=== PATIENT | female | born 1935 | race Caucasian/White ===

== ENCOUNTER 2016-11-05 14:15 | Emergency (ER) | payer MEDICARE, OTHER ==
[~2016-11-05] VITALS: Ht 165.1 cm; Wt 72.6 kg
[~2016-11-05 14:15] MED LIST: ASPI-266 PO; ASPI-587 PO; CITA-105 PO; CRS350T PO; EXEN10PE4 SQ; FURO20TA4 PO; GLIM2TAB PO; HYDR-3720 PO; LEVO125T PO; LIRA0.6P SQ; LOSA100T16 PO; LTN005OP2 OP; MTF500T PO; NAPR220T76 PO; PNT40TEC PO; POTA10CA43 PO; SMV20T PO; Sucralfate PO; TRAM50TA2 PO
[2016-11-05 16:02] LABS: BILIRUBIN,URINE NEGATIVE (NEGATIVE); KETONES,URINE 3+ (NEGATIVE); LEUKOCYTE ESTERASE ,URINE 2+ (NEGATIVE); NITRITE,URINE NEGATIVE (NEGATIVE); PH,URINE 6.5 (5-9); PROTEIN,URINE 3+ (NEGATIVE); UROBILINOGEN,URINE 1 MG/DL (NORMAL)
[2016-11-05 16:02] LABS: BASOPHILS # (AUTO) 0.1 10^3/uL (0.0-0.1); BASOPHILS % (AUTO) 0 % (0-10); EOSINOPHILS # (AUTO) 0.1 10^3/uL (0.0-0.3); EOSINOPHILS % (AUTO) 0 % (0-10); LYMPHOCYTES # (AUTO) 2.7 X 10^3 (1.0-4.0); LYMPHOCYTES % (AUTO) 20 % (12-44); MEAN CORPUSCULAR HEMOGLOBIN 30 PG (25-34); MEAN CORPUSCULAR HGB CONC 34 G/DL (32-36); MEAN CORPUSCULAR VOLUME 88 FL (80-99); MEAN PLATELET VOLUME 9.8 FL (7.4-10.4); MONOCYTES # (AUTO) 0.7 X 10^3 (0.0-1.0); MONOCYTES % (AUTO) 5 % (0-12); NEUTROPHILS # (AUTO) 10.1 X 10^3 (1.8-7.8); NEUTROPHILS % (AUTO) 74 % (42-75); PLATELET COUNT 348 10^3/uL (130-400); RED BLOOD COUNT 4.46 10^6/uL (4.35-5.85); RED CELL DISTRIBUTION WIDTH 13.9 % (10.0-14.5); WHITE BLOOD COUNT 13.6 10^3/uL (4.3-11.0)
[2016-11-05 16:15] LABS: ALANINE AMINOTRANSFERASE 11 U/L (0-55); ALBUMIN 4.7 G/DL (3.2-4.5); ANION GAP 15 MMOL/L (5-14); ASPARTATE AMINO TRANSFERASE 14 U/L (5-34); BILIRUBIN,TOTAL 0.8 MG/DL (0.1-1.0); BLOOD UREA NITROGEN 11 MG/DL (7-18); BUN/CREATININE RATIO 13; CALCIUM 9.5 MG/DL (8.5-10.1); CARBON DIOXIDE 23 MMOL/L (21-32); CHLORIDE 101 MMOL/L (98-107); CREATININE SERUM 0.83 MG/DL (0.60-1.30); GFR ESTIMATED > 60; GLUCOSE 109 MG/DL (70-105); POTASSIUM 3.6 MMOL/L (3.6-5.0); SODIUM 139 MMOL/L (135-145); TOTAL PROTEIN 7.7 G/DL (6.4-8.2)
[2016-11-05] MEDS ORDERED: ONDANSETRON 4 MG/2 ML (SDV) Z0FRAN IVP ONE (16:30)
--- NOTE | 2016-11-05 16:30 | ED GI ---
General Chief Complaint: Abdominal/GI Problems Stated Complaint: VOMITING/ELEV BP Nursing Triage Note: PT REPORTS SHE HAS VOMITTED 3 TIMES TODAY. ALSO C/O HYPERTENSION X 1 WEEK Sepsis Screen: No Definite Risk History of Present Illness Time Seen By Provider: 16:24 Initial Comments This 81-year-old white female presents with a complaint of vomiting 3 today. The patient has had no associated fever, chills, abdominal pain, headache or stiff neck, shortness of breath or productive cough, palpitations or chest pain. Patient has a history of hypertension for which she is taking new medications in an attempt to control her pressure. She is under the care of Dr. Galaviz. Allergies and Home Medications Allergies Coded Allergies: cefaclor (Verified Allergy, Unknown, 09/10/08) codeine (Verified Allergy, Unknown, 09/10/08) latex (Verified Allergy, Unknown, 09/10/08) nabumetone (Verified Allergy, Unknown, 09/10/08) propranolol (Verified Allergy, Unknown, 09/10/08) sulfamethoxazole (Verified Allergy, Unknown, 09/10/08) trimethoprim (Verified Allergy, Unknown, 09/10/08) Uncoded Allergies: STEROIDS (Allergy, Intermediate, 06/30/11) IODINE (IV DYE) (Allergy, Unknown, 10/08/14) LATEX (Allergy, Unknown, 09/10/08) Home Medications 1 GM TAB #120 1 GM PO ACHS Prescribed by: SHAYNE GALAVIZ on 10/13/14921 Citalopram Hydrobromide 40 Mg Tablet 40 MG PO DAILY (Reported) Latanoprost 2.5 Ml Soln 1 DROP OP HS (Reported) 1 DROP INTO AFFECTED EYE Levothyroxine Sodium 125 Mcg Tablet 125 MCG PO DAILY (Reported) Liraglutide 0.6 Mg/0.1 Ml Pen.injctr 1.2 MG SQ DAILY (Reported) Losartan Potassium 100 Mg Tablet 100 MG PO DAILY (Reported) Metformin Hcl 500 Mg Tablet 1,000 MG PO BID WITH MEALS (Reported) TAKES 2 (500MG) TABLETS Pantoprazole Sod 40 Mg Tab #60 40 MG PO BID Prescribed by: SHAYNE GALAVIZ on 10/13/14921 Simvastatin 20 Mg Tab 20 MG PO HS (Reported) Review of Systems Constitutional: No chills, No fever EENTM: No Blurred Vision Respiratory: Denies Cough Cardiovascular: Denies Chest Pain Gastrointestinal: Denies Abdominal Pain, Nausea Vomiting Genitourinary: Denies Burning, Denies Drainage, Denies Frequency, Denies Flank Pain Musculoskeletal: No back pain, No joint pain Skin: no symptoms reportedNo rash Psychiatric/Neurological: No Symptoms Reported Endocrine: No Symptoms Reported Hematologic/Lymphatic: No Symptoms Reported Past Wzieirz-Panspt-Epvbmj Hx Patient Social History Alcohol Use: Denies Use Recreational Drug Use: No Smoking Status: Never a Smoker Recent Foreign Travel: No Contact w/Someone Who Travel: No Recent Infectious Disease Expo: No Recent Hopitalizations: Yes Immunizations Up To Date Date of Pneumonia Vaccine: Oct 08, 2013 Date of Influenza Vaccine: Jul 08, 2014 Surgeries HX Surgeries: Yes (back surg 06/2011; GB) Surgeries: Gallbladder, Hysterectomy, Orthopedic Respiratory Hx Respiratory Disorders: No Cardiovascular Hx Cardiac Disorders: Yes Cardiac Disorders: Hypertension Neurological Hx Neurological Disorders: No Reproductive System Hx Reproductive Disorders: No Sexually Transmitted Disease: No HIV/AIDS: No Female Reproductive Disorders: Denies Genitourinary Hx Genitourinary Disorders: No Gastrointestinal Hx Gastrointestinal Disorders: Yes (18 in bowel resection) Gastrointestinal Disorders: Diverticulosis Musculoskeletal Hx Musculoskeletal Disorders: Yes (ARTHRITIS) Endocrine Hx Endocrine Disorders: Yes (Graves disease) Endocrine Disorders: Diabetes, Non-Insulin dep HEENT HX ENT Disorders: Yes HEENT Disorders: Glaucoma Cancer Hx Cancer: No Psychosocial Hx Psychiatric Problems: No Integumentary HX Skin/Integumentary Disorder: No Blood Transfusions Hx Blood Disorders: No Adverse Reaction to a Blood Tr: No Reviewed Nursing Assessment Reviewed/Agree w Nursing PMH: Yes Family Medical History Family Medial History: Diabetes mellitus G8 SISTER FH: heart disease 19 FATHER G8 BROTHER Physical Exam Vital Signs VS - Last 72 Hours, by Label 11/05/16 15:07 Temp 99.8 Pulse 112 Resp 18 B/P 201/112 Capillary Refill : Less Than 3 Seconds General Appearance: WD/WN no apparent distress Neck: normal inspection Respiratory: lungs clear Cardiovascular: regular rate, rhythm Gastrointestinal: normal bowel sounds non tender soft Extremities: normal range of motion non-tender normal inspection Neurologic/Psychiatric: no motor/sensory deficits alert normal mood/affect Skin: normal color warm/dry Progress/Results/Core Measures Results/Orders Lab Results Laboratory Tests Test 11/05/16 15:25 11/05/16 15:54 Range/Units Alanine Aminotransferase (ALT/SGPT) 11 0-55 U/L Albumin 4.7 H 3.2-4.5 G/DL Alkaline Phosphatase 80 40-136 U/L Anion Gap 15 H 5-14 MMOL/L Aspartate Amino Transf (AST/SGOT) 14 5-34 U/L BUN/Creatinine Ratio 13 Basophils # (Auto) 0.1 0.0-0.1 10^3/uL Basophils (%) (Auto) 0 0-10 % Blood Urea Nitrogen 11 7-18 MG/DL Calcium Level 9.5 8.5-10.1 MG/DL Carbon Dioxide Level 23 21-32 MMOL/L Chloride Level 101 98-107 MMOL/L Creatinine 0.83 0.60-1.30 MG/DL Eosinophils # (Auto) 0.1 0.0-0.3 10^3/uL Eosinophils (%) (Auto) 0 0-10 % Estimat Glomerular Filtration Rate > 60 Glucose Level 109 H 70-105 MG/DL Hematocrit 39 35-52 % Hemoglobin 13.3 11.5-16.0 G/DL Lymphocytes # (Auto) 2.7 1.0-4.0 X 10^3 Lymphocytes (%) (Auto) 20 12-44 % Mean Corpuscular Hemoglobin 30 25-34 PG Mean Corpuscular Hemoglobin Concent 34 32-36 G/DL Mean Corpuscular Volume 88 80-99 FL Mean Platelet Volume 9.8 7.4-10.4 FL Monocytes # (Auto) 0.7 0.0-1.0 X 10^3 Monocytes (%) (Auto) 5 0-12 % Neutrophils # (Auto) 10.1 H 1.8-7.8 X 10^3 Neutrophils (%) (Auto) 74 42-75 % Platelet Count 348 130-400 10^3/uL Potassium Level 3.6 3.6-5.0 MMOL/L Red Blood Count 4.46 4.35-5.85 10^6/uL Red Cell Distribution Width 13.9 10.0-14.5 % Sodium Level 139 135-145 MMOL/L Total Bilirubin 0.8 0.1-1.0 MG/DL Total Protein 7.7 6.4-8.2 G/DL White Blood Count 13.6 H 4.3-11.0 10^3/uL Urine Bacteria MODERATE H /HPF Urine Bilirubin NEGATIVE NEGATIVE Urine Casts NONE /LPF Urine Clarity CLEAR Urine Color YELLOW Urine Crystals NONE /LPF Urine Culture Indicated YES Urine Glucose (UA) NEGATIVE NEGATIVE Urine Ketones 3+ H NEGATIVE Urine Leukocyte Esterase 2+ H NEGATIVE Urine Mucus NEGATIVE /LPF Urine Nitrite NEGATIVE NEGATIVE Urine Protein 3+ H NEGATIVE Urine RBC 2-5 H /HPF Urine RBC (Auto) 1+ H NEGATIVE Urine Specific Hamill 1.015 L 1.016-1.022 Urine Squamous Epithelial Cells 5-10 /HPF Urine Urobilinogen 1 NORMAL MG/DL Urine WBC 5-10 H /HPF Urine pH 6.5 5-9 My Orders Orders-ALINA SANCHEZ MD Cbc With Automated Diff (11/05/16 15:53) Comprehensive Metabolic Panel (11/05/16 15:53) Ua Culture If Indicated (11/05/16 15:53) Ondansetron Injection (Zofran Injectio (11/05/16 16:30) Urine Culture (11/05/16 15:54) Vital Signs/I&O Vital Sign - Last 12Hours 11/05/16 15:07 Temp 99.8 Pulse 112 Resp 18 B/P 201/112 Blood Pressure Mean: 141 Progress Note : Time: 16:28 Progress Note The patient was given 4 mg of Zofran IV. The patient some laboratory evaluation demonstrated a marked UTI. Departure Impression Impression: Primary Impression: Urinary tract infection Qualified Code: N30.00 - Acute cystitis without hematuria Disposition: HOME, SELF-CARE Condition: Improved Departure-Patient Inst. Decision time for Depature: 16:29 Referrals: SHAYNE GALAVIZ DO (PCP/Family) Primary Care Physician Add. Discharge Instructions: Macrobid as prescribed. Zofran as prescribed for nausea. Close follow-up with Dr. Galaviz on Monday. Return if any problems. All discharge instructions reviewed with patient and/or family. Voiced understanding. ALINA SANCHEZ MD Nov 05, 2016 16:30
[2016-11-05 17:00] VITALS: BP 154/71
== END 2016-11-05 17:00 | disposition home or self-care (01) ==
LOC: EDUNIT# 14:15 → ER 14:16
DX: R11.2 Nausea with vomiting, unspecified (principal); I10 Essential (primary) hypertension; E11.9 Type 2 diabetes mellitus without complications; Z79.84 Long term (current) use of oral hypoglycemic drugs; Z79.899 Other long term (current) drug therapy
CPT/HCPCS: 36415; 80053; 81000; 85025; 87077; 87088; 87186; 96374

== ENCOUNTER → 2017-07-03 | Outpatient (CLI) | payer MEDICARE, OTHER ==
--- NOTE | 2017-07-04 11:01 | Diagnostic Imaging Report ---
EXAMINATION: Bilateral screening mammogram 2D views with tomosynthesis. The current study was also evaluated with a Computer Aided Detection (CAD) system. INDICATION: Screening. PERSONAL HISTORY: No current complaints stated on the questionnaire. COMPARISON: 06/29/2016. FINDINGS: The breasts are composed of heterogeneously dense parenchyma which may decrease mammographic sensitivity. There is no mass, architectural distortion, or suspicious cluster of calcifications seen. Allowing for technique and positional differences, no suspicious change is seen. IMPRESSION: No significant change. ACR BI-RADS Category 2: Benign findings. Result letter will be mailed to the patient. Note: At least 10% of breast cancer is not imaged by mammography. Dictated by: Dictated on workstation # [id number]
== END ==
LOC: RAD 10:10
PROVIDERS: ATTEND Internal Medicine
DX: Z12.31 Encounter for screening mammogram for malignant neoplasm of breast (principal)
CPT/HCPCS: 77067

== ENCOUNTER 2017-12-27 13:00 | Outpatient (RCR) | payer MEDICARE, OTHER ==
[2017-12-19 13:05] VITALS: BP 145/78
[2017-12-19 14:55] VITALS: BP 145/78
[~2017-12-27] VITALS: Ht 165.1 cm; Wt 72.8 kg
[2017-12-27 13:00] VITALS: BP 150/80
[~2017-12-27 13:00] MED LIST changes: +IRON DEXTRAN 1,000 MG/NS 250 ML IVPB IM NR; +IRON DEXTRAN 25 MG/NS 6.25 ML TOTAL VOLUME IM ONE
[2017-12-27] MEDS ORDERED: IRON DEXTRAN 25 MG/NS 6.25 ML TOTAL VOLUME IV ONE ×3 (13:15)
[2017-12-27] MEDS ORDERED: IRON DEXTRAN 1,000 MG/NS 250 ML IVPB IV ONE ×2 (13:45)
[2018-03-16] MEDS ORDERED: PANT40TA3 PO (11:09)
[2018-03-16] MEDS ORDERED: AMLO5TAB2 PO (11:09)
[2018-03-16] MEDS ORDERED: LATA2.5D5 OU (11:09)
[2018-03-16] MEDS ORDERED: HYDR-3923 PO (11:09)
[2018-03-16] MEDS ORDERED: SIMV20TA3 PO (11:09)
[2018-03-16] MEDS ORDERED: LIRA0.6P3 SC (11:09)
[2018-03-16] MEDS ORDERED: CITA40TA11 PO (11:09)
[2018-03-16] MEDS ORDERED: AMOX250T PO (11:09)
[2018-03-16] MEDS ORDERED: LEVO125T6 PO (11:09)
[2018-03-16] MEDS ORDERED: METF500T5 PO (11:15)
[2018-03-16] MEDS ORDERED: ACET-2650 PO (11:15)
[2018-03-16] MEDS ORDERED: CHOL10007 PO (11:15)
[2018-03-20] MEDS ORDERED: LEVO500T80 PO (19:58)
[2018-03-21] MEDS ORDERED: LEVO500T2 PO ×2 (09:02→10:04)
== END 2018-03-19 | disposition home or self-care (01) ==
LOC: SDC 13:00 → EDSTATUS 13:14
PROVIDERS: ATTEND Internal Medicine
DX: D50.9 Iron deficiency anemia, unspecified (principal)
CPT/HCPCS: 96365

== ENCOUNTER 2018-03-15 16:50 | Observation (INO) | payer MEDICARE, OTHER ==
[~2018-03-15] VITALS: Ht 165.1 cm; Wt 71.7 kg
[~2018-03-15 16:50] MED LIST changes: -IRON DEXTRAN 1,000 MG/NS 250 ML IVPB IM NR; -IRON DEXTRAN 25 MG/NS 6.25 ML TOTAL VOLUME IM ONE
[2018-03-15] MEDS ORDERED: NS IV 1000 ML 1,000 ML IV SCH (17:16)
[2018-03-15] MEDS ORDERED: PATIENT MAY USE OWN MEDS, ALL PO SCH (17:30)
[2018-03-15] MEDS ORDERED: ACETAMINOPHEN 500 MG TAB (TYLENOL) PO PRN (17:30)
[2018-03-15] MEDS ORDERED: ONDANSETRON 4 MG/2 ML (SDV) Z0FRAN IV PRN (17:30)
[2018-03-15] MEDS ORDERED: ANTACID SUSP 30 ML UDC (MYLANTA) PO PRN (17:30)
[2018-03-15] MEDS ORDERED: BENZONATATE 100 MG (TESSALON) CAPSULE PO PRN (17:30)
[2018-03-15] MEDS ORDERED: MILK OF MAGNESIA 400 MG/5 ML 30 ML UDC PO PRN (17:30)
[2018-03-15] MEDS ORDERED: MELATONIN 3 MG TABLET PO PRN (17:30)
[2018-03-15 18:16] LABS: BILIRUBIN,URINE NEGATIVE (NEGATIVE); CLARITY,URINE CLEAR; COLOR,URINE YELLOW; GLUCOSE, URINE (UA) NEGATIVE (NEGATIVE); KETONES,URINE NEGATIVE (NEGATIVE); LEUKOCYTE ESTERASE ,URINE 3+ (NEGATIVE); NITRITE,URINE NEGATIVE (NEGATIVE); PH,URINE 6 (5-9); PROTEIN,URINE 2+ (NEGATIVE); UROBILINOGEN,URINE 4 MG/DL (NORMAL)
[2018-03-15] MEDS ORDERED: ACETAMINOPHEN 325 MG TABLET/CAPLET (TYLENOL) PO PRN (18:30)
[2018-03-15 18:31] LABS: BACTERIA,URINE FEW /HPF; RBC,URINE 25-50 /HPF; SQUAMOUS EPITHELIAL CELL,UR 25-50 /HPF; WBC,URINE >100 /HPF
[2018-03-15 19:10] LABS: BASOPHILS # (AUTO) 0.2 10^3/uL (0.0-0.1); BASOPHILS % (AUTO) 1 % (0-10); EOSINOPHILS # (AUTO) 0.1 10^3/uL (0.0-0.3); EOSINOPHILS % (AUTO) 0 % (0-10); HEMATOCRIT 34 % (35-52); HEMOGLOBIN 12.2 G/DL (11.5-16.0); LYMPHOCYTES # (AUTO) 2.2 X 10^3 (1.0-4.0); LYMPHOCYTES % (AUTO) 10 % (12-44); MEAN CORPUSCULAR HEMOGLOBIN 32 PG (25-34); MEAN CORPUSCULAR HGB CONC 36 G/DL (32-36); MEAN CORPUSCULAR VOLUME 89 FL (80-99); MEAN PLATELET VOLUME 9.2 FL (7.4-10.4); MONOCYTES # (AUTO) 1.5 X 10^3 (0.0-1.0); MONOCYTES % (AUTO) 7 % (0-12); NEUTROPHILS # (AUTO) 19.2 X 10^3 (1.8-7.8); NEUTROPHILS % (AUTO) 83 % (42-75); PLATELET COUNT 324 10^3/uL (130-400); RED BLOOD COUNT 3.81 10^6/uL (4.35-5.85); RED CELL DISTRIBUTION WIDTH 14.6 % (10.0-14.5); WHITE BLOOD COUNT 23.2 10^3/uL (4.3-11.0)
[2018-03-15 19:38] LABS: BAND NEUTROPHILS 22 %; BASOPHILS % (MANUAL) 0 %; EOSINOPHILS % (MANUAL) 0 %; LYMPHOCYTES % (MANUAL) 18 %; METAMYELOCYTES % 3 %; MONOCYTES % (MANUAL) 7 %; NEUTROPHILS % (MANUAL) 50 %; RBC MORPH NORMAL
[2018-03-15 19:40] LABS: CALCIUM 8.9 MG/DL (8.5-10.1); CREATININE SERUM 1.1 MG/DL (0.60-1.30); POTASSIUM 3.2 MMOL/L (3.6-5.0)
--- OUTSIDE RECORDS SUMMARY | 2018-03-15 20:26 | XMS REPORT | Clinical Summary ---
Author Author User, [employer] Organization [facility] Physician [place] Address Unknown Phone Unavailable Allergies, Adverse Reactions, Alerts Allergy Name Reaction Description Start Date Severity Status Provider OXYCONTIN Critical Active Sagrario Caroline Galaviz PRINIVIL cough Critical Active Sagrario Caroline Galaviz TESSALON PEARLS itching, tongue swollen Critical Active Sagrario Caroline Galaviz RELAFEN itching Critical Active Sagrario Caroline Galaviz INDERAL throat felt like it was closing Critical Active Sagrariokade Galaviz CODEINE Dermatological problems, e.g., rash, hivesitching Critical Active Sagrario Caroline Galaviz CECLOR Dermatological problems, e.g., rash, hives Critical Active Sagrario Caroline Galaviz BACTRIM Dermatological problems, e.g., rash, hives Critical Active Sagrariokade Galaviz IVP DYE Dermatological problems, e.g., rash, hives Critical Active Sagrariokade Galaviz Conditions or Problems Problem Name Problem Code Onset Date Status Entry Date Provider Comment Standard Description Annotate GRAVE'S DISEASE, 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 HYPERGLYCEMIA, MILD 790.6 Refinement Sagrario Galaviz Other abnormal blood chemistry DIABETES MELLITUS, TYPE II, UNCONTROLLED, W/O COMPLICATIONS 250.02 Refinement Sagrario Galaviz Diabetes mellitus without mention of complication, type II or unspecified type, uncontrolled DIABETES MELLITUS, TYPE II, CONTROLLED 250.00 Active Sagrario Galaviz Diabetes mellitus without mention of complication, type II or unspecified type, not stated as uncontrolled OSTEOARTHRITIS 715.90 Active Sagrario Galaviz Osteoarthrosis, unspecified whether generalized or localized, involving unspecified site HYPERCHOLESTEROLEMIA 272.0 Active Sagrario Galaviz Pure hypercholesterolemia HYPERTENSION, BENIGN ESSENTIAL, CONTROLLED 401.1 Active Sagrario Galaviz Benign essential hypertension WEIGHT GAIN, ABNORMAL 783.1 Resolved Sagrario Galaviz Abnormal weight gain ANXIETY 300.00 Resolved Sagrario Galaviz Anxiety state, unspecified DEPRESSION 311 Resolved Sagrario Galaviz Depressive disorder, not elsewhere classified DERMATITIS NEC 692.89 Resolved Sagrario Galaviz Contact dermatitis and other eczema due to other specified agents HYPOTHYROIDISM 244.9 Active Sagrario Galaviz Unspecified hypothyroidism SCREENING FOR GLAUCOMA V80.1 Resolved Sagrario Galaviz Screening for glaucoma q 6months VAGINITIS, ATROPHIC, SYMPTOMATIC 627.3 Resolved Sagrario Galaviz Postmenopausal atrophic vaginitis HEAD TRAUMA, CLOSED 959.01 Resolved Sagrario Galaviz Head injury, unspecified HEADACHE 784.0 Resolved Sagrario Galaviz Headache DIVERTICULOSIS, COLON 562.10 Active Sagrario Galaviz Diverticulosis of colon (without mention of hemorrhage) DIVERTICULITIS, ACUTE 562.11 Resolved Sagrario Galaviz Diverticulitis of colon without mention of hemorrhage LOSS OF APPETITE 783.0 Resolved Sagrario Galaviz Anorexia LETHARGY 780.79 Resolved Sagrario Galaviz Other malaise and fatigue CONSTIPATION, MILD 564.00 Resolved Sagrario Galaviz Constipation, unspecified ABDOMINAL PAIN, LEFT LOWER QUADRANT 789.04 Resolved Sagrario Galaviz Abdominal pain, left lower quadrant INGUINAL PAIN, RIGHT 789.09 Resolved Sagrario Galaviz Abdominal pain, other specified site; multiple sites ABDOMINAL PAIN, RECURRENT 789.00 Resolved Sagrario Galaviz Abdominal pain, unspecified site DYSURIA 788.1 Resolved Sagrario Galaviz Dysuria DIARRHEA, CHRONIC 787.91 Resolved Sagrario Galaviz Diarrhea ABDOMINAL PAIN, LEFT LOWER QUADRANT 789.04 Resolved Sagrario Galaviz Abdominal pain, left lower quadrant SYMPTOM, TENDERNESS, ABDOMINAL, LEFT LWR QUAD 789.64 Resolved Sagrario Galaviz Abdominal tenderness, left lower quadrant DYSURIA 788.1 Resolved Sagrario Galaviz Dysuria DIVERTICULITIS, ACUTE 562.11 Resolved Sagrario Galaviz Diverticulitis of colon without mention of hemorrhage COLECTOMY, PARTIAL, WITH ANASTOMOSIS, HX OF V15.2 Resolved 04/09 Sagrario Galaviz Personal history of surgery to other organs, presenting hazards to health BACK PAIN 724.5 Resolved Sagrario Galaviz Backache, unspecified HIP PAIN 719.45 Resolved Sagrario Galaviz Pain in joint involving pelvic region and thigh GLAUCOMA 365.9 Resolved Sagrario Galaviz Unspecified glaucoma BACK PAIN 724.5 Resolved Sagrario Galaviz Backache, unspecified NECK PAIN 723.1 Resolved Sagrario Galaviz Cervicalgia SPINAL STENOSIS, LUMBAR 724.02 Resolved Sagrario Galaviz Spinal stenosis of lumbar region without neurogenic claudication UTI 599.0 Resolved Sagrario Galaviz Urinary tract infection, site not specified HYPOGLYCEMIA 251.2 Resolved Sagrario Galaviz Hypoglycemia, unspecified SEBACEOUS CYST 706.2 Resolved Sagrario Galaviz Sebaceous cyst COUGH 786.2 Resolved Sagrario Galaviz Cough VACCINE AGAINST INFLUENZA V04.81 Resolved Sagrario Galaviz Need for prophylactic vaccination and inoculation against influenza ANEMIA NOS 285.9 Resolved Sagrario Galaviz Anemia, unspecified DEFICIENCY, VITAMIN D NOS 268.9 Resolved Sagrario Galaviz Unspecified vitamin D deficiency ABSCESS, SKIN 682.9 Resolved Sagrario Galaviz Cellulitis and abscess of unspecified sites VACCINE AGAINST INFLUENZA V04.81 Resolved Sagrario Galaviz Need for prophylactic vaccination and inoculation against influenza KNEE PAIN, RIGHT, ACUTE 719.46 Resolved Sagrario Galaviz Pain in joint involving lower leg PNEUMONIA 486 Resolved Sagrario Galaviz Pneumonia, organism unspecified DEHYDRATION 276.51 Resolved Sagrario Galaviz Dehydration URINARY FREQUENCY 788.41 Resolved Sagrario Galaviz Urinary frequency EAR PAIN, LEFT 388.70 Inactive Sagrario Galaviz Otalgia, unspecified VACCINE AGAINST STREPTOCOCCUS PNEUMONIAE V03.82 Resolved Sagrario Galaviz Need for prophylactic vaccination against Streptococcus pneumoniae [pneumococcus] HEMORRHAGE OF GASTROINTESTINAL TRACT, UNSPECIFIED 578.9 Active Sagrario Galaviz Hemorrhage of gastrointestinal tract, unspecified ANEMIA, IRON DEFICIENCY NEC 280.8 Active Sagrario Galaviz Other specified iron deficiency anemias ABDOMINAL PAIN, GENERALIZED 789.07 Resolved Sagrario Galaviz Abdominal pain, generalized LUMBAR RADICULOPATHY, LEFT 724.4 Active aSgrario Galaviz Thoracic or lumbosacral neuritis or radiculitis, unspecified Medication List Medication Instructions Start Date Stop Date Generic Name NDC Status Provider Patient Instruction PREDNISONE 10 MG TAB 2 po at once once daily for two days, then 1 po daily for 2 days PREDNISONE 33282905740 Active Sagrario Galaviz COLESTID 1 GM TABS 1 PO daily COLESTIPOL HCL 28770509279 Active Sagrario Galaviz QUESTRAN 4 GM/DOSE POWD 1 packet in 1/2 cup of OJ. QID CHOLESTYRAMINE 31843191172 Active Sagrario Galaviz PROTONIX 40 MG TBEC 1 PO daily PANTOPRAZOLE SODIUM 89186541255 Active Sagrario Galaviz SUCRALFATE 1 GM TABS 1 PO AC/HS SUCRALFATE 61477683285 No Longer Active Sagrario Galaviz ALEVE 220 MG TAB 2 PO BID NAPROXEN SODIUM 34854230857 No Longer Active Sagrario Galaviz ASPIRIN 81 MG CHEW 1 PO daily ASPIRIN 82358579917 No Longer Active Sagrario Galaviz PYRIDIUM 200 MG TAB 1 PO TID prn urinary urgency PHENAZOPYRIDINE HCL 18464861032 Active Cindi White AMARYL 1 MG TABS 1 PO daily GLIMEPIRIDE 68054866848 No Longer Active Sagrario Galaviz VICTOZA 18 MG/3ML SOLN 1.2 mg injection daily LIRAGLUTIDE 25500725463 Active Sagrario Galaviz TRUE RESULT METER DIRECTED DX: 250.00 TRUE RESULT METER Active Cindi White TRUETEST TEST STRP TEST BS QID DX: 250.00 GLUCOSE BLOOD 45190960943 Active Cindi White PREMARIN 0.625 MG/GM CREA apply to affected areas BID prn ESTROGENS, CONJUGATED VAGINAL 91048199825 Active Cindi White ZOSTAVAX 37998 UNT/0.65ML SOLR 1 injection once to prevent Shingles ZOSTER VACCINE LIVE 92851815024 No Longer Active Cindi White BD PEN NEEDLE SHORT U/F 31G X 8 MM MISC As directed BID INSULIN PEN NEEDLE 48189097594 Active Sagrariokade Galaviz ZOSTAVAX 23675 UNT/0.65ML SOLR 1 injection once to prevent Shingles ZOSTER VACCINE LIVE 48092245713 No Longer Active Sagrariokade Galaviz FISH OIL 1000 MG CAPS 1 PO daily OMEGA-3 FATTY ACIDS 35736950822 Active Sagrariokade Galaviz NITROFURANTOIN MACROCRYSTAL 100 MG CAPS 1 PO daily with supper. NITROFURANTOIN MACROCRYSTAL 16965073744 No Longer Active Sagrariokade Galaviz BYETTA 10 MCG PEN 10 MCG/0.04ML SOLN 1 injection BID EXENATIDE 35048775388 No Longer Active Sagrariokade Galaviz BYDUREON 1 injection weekly BYDUREON No Longer Active Sagrario Caroline Galaviz K-DUR 10 MEQ TAB CR 1 PO daily with Lasix POTASSIUM CHLORIDE No Longer Active Sagrariokade Galaviz LASIX 20 MG TAB 1 PO QD prn swelling FUROSEMIDE 76275347993 No Longer Active Sagrariokade Galaviz TRAMADOL HCL 50 MG TABS 1-2 PO every 4-6 hours PRN TRAMADOL HCL 59244267058 No Longer Active Sagrariokade Galaviz CARISOPRODOL 350 MG TABS 1 PO QID CARISOPRODOL 22165261601 No Longer Active Sagrario Caroline Galaviz DEMEROL 50 MG TABS 1 PO QID prn MEPERIDINE HCL 73491005498 No Longer Active Sagrario Caroline Galaviz HYDROCODONE-ACETAMINOPHEN 10-325 MG TABS HYDROCODONE-ACETAMINOPHEN 55899838069 No Longer Active Sagrario Galaviz PHENERGAN 25 MG TAB 1 PO Q6hrs prn PROMETHAZINE HCL No Longer Active Sagrario Galaviz DOXYCYCLINE HYCLATE CAPS DOXYCYCLINE HYCLATE CAPS 75914378125 No Longer Active Sagrario Galaviz PYRIDIUM 200 MG TAB 1 PO TID prn urinary urgency PHENAZOPYRIDINE HCL 38434316116 No Longer Active Cindi White CIPRO 500 MG TAB 1 PO BID for 7 days CIPROFLOXACIN HCL 35160976892 No Longer Active Cindi White PYRIDIUM 200 MG TAB 1 PO TID prn urinary urgency PHENAZOPYRIDINE HCL 19673536121 No Longer Active Sagrario Galaviz AUGMENTIN 500-125 MG TAB 1 PO BID AMOXICILLIN-POT CLAVULANATE 86219116676 No Longer Active Sagrario Galaviz PYRIDIUM 200 MG TAB 1 PO TID prn urinary urgency PHENAZOPYRIDINE HCL 58389667343 No Longer Active Cindi White AUGMENTIN 500-125 MG TAB 1 PO BID x 5 days AMOXICILLIN-POT CLAVULANATE 82311593120 No Longer Active Cindi White PYRIDIUM 200 MG TAB 1 PO TID prn urinary urgency PHENAZOPYRIDINE HCL 98646557830 No Longer Active Cindi White VITAMIN D 1000 UNIT TABS 1 PO daily CHOLECALCIFEROL 60029358621 Active Sagrariokade Galaviz CALTRATE 600 PLUS-VIT D 600-200 MG-IU TABS 1 PO QD CALCIUM-VITAMIN D 46801307686 No Longer Active Sagrario Galaviz SYNTHROID 137 MCG TABS 1 pill Mon and Monday and take the 125 mcg M-F LEVOTHYROXINE SODIUM 51473188141 No Longer Active Sagrario Galaviz VITAMIN D 4000 UNIT CAPS (CHOLECALCIFEROL) 1 PO twice a week VITAMIN D 4000 UNIT CAPS (CHOLECALCIFEROL) No Longer Active Sagrario Galaviz SYNTHROID 0.125 MG TAB 1 PO daily. LEVOTHYROXINE SODIUM 07063345131 Active Sagrario Galaviz ANTIVERT 25 MG TABS 1 PO Q 6 hrs prn MECLIZINE HCL 66110644367 Active Sagrario Galaviz AMARYL 2 MG TAB 1/4 Tablet PO Daily GLIMEPIRIDE 59478469744 No Longer Active Sagrario Galaviz VITAMIN D 1000 UNIT TABS 2 PO Daily CHOLECALCIFEROL 15522114480 No Longer Active Sagrario Galaviz METFORMIN HCL 500 MG TABS 2 PO BID METFORMIN HCL 81772738217 Active Sagrario Galaviz ONE TOUCH ULTRA TEST STRIPS Test BS four times a day DX Diabetes ONE TOUCH ULTRA TEST STRIPS No Longer Active Cindi White VITAMIN D CAPS (ERGOCALCIFEROL CAPS) 400MG 2 PO daily VITAMIN D CAPS (ERGOCALCIFEROL CAPS) 400MG No Longer Active Sagrario Galaviz GLUCOSAMINE 500 MG CAPS as directed GLUCOSAMINE SULFATE 89469311955 No Longer Active Sagrario Galaviz FERROUS SULFATE 325 (65 FE) MG TABS 2 tablets po TID x 1 week, then 1 tablet po in am and 1 po in pm until bottles gone FERROUS SULFATE 06899245684 No Longer Active Sagrario Galaviz BYETTA 10 MCG PEN 250 MCG/ML SOLN 1 injection BID EXENATIDE 11215598258 No Longer Active Cindi White AVANDAMET 2-500 MG TABS 1 PO BID ROSIGLITAZONE-METFORMIN 22475406106 No Longer Active Sagrario Galaviz AMARYL 2 MG TABS 1/2 pill PO BID for diabetes GLIMEPIRIDE 99693816443 No Longer Active Sagrario Galaviz AVANDAMET 2-500 MG TABS 1 PO BID ROSIGLITAZONE- METFORMIN 25840178264 No Longer Active Sagrario Caroline Galaviz CITALOPRAM HYDROBROMIDE 40 MG TABS 1 po daily CITALOPRAM HYDROBROMIDE 20583074639 Active Sagrario Caroline Galaviz CHROMIUM PICOLINATE 400 MCG CAPS daily CHROMIUM PICOLINATE 48342633306 No Longer Active Sagrario Caroline Galaviz ZOCOR 20 MG TABS 1 PO QHS SIMVASTATIN 86055051258 Active Sagrario Caroline Galaviz CYMBALTA 30 MG CPEP 1 PO daily DULOXETINE HCL 67314630870 No Longer Active Sagrario Caroline Galaviz VALIUM 2 MG TABS 1/2 PO 1 hour prior to MRI procedure, may repeat if necessary DIAZEPAM 80183683360 No Longer Active Buck Trevino ACETAMINOPHEN 325 MG TABS 1 PO Q6hrs ACETAMINOPHEN 30130247916 Active Sagrario Caroline Galaviz XALATAN 0.005 % SOLN as directed LATANOPROST 88566367411 Active Sagrario Caroline Galaviz CITRUCEL POWDER Use qd after meals METHYLCELLULOSE ( LAXATIVE) 66912179651 No Longer Active Sagrariokade Galaviz CIPRO 500 MG TAB 1 BID CIPROFLOXACIN HCL 30076466670 No Longer Active Sagrario Caroline Galaviz FLAGYL 500 MG TAB 1 TID METRONIDAZOLE 79776449941 No Longer Active Sagrariokade Galaviz NYSTATIN 520931 U/ML SUSP S/S qid as directed for 7 days NYSTATIN 82290736686 No Longer Active Sagrario Caroline Galaviz GLUCOPHAGE 500 MG TABS 1 PO BID METFORMIN HCL 10480829991 No Longer Active Sagrario Caroline Galaviz SYNTHROID 125 MCG TABS 1 po daily LEVOTHYROXINE SODIUM 82908712873 No Longer Active Sagrario Caroline Galaviz TRIAMCINOLONE ACETONIDE 0.1 % CREA Apply to areas tid TRIAMCINOLONE ACETONIDE (TOP) 48930826298 Active Sagrario Galaviz COZAAR 100 MG TABS 1 po daily LOSARTAN POTASSIUM 94771048067 Active Sagrario Galaviz CELEXA 40 MG TABS 1 po daily CITALOPRAM HYDROBROMIDE 85767918106 No Longer Active Sagrario Galaviz Immunizations Vaccine Administration Date Value Standard Description Influenza vaccine given DONE influenza virus vaccine, unspecified formulation Influenza vaccine given Done Oct influenza virus vaccine, unspecified formulation Vital Signs Date Name Value Unit Range Description blood pressure, diastolic - 8462-4 83 mm[Hg] BP montes blood pressure, systolic - 8480-6 161 mm[Hg] BP sys pulse rate E&M - 8867-4 96 /min Heart rate respiratory rate E&M - 9279-1 14 /min Resp rate temperature E&M 98.6 [degF] Body temperature blood pressure, diastolic - 8462-4 70 mm[Hg] BP montes blood pressure, systolic - 8480-6 130 mm[Hg] BP sys pulse rate E&M - 8867-4 60 /min Heart rate respiratory rate E&M - 9279-1 14 /min Resp rate blood pressure, diastolic - 8462-4 82 mm[Hg] BP montes blood pressure, systolic - 8480-6 154 mm[Hg] BP sys pulse rate E&M - 8867-4 78 /min Heart rate respiratory rate E&M - 9279-1 14 /min Resp rate blood pressure, diastolic - 8462-4 68 mm[Hg] BP montes blood pressure, systolic - 8480-6 130 mm[Hg] BP sys pulse rate E&M - 8867-4 60 /min Heart rate respiratory rate E&M - 9279-1 14 /min Resp rate blood pressure, diastolic - 8462-4 72 mm[Hg] BP montes blood pressure, systolic - 8480-6 136 mm[Hg] BP sys pulse rate E&M - 8867-4 64 /min Heart rate respiratory rate E&M - 9279-1 14 /min Resp rate blood pressure, diastolic - 8462-4 60 mm[Hg] BP montes blood pressure, systolic - 8480-6 120 mm[Hg] BP sys pulse rate E&M - 8867-4 60 /min Heart rate respiratory rate E&M - 9279-1 14 /min Resp rate Diagnostic Results Date Name Value Unit Range Description Clinical Lists Update: CBC,CMP,CHOL,TRIG,TSH,FREE T4,HGA1C - Chemistry hemoglobin A1C, blood, as % of total hemoglobin 6.1 % bilirubin, serum, total 0.4 mg/dL triglyceride, serum, fasting 185 mg/dL sodium, serum 139 mmol/L anion gap, serum 16 glucose, plasma fasting 123 mg/dL Estimated Glomerular Filtration Rate (calc) 62 mL/min/1.73m2 urea nitrogen, blood 10 mg/dL calcium, serum 9.4 mg/dL chloride, serum 101 mmol/L cholesterol, serum 128 mg/dL carbon dioxide, venous blood 26.0 mmol/L creatinine, serum 0.9 mg/dL ferritin, serum 69.3 ng/mL thyroxine, serum, free 1.28 ng/dL thyroid stimulating hormone, serum 0.99 u[iU]/mL potassium, serum 3.7 mmol/L protein, total, serum 6.6 g/dL aspartate aminotransferase (SGOT), serum 13 U/L alanine aminotransferase (SGPT), serum 9 U/L alkaline phosphatase, serum 72 U/L albumin, serum 4.3 g/dL Clinical Lists Update: CBC,CMP,CHOL,TRIG,TSH,FREE T4,HGA1C - Hematology hematocrit, blood 35 % red blood cell distribution width 16.4 % mean corpuscular volume, RBC 93 fL leukocyte count, blood 13.5 10*3/mm3 erythrocyte (RBC) count 3.78 10*6/mm3 platelet count 371 10*3/mm3 hemoglobin, blood 10.4 g/dL Clinical Lists Update: CBC,CMP,Chol,Trig,TSH,Free T4,HgA1c - Chemistry albumin, serum 4.0 g/dL alkaline phosphatase, serum 58 U/L urea nitrogen, blood 20 mg/dL calcium, serum 9.2 mg/dL chloride, serum 101 mmol/L cholesterol, serum 122 mg/dL carbon dioxide, venous blood 25.0 mmol/L creatinine, serum 0.8 mg/dL thyroxine, serum, free 1.38 ng/dL hemoglobin A1C, blood, as % of total hemoglobin 6.3 % thyroid stimulating hormone, serum 0.11 u[iU]/mL potassium, serum 4.1 mmol/L protein, total, serum 6.3 g/dL aspartate aminotransferase (SGOT), serum 13 U/L bilirubin, serum, total 0.4 mg/dL triglyceride, serum, fasting 189 mg/dL sodium, serum 138 mmol/L anion gap, serum 16 glucose, plasma fasting 116 mg/dL Estimated Glomerular Filtration Rate (calc) 76 mL/min/1.73m2 alanine aminotransferase (SGPT), serum 11 U/L Clinical Lists Update: CBC,CMP,Chol,Trig,TSH,Free T4,HgA1c - Hematology red blood cell distribution width 14.9 % mean corpuscular volume, RBC 93 fL leukocyte count, blood 12.4 10*3/mm3 erythrocyte (RBC) count 3.94 10*6/mm3 platelet count 287 10*3/mm3 hemoglobin, blood 11.3 g/dL hematocrit, blood 37 % Clinical Lists Update: CBC,CMP,FLP,TSH,Free T4,HgA1c,Ferritin - Chemistry Estimated Glomerular Filtration Rate (calc) 75 mL/min/1.73m2 glucose, plasma fasting 124 mg/dL cholesterol/HDL ratio, serum, percent 3.9 anion gap, serum 14 sodium, serum 134 mmol/L triglyceride, serum, fasting 219 mg/dL bilirubin, serum, total 0.4 mg/dL alanine aminotransferase (SGPT), serum 7 U/L aspartate aminotransferase (SGOT), serum 14 U/L protein, total, serum 6.7 g/dL potassium, serum 4.1 mmol/L LDL cholesterol, serum 53 mg/dL thyroid stimulating hormone, serum 1.43 u[iU]/mL hemoglobin A1C, blood, as % of total hemoglobin 6.8 % HDL cholesterol, serum 34.0 mg/dL thyroxine, serum, free 1.47 ng/dL ferritin, serum 15.8 ng/mL creatinine, serum 0.8 mg/dL carbon dioxide, venous blood 24.0 mmol/L cholesterol, serum 131 mg/dL chloride, serum 100 mmol/L calcium, serum 9.5 mg/dL urea nitrogen, blood 17 mg/dL alkaline phosphatase, serum 71 U/L albumin, serum 4.3 g/dL Clinical Lists Update: CBC,CMP,FLP,TSH,Free T4,HgA1c,Ferritin - Hematology mean corpuscular volume, RBC 86 fL leukocyte count, blood 11.5 10*3/mm3 erythrocyte (RBC) count 4.12 10*6/mm3 platelet count 323 10*3/mm3 hemoglobin, blood 11.4 g/dL hematocrit, blood 36 % red blood cell distribution width 18.4 % Clinical Lists Update: CBC,CMP,Ferritin - Chemistry potassium, serum 3.6 mmol/L ferritin, serum 14.2 ng/mL creatinine, serum 0.8 mg/dL carbon dioxide, venous blood 27.0 mmol/L chloride, serum 101 mmol/L calcium, serum 8.8 mg/dL urea nitrogen, blood 10 mg/dL alkaline phosphatase, serum 54 U/L albumin, serum 4.0 g/dL protein, total, serum 6.4 g/dL aspartate aminotransferase (SGOT), serum 13 U/L alanine aminotransferase (SGPT), serum 11 U/L bilirubin, serum, total 0.4 mg/dL sodium, serum 137 mmol/L anion gap, serum 13 Estimated Glomerular Filtration Rate (calc) 73 mL/min/1.73m2 glucose, plasma fasting 110 mg/dL Clinical Lists Update: CBC,CMP,Ferritin - Hematology hematocrit, blood 32 % hemoglobin, blood 9.3 g/dL platelet count 381 10*3/mm3 erythrocyte (RBC) count 3.33 10*6/mm3 leukocyte count, blood 13.5 10*3/mm3 mean corpuscular volume, RBC 96 fL red blood cell distribution width 16.2 % Clinical Lists Update: CMP,FLP,TSH,Free T4,HgA1c,Microalbumin - Chemistry HDL cholesterol, serum 35.0 mg/dL alanine aminotransferase (SGPT), serum 10 U/L creatinine, serum 0.7 mg/dL carbon dioxide, venous blood 26.0 mmol/L cholesterol, serum 116 mg/dL chloride, serum 105 mmol/L calcium, serum 9.3 mg/dL urea nitrogen, blood 13 mg/dL alkaline phosphatase, serum 55 U/L albumin, serum 4.1 g/dL bilirubin, serum, total 0.5 mg/dL triglyceride, serum, fasting 142 mg/dL sodium, serum 139 mmol/L anion gap, serum 12 cholesterol/HDL ratio, serum, percent 3.3 glucose, plasma fasting 131 mg/dL Estimated Glomerular Filtration Rate (calc) 82 mL/min/1.73m2 thyroxine, serum, free 1.46 ng/dL hemoglobin A1C, blood, as % of total hemoglobin 6.6 % thyroid stimulating hormone, serum 0.11 u[iU]/mL LDL cholesterol, serum 53 mg/dL potassium, serum 4.3 mmol/L protein, total, serum 6.6 g/dL aspartate aminotransferase (SGOT), serum 14 U/L Clinical Lists Update: CMP,FLP,TSH,Free T4,HgA1c,Microalbumin - Urinalysis microalbumin, urine, semiquantitative 5.1 mg/dL Office Visit: Dr Galaviz's Check Up: Established Patient Visit - Chemistry Estimated Glomerular Filtration Rate (calc) 78 mL/min/1.73m2 glucose, plasma fasting 129 mg/dL albumin, serum 4.3 g/dL alkaline phosphatase, serum 61 U/L urea nitrogen, blood 13 mg/dL calcium, serum 9.3 mg/dL chloride, serum 101 mmol/L carbon dioxide, venous blood 25.0 mmol/L anion gap, serum 16 sodium, serum 139 mmol/L bilirubin, serum, total 0.5 mg/dL alanine aminotransferase (SGPT), serum 9 U/L aspartate aminotransferase (SGOT), serum 11 U/L protein, total, serum 6.5 g/dL potassium, serum 3.4 mmol/L ferritin, serum 9.3 ng/mL creatinine, serum 0.8 mg/dL Office Visit: Dr Galaviz's Check Up: Established Patient Visit - Hematology leukocyte count, blood 12.3 10*3/mm3 mean corpuscular volume, RBC 94 fL red blood cell distribution width 15.9 % hemoglobin, blood 9.7 g/dL platelet count 409 10*3/mm3 erythrocyte (RBC) count 3.42 10*6/mm3 hematocrit, blood 32 % Encounters Code Encounter Date Provider Facility [id number] Ofc Vst, Est Level III 17:04:14 CDT Sagrario Galaviz DO, FACP CPT-30281 Ofc Vst, Est Level III 21:31:02 CDT Sagrario Galaviz DO, FACP CPT-45510 Ofc Vst, Est Level IV 11:44:06 HANDYPERSON Sagrario Galaviz DO, FACP CPT-21204 Ofc Vst, Est Level IV 20:18:24 HANDYPERSON Sagrario Galaviz DO, FACP CPT-41703 Ofc Vst, Est Level III 16:52:42 CDT Sagrario Galaviz DO, FACP CPT-01388 Ofc Vst, Est Level III 19:48:33 CDT Sagrario Zabala S Anastacia, DO, FACP CPT-07538 Ofc Vst, Est Level III 16:35:55 HANDYPERSON Sagrario Solo Anastacia, DO, FACP CPT-46463 Ofc Vst, Est Level II 16:10:48 CDT Sagrariokade Galaviz [facility] CPT-87284 Ofc Vst, Est Level III 17:02:14 CDT Sagrariokade Solo Anastacia, DO, FACP CPT-62637 Ofc Vst, Est Level III 16:22:21 CDT Sagrario Caroline Solo Anastacia, DO, FACP CPT-45918 Ofc Vst, Est Level III 15:38:27 HANDYPERSON Sagrario Solo Anastacia, DO, FACP CPT-13139 Ofc Vst, Est Level IV 11:46:07 CDT Sagrariokade Galaviz [facility] CPT-69776 Ofc Vst, Est Level IV 11:48:35 HANDYPERSON Sagrario Solo Anastacia, DO, FACP CPT-44308 Ofc Vst, Est Level IV 10:25:22 HANDYPERSON Sagrario Solo Anastacia, DO, FACP CPT-77339 Ofc Vst, Est Level IV 15:01:16 CDT Sagrariokade Solo Anastacia, DO, FACP CPT-87812 Ofc Vst, Est Level IV 13:50:59 CDT Sagrariokade Solo Anastacia, DO, FACP CPT-79345 Ofc Vst, Est Level IV 14:42:02 CDT Sagrario Solo Anastacia, DO, FACP CPT-35882 Ofc Vst, Est Level IV 12:27:54 CDT Sagrario Caroline Solo Anastacia, DO, FACP CPT-64559 Ofc Vst, Est Level IV 14:04:58 HANDYPERSON Sagrario Caroline Solo Galaviz, DO, FACP CPT-80258 Ofc Vst, Est Level IV 11:00:03 HANDYPERSON Sagrario Caroline Zabala S Galaviz, DO, FACP CPT-40211 Ofc Vst, Est Level IV 10:16:11 CDT Sagrario Caroline Solo Galaviz, DO, FACP CPT-03480 Ofc Vst, Est Level IV 10:59:50 CDT Sagrario Caroline Campi S Galaviz, DO, FACP CPT-32749 Ofc Vst, Est Level IV 10:18:39 HANDYPERSON Sagrario Caroline Campi S Galaviz, DO, FACP CPT-23623 Ofc Vst, Est Level IV 10:46:13 HANDYPERSON Sagrario Caroline Solo Anastacia, DO, FACP CPT-87317 Ofc Vst, Est Level IV 14:24:50 CDT Sagrario Caroline Campi Germania Galaviz, DO, FACP CPT-18018 Ofc Vst, Est Level IV 14:13:08 CDT Sagrario Caroline Solo Galaviz, DO, FACP CPT-80965 Ofc Vst, Est Level V 10:54:54 CDT Sagrario Caroline Solo Anastacia, DO, FACP CPT-12916 Ofc Vst, Est Level IV 13:42:46 HANDYPERSON Sagrario Caroline Solo Galaviz, DO, FACP CPT-84296 Ofc Vst, Est Level III 11:18:13 HANDYPERSON Sagrario Caroline Zabala S Anastacia, DO, FACP CPT-72338 Office Consult, Level IV 10:48:11 HANDYPERSON Sagrario Caroline Galaviz Sagrario S Anastacia, DO, FACP CPT-14553 Ofc Vst, Est Level IV 10:54:16 CDT Sagrario Caroline Galaviz, DO, FACP CPT-06453 Ofc Vst, Est Level IV 12:52:39 CDT Sagrario Carolinemarine Galaviz, DO, FACP CPT-25342 Ofc Vst, Est Level IV 10:29:22 CDT Sagrario Caroline Anastacia Galaviz, DO, FACP CPT-24968 Ofc Vst, Est Level IV 10:21:39 HANDYPERSON Sagrario Caroline Anastacia Galaviz, DO, FACP CPT-69208 Ofc Vst, Est Level IV 13:55:28 HANDYPERSON Sagrario Caroline Galaviz, DO, FACP CPT-18690 Ofc Vst, Est Level II 16:11:54 CDT Sagrario Carolinemarine Galaviz, DO, FACP CPT-53778 Ofc Vst, Est Level IV 11:05:58 CDT Sagrario Caroline Anastacia Galaviz, DO, FACP CPT-70956 Ofc Vst, Est Level II 17:22:12 CDT Sagrariokade Galaviz [facility] [place] CPT-38345 Ofc Vst, Est Level III 14:07:00 CDT Sagrariokade Galaviz [facility] [place] CPT-63289 Ofc Vst, Est Level IV 11:09:34 CDT Sagrariokade Galaviz [facility] [place] CPT-96254 Ofc Vst, Est Level IV 10:27:16 HANDYPERSON Sagrario Galaviz [facility] [place] CPT-99016 Ofc Vst, Est Level IV 11:34:27 HANDYPERSON Sagrario Galaviz [facility] [place] CPT-66604 Ofc Vst, Est Level IV 11:12:26 CDT Sagrario Galaviz [facility] [place] CPT-50739 Ofc Vst, Est Level IV 11:08:03 CDT Sagrario Caroline Galaviz [facility] [place] CPT-26660 Ofc Vst, Est Level III 10:36:15 HANDYPERSON Sagrario Galaviz [facility] [place] CPT-35576 Ofc Vst, Est Level III 14:57:25 HANDYPERSON Sagrario Galaviz [facility] [place] CPT-62368 Ofc Vst, Est Level IV 11:21:05 HANDYPERSON Sagrario Galaviz [facility] [place] CPT-09203 Ofc Vst, Est Level IV 15:12:10 CDT Sagrario Caroline Galaviz [facility] [place] CPT-61918 Ofc Vst, Est Level IV 11:32:45 CDT Sagrario Caroline Galaviz [facility] [place] CPT-51174 Ofc Vst, Est Level IV 18:28:35 CDT Sagrario Galaviz [facility] [place] CPT-89592 Ofc Vst, Est Level IV 12:58:25 CDT Sagrario Caroline Galaviz [facility] [place] CPT-42257 Ofc Vst, Est Level IV 12:52:51 HANDYPERSON Sagrario Galaviz [facility] [place] CPT-12100 Ofc Vst, Est Level III 17:02:21 HANDYPERSON Sagrario Galaviz [facility] [place] CPT-51551 Ofc Vst, Est Level IV 13:06:56 HANDYPERSON Sagrario Galaviz [facility] [place] CPT-83882 Ofc Vst, Est Level IV 12:47:26 HANDYPERSON Sagrario Galaviz [facility] [place] CPT-10475 Ofc Vst, Est Level III 17:46:57 HANDYPERSON Sagrario Galaviz [facility] [place] CPT-65979 Ofc Vst, Est Level IV 12:57:58 HANDYPERSON Sagrario Galaviz [facility] [place] CPT-72222 Ofc Vst, Est Level IV 12:45:38 HANDYPERSON Sagrario Galaviz [facility] [place] CPT-15135 Ofc Vst, Est Level IV 13:08:06 CDT Sagrariokade Galaviz [facility] [place] CPT-47540 Ofc Vst, Est Level IV 08:06:35 CDT Sagrario Caroline Anastacia [facility] [place] CPT-92791 Ofc Vst, Est Level IV 13:18:36 CDT Sagrario Caroline Galaviz [facility] [place] CPT-29275 Ofc Vst, Est Level IV 17:54:14 CDT Sagrario Caroline Anastacia [facility] [place] CPT-64504 Ofc Vst, Est Level IV 13:18:46 CDT Sagrario Caroline Anastacia [facility] [place] CPT-83837 Ofc Vst, Est Level IV 18:01:49 CDT Sagrario Caroline Galaviz [facility] [place] CPT-72257 Ofc Vst, Est Level IV 12:28:42 CDT Sagrario Carolinemarine Galaviz [facility] [place] CPT-63627 Ofc Vst, Est Level III 15:48:07 CDT Sagrario Caroline Galaviz [facility] [place] CPT-10815 Ofc Vst, New Level III 10:52:25 HANDYPERSON Sagrario Caroline Anastacia [facility] [place] Procedures Code Procedure Name Date Entry Date Standard Description CPT-G0439 Medicare Annual Wellness Visit 16:03:32 CDT CPT-G8446 E-Prescribing not done due to controlled substance 16:35 :55 HANDYPERSON CPT-92398 Injection, Pneumovax 15:49:19 HANDYPERSON CPT-G8446 E-Prescribing not done due to controlled substance 13:16 :11 CDT CPT-G0439 Medicare Annual Wellness Visit 13:16:11 CDT CPT-G8445 E-Prescribing Not sent due to no medication given 16:10: 48 CDT CPT-G8446 E-Prescribing not done due to controlled substance 17:02 :14 CDT CPT-G8446 E-Prescribing not done due to controlled substance 16:22 :21 CDT CPT-G8446 E-Prescribing not done due to controlled substance 15:38 :27 HANDYPERSON CPT-G8446 E-Prescribing not done due to controlled substance 15:41 :44 CDT CPT-G0438 Medicare Annual Wellness Visit Initial 15:41:44 CDT CPT-8446 E-Prescribing not done due to controlled substance 10:54: 54 CDT CPT-49410 Influenza Vaccine 12:12:24 CDT CPT-G0008 Administration Influenza Vaccine 12:12:24 CDT CPT-07208 Incision & Drainage, simple 13:29:49 CDT CPT-70430 Influenza Vaccine 13:55:28 HANDYPERSON CPT-G0008 Administration Influenza Vaccine 13:55:28 HANDYPERSON CPT-95581 Preventive, Est, (65+) 13:17:39 HANDYPERSON
--- OUTSIDE RECORDS SUMMARY | 2018-03-15 20:27 | XMS REPORT | Clinical Summary ---
Author Author User, ManzamaCurtis Organization Formerly [facility] [place] Address Unknown Phone Unavailable Allergies, Adverse Reactions, [...] w/radioiodine 1999. HYPERGLYCEMIA, MILD 790.6 Refinement Sagrario Galvaiz Other abnormal blood chemistry DIABETES MELLITUS, TYPE [...] iron deficiency anemias ABDOMINAL PAIN, GENERALIZED 789.07 Active Sagrario Galaviz Abdominal pain, generalized Medication List Medication Instructions Start Date Stop Date Generic Name NDC Status Provider Patient Instruction QUESTRAN 4 GM/DOSE POWD 1 packet in 1/2 cup of OJ. QID CHOLESTYRAMINE 71283884830 Active Sagrario Galaviz PROTONIX 40 MG TBEC 1 PO daily PANTOPRAZOLE SODIUM 97544120808 Active Sagrario Galaviz SUCRALFATE 1 GM TABS 1 PO AC/HS SUCRALFATE 69368786859 No Longer Active Sagrario Galaviz ALEVE 220 MG TAB 2 PO BID NAPROXEN SODIUM 17863612632 No Longer Active Sagrario Galaviz ASPIRIN 81 MG CHEW 1 PO daily ASPIRIN 05134147084 No Longer Active Sagrario Galaviz PYRIDIUM 200 MG TAB 1 PO TID prn urinary urgency PHENAZOPYRIDINE HCL 19197427545 Active Cindi White AMARYL 1 MG TABS 1 PO daily GLIMEPIRIDE 58402794729 No Longer Active Sagrario Galaviz VICTOZA 18 MG/3ML SOLN 1.2 mg injection daily LIRAGLUTIDE 64256886791 Active Sagrario Galaviz TRUE RESULT METER DIRECTED DX: 250.00 TRUE RESULT METER Active Cindi White TRUETEST TEST STRP TEST BS QID DX: 250.00 GLUCOSE BLOOD 89474634679 Active Cindi White PREMARIN 0.625 MG/GM CREA apply to affected areas BID prn ESTROGENS, CONJUGATED VAGINAL 70380140851 Active Cindi White ZOSTAVAX 15650 UNT/0.65ML SOLR 1 injection once to prevent Shingles ZOSTER VACCINE LIVE 76751260793 No Longer Active Cindi White BD PEN NEEDLE SHORT U/F 31G X 8 MM MISC As directed BID INSULIN PEN NEEDLE 31969305744 Active Sagrario Galaviz ZOSTAVAX 82561 UNT/0.65ML SOLR 1 injection once to prevent Shingles ZOSTER VACCINE LIVE 37337204775 No Longer Active Sagrario Caroline Galaviz FISH OIL 1000 MG CAPS 1 PO daily OMEGA-3 FATTY ACIDS 42194783448 Active Sagrario Caroline Galaviz NITROFURANTOIN MACROCRYSTAL 100 MG CAPS 1 PO daily with supper. NITROFURANTOIN MACROCRYSTAL 13699165568 No Longer Active Sagrario Caroline Galaviz BYETTA 10 MCG PEN 10 MCG/0.04ML SOLN 1 injection BID EXENATIDE 93575394326 No Longer Active Sagrario Caroline Galaviz BYDUREON 1 injection weekly BYDUREON No Longer Active Sagrario Caroline Galaviz K-DUR 10 MEQ TAB CR 1 PO daily with Lasix POTASSIUM CHLORIDE No Longer Active Sagrario Caroline Galaviz LASIX 20 MG TAB 1 PO QD prn swelling FUROSEMIDE 13047763896 No Longer Active Sagrario Caroline Galaviz TRAMADOL HCL 50 MG TABS 1-2 PO every 4-6 hours PRN TRAMADOL HCL 10090592100 No Longer Active Sagrario Caroline Galaviz CARISOPRODOL 350 MG TABS 1 PO QID CARISOPRODOL 15212188272 No Longer Active Sagrario Caroline Galaviz DEMEROL 50 MG TABS 1 PO QID prn MEPERIDINE HCL 99376417564 No Longer Active Sagrariokade Galaviz HYDROCODONE-ACETAMINOPHEN 10-325 MG TABS HYDROCODONE-ACETAMINOPHEN 21848998939 No Longer Active Sagrario Caroline Galaviz PHENERGAN 25 MG TAB 1 PO Q6hrs prn PROMETHAZINE HCL No Longer Active Sagrariokade Galaviz DOXYCYCLINE HYCLATE CAPS DOXYCYCLINE HYCLATE CAPS 47198150971 No Longer Active Sagrario Caroline Galaviz PYRIDIUM 200 MG TAB 1 PO TID prn urinary urgency PHENAZOPYRIDINE HCL 09585055849 No Longer Active Cindimohit Zacariastis CIPRO 500 MG TAB 1 PO BID for 7 days CIPROFLOXACIN HCL 76589524666 No Longer Active Cindi White PYRIDIUM 200 MG TAB 1 PO TID prn urinary urgency PHENAZOPYRIDINE HCL 48699084834 No Longer Active Sagrario Galaviz AUGMENTIN 500-125 MG TAB 1 PO BID AMOXICILLIN-POT CLAVULANATE 49296076557 No Longer Active Sagrario Galaviz PYRIDIUM 200 MG TAB 1 PO TID prn urinary urgency PHENAZOPYRIDINE HCL 73214416035 No Longer Active Cindi White AUGMENTIN 500-125 MG TAB 1 PO BID x 5 days AMOXICILLIN-POT CLAVULANATE 01711127141 No Longer Active Cindi White PYRIDIUM 200 MG TAB 1 PO TID prn urinary urgency PHENAZOPYRIDINE HCL 54276724254 No Longer Active Cindi White VITAMIN D 1000 UNIT TABS 1 PO daily CHOLECALCIFEROL 38802481730 Active Sagrariokade Galaviz CALTRATE 600 PLUS-VIT D 600-200 MG-IU TABS 1 PO QD CALCIUM-VITAMIN D 12718166240 No Longer Active Sagrario Galaviz SYNTHROID 137 MCG TABS 1 pill Mon and Monday and take the 125 mcg M-F LEVOTHYROXINE SODIUM 69858122885 No Longer Active Sagrario Galaviz VITAMIN D 4000 UNIT CAPS (CHOLECALCIFEROL) 1 PO twice a week VITAMIN D 4000 UNIT CAPS (CHOLECALCIFEROL) No Longer Active Sagrario Galaviz SYNTHROID 0.125 MG TAB 1 PO daily. LEVOTHYROXINE SODIUM 43150297739 Active Sagrariokade aGlaviz ANTIVERT 25 MG TABS 1 PO Q 6 hrs prn MECLIZINE HCL 83729684392 Active Sagrariokade Galaviz AMARYL 2 MG TAB 1/4 Tablet PO Daily GLIMEPIRIDE 54876211794 No Longer Active Sagrario Galaviz VITAMIN D 1000 UNIT TABS 2 PO Daily CHOLECALCIFEROL 05935075875 No Longer Active Sagrariokade Galaviz METFORMIN HCL 500 MG TABS 2 PO BID METFORMIN HCL 30047180589 Active Sagrariokade Galaviz ONE TOUCH ULTRA TEST STRIPS Test BS four times a day DX Diabetes ONE TOUCH ULTRA TEST STRIPS No Longer Active Cindi White VITAMIN D CAPS (ERGOCALCIFEROL CAPS) 400MG 2 PO daily VITAMIN D CAPS (ERGOCALCIFEROL CAPS) 400MG No Longer Active Sagrariokade Galaviz GLUCOSAMINE 500 MG CAPS as directed GLUCOSAMINE SULFATE 36210060145 No Longer Active Sagrario Galaviz FERROUS SULFATE 325 (65 FE) MG TABS 2 tablets po TID x 1 week, then 1 tablet po in am and 1 po in pm until bottles gone FERROUS SULFATE 96410762386 No Longer Active Sagrariokade Galaviz BYETTA 10 MCG PEN 250 MCG/ML SOLN 1 injection BID EXENATIDE 95157272160 No Longer Active Cindi White AVANDAMET 2-500 MG TABS 1 PO BID ROSIGLITAZONE-METFORMIN 45726943949 No Longer Active Sagrario Galaviz AMARYL 2 MG TABS 1/2 pill PO BID for diabetes GLIMEPIRIDE 10783357274 No Longer Active Sagrariokade Galaviz AVANDAMET 2-500 MG TABS 1 PO BID ROSIGLITAZONE- METFORMIN 09831790843 No Longer Active Sagrariokade Galaviz CITALOPRAM HYDROBROMIDE 40 MG TABS 1 po daily CITALOPRAM HYDROBROMIDE 36139990563 Active Sagrariokade Galaviz CHROMIUM PICOLINATE 400 MCG CAPS daily CHROMIUM PICOLINATE 05992853229 No Longer Active Sagrariokade Galaviz ZOCOR 20 MG TABS 1 PO QHS SIMVASTATIN 74406513804 Active Sagrariokade Galaviz CYMBALTA 30 MG CPEP 1 PO daily DULOXETINE HCL 87918459134 No Longer Active Sagrariokade Galaviz VALIUM 2 MG TABS 1/2 PO 1 hour prior to MRI procedure, may repeat if necessary DIAZEPAM 92231160745 No Longer Active Bukc Trevino ACETAMINOPHEN 325 MG TABS 1 PO Q6hrs ACETAMINOPHEN 09144510764 Active Sagrario Caroline Galaviz XALATAN 0.005 % SOLN as directed LATANOPROST 88778645761 Active Sagrariokade Galaviz CITRUCEL POWDER Use qd after meals METHYLCELLULOSE ( LAXATIVE) 23521344813 No Longer Active Sagrariokade Galaviz CIPRO 500 MG TAB 1 BID CIPROFLOXACIN HCL 25844253607 No Longer Active Sagrariokade Galaviz FLAGYL 500 MG TAB 1 TID METRONIDAZOLE 44829429741 No Longer Active Sagrariokade Galaviz NYSTATIN 760428 U/ML SUSP S/S qid as directed for 7 days NYSTATIN 83130616788 No Longer Active Sagrariokade Galaviz GLUCOPHAGE 500 MG TABS 1 PO BID METFORMIN HCL 53889066066 No Longer Active Sagrario Galaviz SYNTHROID 125 MCG TABS 1 po daily LEVOTHYROXINE SODIUM 21821234717 No Longer Active Sagrariokade Galaviz TRIAMCINOLONE ACETONIDE 0.1 % CREA Apply to areas tid TRIAMCINOLONE ACETONIDE (TOP) 13442860916 Active Sagrario Caroline Galaviz COZAAR 100 MG TABS 1 po daily LOSARTAN POTASSIUM 47658849445 Active Sagrario Caroline Galaviz CELEXA 40 MG TABS 1 po daily CITALOPRAM HYDROBROMIDE 72195502725 No Longer Active Sagrario Galaviz Immunizations Vaccine Administration Date Value Standard Description Influenza vaccine given DONE influenza virus vaccine, unspecified formulation Influenza vaccine given Done Oct influenza virus vaccine, unspecified formulation Vital Signs Date Name Value Unit Range Description blood pressure, diastolic - 8462-4 82 mm[Hg] [...] Clinical Lists Update: CBC,CMP,CHOL,TRIG,TSH,FREE T4,HGA1C - Chemistry chloride, serum 101 mmol/L sodium, serum 139 mmol/L carbon dioxide, venous blood 26.0 mmol/L creatinine, serum 0.9 mg/dL Estimated Glomerular Filtration Rate (calc) 62 mL/min/1.73m2 ferritin, serum 69.3 ng/mL glucose, plasma fasting 123 mg/dL cholesterol, serum 128 mg/dL alanine aminotransferase (SGPT), serum 9 U/L aspartate aminotransferase (SGOT), serum 13 U/L protein, total, serum 6.6 g/dL potassium, serum 3.7 mmol/L thyroid stimulating hormone, serum 0.99 u[iU]/mL triglyceride, serum, fasting 185 mg/dL hemoglobin A1C, blood, as % of total hemoglobin 6.1 % albumin, serum 4.3 g/dL alkaline phosphatase, serum 72 U/L anion gap, serum 16 bilirubin, serum, total 0.4 mg/dL urea nitrogen, blood 10 mg/dL calcium, serum 9.4 mg/dL thyroxine, serum, free 1.28 ng/dL Clinical Lists Update: CBC,CMP,CHOL,TRIG,TSH,FREE T4,HGA1C - Hematology leukocyte count, blood 13.5 10*3/mm3 platelet count 371 10*3/mm3 mean corpuscular volume, RBC 93 fL red blood cell distribution width 16.4 % erythrocyte (RBC) count 3.78 10*6/mm3 hemoglobin, blood 10.4 g/dL hematocrit, blood 35 % Clinical Lists Update: CBC,CMP,Chol,Trig,TSH,Free T4,HgA1c - Chemistry chloride, serum 101 mmol/L cholesterol, serum 122 mg/dL carbon dioxide, venous blood 25.0 mmol/L creatinine, serum 0.8 mg/dL Estimated Glomerular Filtration Rate (calc) 76 mL/min/1.73m2 glucose, plasma fasting 116 mg/dL hemoglobin A1C, blood, as % of total hemoglobin 6.3 % albumin, serum 4.0 g/dL alkaline phosphatase, serum 58 U/L anion gap, serum 16 bilirubin, serum, total 0.4 mg/dL urea nitrogen, blood 20 mg/dL calcium, serum 9.2 mg/dL thyroxine, serum, free 1.38 ng/dL triglyceride, serum, fasting 189 mg/dL thyroid stimulating hormone, serum 0.11 u[iU]/mL potassium, serum 4.1 mmol/L protein, total, serum 6.3 g/dL aspartate aminotransferase (SGOT), serum 13 U/L alanine aminotransferase (SGPT), serum 11 U/L sodium, serum 138 mmol/L Clinical Lists Update: CBC,CMP,Chol,Trig,TSH,Free T4,HgA1c - Hematology platelet count 287 10*3/mm3 erythrocyte (RBC) count 3.94 10*6/mm3 red blood cell distribution width 14.9 % leukocyte count, blood 12.4 10*3/mm3 hemoglobin, blood 11.3 g/dL mean corpuscular volume, RBC 93 fL hematocrit, blood 37 % Clinical Lists Update: CBC,CMP,FLP,TSH,Free T4,HgA1c,Ferritin - Chemistry potassium, serum 4.1 mmol/L protein, total, serum 6.7 g/dL aspartate aminotransferase (SGOT), serum 14 U/L alanine aminotransferase (SGPT), serum 7 U/L sodium, serum 134 mmol/L chloride, serum 100 mmol/L cholesterol/HDL ratio, serum, percent 3.9 cholesterol, serum 131 mg/dL carbon dioxide, venous blood 24.0 mmol/L creatinine, serum 0.8 mg/dL Estimated Glomerular Filtration Rate (calc) 75 mL/min/1.73m2 ferritin, serum 15.8 ng/mL glucose, plasma fasting 124 mg/dL HDL cholesterol, serum 34.0 mg/dL hemoglobin A1C, blood, as % of total hemoglobin 6.8 % LDL cholesterol, serum 53 mg/dL albumin, serum 4.3 g/dL alkaline phosphatase, serum 71 U/L anion gap, serum 14 bilirubin, serum, total 0.4 mg/dL urea nitrogen, blood 17 mg/dL calcium, serum 9.5 mg/dL thyroxine, serum, free 1.47 ng/dL triglyceride, serum, fasting 219 mg/dL thyroid stimulating hormone, serum 1.43 u[iU]/mL Clinical Lists Update: CBC,CMP,FLP,TSH,Free T4,HgA1c,Ferritin - Hematology leukocyte count, blood 11.5 10*3/mm3 erythrocyte (RBC) count 4.12 10*6/mm3 hematocrit, blood 36 % mean corpuscular volume, RBC 86 fL hemoglobin, blood 11.4 g/dL red blood cell distribution width 18.4 % platelet count 323 10*3/mm3 Clinical Lists Update: CBC,CMP,Ferritin - Chemistry bilirubin, serum, total 0.4 mg/dL urea nitrogen, blood 10 mg/dL calcium, serum 8.8 mg/dL carbon dioxide, venous blood 27.0 mmol/L glucose, plasma fasting 110 mg/dL aspartate aminotransferase (SGOT), serum 13 U/L ferritin, serum 14.2 ng/mL Estimated Glomerular Filtration Rate (calc) 73 mL/min/1.73m2 creatinine, serum 0.8 mg/dL potassium, serum 3.6 mmol/L anion gap, serum 13 chloride, serum 101 mmol/L alkaline phosphatase, serum 54 U/L protein, total, serum 6.4 g/dL albumin, serum 4.0 g/dL sodium, serum 137 mmol/L alanine aminotransferase (SGPT), serum 11 U/L Clinical Lists Update: CBC,CMP,Ferritin - Hematology leukocyte count, blood 13.5 10*3/mm3 platelet count 381 10*3/mm3 hemoglobin, blood 9.3 g/dL mean corpuscular volume, RBC 96 fL hematocrit, blood 32 % red blood cell distribution width 16.2 % erythrocyte (RBC) count 3.33 10*6/mm3 Clinical Lists Update: CMP,FLP,TSH,Free T4,HgA1c,Microalbumin - Chemistry thyroxine, serum, free 1.46 ng/dL calcium, serum 9.3 mg/dL urea nitrogen, blood 13 mg/dL bilirubin, serum, total 0.5 mg/dL anion gap, serum 12 alkaline phosphatase, serum 55 U/L albumin, serum 4.1 g/dL LDL cholesterol, serum 53 mg/dL hemoglobin A1C, blood, as % of total hemoglobin 6.6 % HDL cholesterol, serum 35.0 mg/dL thyroid stimulating hormone, serum 0.11 u[iU]/mL Estimated Glomerular Filtration Rate (calc) 82 mL/min/1.73m2 creatinine, serum 0.7 mg/dL carbon dioxide, venous blood 26.0 mmol/L cholesterol, serum 116 mg/dL cholesterol/HDL ratio, serum, percent 3.3 chloride, serum 105 mmol/L sodium, serum 139 mmol/L alanine aminotransferase (SGPT), serum 10 U/L aspartate aminotransferase (SGOT), serum 14 U/L protein, total, serum 6.6 g/dL potassium, serum 4.3 mmol/L glucose, plasma fasting 131 mg/dL triglyceride, serum, fasting 142 mg/dL Clinical Lists Update: CMP,FLP,TSH,Free T4,HgA1c,Microalbumin - Urinalysis microalbumin, urine, semiquantitative 5.1 mg/dL Office Visit: Dr Galaviz's Check Up: Established Patient Visit - Chemistry chloride, serum 101 mmol/L sodium, serum 139 mmol/L creatinine, serum 0.8 mg/dL Estimated Glomerular Filtration Rate (calc) 78 mL/min/1.73m2 ferritin, serum 9.3 ng/mL glucose, plasma fasting 129 mg/dL carbon dioxide, venous blood 25.0 mmol/L alanine aminotransferase (SGPT), serum 9 U/L aspartate aminotransferase (SGOT), serum 11 U/L protein, total, serum 6.5 g/dL potassium, serum 3.4 mmol/L calcium, serum 9.3 mg/dL urea nitrogen, blood 13 mg/dL albumin, serum 4.3 g/dL alkaline phosphatase, serum 61 U/L anion gap, serum 16 bilirubin, serum, total 0.5 mg/dL Office Visit: Dr Galaviz's Check Up: Established Patient Visit - Hematology erythrocyte (RBC) count 3.42 10*6/mm3 platelet count 409 10*3/mm3 leukocyte count, blood 12.3 10*3/mm3 mean corpuscular volume, RBC 94 fL red blood cell distribution width 15.9 % hemoglobin, blood 9.7 g/dL hematocrit, blood 32 % Encounters Code Encounter Date Provider Facility CPT-59896 Ofc Vst, Est Level IV 11:44:06 REX Galaviz DO, FACP CPT-83649 Ofc Vst, Est Level IV 20:18:24 INDUSTRIAL SECURITY ANALYST Sagrariokade Solo Galaviz, DO, FACP CPT-61551 Ofc Vst, Est Level III 16:52:42 CDT Sagrario Caroline Solo Galaviz, DO, FACP CPT-74925 Ofc Vst, Est Level III 19:48:33 CDT Sagrario Caroline Solo Galaviz, DO, FACP CPT-54536 Ofc Vst, Est Level III 16:35:55 INDUSTRIAL SECURITY ANALYST Sagrariokade Solo Anastacia, DO, FACP CPT-16808 Ofc Vst, Est Level II 16:10:48 CDT Sagrariokade Galaviz [facility] CPT-51511 Ofc Vst, Est Level III 17:02:14 CDT Sagrario Caroline Solo Anastacia, DO, FACP CPT-19185 Ofc Vst, Est Level III 16:22:21 CDT Sagrario Caroline Solo Galaviz, DO, FACP CPT-36803 Ofc Vst, Est Level III 15:38:27 INDUSTRIAL SECURITY ANALYST Sagrario Solo Galaviz, DO, FACP CPT-52683 Ofc Vst, Est Level IV 11:46:07 CDT Sagrariokade Galaviz [facility] CPT-26098 Ofc Vst, Est Level IV 11:48:35 INDUSTRIAL SECURITY ANALYST Sagrario Solo Galaviz, DO, FACP CPT-61442 Ofc Vst, Est Level IV 10:25:22 INDUSTRIAL SECURITY ANALYST Sagrario Zabala S Galaviz, DO, FACP CPT-06851 Ofc Vst, Est Level IV 15:01:16 CDT Sagrariokade Solo Anastacia, DO, FACP CPT-85893 Ofc Vst, Est Level IV 13:50:59 CDT Sagrariokade Solo Galaviz, DO, FACP CPT-06241 Ofc Vst, Est Level IV 14:42:02 CDT Sagrario Caroline Solo Galaviz, DO, FACP CPT-92593 Ofc Vst, Est Level IV 12:27:54 CDT Sagrario Solo Galaviz, DO, FACP CPT-95271 Ofc Vst, Est Level IV 14:04:58 INDUSTRIAL SECURITY ANALYST Sagrario Solo Galaviz, DO, FACP CPT-38141 Ofc Vst, Est Level IV 11:00:03 INDUSTRIAL SECURITY ANALYST Sagrario Solo Galaviz, DO, FACP CPT-34277 Ofc Vst, Est Level IV 10:16:11 CDT Sagrario Solo Anastacia, DO, FACP CPT-56629 Ofc Vst, Est Level IV 10:59:50 CDT Sagrariokade Solo Anastacia, DO, FACP CPT-09010 Ofc Vst, Est Level IV 10:18:39 INDUSTRIAL SECURITY ANALYST Sagrario Solo Galaviz, DO, FACP CPT-38216 Ofc Vst, Est Level IV 10:46:13 INDUSTRIAL SECURITY ANALYST Sagrario Solo Galaviz, DO, FACP CPT-10301 Ofc Vst, Est Level IV 14:24:50 CDT Sagrariokade Solo Galaviz, DO, FACP CPT-34853 Ofc Vst, Est Level IV 14:13:08 CDT Sagrariokade Solo Galaviz, DO, FACP CPT-44480 Ofc Vst, Est Level V 10:54:54 CDT Sagrario Solo Galaviz, DO, FACP CPT-66961 Ofc Vst, Est Level IV 13:42:46 INDUSTRIAL SECURITY ANALYST Sagrario Solo Anastacia, DO, FACP CPT-83586 Ofc Vst, Est Level III 11:18:13 INDUSTRIAL SECURITY ANALYST Sagrario Solo Anastacia, DO, FACP CPT-10341 Office Consult, Level IV 10:48:11 INDUSTRIAL SECURITY ANALYST Sagrario Solo Anastacia, DO, FACP CPT-97978 Ofc Vst, Est Level IV 10:54:16 CDT Sagrariokdae Solo Anastacia, DO, FACP CPT-06877 Ofc Vst, Est Level IV 12:52:39 CDT Sagrario Caroline Gantner Sagrario Germania Anastacia, DO, FACP CPT-85186 Ofc Vst, Est Level IV 10:29:22 CDT Sagrario Gantner Sagrario Solo Anastacia, DO, FACP CPT-30138 Ofc Vst, Est Level IV 10:21:39 INDUSTRIAL SECURITY ANALYST Sagrario Solo Anastacia, DO, FACP CPT-58896 Ofc Vst, Est Level IV 13:55:28 INDUSTRIAL SECURITY ANALYST Sagrario Velazquez Galaviz Sagrario Germania Anastacia, DO, FACP CPT-14947 Ofc Vst, Est Level II 16:11:54 CDT Sagrario Gantner Sagrario Germania Anastacia, DO, FACP CPT-71738 Ofc Vst, Est Level IV 11:05:58 CDT Sagrariokade Velazquez Galaviz Sagrario Solo Anastacia, DO, FACP CPT-96437 Ofc Vst, Est Level II 17:22:12 CDT Sagrario [facility] [place] CPT-62545 Ofc Vst, Est Level III 14:07:[address] [facility] [place] CPT-79832 Ofc Vst, Est Level IV 11:09:[address] [facility] [place] CPT-79674 Ofc Vst, Est Level IV 10:27:16 INDUSTRIAL SECURITY ANALYST Sagrario Galaviz [facility] [place] CPT-74407 Ofc Vst, Est Level IV 11:34:27 INDUSTRIAL SECURITY ANALYST Sagrario Galaviz [facility] [place] CPT-24154 Ofc Vst, Est Level IV 11:12:26 CDT Sagrario Galaviz [facility] [place] CPT-14223 Ofc Vst, Est Level IV 11:08:03 CDT Sagrario Galaviz [facility] [place] CPT-63739 Ofc Vst, Est Level III 10:36:15 INDUSTRIAL SECURITY ANALYST Sagrario Galaviz [facility] [place] CPT-72818 Ofc Vst, Est Level III 14:57:25 INDUSTRIAL SECURITY ANALYST Sagrario Galaviz [facility] [place] CPT-26679 Ofc Vst, Est Level IV 11:21:05 INDUSTRIAL SECURITY ANALYST Sagrario Galaviz [facility] [place] CPT-50837 Ofc Vst, Est Level IV 15:12:10 CDT Sagrario Galaviz [facility] [place] CPT-83321 Ofc Vst, Est Level IV 11:32:45 CDT Sagrario Caroline Galaviz [facility] [place] CPT-40866 Ofc Vst, Est Level IV 18:28:35 CDT Sagrario Galaviz [facility] [place] CPT-15132 Ofc Vst, Est Level IV 12:58:25 CDT Sagrario Galaviz [facility] [place] CPT-45626 Ofc Vst, Est Level IV 12:52:51 INDUSTRIAL SECURITY ANALYST Sagrario Galaviz [facility] [place] CPT-17465 Ofc Vst, Est Level III 17:02:21 INDUSTRIAL SECURITY ANALYST Sagrario Galaviz [facility] [place] CPT-57354 Ofc Vst, Est Level IV 13:06:56 INDUSTRIAL SECURITY ANALYST Sagrario Galaviz [facility] [place] CPT-63836 Ofc Vst, Est Level IV 12:47:26 INDUSTRIAL SECURITY ANALYST Sagrario Galaviz [facility] [place] CPT-14324 Ofc Vst, Est Level III 17:46:57 INDUSTRIAL SECURITY ANALYST Sagrario Galaviz [facility] [place] CPT-45988 Ofc Vst, Est Level IV 12:57:58 INDUSTRIAL SECURITY ANALYST Sagrario Galaviz [facility] [place] CPT-87900 Ofc Vst, Est Level IV 12:45:38 INDUSTRIAL SECURITY ANALYST Sagrario Galaviz [facility] [place] CPT-94661 Ofc Vst, Est Level IV 13:08:06 [address] Caroline Galaviz [facility] [place] CPT-71012 Ofc Vst, Est Level IV 08:06:35 [address] Caroline [address]av[address] [facility] [place] CPT-14406 Ofc Vst, Est Level IV 13:18:36 [address]ario Caroline [address]aviz [facility] [place] CPT-87423 Ofc Vst, Est Level IV 17:54:[address] [facility] [place] CPT-12874 Ofc Vst, Est Level IV 13:18:[address] Caroline [address]aviz [facility] [place] CPT-33893 Ofc Vst, Est Level IV 18:01:[address] [facility] [place] CPT-85437 Ofc Vst, Est Level IV 12:28:[address] [facility] [place] CPT-00230 Ofc Vst, Est Level III 15:48:[address] [facility] [place] CPT-91408 Ofc Vst, New Level III 10:52:25 INDUSTRIAL SECURITY ANALYST Sagrario Galaviz [facility] [place] Procedures Code Procedure Name Date Entry Date Standard Description CPT-G0439 Medicare Annual Wellness Visit 16:03:32 CDT CPT-G8446 E-Prescribing not done due to controlled substance 16:35 :55 INDUSTRIAL SECURITY ANALYST CPT-22741 Injection, Pneumovax 15:49:19 INDUSTRIAL SECURITY ANALYST CPT-G8446 E-Prescribing not done due to controlled substance 13:16 :11 CDT CPT-G0439 Medicare Annual Wellness Visit 13:16:11 CDT CPT-G8445 E-Prescribing Not sent due to no medication given 16:10: 48 CDT CPT-G8446 E-Prescribing not done due to controlled substance 17:02 :14 CDT CPT-G8446 E-Prescribing not done due to controlled substance 16:22 :21 CDT CPT-G8446 E-Prescribing not done due to controlled substance 15:38 :27 INDUSTRIAL SECURITY ANALYST CPT-G8446 E-Prescribing not done due to controlled substance 15:41 :44 CDT CPT-G0438 Medicare Annual Wellness Visit Initial 15:41:44 CDT CPT-8446 E-Prescribing not done due to controlled substance 10:54: 54 CDT CPT-95537 Influenza Vaccine 12:12:24 CDT CPT-G0008 Administration Influenza Vaccine 12:12:24 CDT CPT-49272 Incision & Drainage, simple 13:29:49 CDT CPT-95714 Influenza Vaccine 13:55:28 INDUSTRIAL SECURITY ANALYST CPT-G0008 Administration Influenza Vaccine 13:55:28 INDUSTRIAL SECURITY ANALYST CPT-98967 Preventive, Est, (65+) 13:17:39 INDUSTRIAL SECURITY ANALYST
--- OUTSIDE RECORDS SUMMARY | 2018-03-15 20:27 | XMS REPORT ---
Author PIOTR Chase Organization [employer] Address Unknown Phone Unavailable Care Team Providers Care Lumber Grader Name Role Phone PIOTR DREW CP Unavailable Allergies No Known Allergies Problems Problem Type Condition Code Onset Dates Condition Status Assessment Immunization due Z23 Active Medications No Known Medications Procedures Procedure Coding System Code Date SINGLE IMMUNIZATION ADMIN CPT-4 82048 Jul 09, 2015 PCV 13 CPT-4 40480 Jul 09, 2015 Results No Known Results Immunizations Vaccine Administration Date PCV Jul 09, 2015 Summary Purpose [employer] Submission
--- OUTSIDE RECORDS SUMMARY | 2018-03-15 20:28 | XMS REPORT | Clinical Summary ---
Author Author User, MDJunctionCurtis Organization [facility] [place] Address Unknown Phone Unavailable Allergies, Adverse Reactions, [...] Head injury, unspecified HEADACHE 784.0 Resolved Sagrario Glaaviz Headache DIVERTICULOSIS, COLON 562.10 Active Sagrario Galaviz [...] 789.07 Resolved Sagrario Galaviz Abdominal pain, generalized Medication List Medication Instructions Start Date Stop Date Generic Name NDC Status Provider Patient Instruction COLESTID 1 GM TABS 1 PO daily COLESTIPOL HCL 77105266255 Active Sagrario Galaviz QUESTRAN 4 GM/DOSE POWD 1 packet in 1/2 cup of OJ. QID CHOLESTYRAMINE 22508746723 Active Sagrario Galaviz PROTONIX 40 MG TBEC 1 PO daily PANTOPRAZOLE SODIUM 05446680625 Active Sagrario Galaviz SUCRALFATE 1 GM TABS 1 PO AC/HS SUCRALFATE 87039235504 No Longer Active Sagrario Galaviz ALEVE 220 MG TAB 2 PO BID NAPROXEN SODIUM 69180243515 No Longer Active Sagrario Galaviz ASPIRIN 81 MG CHEW 1 PO daily ASPIRIN 66852920438 No Longer Active Sagrario Galaviz PYRIDIUM 200 MG TAB 1 PO TID prn urinary urgency PHENAZOPYRIDINE HCL 25331248132 Active Cindi White AMARYL 1 MG TABS 1 PO daily GLIMEPIRIDE 89483482034 No Longer Active Sagrario Galaviz VICTOZA 18 MG/3ML SOLN 1.2 mg injection daily LIRAGLUTIDE 61879482973 Active Sagrario Galaviz TRUE RESULT METER DIRECTED DX: 250.00 TRUE RESULT METER Active Cindi White TRUETEST TEST STRP TEST BS QID DX: 250.00 GLUCOSE BLOOD 69094684209 Active Cindi White PREMARIN 0.625 MG/GM CREA apply to affected areas BID prn ESTROGENS, CONJUGATED VAGINAL 19477411866 Active Cindi White ZOSTAVAX 77207 UNT/0.65ML SOLR 1 injection once to prevent Shingles ZOSTER VACCINE LIVE 14437533357 No Longer Active Cindi White BD PEN NEEDLE SHORT U/F 31G X 8 MM MISC As directed BID INSULIN PEN NEEDLE 23428486254 Active Sagrario Galaviz ZOSTAVAX 01479 UNT/0.65ML SOLR 1 injection once to prevent Shingles ZOSTER VACCINE LIVE 33063586594 No Longer Active Sagrario Caroline Galaviz FISH OIL 1000 MG CAPS 1 PO daily OMEGA-3 FATTY ACIDS 14041926265 Active Sagrario Caroline Galaviz NITROFURANTOIN MACROCRYSTAL 100 MG CAPS 1 PO daily with supper. NITROFURANTOIN MACROCRYSTAL 27653861581 No Longer Active Sagrario Caroline Galaviz BYETTA 10 MCG PEN 10 MCG/0.04ML SOLN 1 injection BID EXENATIDE 44142655770 No Longer Active Sagrario Caroline Galaviz BYDUREON 1 injection weekly BYDUREON No Longer Active Sagrario Caroline Galaviz K-DUR 10 MEQ TAB CR 1 PO daily with Lasix POTASSIUM CHLORIDE No Longer Active Sagrario Caroline Galaviz LASIX 20 MG TAB 1 PO QD prn swelling FUROSEMIDE 87347215957 No Longer Active Sagrario Caroline Galaviz TRAMADOL HCL 50 MG TABS 1-2 PO every 4-6 hours PRN TRAMADOL HCL 80046100535 No Longer Active Sagrario Caroline Galaviz CARISOPRODOL 350 MG TABS 1 PO QID CARISOPRODOL 14801798377 No Longer Active Sagrario Caroline Galaviz DEMEROL 50 MG TABS 1 PO QID prn MEPERIDINE HCL 99616839064 No Longer Active Sagrario Caroline Galaviz HYDROCODONE-ACETAMINOPHEN 10-325 MG TABS HYDROCODONE-ACETAMINOPHEN 58826856439 No Longer Active Sagrario Caroline Galaviz PHENERGAN 25 MG TAB 1 PO Q6hrs prn PROMETHAZINE HCL No Longer Active Sagrario Caroline Galaviz DOXYCYCLINE HYCLATE CAPS DOXYCYCLINE HYCLATE CAPS 30942753972 No Longer Active Sagrario Caroline Galaviz PYRIDIUM 200 MG TAB 1 PO TID prn urinary urgency PHENAZOPYRIDINE HCL 39811474970 No Longer Active Cindi White CIPRO 500 MG TAB 1 PO BID for 7 days CIPROFLOXACIN HCL 62591435682 No Longer Active Cindi White PYRIDIUM 200 MG TAB 1 PO TID prn urinary urgency PHENAZOPYRIDINE HCL 28643605095 No Longer Active Sagrario Galaviz AUGMENTIN 500-125 MG TAB 1 PO BID AMOXICILLIN-POT CLAVULANATE 70172232903 No Longer Active Sagrariokade Galaviz PYRIDIUM 200 MG TAB 1 PO TID prn urinary urgency PHENAZOPYRIDINE HCL 96065994862 No Longer Active Cindi White AUGMENTIN 500-125 MG TAB 1 PO BID x 5 days AMOXICILLIN-POT CLAVULANATE 07298816812 No Longer Active Cindi White PYRIDIUM 200 MG TAB 1 PO TID prn urinary urgency PHENAZOPYRIDINE HCL 41651744941 No Longer Active Cindi White VITAMIN D 1000 UNIT TABS 1 PO daily CHOLECALCIFEROL 13908500833 Active Sagrariokade Galaviz CALTRATE 600 PLUS-VIT D 600-200 MG-IU TABS 1 PO QD CALCIUM-VITAMIN D 39628676298 No Longer Active Sagrariokade Galaviz SYNTHROID 137 MCG TABS 1 pill Mon and Monday and take the 125 mcg M-F LEVOTHYROXINE SODIUM 36793015804 No Longer Active Sagrariokade Galaviz VITAMIN D 4000 UNIT CAPS (CHOLECALCIFEROL) 1 PO twice a week VITAMIN D 4000 UNIT CAPS (CHOLECALCIFEROL) No Longer Active Sagrario Galaviz SYNTHROID 0.125 MG TAB 1 PO daily. LEVOTHYROXINE SODIUM 49502580572 Active Sagrario Caroline Galaviz ANTIVERT 25 MG TABS 1 PO Q 6 hrs prn MECLIZINE HCL 56193426032 Active Sagrario Galaviz AMARYL 2 MG TAB 1/4 Tablet PO Daily GLIMEPIRIDE 20664292002 No Longer Active Sagrariokade Galaviz VITAMIN D 1000 UNIT TABS 2 PO Daily CHOLECALCIFEROL 18754752522 No Longer Active Sagrario Galaviz METFORMIN HCL 500 MG TABS 2 PO BID METFORMIN HCL 38157198943 Active Sagrariokade Galaviz ONE TOUCH ULTRA TEST STRIPS Test BS four times a day DX Diabetes ONE TOUCH ULTRA TEST STRIPS No Longer Active Cindi White VITAMIN D CAPS (ERGOCALCIFEROL CAPS) 400MG 2 PO daily VITAMIN D CAPS (ERGOCALCIFEROL CAPS) 400MG No Longer Active Sagrario Galaviz GLUCOSAMINE 500 MG CAPS as directed GLUCOSAMINE SULFATE 91271312987 No Longer Active Sagrario Galaviz FERROUS SULFATE 325 (65 FE) MG TABS 2 tablets po TID x 1 week, then 1 tablet po in am and 1 po in pm until bottles gone FERROUS SULFATE 02387373985 No Longer Active Sagrario Galaviz BYETTA 10 MCG PEN 250 MCG/ML SOLN 1 injection BID EXENATIDE 33281754172 No Longer Active Cindi White AVANDAMET 2-500 MG TABS 1 PO BID ROSIGLITAZONE-METFORMIN 40258558714 No Longer Active Sagrario Galaviz AMARYL 2 MG TABS 1/2 pill PO BID for diabetes GLIMEPIRIDE 99799920783 No Longer Active Sagrario Galaviz AVANDAMET 2-500 MG TABS 1 PO BID ROSIGLITAZONE- METFORMIN 47914633008 No Longer Active Sagrariokade Galaviz CITALOPRAM HYDROBROMIDE 40 MG TABS 1 po daily CITALOPRAM HYDROBROMIDE 13067784173 Active Sagrariokade Galaviz CHROMIUM PICOLINATE 400 MCG CAPS daily CHROMIUM PICOLINATE 05423775533 No Longer Active Sagrario Caroline Galaviz ZOCOR 20 MG TABS 1 PO QHS SIMVASTATIN 90739718438 Active Sagrario Caroline Galaviz CYMBALTA 30 MG CPEP 1 PO daily DULOXETINE HCL 76303667913 No Longer Active Sagrario Caroline Galaviz VALIUM 2 MG TABS 1/2 PO 1 hour prior to MRI procedure, may repeat if necessary DIAZEPAM 80549452168 No Longer Active Buck Trevino ACETAMINOPHEN 325 MG TABS 1 PO Q6hrs ACETAMINOPHEN 74749010590 Active Sagrario Caroline Galaviz XALATAN 0.005 % SOLN as directed LATANOPROST 67624110704 Active Sagrario Caroline Galaviz CITRUCEL POWDER Use qd after meals METHYLCELLULOSE ( LAXATIVE) 84703922962 No Longer Active Sagrario Caroline Galaviz CIPRO 500 MG TAB 1 BID CIPROFLOXACIN HCL 89749849509 No Longer Active Sagrario Caroline Galaviz FLAGYL 500 MG TAB 1 TID METRONIDAZOLE 66250840732 No Longer Active Sagrario Caroline Galaviz NYSTATIN 325575 U/ML SUSP S/S qid as directed for 7 days NYSTATIN 73761365835 No Longer Active Sagrariokade Galaviz GLUCOPHAGE 500 MG TABS 1 PO BID METFORMIN HCL 95965689412 No Longer Active Sagrario Caroline Galaviz SYNTHROID 125 MCG TABS 1 po daily LEVOTHYROXINE SODIUM 11572809825 No Longer Active Sagrariokade Galaviz TRIAMCINOLONE ACETONIDE 0.1 % CREA Apply to areas tid TRIAMCINOLONE ACETONIDE (TOP) 31860765744 Active Sagrario Caroline Galaviz COZAAR 100 MG TABS 1 po daily LOSARTAN POTASSIUM 11111864441 Active Sagrario Caroline Galaviz CELEXA 40 MG TABS 1 po daily CITALOPRAM HYDROBROMIDE 07007360374 No Longer Active Sagrario Caroline Galaviz Immunizations Vaccine Administration Date Value Standard Description Influenza vaccine given DONE influenza virus vaccine, unspecified formulation Influenza vaccine given Done Oct influenza virus vaccine, unspecified formulation Vital Signs Date Name Value Unit Range Description blood pressure, diastolic - 8462-4 70 mm[Hg] [...] Clinical Lists Update: CBC,CMP,CHOL,TRIG,TSH,FREE T4,HGA1C - Chemistry Estimated Glomerular Filtration Rate (calc) 62 mL/min/1.73m2 glucose, plasma fasting 123 mg/dL albumin, serum 4.3 g/dL alkaline phosphatase, serum 72 U/L urea nitrogen, blood 10 mg/dL calcium, serum 9.4 mg/dL chloride, serum 101 mmol/L cholesterol, serum 128 mg/dL anion gap, serum 16 sodium, serum 139 mmol/L triglyceride, serum, fasting 185 mg/dL bilirubin, serum, total 0.4 mg/dL alanine aminotransferase (SGPT), serum 9 U/L aspartate aminotransferase (SGOT), serum 13 U/L protein, total, serum 6.6 g/dL potassium, serum 3.7 mmol/L thyroid stimulating hormone, serum 0.99 u[iU]/mL hemoglobin A1C, blood, as % of total hemoglobin 6.1 % thyroxine, serum, free 1.28 ng/dL ferritin, serum 69.3 ng/mL creatinine, serum 0.9 mg/dL carbon dioxide, venous blood 26.0 mmol/L Clinical Lists Update: CBC,CMP,CHOL,TRIG,TSH,FREE T4,HGA1C - Hematology erythrocyte (RBC) count 3.78 10*6/mm3 leukocyte count, blood 13.5 10*3/mm3 mean corpuscular volume, RBC 93 fL red blood cell distribution width 16.4 % hemoglobin, blood 10.4 g/dL platelet count 371 10*3/mm3 hematocrit, blood 35 % Clinical Lists Update: CBC,CMP,Chol,Trig,TSH,Free T4,HgA1c - Chemistry Estimated Glomerular Filtration Rate (calc) 76 mL/min/1.73m2 glucose, plasma fasting 116 mg/dL anion gap, serum 16 sodium, serum 138 mmol/L triglyceride, serum, fasting 189 mg/dL bilirubin, serum, total 0.4 mg/dL alanine aminotransferase (SGPT), serum 11 U/L aspartate aminotransferase (SGOT), serum 13 U/L protein, total, serum 6.3 g/dL potassium, serum 4.1 mmol/L thyroid stimulating hormone, serum 0.11 u[iU]/mL hemoglobin A1C, blood, as % of total hemoglobin 6.3 % thyroxine, serum, free 1.38 ng/dL creatinine, serum 0.8 mg/dL carbon dioxide, venous blood 25.0 mmol/L cholesterol, serum 122 mg/dL chloride, serum 101 mmol/L calcium, serum 9.2 mg/dL urea nitrogen, blood 20 mg/dL alkaline phosphatase, serum 58 U/L albumin, serum 4.0 g/dL Clinical Lists Update: CBC,CMP,Chol,Trig,TSH,Free T4,HgA1c - Hematology erythrocyte (RBC) count 3.94 10*6/mm3 red blood cell distribution width 14.9 % hematocrit, blood 37 % mean corpuscular volume, RBC 93 fL hemoglobin, blood 11.3 g/dL leukocyte count, blood 12.4 10*3/mm3 platelet count 287 10*3/mm3 Clinical Lists Update: CBC,CMP,FLP,TSH,Free T4,HgA1c,Ferritin - Chemistry albumin, serum 4.3 g/dL sodium, serum 134 mmol/L urea nitrogen, blood 17 mg/dL calcium, serum 9.5 mg/dL chloride, serum 100 mmol/L cholesterol, serum 131 mg/dL carbon dioxide, venous blood 24.0 mmol/L creatinine, serum 0.8 mg/dL Estimated Glomerular Filtration Rate (calc) 75 mL/min/1.73m2 glucose, plasma fasting 124 mg/dL cholesterol/HDL ratio, serum, percent 3.9 anion gap, serum 14 alkaline phosphatase, serum 71 U/L triglyceride, serum, fasting 219 mg/dL bilirubin, serum, [...] free 1.47 ng/dL ferritin, serum 15.8 ng/mL Clinical Lists Update: CBC,CMP,FLP,TSH,Free T4,HgA1c,Ferritin - Hematology hematocrit, blood 36 % red blood cell distribution width 18.4 % hemoglobin, blood 11.4 g/dL mean corpuscular volume, RBC 86 fL platelet count 323 10*3/mm3 leukocyte count, blood 11.5 10*3/mm3 erythrocyte (RBC) count 4.12 10*6/mm3 Clinical Lists Update: CBC,CMP,Ferritin - Chemistry albumin, serum 4.0 g/dL Estimated Glomerular Filtration Rate (calc) 73 mL/min/1.73m2 glucose, plasma fasting 110 mg/dL anion gap, serum 13 sodium, serum 137 mmol/L bilirubin, serum, total 0.4 mg/dL alanine aminotransferase (SGPT), serum 11 U/L aspartate aminotransferase (SGOT), serum 13 U/L protein, total, serum 6.4 g/dL potassium, serum 3.6 mmol/L ferritin, serum 14.2 ng/mL creatinine, serum 0.8 mg/dL carbon dioxide, venous blood 27.0 mmol/L chloride, serum 101 mmol/L calcium, serum 8.8 mg/dL urea nitrogen, blood 10 mg/dL alkaline phosphatase, serum 54 U/L Clinical Lists Update: CBC,CMP,Ferritin - Hematology red blood cell distribution width 16.2 % mean corpuscular volume, RBC 96 fL leukocyte count, blood 13.5 10*3/mm3 erythrocyte (RBC) count 3.33 10*6/mm3 platelet count 381 10*3/mm3 hemoglobin, blood 9.3 g/dL hematocrit, blood 32 % Clinical Lists Update: CMP,FLP,TSH,Free T4,HgA1c,Microalbumin - Chemistry alanine aminotransferase (SGPT), serum 10 U/L Estimated Glomerular Filtration Rate (calc) 82 mL/min/1.73m2 glucose, plasma fasting 131 mg/dL cholesterol/HDL ratio, serum, percent 3.3 anion gap, serum 12 sodium, serum 139 mmol/L triglyceride, serum, fasting 142 mg/dL bilirubin, serum, total 0.5 mg/dL albumin, serum 4.1 g/dL aspartate aminotransferase (SGOT), serum 14 U/L protein, total, serum 6.6 g/dL potassium, serum 4.3 mmol/L LDL cholesterol, serum 53 mg/dL thyroid stimulating hormone, serum 0.11 u[iU]/mL hemoglobin A1C, blood, as % of total hemoglobin 6.6 % HDL cholesterol, serum 35.0 mg/dL thyroxine, serum, free 1.46 ng/dL creatinine, serum 0.7 mg/dL carbon dioxide, venous blood 26.0 mmol/L cholesterol, serum 116 mg/dL chloride, serum 105 mmol/L calcium, serum 9.3 mg/dL urea nitrogen, blood 13 mg/dL alkaline phosphatase, serum 55 U/L Clinical Lists Update: CMP,FLP,TSH,Free T4,HgA1c,Microalbumin - Urinalysis microalbumin, urine, semiquantitative 5.1 mg/dL Office Visit: Dr Galaviz'fatmata Check Up: Established Patient Visit - Chemistry [...] creatinine, serum 0.8 mg/dL Office Visit: Dr Galaviz'fatmata Check Up: Established Patient Visit - Hematology leukocyte count, blood 12.3 10*3/mm3 mean corpuscular volume, RBC 94 fL red blood cell distribution width 15.9 % hemoglobin, blood 9.7 g/dL platelet count 409 10*3/mm3 erythrocyte (RBC) count 3.42 10*6/mm3 hematocrit, blood 32 % Encounters Code Encounter Date Provider Facility CPT-72156 Ofc Vst, Est Level III 21:31:02 CDT Sagrario Galaviz, DO, FACP CPT-25092 Ofc Vst, Est Level IV 11:44:06 POCKET [employer]OS[employer] Sagrario Galaviz, DO, FACP CPT-62165 Ofc Vst, Est Level IV 20:18:24 [employer]OS[employer] Sagrario Galaviz DO, FACP CPT-41307 Ofc Vst, Est Level III 16:52:42 CDT Sagrariokade Galaviz, DO, FACP CPT-77329 Ofc Vst, Est Level III 19:48:33 CDT Sagrariokade Galaviz, DO, FACP CPT-65300 Ofc Vst, Est Level III 16:35:55 [employer]OCK[employer]ER Sagrario Galaviz DO, FACP CPT-15210 Ofc Vst, Est Level II 16:10:48 CDT Sagrario Galaviz [facility] CPT-27954 Ofc Vst, Est Level III 17:02:14 CDT Sagrario Galaviz, DO, FACP CPT-09988 Ofc Vst, Est Level III 16:22:21 CDT Sagrario Galaviz, DO, FACP CPT-45593 Ofc Vst, Est Level III 15:38:27 [employer]OCKET CLOSER Sagrario Galaviz, DO, FACP CPT-15952 Ofc Vst, Est Level IV 11:46:07 CDT Sagrario Gantner [facility] CPT-66770 Ofc Vst, Est Level IV 11:48:35 [employer]OCKET [employer]ER Sagrario Caroline Solo Anastacia, DO, FACP CPT-25418 Ofc Vst, Est Level IV 10:25:22 [employer]OCKET CLOSER Sagrario Caroline Solo Galaviz, DO, FACP CPT-24570 Ofc Vst, Est Level IV 15:01:16 CDT Sagrario Caroline Solo Galaviz, DO, FACP CPT-52638 Ofc Vst, Est Level IV 13:50:59 CDT Sagrario Caroline Solo Anastacia, DO, FACP CPT-65400 Ofc Vst, Est Level IV 14:42:02 CDT Sagrario Caroline Solo Anastacia, DO, FACP CPT-97209 Ofc Vst, Est Level IV 12:27:54 CDT Sagrario Caroline Solo Anastacia, DO, FACP CPT-05882 Ofc Vst, Est Level IV 14:04:58 POCKET CLOSER Sagrario Solo Anastacia, DO, FACP CPT-92172 Ofc Vst, Est Level IV 11:00:03 POCKET CLOSER Sagrario Solo Anastacia, DO, FACP CPT-45477 Ofc Vst, Est Level IV 10:16:11 CDT Sagrariokade Solo Anastacia, DO, FACP CPT-58504 Ofc Vst, Est Level IV 10:59:50 CDT Sagrario Caroline Solo Anastacia, DO, FACP CPT-43374 Ofc Vst, Est Level IV 10:18:39 POCKET CLOSER Sagrario Caroline Solo Anastacia, DO, FACP CPT-71003 Ofc Vst, Est Level IV 10:46:13 POCKET CLOSER Sagrario Caroline Solo Anastacia, DO, FACP CPT-48011 Ofc Vst, Est Level IV 14:24:50 CDT Sagrariokade Solo Galaviz, DO, FACP CPT-46973 Ofc Vst, Est Level IV 14:13:08 CDT Sagrariokade Solo Galaviz, DO, FACP CPT-17790 Ofc Vst, Est Level V 10:54:54 CDT Sagrario Caroline Solo Anastacia, DO, FACP CPT-53817 Ofc Vst, Est Level IV 13:42:46 POCKET CLOSER Sagrario Solo Anastacia, DO, FACP CPT-97376 Ofc Vst, Est Level III 11:18:13 [employer]OCKET CL[employer] Sagrario Solo Anastacia, DO, FACP CPT-78581 Office Consult, Level IV 10:48:11 [employer]OCKET CL[employer] Sagrario Sool Anastacia, DO, FACP CPT-47703 Ofc Vst, Est Level IV 10:54:16 CDT Sagrariokade Solo Anastacia, DO, FACP CPT-97111 Ofc Vst, Est Level IV 12:52:39 CDT Sagrariokade Solo Anastacia, DO, FACP CPT-06871 Ofc Vst, Est Level IV 10:29:22 CDT Sagrariokade Solo Anastacia, DO, FACP CPT-45914 Ofc Vst, Est Level IV 10:21:39 POCKET CLOSER Sagrario Solo Anastacia, DO, FACP CPT-31597 Ofc Vst, Est Level IV 13:55:28 POCKET CLOSER Sagrario Solo Anastacia, DO, FACP CPT-08620 Ofc Vst, Est Level II 16:11:54 CDT Sagrario Caroline Solo Anastacia, DO, FACP CPT-64557 Ofc Vst, Est Level IV 11:05:58 CDT Sagrario Galaviz, DO, FACP CPT-86248 Ofc Vst, Est Level II 17:22:12 CDT Sagrario Galaviz [facility] [place] CPT-84965 Ofc Vst, Est Level III 14:07:00 CDT Sagrario Galaviz [facility] [place] CPT-25094 Ofc Vst, Est Level IV 11:09:34 CDT Sagrariokade Galaviz [facility] [place] CPT-57066 Ofc Vst, Est Level IV 10:27:16 POCKET CLOSER Sagrario Galaviz [facility] [place] CPT-48610 Ofc Vst, Est Level IV 11:34:27 POCKET CLOSER Sgarario Galaviz [facility] [place] CPT-65716 Ofc Vst, Est Level IV 11:12:26 CDT Sagrario Galaviz [facility] [place] CPT-33487 Ofc Vst, Est Level IV 11:08:03 CDT Sagrariokade Galaviz [facility] [place] CPT-80065 Ofc Vst, Est Level III 10:36:15 POCKET CLOSER Sagrario Galaviz [facility] [place] CPT-03219 Ofc Vst, Est Level III 14:57:25 POCKET CLOSER Sagrario Galaviz [facility] [place] CPT-78182 Ofc Vst, Est Level IV 11:21:05 POCKET CLOSER Sagrario Galaviz [facility] [place] CPT-68490 Ofc Vst, Est Level IV 15:12:10 CDT Sagrario Galaviz [facility] [place] CPT-56955 Ofc Vst, Est Level IV 11:32:45 CDT Sagrario Galaviz [facility] [place] CPT-63653 Ofc Vst, Est Level IV 18:28:35 CDT Sagrario Galaviz [facility] [place] CPT-94867 Ofc Vst, Est Level IV 12:58:25 CDT Sagrario Caroline Galaviz [facility] [place] CPT-67034 Ofc Vst, Est Level IV 12:52:51 POCKET CLOSER Sagrario Galaviz [facility] [place] CPT-69220 Ofc Vst, Est Level III 17:02:21 POCKET CLOSER Sagrario Galaviz [facility] [place] CPT-16372 Ofc Vst, Est Level IV 13:06:56 POCKET CLOSER Sagrario Galaviz [facility] [place] CPT-54326 Ofc Vst, Est Level IV 12:47:26 POCKET CLOSER Sagrario Galaviz [facility] [place] CPT-65542 Ofc Vst, Est Level III 17:46:57 POCKET CLOSER Sagrario Galaviz [facility] [place] CPT-18462 Ofc Vst, Est Level IV 12:57:58 POCKET CL[employer]ER Sagrario Galaviz [facility] [place] CPT-03748 Ofc Vst, Est Level IV 12:45:38 POCKET CLOSER Sagrario Galaviz [facility] [place] CPT-28015 Ofc Vst, Est Level IV 13:08:06 CDT Sagrariokade Galaviz [facility] [place] CPT-36964 Ofc Vst, Est Level IV 08:06:35 CDT Sagrario Galaviz [facility] [place] CPT-80155 Ofc Vst, Est Level IV 13:18:36 CDT Sagrario Galaviz [facility] [place] CPT-95646 Ofc Vst, Est Level IV 17:54:14 CDT Sagrariokade Galaviz [facility] [place] CPT-15612 Ofc Vst, Est Level IV 13:18:46 CDT Sagrariokade Galaviz [facility] [place] CPT-10704 Ofc Vst, Est Level IV 18:01:49 CDT Sagrario Galaviz [facility] [place] CPT-53959 Ofc Vst, Est Level IV 12:28:42 CDT Sagrario Caroline Galaviz [facility] [place] CPT-66486 Ofc Vst, Est Level III 15:48:07 CDT Sagrario Galaviz [facility] [place] CPT-06135 Ofc Vst, New Level III 10:52:25 POCKET CLOSER Sagrario Galaviz [facility] [place] Procedures Code Procedure Name Date Entry Date Standard Description CPT-G0439 Medicare Annual Wellness Visit 16:03:32 CDT CPT-G8446 E-Prescribing not done due to controlled substance 16:35 :55 POCKET CLOSER CPT-18122 Injection, Pneumovax 15:49:19 POCKET CLOSER CPT-G8446 E-Prescribing not done due to controlled substance 13:16 :11 CDT CPT-G0439 Medicare Annual Wellness Visit 13:16:11 CDT CPT-G8445 E-Prescribing Not sent due to no medication given 16:10: 48 CDT CPT-G8446 E-Prescribing not done due to controlled substance 17:02 :14 CDT CPT-G8446 E-Prescribing not done due to controlled substance 16:22 :21 CDT CPT-G8446 E-Prescribing not done due to controlled substance 15:38 :27 POCKET CLOSER CPT-G8446 E-Prescribing not done due to controlled substance 15:41 :44 CDT CPT-G0438 Medicare Annual Wellness Visit Initial 15:41:44 CDT CPT-8446 E-Prescribing not done due to controlled substance 10:54: 54 CDT CPT-94015 Influenza Vaccine 12:12:24 CDT CPT-G0008 Administration Influenza Vaccine 12:12:24 CDT CPT-12210 Incision & Drainage, simple 13:29:49 CDT CPT-41876 Influenza Vaccine 13:55:28 POCKET CLOSER CPT-G0008 Administration Influenza Vaccine 13:55:28 POCKET CLOSER CPT-08979 Preventive, Est, (65+) 13:17:39 POCKET CLOSER
--- OUTSIDE RECORDS SUMMARY | 2018-03-15 20:30 | XMS REPORT | Clinical Summary ---
Author Author User, [employer] Organization [facility] Physician [place] Address Unknown Phone Unavailable Allergies, Adverse Reactions, [...] lower quadrant INGUINAL PAIN, RIGHT 789.09 Resolved Sagrraio Galaviz Abdominal pain, other specified site; multiple [...] OF GASTROINTESTINAL TRACT, UNSPECIFIED 578.9 Active Sagrario Galavzi Hemorrhage of gastrointestinal tract, unspecified ANEMIA, IRON DEFICIENCY NEC 280.8 Active Sagrario Galaviz Other specified iron deficiency anemias ABDOMINAL PAIN, GENERALIZED 789.07 Active Sagrario Galaviz Abdominal pain, generalized Medication List Medication Instructions Start Date Stop Date Generic Name NDC Status Provider Patient Instruction QUESTRAN 4 GM/DOSE POWD 1 packet in 1/2 cup of OJ. QID CHOLESTYRAMINE 33308630213 Active Sagrario Galaviz PROTONIX 40 MG TBEC 1 PO daily PANTOPRAZOLE SODIUM 70744787695 Active Sagrario Galaviz SUCRALFATE 1 GM TABS 1 PO AC/HS SUCRALFATE 65192638671 No Longer Active Sagrario Galaviz ALEVE 220 MG TAB 2 PO BID NAPROXEN SODIUM 71611031065 No Longer Active Sagrario Galaviz ASPIRIN 81 MG CHEW 1 PO daily ASPIRIN 21272078088 No Longer Active Sagrario Galaviz PYRIDIUM 200 MG TAB 1 PO TID prn urinary urgency PHENAZOPYRIDINE HCL 61371177207 Active Cindi White AMARYL 1 MG TABS 1 PO daily GLIMEPIRIDE 22605428352 No Longer Active Sagrario Galaviz VICTOZA 18 MG/3ML SOLN 1.2 mg injection daily LIRAGLUTIDE 79544119454 Active Sagrario Galaviz TRUE RESULT METER DIRECTED DX: 250.00 TRUE RESULT METER Active Cindi White TRUETEST TEST STRP TEST BS QID DX: 250.00 GLUCOSE BLOOD 58565875687 Active Cindi White PREMARIN 0.625 MG/GM CREA apply to affected areas BID prn ESTROGENS, CONJUGATED VAGINAL 27872184714 Active Cindi White ZOSTAVAX 52397 UNT/0.65ML SOLR 1 injection once to prevent Shingles ZOSTER VACCINE LIVE 80170535898 No Longer Active Cindi White BD PEN NEEDLE SHORT U/F 31G X 8 MM MISC As directed BID INSULIN PEN NEEDLE 44667173062 Active Sagrario Galaviz ZOSTAVAX 84195 UNT/0.65ML SOLR 1 injection once to prevent Shingles ZOSTER VACCINE LIVE 52959262192 No Longer Active Sagrario Caroline Galaviz FISH OIL 1000 MG CAPS 1 PO daily OMEGA-3 FATTY ACIDS 68412085037 Active Sagrario Caroline Galaviz NITROFURANTOIN MACROCRYSTAL 100 MG CAPS 1 PO daily with supper. NITROFURANTOIN MACROCRYSTAL 58969074087 No Longer Active Sagrario Caroline Galaviz BYETTA 10 MCG PEN 10 MCG/0.04ML SOLN 1 injection BID EXENATIDE 48198442604 No Longer Active Sagrario Caroline Galaviz BYDUREON 1 injection weekly BYDUREON No Longer Active Sagrario Caroline Galaviz K-DUR 10 MEQ TAB CR 1 PO daily with Lasix POTASSIUM CHLORIDE No Longer Active Sagrario Caroline Galaviz LASIX 20 MG TAB 1 PO QD prn swelling FUROSEMIDE 21066997252 No Longer Active Sagrario Caroline Galaviz TRAMADOL HCL 50 MG TABS 1-2 PO every 4-6 hours PRN TRAMADOL HCL 34436124849 No Longer Active Sagrario Caroline Galaviz CARISOPRODOL 350 MG TABS 1 PO QID CARISOPRODOL 21533995471 No Longer Active Sagrario Caroline Galaviz DEMEROL 50 MG TABS 1 PO QID prn MEPERIDINE HCL 89450965925 No Longer Active Sagrariokade Galaviz HYDROCODONE-ACETAMINOPHEN 10-325 MG TABS HYDROCODONE-ACETAMINOPHEN 23478647311 No Longer Active Sagrario Caroline Galaviz PHENERGAN 25 MG TAB 1 PO Q6hrs prn PROMETHAZINE HCL No Longer Active Sagrariokade Galaviz DOXYCYCLINE HYCLATE CAPS DOXYCYCLINE HYCLATE CAPS 29229121308 No Longer Active Sagrario Caroline Galaviz PYRIDIUM 200 MG TAB 1 PO TID prn urinary urgency PHENAZOPYRIDINE HCL 41263791151 No Longer Active Cindimohit Zacariastis CIPRO 500 MG TAB 1 PO BID for 7 days CIPROFLOXACIN HCL 68158677392 No Longer Active Cindi White PYRIDIUM 200 MG TAB 1 PO TID prn urinary urgency PHENAZOPYRIDINE HCL 33179891022 No Longer Active Sagrario Galaviz AUGMENTIN 500-125 MG TAB 1 PO BID AMOXICILLIN-POT CLAVULANATE 75070560348 No Longer Active Sagrario Galaviz PYRIDIUM 200 MG TAB 1 PO TID prn urinary urgency PHENAZOPYRIDINE HCL 12076070760 No Longer Active Cindi White AUGMENTIN 500-125 MG TAB 1 PO BID x 5 days AMOXICILLIN-POT CLAVULANATE 49250159813 No Longer Active Cindi White PYRIDIUM 200 MG TAB 1 PO TID prn urinary urgency PHENAZOPYRIDINE HCL 69009224657 No Longer Active Cindi White VITAMIN D 1000 UNIT TABS 1 PO daily CHOLECALCIFEROL 98176792711 Active Sagrariokade Galaviz CALTRATE 600 PLUS-VIT D 600-200 MG-IU TABS 1 PO QD CALCIUM-VITAMIN D 83686819030 No Longer Active Sagrario Galaviz SYNTHROID 137 MCG TABS 1 pill Mon and Monday and take the 125 mcg M-F LEVOTHYROXINE SODIUM 99786151955 No Longer Active Sagrario Galaviz VITAMIN D 4000 UNIT CAPS (CHOLECALCIFEROL) 1 PO twice a week VITAMIN D 4000 UNIT CAPS (CHOLECALCIFEROL) No Longer Active Sagrario Galaviz SYNTHROID 0.125 MG TAB 1 PO daily. LEVOTHYROXINE SODIUM 84943913621 Active Sagrariokade Galaviz ANTIVERT 25 MG TABS 1 PO Q 6 hrs prn MECLIZINE HCL 02086748160 Active Sagrariokade Galaviz AMARYL 2 MG TAB 1/4 Tablet PO Daily GLIMEPIRIDE 20885527429 No Longer Active Sagrario Galaviz VITAMIN D 1000 UNIT TABS 2 PO Daily CHOLECALCIFEROL 65676728999 No Longer Active Sagrariokade Galaviz METFORMIN HCL 500 MG TABS 2 PO BID METFORMIN HCL 30765565334 Active Sagrariokade Galaviz ONE TOUCH ULTRA TEST STRIPS Test BS four times a day DX Diabetes ONE TOUCH ULTRA TEST STRIPS No Longer Active Cindi White VITAMIN D CAPS (ERGOCALCIFEROL CAPS) 400MG 2 PO daily VITAMIN D CAPS (ERGOCALCIFEROL CAPS) 400MG No Longer Active Sagrariokade Galaviz GLUCOSAMINE 500 MG CAPS as directed GLUCOSAMINE SULFATE 59895478192 No Longer Active Sagrario Galaviz FERROUS SULFATE 325 (65 FE) MG TABS 2 tablets po TID x 1 week, then 1 tablet po in am and 1 po in pm until bottles gone FERROUS SULFATE 94788395736 No Longer Active Sagrariokade Galaviz BYETTA 10 MCG PEN 250 MCG/ML SOLN 1 injection BID EXENATIDE 78481487494 No Longer Active Cindi White AVANDAMET 2-500 MG TABS 1 PO BID ROSIGLITAZONE-METFORMIN 80552852860 No Longer Active Sagrario Galaviz AMARYL 2 MG TABS 1/2 pill PO BID for diabetes GLIMEPIRIDE 35673119198 No Longer Active Sagrariokade Galaviz AVANDAMET 2-500 MG TABS 1 PO BID ROSIGLITAZONE- METFORMIN 55275852610 No Longer Active Sagrariokade Galaviz CITALOPRAM HYDROBROMIDE 40 MG TABS 1 po daily CITALOPRAM HYDROBROMIDE 22219880524 Active Sagrariokade Galaviz CHROMIUM PICOLINATE 400 MCG CAPS daily CHROMIUM PICOLINATE 00966495237 No Longer Active Sagrariokade Galaviz ZOCOR 20 MG TABS 1 PO QHS SIMVASTATIN 84221317576 Active Sagrariokade Galaviz CYMBALTA 30 MG CPEP 1 PO daily DULOXETINE HCL 09381349853 No Longer Active Sagrariokade Galaviz VALIUM 2 MG TABS 1/2 PO 1 hour prior to MRI procedure, may repeat if necessary DIAZEPAM 62002690472 No Longer Active Buck Trevino ACETAMINOPHEN 325 MG TABS 1 PO Q6hrs ACETAMINOPHEN 23846176533 Active Sagrario Caroline Galaviz XALATAN 0.005 % SOLN as directed LATANOPROST 35942587073 Active Sagrariokade Galaviz CITRUCEL POWDER Use qd after meals METHYLCELLULOSE ( LAXATIVE) 35125825485 No Longer Active Sagrariokade Galaviz CIPRO 500 MG TAB 1 BID CIPROFLOXACIN HCL 36043097984 No Longer Active Sagrariokade Galaviz FLAGYL 500 MG TAB 1 TID METRONIDAZOLE 67743871520 No Longer Active Sagrariokade Galaviz NYSTATIN 864105 U/ML SUSP S/S qid as directed for 7 days NYSTATIN 82659320619 No Longer Active Sagrariokade Galaviz GLUCOPHAGE 500 MG TABS 1 PO BID METFORMIN HCL 70625812720 No Longer Active Sagrario Galaviz SYNTHROID 125 MCG TABS 1 po daily LEVOTHYROXINE SODIUM 23283576655 No Longer Active Sagrariokade Galaviz TRIAMCINOLONE ACETONIDE 0.1 % CREA Apply to areas tid TRIAMCINOLONE ACETONIDE (TOP) 84293044885 Active Sagrario Caroline Galaviz COZAAR 100 MG TABS 1 po daily LOSARTAN POTASSIUM 98029854282 Active Sagrario Caroline Galaviz CELEXA 40 MG TABS 1 po daily CITALOPRAM HYDROBROMIDE 92831760607 No Longer Active Sagrario Galaviz Immunizations Vaccine [...] Clinical Lists Update: CBC,CMP,CHOL,TRIG,TSH,FREE T4,HGA1C - Chemistry thyroid stimulating hormone, serum 0.99 u[iU]/mL aspartate aminotransferase (SGOT), serum 13 U/L potassium, serum 3.7 mmol/L thyroxine, serum, free 1.28 ng/dL protein, total, serum 6.6 g/dL ferritin, serum 69.3 ng/mL albumin, serum 4.3 g/dL Estimated Glomerular Filtration Rate (calc) 62 mL/min/1.73m2 alkaline phosphatase, serum 72 U/L glucose, plasma fasting 123 mg/dL urea nitrogen, blood 10 mg/dL anion gap, serum 16 calcium, serum 9.4 mg/dL sodium, serum 139 mmol/L chloride, serum 101 mmol/L triglyceride, serum, fasting 185 mg/dL cholesterol, serum 128 mg/dL bilirubin, serum, total 0.4 mg/dL carbon dioxide, venous blood 26.0 mmol/L alanine aminotransferase (SGPT), serum 9 U/L creatinine, serum 0.9 mg/dL hemoglobin A1C, blood, as % of total hemoglobin 6.1 % Clinical Lists Update: CBC,CMP,CHOL,TRIG,TSH,FREE T4,HGA1C - Hematology hematocrit, blood 35 % hemoglobin, blood 10.4 g/dL platelet count 371 10*3/mm3 erythrocyte (RBC) count 3.78 10*6/mm3 red blood cell distribution width 16.4 % mean corpuscular volume, RBC 93 fL leukocyte count, blood 13.5 10*3/mm3 Clinical Lists Update: CBC,CMP,Chol,Trig,TSH,Free T4,HgA1c - Chemistry thyroid stimulating hormone, serum 0.11 u[iU]/mL hemoglobin A1C, blood, as % of total hemoglobin 6.3 % potassium, serum 4.1 mmol/L protein, total, serum 6.3 g/dL creatinine, serum 0.8 mg/dL aspartate aminotransferase (SGOT), serum 13 U/L carbon dioxide, venous blood 25.0 mmol/L alanine aminotransferase (SGPT), serum 11 U/L cholesterol, serum 122 mg/dL bilirubin, serum, total 0.4 mg/dL chloride, serum 101 mmol/L triglyceride, serum, fasting 189 mg/dL calcium, serum 9.2 mg/dL sodium, serum 138 mmol/L urea nitrogen, blood 20 mg/dL anion gap, serum 16 alkaline phosphatase, serum 58 U/L glucose, plasma fasting 116 mg/dL albumin, serum 4.0 g/dL Estimated Glomerular Filtration Rate (calc) 76 mL/min/1.73m2 thyroxine, serum, free 1.38 ng/dL Clinical Lists Update: CBC,CMP,Chol,Trig,TSH,Free T4,HgA1c - Hematology leukocyte count, blood 12.4 10*3/mm3 erythrocyte (RBC) count 3.94 10*6/mm3 platelet count 287 10*3/mm3 hemoglobin, blood 11.3 g/dL hematocrit, blood 37 % red blood cell distribution width 14.9 % mean corpuscular volume, RBC 93 fL Clinical Lists Update: CBC,CMP,Ferritin - Chemistry alanine aminotransferase (SGPT), serum 11 U/L albumin, serum 4.0 g/dL alkaline phosphatase, serum 54 U/L urea nitrogen, blood 10 mg/dL calcium, serum 8.8 mg/dL chloride, serum 101 mmol/L carbon dioxide, venous blood 27.0 mmol/L Estimated Glomerular Filtration Rate (calc) 73 mL/min/1.73m2 glucose, plasma fasting 110 mg/dL anion gap, serum 13 sodium, serum 137 mmol/L bilirubin, serum, total 0.4 mg/dL aspartate aminotransferase (SGOT), serum 13 U/L protein, total, serum 6.4 g/dL potassium, serum 3.6 mmol/L ferritin, serum 14.2 ng/mL creatinine, serum 0.8 mg/dL Clinical Lists Update: CBC,CMP,Ferritin - Hematology red blood cell distribution width 16.2 % hematocrit, blood 32 % hemoglobin, blood 9.3 g/dL platelet count 381 10*3/mm3 erythrocyte (RBC) count 3.33 10*6/mm3 leukocyte count, blood 13.5 10*3/mm3 mean corpuscular volume, RBC 96 fL Clinical Lists Update: CMP,FLP,TSH,Free T4,HgA1c,Microalbumin - Chemistry Estimated Glomerular Filtration Rate (calc) 82 mL/min/1.73m2 glucose, plasma fasting 131 mg/dL cholesterol/HDL ratio, serum, percent 3.3 anion gap, serum 12 sodium, serum 139 mmol/L triglyceride, serum, fasting 142 mg/dL bilirubin, serum, total 0.5 mg/dL alanine aminotransferase (SGPT), serum 10 U/L aspartate [...] serum 55 U/L albumin, serum 4.1 g/dL Clinical Lists Update: CMP,FLP,TSH,Free T4,HgA1c,Microalbumin - Urinalysis microalbumin, urine, semiquantitative 5.1 mg/dL Office Visit: Dr Galaviz'germania Check Up: Established Patient Visit - Chemistry anion gap, serum 16 sodium, serum 139 mmol/L bilirubin, serum, total 0.5 mg/dL alanine aminotransferase (SGPT), serum 9 U/L aspartate aminotransferase (SGOT), serum 11 U/L protein, total, serum 6.5 g/dL potassium, serum 3.4 mmol/L ferritin, serum 9.3 ng/mL creatinine, serum 0.8 mg/dL carbon dioxide, venous blood 25.0 mmol/L chloride, serum 101 mmol/L calcium, serum 9.3 mg/dL urea nitrogen, blood 13 mg/dL alkaline phosphatase, serum 61 U/L albumin, serum 4.3 g/dL Estimated Glomerular Filtration Rate (calc) 78 mL/min/1.73m2 glucose, plasma fasting 129 mg/dL Office Visit: Dr Juan Check Up: Established Patient Visit - Hematology mean corpuscular volume, RBC 94 fL leukocyte count, blood 12.3 10*3/mm3 erythrocyte (RBC) count 3.42 10*6/mm3 platelet count 409 10*3/mm3 hemoglobin, blood 9.7 g/dL hematocrit, blood 32 % red blood cell distribution width 15.9 % Encounters Code Encounter Date Provider Facility CPT-63330 Ofc Vst, Est Level IV 11:44:06 REX Galaviz DO, FACP CPT-13987 Ofc Vst, Est Level IV 20:18:24 TIRE REPAIRER Sagrariokade Solo Galaviz, DO, FACP CPT-35450 Ofc Vst, Est Level III 16:52:42 CDT Sagrario Caroline Solo Galaviz, DO, FACP CPT-74502 Ofc Vst, Est Level III 19:48:33 CDT Sagrario Caroline Solo Galaviz, DO, FACP CPT-83614 Ofc Vst, Est Level III 16:35:55 TIRE REPAIRER Sagrario Caroline Solo Anastacia, DO, FACP CPT-09568 Ofc Vst, Est Level II 16:10:48 CDT Sagrariokade Galaviz [facility] CPT-12338 Ofc Vst, Est Level III 17:02:14 CDT Sagrario Caroline Solo Anastacia, DO, FACP CPT-23451 Ofc Vst, Est Level III 16:22:21 CDT Sagrario Caroline Solo Galaviz, DO, FACP CPT-30104 Ofc Vst, Est Level III 15:38:27 TIRE REPAIRER Sagrario Solo Galaviz, DO, FACP CPT-84294 Ofc Vst, Est Level IV 11:46:07 CDT Sagrariokade Galaviz [facility] CPT-77085 Ofc Vst, Est Level IV 11:48:35 TIRE REPAIRER Sagrario Caroline Solo Galaviz, DO, FACP CPT-77812 Ofc Vst, Est Level IV 10:25:22 TIRE REPAIRER Sagrario Caroline Campi S Galaviz, DO, FACP CPT-99283 Ofc Vst, Est Level IV 15:01:16 CDT Sagrario Caroline Zabala S Anastacia, DO, FACP CPT-95386 Ofc Vst, Est Level IV 13:50:59 CDT Sagrario Caroline Solo Galaviz, DO, FACP CPT-17232 Ofc Vst, Est Level IV 14:42:02 CDT Sagrario Caroline Solo Galaviz, DO, FACP CPT-22764 Ofc Vst, Est Level IV 12:27:54 CDT Sagrario Solo Galaviz, DO, FACP CPT-27705 Ofc Vst, Est Level IV 14:04:58 TIRE REPAIRER Sagrario Solo Galaviz, DO, FACP CPT-99581 Ofc Vst, Est Level IV 11:00:03 TIRE REPAIRER Sagrario Solo Galaviz, DO, FACP CPT-80695 Ofc Vst, Est Level IV 10:16:11 CDT Sagrario Solo Anastacia, DO, FACP CPT-70422 Ofc Vst, Est Level IV 10:59:50 CDT Sagrario Caroline Solo Anastacia, DO, FACP CPT-39945 Ofc Vst, Est Level IV 10:18:39 TIRE REPAIRER Sagrario Solo Aglaviz, DO, FACP CPT-33228 Ofc Vst, Est Level IV 10:46:13 TIRE REPAIRER Sagrario Solo Galaviz, DO, FACP CPT-38746 Ofc Vst, Est Level IV 14:24:50 CDT Sagrariokade Solo Anastacia, DO, FACP CPT-36743 Ofc Vst, Est Level IV 14:13:08 CDT Sagrariokade Solo Galaviz, DO, FACP CPT-80117 Ofc Vst, Est Level V 10:54:54 CDT Sagrario Solo Galaviz, DO, FACP CPT-69931 Ofc Vst, Est Level IV 13:42:46 TIRE REPAIRER Sagrario Solo Anastacia, DO, FACP CPT-00325 Ofc Vst, Est Level III 11:18:13 TIRE REPAIRER Sagrario Solo Anastacia, DO, FACP CPT-06911 Office Consult, Level IV 10:48:11 TIRE REPAIRER Sagrario Gantner Sagrario Germania nAastacia, DO, FACP CPT-54536 Ofc Vst, Est Level IV 10:54:16 CDT Sagrariokade Velazquez Galaviz Sagrariokade Galaviz, DO, FACP CPT-44646 Ofc Vst, Est Level IV 12:52:39 CDT Sagrariokade Velazquez Anastacia Sagrario Germania Anastacia, DO, FACP CPT-01051 Ofc Vst, Est Level IV 10:29:22 CDT Sagrario Caroline Galaviz Sagrario Germania Anastacia, DO, FACP CPT-89321 Ofc Vst, Est Level IV 10:21:39 TIRE REPAIRER Sagrario Velazquez Anastacia Zabala Germania Anastacia, DO, FACP CPT-22378 Ofc Vst, Est Level IV 13:55:28 TIRE REPAIRER Sagrario Velazquez Anastacia Sagrario Germania Anastacia, DO, FACP CPT-88139 Ofc Vst, Est Level II 16:11:54 CDT Sagrariokade Velazquez Anastacia Galaviz, DO, FACP CPT-69471 Ofc Vst, Est Level IV 11:05:58 CDT Sagrario Caroline Anastacia Galaviz, DO, FACP CPT-39462 Ofc Vst, Est Level II 17:22:12 CDT Sagrariokade Galaviz [facility] [place] CPT-94095 Ofc Vst, Est Level III 14:07:00 CDT Sagrario Galaviz [facility] [place] CPT-12860 Ofc Vst, Est Level IV 11:09:34 CDT Sagrario Galaviz [facility] [place] CPT-81143 Ofc Vst, Est Level IV 10:27:16 TIRE REPAIRER Sagrario Galaviz [facility] [place] CPT-89123 Ofc Vst, Est Level IV 11:34:27 TIRE REPAIRER Sagrario Galaviz [facility] [place] CPT-40011 Ofc Vst, Est Level IV 11:12:26 CDT Sagrario Caroline Galaviz [facility] [place] CPT-48346 Ofc Vst, Est Level IV 11:08:03 CDT Sagrario Caroline Galaviz [facility] [place] CPT-33782 Ofc Vst, Est Level III 10:36:15 TIRE REPAIRER Sagrario Galaviz [facility] [place] CPT-77723 Ofc Vst, Est Level III 14:57:25 TIRE REPAIRER Sagrario Galaviz [facility] [place] CPT-18990 Ofc Vst, Est Level IV 11:21:05 TIRE REPAIRER Sagrario Galaviz [facility] [place] CPT-56248 Ofc Vst, Est Level IV 15:12:10 CDT Sagrario Caroline Galaviz [facility] [place] CPT-63098 Ofc Vst, Est Level IV 11:32:45 CDT Sagrario Caroline Galaviz [facility] [place] CPT-94135 Ofc Vst, Est Level IV 18:28:35 CDT Sagrario Caroline Galaviz [facility] [place] CPT-46017 Ofc Vst, Est Level IV 12:58:25 CDT Sagrario Galaviz [facility] [place] CPT-87894 Ofc Vst, Est Level IV 12:52:51 TIRE REPAIRER Sagrario Galaviz [facility] [place] CPT-53463 Ofc Vst, Est Level III 17:02:21 TIRE REPAIRER Sagrario Galaviz [facility] [place] CPT-50057 Ofc Vst, Est Level IV 13:06:56 TIRE REPAIRER Sagrario Galaviz [facility] [place] CPT-83593 Ofc Vst, Est Level IV 12:47:26 TIRE REPAIRER Sagrario Galaviz [facility] [place] CPT-80690 Ofc Vst, Est Level III 17:46:57 TIRE REPAIRER Sagrario Galaviz [facility] [place] CPT-26010 Ofc Vst, Est Level IV 12:57:58 TIRE REPAIRER Sagrario Galaviz [facility] [place] CPT-17227 Ofc Vst, Est Level IV 12:45:38 TIRE REPAIRER Sagrario Galaviz [facility] [place] CPT-09692 Ofc Vst, Est Level IV 13:08:06 CDT Sagrario Caroline Galaviz [facility] [place] CPT-47950 Ofc Vst, Est Level IV 08:06:35 CDT Sagrario Caroline Galaviz [facility] [place] CPT-86074 Ofc Vst, Est Level IV 13:18:36 CDT Sagrario Caroline Galaviz [facility] [place] CPT-00577 Ofc Vst, Est Level IV 17:54:14 CDT Sagrario Galaviz [facility] [place] CPT-33784 Ofc Vst, Est Level IV 13:18:46 CDT Sagrario Caroline Galaviz [facility] [place] CPT-08660 Ofc Vst, Est Level IV 18:01:49 CDT Sagrario Caroline Galaviz [facility] [place] CPT-07915 Ofc Vst, Est Level IV 12:28:42 CDT Sagrario Galaviz [facility] [place] CPT-87368 Ofc Vst, Est Level III 15:48:07 CDT Sagrariokade Galaviz [facility] [place] CPT-38856 Ofc Vst, New Level III 10:52:25 TIRE REPAIRER Sagrario Galaviz [facility] [place] Procedures Code Procedure Name Date Entry Date Standard Description CPT-G0439 Medicare Annual Wellness Visit 16:03:32 CDT CPT-G8446 E-Prescribing not done due to controlled substance 16:35 :55 TIRE REPAIRER CPT-18821 Injection, Pneumovax 15:49:19 TIRE REPAIRER CPT-G8446 E-Prescribing not done due to controlled substance 13:16 :11 CDT CPT-G0439 Medicare Annual Wellness Visit 13:16:11 CDT CPT-G8445 E-Prescribing Not sent due to no medication given 16:10: 48 CDT CPT-G8446 E-Prescribing not done due to controlled substance 17:02 :14 CDT CPT-G8446 E-Prescribing not done due to controlled substance 16:22 :21 CDT CPT-G8446 E-Prescribing not done due to controlled substance 15:38 :27 TIRE REPAIRER CPT-G8446 E-Prescribing not done due to controlled substance 15:41 :44 CDT CPT-G0438 Medicare Annual Wellness Visit Initial 15:41:44 CDT CPT-8446 E-Prescribing not done due to controlled substance 10:54: 54 CDT CPT-60823 Influenza Vaccine 12:12:24 CDT CPT-G0008 Administration Influenza Vaccine 12:12:24 CDT CPT-64596 Incision & Drainage, simple 13:29:49 CDT CPT-45372 Influenza Vaccine 13:55:28 TIRE REPAIRER CPT-G0008 Administration Influenza Vaccine 13:55:28 TIRE REPAIRER CPT-91966 Preventive, Est, (65+) 13:17:39 TIRE REPAIRER
--- OUTSIDE RECORDS SUMMARY | 2018-03-15 20:31 | XMS REPORT | Clinical Summary ---
Author Author User, [employer] Organization Formerly [facility] [place] Address Unknown Phone Unavailable Allergies, Adverse Reactions, [...] tenderness, left lower quadrant DYSURIA 788.1 Resolved Sagrraio Galaviz Dysuria DIVERTICULITIS, ACUTE 562.11 Resolved Sagrario [...] in 1/2 cup of OJ. QID CHOLESTYRAMINE 29051045387 Active Sagrario Galaviz PROTONIX 40 MG TBEC 1 PO daily PANTOPRAZOLE SODIUM 43642856156 Active Sagrario Galaviz SUCRALFATE 1 GM TABS 1 PO AC/HS SUCRALFATE 79956498281 No Longer Active Sagrario Galaviz ALEVE 220 MG TAB 2 PO BID NAPROXEN SODIUM 76714270601 No Longer Active Sagrario Galaviz ASPIRIN 81 MG CHEW 1 PO daily ASPIRIN 53041346885 No Longer Active Sagrario Galaviz PYRIDIUM 200 MG TAB 1 PO TID prn urinary urgency PHENAZOPYRIDINE HCL 60131588826 Active Cindi White AMARYL 1 MG TABS 1 PO daily GLIMEPIRIDE 13145982369 No Longer Active Sagrario Galaviz VICTOZA 18 MG/3ML SOLN 1.2 mg injection daily LIRAGLUTIDE 02614170074 Active Sagrario Galaviz TRUE RESULT METER DIRECTED DX: 250.00 TRUE RESULT METER Active Cindi White TRUETEST TEST STRP TEST BS QID DX: 250.00 GLUCOSE BLOOD 84166157661 Active Cindi White PREMARIN 0.625 MG/GM CREA apply to affected areas BID prn ESTROGENS, CONJUGATED VAGINAL 28877930285 Active Cindi White ZOSTAVAX 21245 UNT/0.65ML SOLR 1 injection once to prevent Shingles ZOSTER VACCINE LIVE 88117033401 No Longer Active Cindi White BD PEN NEEDLE SHORT U/F 31G X 8 MM MISC As directed BID INSULIN PEN NEEDLE 79479385042 Active Sagrario Galaviz ZOSTAVAX 09079 UNT/0.65ML SOLR 1 injection once to prevent Shingles ZOSTER VACCINE LIVE 25026853988 No Longer Active Sagrario Caroline Galaviz FISH OIL 1000 MG CAPS 1 PO daily OMEGA-3 FATTY ACIDS 76862767326 Active Sagrario Caroline Galaviz NITROFURANTOIN MACROCRYSTAL 100 MG CAPS 1 PO daily with supper. NITROFURANTOIN MACROCRYSTAL 06995319141 No Longer Active Sagrario Caroline Galaviz BYETTA 10 MCG PEN 10 MCG/0.04ML SOLN 1 injection BID EXENATIDE 83041172247 No Longer Active Sagrario Caroline Galaviz BYDUREON 1 injection weekly BYDUREON No Longer Active Sagrario Caroline Galaviz K-DUR 10 MEQ TAB CR 1 PO daily with Lasix POTASSIUM CHLORIDE No Longer Active Sagrario Caroline Galaviz LASIX 20 MG TAB 1 PO QD prn swelling FUROSEMIDE 92920919097 No Longer Active Sagrario Caroline Galaviz TRAMADOL HCL 50 MG TABS 1-2 PO every 4-6 hours PRN TRAMADOL HCL 02946523504 No Longer Active Sagrario Caroline Galaviz CARISOPRODOL 350 MG TABS 1 PO QID CARISOPRODOL 30092128660 No Longer Active Sagrario Caroline Galaviz DEMEROL 50 MG TABS 1 PO QID prn MEPERIDINE HCL 94501279303 No Longer Active Sagrariokade Galaviz HYDROCODONE-ACETAMINOPHEN 10-325 MG TABS HYDROCODONE-ACETAMINOPHEN 51924128557 No Longer Active Sagrario Caroline Galaviz PHENERGAN 25 MG TAB 1 PO Q6hrs prn PROMETHAZINE HCL No Longer Active Sagrariokade Galaviz DOXYCYCLINE HYCLATE CAPS DOXYCYCLINE HYCLATE CAPS 83826361020 No Longer Active Sagrario Caroline Galaviz PYRIDIUM 200 MG TAB 1 PO TID prn urinary urgency PHENAZOPYRIDINE HCL 24964279736 No Longer Active Cindimohit Zacariastis CIPRO 500 MG TAB 1 PO BID for 7 days CIPROFLOXACIN HCL 28047674201 No Longer Active Cindi White PYRIDIUM 200 MG TAB 1 PO TID prn urinary urgency PHENAZOPYRIDINE HCL 39421911531 No Longer Active Sagrario Galaviz AUGMENTIN 500-125 MG TAB 1 PO BID AMOXICILLIN-POT CLAVULANATE 49154549350 No Longer Active Sagrario Galaviz PYRIDIUM 200 MG TAB 1 PO TID prn urinary urgency PHENAZOPYRIDINE HCL 86249312860 No Longer Active Cindi White AUGMENTIN 500-125 MG TAB 1 PO BID x 5 days AMOXICILLIN-POT CLAVULANATE 60072453468 No Longer Active Cindi White PYRIDIUM 200 MG TAB 1 PO TID prn urinary urgency PHENAZOPYRIDINE HCL 96392708541 No Longer Active Cindi White VITAMIN D 1000 UNIT TABS 1 PO daily CHOLECALCIFEROL 80353975958 Active Sagrariokade Galaviz CALTRATE 600 PLUS-VIT D 600-200 MG-IU TABS 1 PO QD CALCIUM-VITAMIN D 28912366867 No Longer Active Sagrario Galaviz SYNTHROID 137 MCG TABS 1 pill Mon and Monday and take the 125 mcg M-F LEVOTHYROXINE SODIUM 23752177634 No Longer Active Sagrario Galaviz VITAMIN D 4000 UNIT CAPS (CHOLECALCIFEROL) 1 PO twice a week VITAMIN D 4000 UNIT CAPS (CHOLECALCIFEROL) No Longer Active Sagrario Galaviz SYNTHROID 0.125 MG TAB 1 PO daily. LEVOTHYROXINE SODIUM 62459786928 Active Sagrariokade Galaviz ANTIVERT 25 MG TABS 1 PO Q 6 hrs prn MECLIZINE HCL 49463965139 Active Sagrariokade Galaviz AMARYL 2 MG TAB 1/4 Tablet PO Daily GLIMEPIRIDE 54376189554 No Longer Active Sagrario Galaviz VITAMIN D 1000 UNIT TABS 2 PO Daily CHOLECALCIFEROL 34283772934 No Longer Active Sagrariokade Galaviz METFORMIN HCL 500 MG TABS 2 PO BID METFORMIN HCL 95062398149 Active Sagrariokade Galaviz ONE TOUCH ULTRA TEST STRIPS Test BS four times a day DX Diabetes ONE TOUCH ULTRA TEST STRIPS No Longer Active Cindi White VITAMIN D CAPS (ERGOCALCIFEROL CAPS) 400MG 2 PO daily VITAMIN D CAPS (ERGOCALCIFEROL CAPS) 400MG No Longer Active Sagrariokade Galaviz GLUCOSAMINE 500 MG CAPS as directed GLUCOSAMINE SULFATE 16514041841 No Longer Active Sagrario Galaviz FERROUS SULFATE 325 (65 FE) MG TABS 2 tablets po TID x 1 week, then 1 tablet po in am and 1 po in pm until bottles gone FERROUS SULFATE 43352306739 No Longer Active Sagrariokade Galaviz BYETTA 10 MCG PEN 250 MCG/ML SOLN 1 injection BID EXENATIDE 08780266928 No Longer Active Cindi White AVANDAMET 2-500 MG TABS 1 PO BID ROSIGLITAZONE-METFORMIN 02269605450 No Longer Active Sagrario Galaviz AMARYL 2 MG TABS 1/2 pill PO BID for diabetes GLIMEPIRIDE 23762498442 No Longer Active Sagrariokade Galaviz AVANDAMET 2-500 MG TABS 1 PO BID ROSIGLITAZONE- METFORMIN 49260447880 No Longer Active Sagrariokade Galaviz CITALOPRAM HYDROBROMIDE 40 MG TABS 1 po daily CITALOPRAM HYDROBROMIDE 08137141518 Active Sagrariokade Galaviz CHROMIUM PICOLINATE 400 MCG CAPS daily CHROMIUM PICOLINATE 87548126814 No Longer Active Sagrariokade Galaviz ZOCOR 20 MG TABS 1 PO QHS SIMVASTATIN 27982682713 Active Sagrariokade Galaviz CYMBALTA 30 MG CPEP 1 PO daily DULOXETINE HCL 99173378170 No Longer Active Sagrariokade Galaviz VALIUM 2 MG TABS 1/2 PO 1 hour prior to MRI procedure, may repeat if necessary DIAZEPAM 62176239359 No Longer Active Buck Trevino ACETAMINOPHEN 325 MG TABS 1 PO Q6hrs ACETAMINOPHEN 01429404153 Active Sagrario Caroline Galaviz XALATAN 0.005 % SOLN as directed LATANOPROST 15428913461 Active Sagrariokade Galaviz CITRUCEL POWDER Use qd after meals METHYLCELLULOSE ( LAXATIVE) 80097799295 No Longer Active Sagrariokade Galaviz CIPRO 500 MG TAB 1 BID CIPROFLOXACIN HCL 96983075248 No Longer Active Sagrariokade Galaviz FLAGYL 500 MG TAB 1 TID METRONIDAZOLE 13816656705 No Longer Active Sagrariokade Galaviz NYSTATIN 150453 U/ML SUSP S/S qid as directed for 7 days NYSTATIN 32186575466 No Longer Active Sagrariokade Galaviz GLUCOPHAGE 500 MG TABS 1 PO BID METFORMIN HCL 29722589911 No Longer Active Sagrario Galaviz SYNTHROID 125 MCG TABS 1 po daily LEVOTHYROXINE SODIUM 35636506934 No Longer Active Sagrariokade Galaviz TRIAMCINOLONE ACETONIDE 0.1 % CREA Apply to areas tid TRIAMCINOLONE ACETONIDE (TOP) 69221620964 Active Sagrario Caroline Galaviz COZAAR 100 MG TABS 1 po daily LOSARTAN POTASSIUM 68058445730 Active Sagrario Caroline Galaviz CELEXA 40 MG TABS 1 po daily CITALOPRAM HYDROBROMIDE 84880494730 No Longer Active Sagrario Galaviz Immunizations Vaccine [...] % Encounters Code Encounter Date Provider Facility CPT-75326 Ofc Vst, Est Level IV 11:44:06 REX Galaviz DO, FACP CPT-03952 Ofc Vst, Est Level IV 20:18:24 CHIE[facility] OF INTERNAL MEDICINE Sagrariokade Solo Galaviz, DO, FACP CPT-02977 Ofc Vst, Est Level III 16:52:42 CDT Sagrario Caroline Solo Galaviz, DO, FACP CPT-70840 Ofc Vst, Est Level III 19:48:33 CDT Sagrario Caroline Solo Galaviz, DO, FACP CPT-16672 Ofc Vst, Est Level III 16:35:55 CHIE[facility] OF INTERNAL MEDICINE Sagrario Caroline Solo Anastacia, DO, FACP CPT-78227 Ofc Vst, Est Level II 16:10:48 CDT Sagrariokade Galaviz [facility] CPT-39044 Ofc Vst, Est Level III 17:02:14 CDT Sagrario Caroline Solo Anastacia, DO, FACP CPT-21839 Ofc Vst, Est Level III 16:22:21 CDT Sagrario Caroline Solo Galaviz, DO, FACP CPT-61854 Ofc Vst, Est Level III 15:38:27 CHIEF OF INTERNAL MEDICINE Sagrario Solo Galaviz, DO, FACP CPT-73442 Ofc Vst, Est Level IV 11:46:07 CDT Sagrariokade Galaviz [facility] CPT-97204 Ofc Vst, Est Level IV 11:48:35 CHIEF OF INTERNAL MEDICINE Sagrario Caroline Solo Galaviz, DO, FACP CPT-58785 Ofc Vst, Est Level IV 10:25:22 CHIEF OF INTERNAL MEDICINE Sagrario Caroline Campi S Galaviz, DO, FACP CPT-50422 Ofc Vst, Est Level IV 15:01:16 CDT Sagrario Caroline Zabala S Anastacia, DO, FACP CPT-51947 Ofc Vst, Est Level IV 13:50:59 CDT Sagrario Caroline Solo Galaviz, DO, FACP CPT-84441 Ofc Vst, Est Level IV 14:42:02 CDT Sagrario Caroline Solo Galaviz, DO, FACP CPT-94778 Ofc Vst, Est Level IV 12:27:54 CDT Sagrario Solo Galaviz, DO, FACP CPT-66390 Ofc Vst, Est Level IV 14:04:58 CHIEF OF INTERNAL MEDICINE Sagrario Solo Galaviz, DO, FACP CPT-73019 Ofc Vst, Est Level IV 11:00:03 CHIEF OF INTERNAL MEDICINE Sagrario Solo Galaviz, DO, FACP CPT-05900 Ofc Vst, Est Level IV 10:16:11 CDT Sagrario Solo Anastacia, DO, FACP CPT-51594 Ofc Vst, Est Level IV 10:59:50 CDT Sagrario Caroline Solo Anastacia, DO, FACP CPT-44470 Ofc Vst, Est Level IV 10:18:39 CHIEF OF INTERNAL MEDICINE Sagrario Solo Galaviz, DO, FACP CPT-02413 Ofc Vst, Est Level IV 10:46:13 CHIEF OF INTERNAL MEDICINE Sagrario Solo Galaviz, DO, FACP CPT-67300 Ofc Vst, Est Level IV 14:24:50 CDT Sagrariokade Solo Anastacia, DO, FACP CPT-22665 Ofc Vst, Est Level IV 14:13:08 CDT Sagrariokade Solo Galaviz, DO, FACP CPT-14178 Ofc Vst, Est Level V 10:54:54 CDT Sagrario Solo Galaviz, DO, FACP CPT-13644 Ofc Vst, Est Level IV 13:42:46 CHIEF OF INTERNAL MEDICINE Sagrario Solo Anastacia, DO, FACP CPT-02175 Ofc Vst, Est Level III 11:18:13 CHIEF OF INTERNAL MEDICINE Sagrario Solo Anastacia, DO, FACP CPT-41352 Office Consult, Level IV 10:48:11 CHIEF OF INTERNAL MEDICINE Sagrario Gantner Sagrario Germania Anastacia, DO, FACP CPT-74931 Ofc Vst, Est Level IV 10:54:16 CDT Sagrariokade Velazquez Galaviz Sagrariokade Galaviz, DO, FACP CPT-26235 Ofc Vst, Est Level IV 12:52:39 CDT Sagrariokade Velazquez Anastacia Sagrario Germania Anastacia, DO, FACP CPT-67090 Ofc Vst, Est Level IV 10:29:22 CDT Sagrario Caroline Galaviz Sagrario Germania Anastacia, DO, FACP CPT-83951 Ofc Vst, Est Level IV 10:21:39 CHIEF OF INTERNAL MEDICINE Sagrario Velazquez Anastacia Zabala Germania Anastacia, DO, FACP CPT-00800 Ofc Vst, Est Level IV 13:55:28 CHIEF OF INTERNAL MEDICINE Sagrario Velazquez Anastacia Sagrario Germania Anastacia, DO, FACP CPT-08648 Ofc Vst, Est Level II 16:11:54 CDT Sagrariokade Velazquez Anastacia Galaviz, DO, FACP CPT-92951 Ofc Vst, Est Level IV 11:05:58 CDT Sagrario Caroline Anastacia Galaviz, DO, FACP CPT-76640 Ofc Vst, Est Level II 17:22:12 CDT Sagrariokade Galaviz [facility] [place] CPT-18578 Ofc Vst, Est Level III 14:07:00 CDT Sagrario Galaviz [facility] [place] CPT-23549 Ofc Vst, Est Level IV 11:09:34 CDT Sagrario Galaviz [facility] [place] CPT-84878 Ofc Vst, Est Level IV 10:27:16 CHIEF OF INTERNAL MEDICINE Sagrario Galaviz [facility] [place] CPT-42968 Ofc Vst, Est Level IV 11:34:27 CHIEF OF INTERNAL MEDICINE Sagrario Galaviz [facility] [place] CPT-14341 Ofc Vst, Est Level IV 11:12:26 CDT Sagrario Caroline Galaviz [facility] [place] CPT-26653 Ofc Vst, Est Level IV 11:08:03 CDT Sagrario Caroline Galaviz [facility] [place] CPT-46343 Ofc Vst, Est Level III 10:36:15 CHIEF OF INTERNAL MEDICINE Sagrario aGlaviz [facility] [place] CPT-59731 Ofc Vst, Est Level III 14:57:25 CHIEF OF INTERNAL MEDICINE Sgarario Galaviz [facility] [place] CPT-79720 Ofc Vst, Est Level IV 11:21:05 CHIEF OF INTERNAL MEDICINE Sagrario Galaviz [facility] [place] CPT-40856 Ofc Vst, Est Level IV 15:12:10 CDT Sagrario Caroline Galaviz [facility] [place] CPT-06844 Ofc Vst, Est Level IV 11:32:45 CDT Sagrario Caroline Galaviz [facility] [place] CPT-72823 Ofc Vst, Est Level IV 18:28:35 CDT Sagrario Caroline Galaviz [facility] [place] CPT-40783 Ofc Vst, Est Level IV 12:58:25 CDT Sagrario Galaviz [facility] [place] CPT-56185 Ofc Vst, Est Level IV 12:52:51 CHIEF OF INTERNAL MEDICINE Sagrario Galaviz [facility] [place] CPT-35154 Ofc Vst, Est Level III 17:02:21 CHIEF OF INTERNAL MEDICINE Sagrario Galaviz [facility] [place] CPT-83114 Ofc Vst, Est Level IV 13:06:56 CHIEF OF INTERNAL MEDICINE Sagrario Galaviz [facility] [place] CPT-76466 Ofc Vst, Est Level IV 12:47:26 CHIEF OF INTERNAL MEDICINE Sagrario Galaviz [facility] [place] CPT-40813 Ofc Vst, Est Level III 17:46:57 CHIEF OF INTERNAL MEDICINE Sagrario Galaviz [facility] [place] CPT-41266 Ofc Vst, Est Level IV 12:57:58 CHIEF OF INTERNAL MEDICINE Sagrario Galaviz [facility] [place] CPT-48317 Ofc Vst, Est Level IV 12:45:38 CHIEF OF INTERNAL MEDICINE Sagrario Galaviz [facility] [place] CPT-33100 Ofc Vst, Est Level IV 13:08:06 CDT Sagrario Caroline Galaviz [facility] [place] CPT-24365 Ofc Vst, Est Level IV 08:06:35 CDT Sagrario Caroline Galaviz [facility] [place] CPT-32124 Ofc Vst, Est Level IV 13:18:36 CDT Sagrario Caroline Galaviz [facility] [place] CPT-94997 Ofc Vst, Est Level IV 17:54:14 CDT Sagrario Galaviz [facility] [place] CPT-39779 Ofc Vst, Est Level IV 13:18:46 CDT Sagrario Caroline Galaviz [facility] [place] CPT-59489 Ofc Vst, Est Level IV 18:01:49 CDT Sagrario Caroline Galaviz [facility] [place] CPT-05876 Ofc Vst, Est Level IV 12:28:42 CDT Sagrario Galaviz [facility] [place] CPT-04404 Ofc Vst, Est Level III 15:48:07 CDT Sagrariokade Galaviz [facility] [place] CPT-82796 Ofc Vst, New Level III 10:52:25 CHIEF OF INTERNAL MEDICINE Sagrario Galaviz [facility] [place] Procedures Code Procedure Name Date Entry Date Standard Description CPT-G0439 Medicare Annual Wellness Visit 16:03:32 CDT CPT-G8446 E-Prescribing not done due to controlled substance 16:35 :55 [facility] INTERNAL MEDICINE CPT-30182 Injection, Pneumovax 15:49:19 [facility] INTERNAL MEDICINE CPT-G8446 E-Prescribing not done due to controlled substance 13:16 :11 CDT CPT-G0439 Medicare Annual Wellness Visit 13:16:11 CDT CPT-G8445 E-Prescribing Not sent due to no medication given 16:10: 48 CDT CPT-G8446 E-Prescribing not done due to controlled substance 17:02 :14 CDT CPT-G8446 E-Prescribing not done due to controlled substance 16:22 :21 CDT CPT-G8446 E-Prescribing not done due to controlled substance 15:38 :27 [facility] INTERNAL MEDICINE CPT-G8446 E-Prescribing not done due to controlled substance 15:41 :44 CDT CPT-G0438 Medicare Annual Wellness Visit Initial 15:41:44 CDT CPT-8446 E-Prescribing not done due to controlled substance 10:54: 54 CDT CPT-65526 Influenza Vaccine 12:12:24 CDT CPT-G0008 Administration Influenza Vaccine 12:12:24 CDT CPT-96853 Incision & Drainage, simple 13:29:49 CDT CPT-04779 Influenza Vaccine 13:55:28 [facility] INTERNAL MEDICINE CPT-G0008 Administration Influenza Vaccine 13:55:28 [facility] INTERNAL MEDICINE CPT-17129 Preventive, Est, (65+) 13:17:39 [facility] INTERNAL MEDICINE
--- OUTSIDE RECORDS SUMMARY | 2018-03-15 20:32 | XMS REPORT | Clinical Summary ---
Author Author User, [employer] Organization [facility] [place] Address Unknown Phone Unavailable Allergies, Adverse Reactions, [...] HYPERTENSION, BENIGN ESSENTIAL, CONTROLLED 401.1 Active Sagrario Galvaiz Benign essential hypertension WEIGHT GAIN, ABNORMAL 783.1 [...] in 1/2 cup of OJ. QID CHOLESTYRAMINE 77998121598 Active Sagrario Galaviz PROTONIX 40 MG TBEC 1 PO daily PANTOPRAZOLE SODIUM 18414934357 Active Sagrario Galaviz SUCRALFATE 1 GM TABS 1 PO AC/HS SUCRALFATE 52955055959 No Longer Active Sagrario Galaviz ALEVE 220 MG TAB 2 PO BID NAPROXEN SODIUM 54576012938 No Longer Active Sagrario Galaviz ASPIRIN 81 MG CHEW 1 PO daily ASPIRIN 62885421901 No Longer Active Sagrario Galaviz PYRIDIUM 200 MG TAB 1 PO TID prn urinary urgency PHENAZOPYRIDINE HCL 99067656964 Active Cindi White AMARYL 1 MG TABS 1 PO daily GLIMEPIRIDE 30345044591 No Longer Active Sagrario Galaviz VICTOZA 18 MG/3ML SOLN 1.2 mg injection daily LIRAGLUTIDE 18297665563 Active Sagrario Galaviz TRUE RESULT METER DIRECTED DX: 250.00 TRUE RESULT METER Active Cindi White TRUETEST TEST STRP TEST BS QID DX: 250.00 GLUCOSE BLOOD 66133543108 Active Cindi White PREMARIN 0.625 MG/GM CREA apply to affected areas BID prn ESTROGENS, CONJUGATED VAGINAL 10779031353 Active Cindi White ZOSTAVAX 54851 UNT/0.65ML SOLR 1 injection once to prevent Shingles ZOSTER VACCINE LIVE 01807317986 No Longer Active Cindi White BD PEN NEEDLE SHORT U/F 31G X 8 MM MISC As directed BID INSULIN PEN NEEDLE 69641768742 Active Sagrario Galaviz ZOSTAVAX 36636 UNT/0.65ML SOLR 1 injection once to prevent Shingles ZOSTER VACCINE LIVE 21516801567 No Longer Active Sagrario Caroline Galaviz FISH OIL 1000 MG CAPS 1 PO daily OMEGA-3 FATTY ACIDS 47842624159 Active Sagrario Caroline Galaviz NITROFURANTOIN MACROCRYSTAL 100 MG CAPS 1 PO daily with supper. NITROFURANTOIN MACROCRYSTAL 99603034108 No Longer Active Sagrario Caroline Galaviz BYETTA 10 MCG PEN 10 MCG/0.04ML SOLN 1 injection BID EXENATIDE 01917776434 No Longer Active Sagrario Caroline Galaviz BYDUREON 1 injection weekly BYDUREON No Longer Active Sagrario Caroline Galaviz K-DUR 10 MEQ TAB CR 1 PO daily with Lasix POTASSIUM CHLORIDE No Longer Active Sagrario Caroline Galaviz LASIX 20 MG TAB 1 PO QD prn swelling FUROSEMIDE 61284030072 No Longer Active Sagrario Caroline Galaviz TRAMADOL HCL 50 MG TABS 1-2 PO every 4-6 hours PRN TRAMADOL HCL 94461018619 No Longer Active Sagrario Caroline Galaviz CARISOPRODOL 350 MG TABS 1 PO QID CARISOPRODOL 63723432714 No Longer Active Sagrario Caroline Galaviz DEMEROL 50 MG TABS 1 PO QID prn MEPERIDINE HCL 40818762636 No Longer Active Sagrariokade Galaviz HYDROCODONE-ACETAMINOPHEN 10-325 MG TABS HYDROCODONE-ACETAMINOPHEN 55730201230 No Longer Active Sagrario Caroline Galaviz PHENERGAN 25 MG TAB 1 PO Q6hrs prn PROMETHAZINE HCL No Longer Active Sagrariokade Galaviz DOXYCYCLINE HYCLATE CAPS DOXYCYCLINE HYCLATE CAPS 89070979450 No Longer Active Sagrario Caroline Galaviz PYRIDIUM 200 MG TAB 1 PO TID prn urinary urgency PHENAZOPYRIDINE HCL 68542864961 No Longer Active Cindimohit Zacariastis CIPRO 500 MG TAB 1 PO BID for 7 days CIPROFLOXACIN HCL 63627931751 No Longer Active Cindi White PYRIDIUM 200 MG TAB 1 PO TID prn urinary urgency PHENAZOPYRIDINE HCL 89902273303 No Longer Active Sagrario Galaviz AUGMENTIN 500-125 MG TAB 1 PO BID AMOXICILLIN-POT CLAVULANATE 82782733446 No Longer Active Sagrario Galaviz PYRIDIUM 200 MG TAB 1 PO TID prn urinary urgency PHENAZOPYRIDINE HCL 42029431025 No Longer Active Cindi White AUGMENTIN 500-125 MG TAB 1 PO BID x 5 days AMOXICILLIN-POT CLAVULANATE 12704412439 No Longer Active Cindi White PYRIDIUM 200 MG TAB 1 PO TID prn urinary urgency PHENAZOPYRIDINE HCL 03213570939 No Longer Active Cindi White VITAMIN D 1000 UNIT TABS 1 PO daily CHOLECALCIFEROL 40781841126 Active Sagrariokade Galaviz CALTRATE 600 PLUS-VIT D 600-200 MG-IU TABS 1 PO QD CALCIUM-VITAMIN D 39896354333 No Longer Active Sagrario Galaviz SYNTHROID 137 MCG TABS 1 pill Mon and Monday and take the 125 mcg M-F LEVOTHYROXINE SODIUM 59027231961 No Longer Active Sagrario Galaviz VITAMIN D 4000 UNIT CAPS (CHOLECALCIFEROL) 1 PO twice a week VITAMIN D 4000 UNIT CAPS (CHOLECALCIFEROL) No Longer Active Sagrario Galaviz SYNTHROID 0.125 MG TAB 1 PO daily. LEVOTHYROXINE SODIUM 47113013909 Active Sagrariokade Galaviz ANTIVERT 25 MG TABS 1 PO Q 6 hrs prn MECLIZINE HCL 45093443997 Active Sagrariokade Galaviz AMARYL 2 MG TAB 1/4 Tablet PO Daily GLIMEPIRIDE 81282438636 No Longer Active Sagrario Galaviz VITAMIN D 1000 UNIT TABS 2 PO Daily CHOLECALCIFEROL 21034612454 No Longer Active Sagrariokade Galaviz METFORMIN HCL 500 MG TABS 2 PO BID METFORMIN HCL 38514145379 Active Sagrariokade Galaviz ONE TOUCH ULTRA TEST STRIPS Test BS four times a day DX Diabetes ONE TOUCH ULTRA TEST STRIPS No Longer Active Cindi White VITAMIN D CAPS (ERGOCALCIFEROL CAPS) 400MG 2 PO daily VITAMIN D CAPS (ERGOCALCIFEROL CAPS) 400MG No Longer Active Sagrariokade Galaviz GLUCOSAMINE 500 MG CAPS as directed GLUCOSAMINE SULFATE 96751574160 No Longer Active Sagrario Galaviz FERROUS SULFATE 325 (65 FE) MG TABS 2 tablets po TID x 1 week, then 1 tablet po in am and 1 po in pm until bottles gone FERROUS SULFATE 69051138447 No Longer Active Sagrariokade Galaviz BYETTA 10 MCG PEN 250 MCG/ML SOLN 1 injection BID EXENATIDE 29611866372 No Longer Active Cindi White AVANDAMET 2-500 MG TABS 1 PO BID ROSIGLITAZONE-METFORMIN 54785881396 No Longer Active Sagrario Galaviz AMARYL 2 MG TABS 1/2 pill PO BID for diabetes GLIMEPIRIDE 09279727258 No Longer Active Sagrariokade Galaviz AVANDAMET 2-500 MG TABS 1 PO BID ROSIGLITAZONE- METFORMIN 02386306340 No Longer Active Sagrariokade Galaviz CITALOPRAM HYDROBROMIDE 40 MG TABS 1 po daily CITALOPRAM HYDROBROMIDE 10731449790 Active Sagrariokade Galaviz CHROMIUM PICOLINATE 400 MCG CAPS daily CHROMIUM PICOLINATE 57788110143 No Longer Active Sagrariokade Galaviz ZOCOR 20 MG TABS 1 PO QHS SIMVASTATIN 72345043659 Active Sagrariokade Galaviz CYMBALTA 30 MG CPEP 1 PO daily DULOXETINE HCL 29132602403 No Longer Active Sagrariokade Galaviz VALIUM 2 MG TABS 1/2 PO 1 hour prior to MRI procedure, may repeat if necessary DIAZEPAM 36152961341 No Longer Active Buck Trevino ACETAMINOPHEN 325 MG TABS 1 PO Q6hrs ACETAMINOPHEN 54174747640 Active Sagrario Caroline Galaviz XALATAN 0.005 % SOLN as directed LATANOPROST 03112544492 Active Sagrariokade Galaviz CITRUCEL POWDER Use qd after meals METHYLCELLULOSE ( LAXATIVE) 74081513710 No Longer Active Sagrariokade Galaviz CIPRO 500 MG TAB 1 BID CIPROFLOXACIN HCL 71050560868 No Longer Active Sagrariokade Galaviz FLAGYL 500 MG TAB 1 TID METRONIDAZOLE 50129532106 No Longer Active Sagrariokade Galaviz NYSTATIN 263827 U/ML SUSP S/S qid as directed for 7 days NYSTATIN 45049483140 No Longer Active Sagrariokade Galaviz GLUCOPHAGE 500 MG TABS 1 PO BID METFORMIN HCL 80331245478 No Longer Active Sagrario Galaviz SYNTHROID 125 MCG TABS 1 po daily LEVOTHYROXINE SODIUM 57148396460 No Longer Active Sagrariokade Galaviz TRIAMCINOLONE ACETONIDE 0.1 % CREA Apply to areas tid TRIAMCINOLONE ACETONIDE (TOP) 72321633624 Active Sagrario Caroline Galaviz COZAAR 100 MG TABS 1 po daily LOSARTAN POTASSIUM 22333415781 Active Sagrario aCroline Galaviz CELEXA 40 MG TABS 1 po daily CITALOPRAM HYDROBROMIDE 96493354275 No Longer Active Sagrario Galaviz Immunizations Vaccine [...] % Encounters Code Encounter Date Provider Facility CPT-47288 Ofc Vst, Est Level IV 11:44:06 REX Galaviz DO, FACP CPT-23298 Ofc Vst, Est Level IV 20:18:24 CORPORATE MANAGER Sagrariokade Solo Galaviz, DO, FACP CPT-72977 Ofc Vst, Est Level III 16:52:42 CDT Sagrario Caroline Solo Galaviz, DO, FACP CPT-40472 Ofc Vst, Est Level III 19:48:33 CDT Sagrario Caroline Solo Galaviz, DO, FACP CPT-10369 Ofc Vst, Est Level III 16:35:55 CORPORATE MANAGER Sagrario Caroline Solo Anastacia, DO, FACP CPT-22030 Ofc Vst, Est Level II 16:10:48 CDT Sagrariokade Galaviz [facility] CPT-38326 Ofc Vst, Est Level III 17:02:14 CDT Sagrario Caroline Solo Anastacia, DO, FACP CPT-53919 Ofc Vst, Est Level III 16:22:21 CDT Sagrario Caroline Solo Galaviz, DO, FACP CPT-15449 Ofc Vst, Est Level III 15:38:27 CORPORATE MANAGER Sagrario Solo Galaviz, DO, FACP CPT-91614 Ofc Vst, Est Level IV 11:46:07 CDT Sagrariokade Galaviz [facility] CPT-30221 Ofc Vst, Est Level IV 11:48:35 CORPORATE MANAGER Sagrario Caroline Solo Galaviz, DO, FACP CPT-81006 Ofc Vst, Est Level IV 10:25:22 CORPORATE MANAGER Sagrario Caroline Campi S Galaviz, DO, FACP CPT-32991 Ofc Vst, Est Level IV 15:01:16 CDT Sagrario Caroline Zabala S Anastacia, DO, FACP CPT-93739 Ofc Vst, Est Level IV 13:50:59 CDT Sagrario Caroline Solo Galaviz, DO, FACP CPT-19753 Ofc Vst, Est Level IV 14:42:02 CDT Sagrario Caroline Solo Galaviz, DO, FACP CPT-37919 Ofc Vst, Est Level IV 12:27:54 CDT Sagrario Solo Galaviz, DO, FACP CPT-41336 Ofc Vst, Est Level IV 14:04:58 CORPORATE MANAGER Sagrario Solo Galaviz, DO, FACP CPT-90156 Ofc Vst, Est Level IV 11:00:03 CORPORATE MANAGER Sagrario Solo Galaviz, DO, FACP CPT-31935 Ofc Vst, Est Level IV 10:16:11 CDT Sagrario Solo Anastacia, DO, FACP CPT-23992 Ofc Vst, Est Level IV 10:59:50 CDT Sagrario Caroline Solo Anastacia, DO, FACP CPT-56343 Ofc Vst, Est Level IV 10:18:39 CORPORATE MANAGER Sagrario Solo Galaviz, DO, FACP CPT-49328 Ofc Vst, Est Level IV 10:46:13 CORPORATE MANAGER Sagrario Solo Galaviz, DO, FACP CPT-59994 Ofc Vst, Est Level IV 14:24:50 CDT Sagrariokade Solo Anastacia, DO, FACP CPT-70279 Ofc Vst, Est Level IV 14:13:08 CDT Sagrariokade Solo Galaviz, DO, FACP CPT-19611 Ofc Vst, Est Level V 10:54:54 CDT Sagrario Solo Galaviz, DO, FACP CPT-64497 Ofc Vst, Est Level IV 13:42:46 CORPORATE MANAGER Sagrario Solo Anastacia, DO, FACP CPT-10665 Ofc Vst, Est Level III 11:18:13 CORPORATE MANAGER Sagrario Solo Anastacia, DO, FACP CPT-97501 Office Consult, Level IV 10:48:11 CORPORATE MANAGER Sagrario Gantner Sagrario Germania Anastacia, DO, FACP CPT-55883 Ofc Vst, Est Level IV 10:54:16 CDT Sagrariokade Velazquez Galaviz Sagrariokade Galaviz, DO, FACP CPT-41704 Ofc Vst, Est Level IV 12:52:39 CDT Sagrariokade Velazquez Anastacia Sagrario Germania Anastacia, DO, FACP CPT-74235 Ofc Vst, Est Level IV 10:29:22 CDT Sagrario Caroline Galaviz Sagrario Germania Anastacia, DO, FACP CPT-46529 Ofc Vst, Est Level IV 10:21:39 CORPORATE MANAGER Sagrario Velazquez Anastacia Zabala Germania Anastacia, DO, FACP CPT-32432 Ofc Vst, Est Level IV 13:55:28 CORPORATE MANAGER Sagrario Velazquez Anastacia Sagrario Germania Anastacia, DO, FACP CPT-32277 Ofc Vst, Est Level II 16:11:54 CDT Sagrariokade Velazquez Anastacia Galaviz, DO, FACP CPT-06926 Ofc Vst, Est Level IV 11:05:58 CDT Sagrario Caroline Anastacia Galaviz, DO, FACP CPT-32033 Ofc Vst, Est Level II 17:22:12 CDT Sagrariokade Galaviz [facility] [place] CPT-12599 Ofc Vst, Est Level III 14:07:00 CDT Sagrario Galaviz [facility] [place] CPT-92075 Ofc Vst, Est Level IV 11:09:34 CDT Sagrario Galaviz [facility] [place] CPT-39512 Ofc Vst, Est Level IV 10:27:16 CORPORATE MANAGER Sagrario Galaviz [facility] [place] CPT-22526 Ofc Vst, Est Level IV 11:34:27 CORPORATE MANAGER Sagrario Galaviz [facility] [place] CPT-04265 Ofc Vst, Est Level IV 11:12:26 CDT Sagrario Caroline Galaviz [facility] [place] CPT-25635 Ofc Vst, Est Level IV 11:08:03 CDT Sagrario Caroline Galaviz [facility] [place] CPT-41530 Ofc Vst, Est Level III 10:36:15 CORPORATE MANAGER Sagrairo Galaviz [facility] [place] CPT-22491 Ofc Vst, Est Level III 14:57:25 CORPORATE MANAGER Sagrario Galaviz [facility] [place] CPT-65928 Ofc Vst, Est Level IV 11:21:05 CORPORATE MANAGER Sagrario Galaviz [facility] [place] CPT-15618 Ofc Vst, Est Level IV 15:12:10 CDT Sagrario Caroline Galaviz [facility] [place] CPT-54420 Ofc Vst, Est Level IV 11:32:45 CDT Sagrario Caroline Galaviz [facility] [place] CPT-24191 Ofc Vst, Est Level IV 18:28:35 CDT Sagrario Caroline Galaviz [facility] [place] CPT-83144 Ofc Vst, Est Level IV 12:58:25 CDT Sagrario Galaviz [facility] [place] CPT-08440 Ofc Vst, Est Level IV 12:52:51 CORPORATE MANAGER Sagrario Galaviz [facility] [place] CPT-43392 Ofc Vst, Est Level III 17:02:21 CORPORATE MANAGER Sagrario Galaviz [facility] [place] CPT-69058 Ofc Vst, Est Level IV 13:06:56 CORPORATE MANAGER Sagrario Galaviz [facility] [place] CPT-00307 Ofc Vst, Est Level IV 12:47:26 CORPORATE MANAGER Sagrario Galaviz [facility] [place] CPT-15368 Ofc Vst, Est Level III 17:46:57 CORPORATE MANAGER Sagrario Galaviz [facility] [place] CPT-13330 Ofc Vst, Est Level IV 12:57:58 CORPORATE MANAGER Sagrario Galaviz [facility] [place] CPT-38989 Ofc Vst, Est Level IV 12:45:38 CORPORATE MANAGER Sagrario Galaviz [facility] [place] CPT-58752 Ofc Vst, Est Level IV 13:08:06 CDT Sagrario Caroline Galaviz [facility] [place] CPT-25972 Ofc Vst, Est Level IV 08:06:35 CDT Sagrario Caroline Galaviz [facility] [place] CPT-12213 Ofc Vst, Est Level IV 13:18:36 CDT Sagrario Caroline Galaviz [facility] [place] CPT-70731 Ofc Vst, Est Level IV 17:54:14 CDT Sagrario Galaviz [facility] [place] CPT-10628 Ofc Vst, Est Level IV 13:18:46 CDT Sagrario Caroline Galaviz [facility] [place] CPT-84877 Ofc Vst, Est Level IV 18:01:49 CDT Sagrario Caroline Galaviz [facility] [place] CPT-22819 Ofc Vst, Est Level IV 12:28:42 CDT Sagrario Galaviz [facility] [place] CPT-53445 Ofc Vst, Est Level III 15:48:07 CDT Sagrariokade Galaviz [facility] [place] CPT-18058 Ofc Vst, New Level III 10:52:25 CORPORATE MANAGER Sagrario Galaviz [facility] [place] Procedures Code Procedure Name Date Entry Date Standard Description CPT-G0439 Medicare Annual Wellness Visit 16:03:32 CDT CPT-G8446 E-Prescribing not done due to controlled substance 16:35 :55 CORPORATE MANAGER CPT-81095 Injection, Pneumovax 15:49:19 CORPORATE MANAGER CPT-G8446 E-Prescribing not done due to controlled substance 13:16 :11 CDT CPT-G0439 Medicare Annual Wellness Visit 13:16:11 CDT CPT-G8445 E-Prescribing Not sent due to no medication given 16:10: 48 CDT CPT-G8446 E-Prescribing not done due to controlled substance 17:02 :14 CDT CPT-G8446 E-Prescribing not done due to controlled substance 16:22 :21 CDT CPT-G8446 E-Prescribing not done due to controlled substance 15:38 :27 CORPORATE MANAGER CPT-G8446 E-Prescribing not done due to controlled substance 15:41 :44 CDT CPT-G0438 Medicare Annual Wellness Visit Initial 15:41:44 CDT CPT-8446 E-Prescribing not done due to controlled substance 10:54: 54 CDT CPT-94064 Influenza Vaccine 12:12:24 CDT CPT-G0008 Administration Influenza Vaccine 12:12:24 CDT CPT-57062 Incision & Drainage, simple 13:29:49 CDT CPT-06075 Influenza Vaccine 13:55:28 CORPORATE MANAGER CPT-G0008 Administration Influenza Vaccine 13:55:28 CORPORATE MANAGER CPT-86115 Preventive, Est, (65+) 13:17:39 CORPORATE MANAGER
--- OUTSIDE RECORDS SUMMARY | 2018-03-15 20:34 | XMS REPORT | Clinical Summary ---
Author Author User, Node ManagementCurtis Organization [facility] Physician Sawyer Address Unknown Phone Unavailable Allergies, Adverse Reactions, [...] to health BACK PAIN 724.5 Resolved Sagrario Gaalviz Backache, unspecified HIP PAIN 719.45 Resolved Sagrario Galaviz Pain in joint involving pelvic region and thigh GLAUCOMA 365.9 Resolved Sagrario Galaviz Unspecified glaucoma BACK PAIN 724.5 Resolved Sagrario Galaviz Backache, unspecified NECK PAIN 723.1 Resolved Sagrario Galvaiz Cervicalgia SPINAL STENOSIS, LUMBAR 724.02 Resolved Sagrario [...] in 1/2 cup of OJ. QID CHOLESTYRAMINE 33131723950 Active Sagrario Galaviz PROTONIX 40 MG TBEC 1 PO daily PANTOPRAZOLE SODIUM 42947671218 Active Sagrario Galaviz SUCRALFATE 1 GM TABS 1 PO AC/HS SUCRALFATE 03698135597 No Longer Active Sagrario Galaviz ALEVE 220 MG TAB 2 PO BID NAPROXEN SODIUM 85454363135 No Longer Active Sagrario Galaviz ASPIRIN 81 MG CHEW 1 PO daily ASPIRIN 76401953359 No Longer Active Sagrario Galaviz PYRIDIUM 200 MG TAB 1 PO TID prn urinary urgency PHENAZOPYRIDINE HCL 20190299101 Active Cindi White AMARYL 1 MG TABS 1 PO daily GLIMEPIRIDE 36810599046 No Longer Active Sagrario Galaviz VICTOZA 18 MG/3ML SOLN 1.2 mg injection daily LIRAGLUTIDE 36999815519 Active Sagrario Galaviz TRUE RESULT METER DIRECTED DX: 250.00 TRUE RESULT METER Active Cindi White TRUETEST TEST STRP TEST BS QID DX: 250.00 GLUCOSE BLOOD 18853986341 Active Cindi White PREMARIN 0.625 MG/GM CREA apply to affected areas BID prn ESTROGENS, CONJUGATED VAGINAL 03294475021 Active Cindi White ZOSTAVAX 63494 UNT/0.65ML SOLR 1 injection once to prevent Shingles ZOSTER VACCINE LIVE 67584377087 No Longer Active Cindi White BD PEN NEEDLE SHORT U/F 31G X 8 MM MISC As directed BID INSULIN PEN NEEDLE 15043933688 Active Sagrario Galaviz ZOSTAVAX 47567 UNT/0.65ML SOLR 1 injection once to prevent Shingles ZOSTER VACCINE LIVE 79211360762 No Longer Active Sagrario Caroline Galaviz FISH OIL 1000 MG CAPS 1 PO daily OMEGA-3 FATTY ACIDS 23992146554 Active Sagrario Caroline Galaviz NITROFURANTOIN MACROCRYSTAL 100 MG CAPS 1 PO daily with supper. NITROFURANTOIN MACROCRYSTAL 46147230951 No Longer Active Sagrario Caroline Galaviz BYETTA 10 MCG PEN 10 MCG/0.04ML SOLN 1 injection BID EXENATIDE 46456350269 No Longer Active Sagrario Caroline Galaviz BYDUREON 1 injection weekly BYDUREON No Longer Active Sagrario Caroline Galaviz K-DUR 10 MEQ TAB CR 1 PO daily with Lasix POTASSIUM CHLORIDE No Longer Active Sagrario Caroline Galaviz LASIX 20 MG TAB 1 PO QD prn swelling FUROSEMIDE 75115074713 No Longer Active Sagrario Caroline Galaviz TRAMADOL HCL 50 MG TABS 1-2 PO every 4-6 hours PRN TRAMADOL HCL 84580560906 No Longer Active Sagrario Caroline Galaviz CARISOPRODOL 350 MG TABS 1 PO QID CARISOPRODOL 53991581911 No Longer Active Sagrario Caroline Galaviz DEMEROL 50 MG TABS 1 PO QID prn MEPERIDINE HCL 26227648575 No Longer Active Sagrariokade Galaviz HYDROCODONE-ACETAMINOPHEN 10-325 MG TABS HYDROCODONE-ACETAMINOPHEN 46239472018 No Longer Active Sagrario Caroline Galaviz PHENERGAN 25 MG TAB 1 PO Q6hrs prn PROMETHAZINE HCL No Longer Active Sagrariokade Galaviz DOXYCYCLINE HYCLATE CAPS DOXYCYCLINE HYCLATE CAPS 37783878818 No Longer Active Sagrario Caroline Galaviz PYRIDIUM 200 MG TAB 1 PO TID prn urinary urgency PHENAZOPYRIDINE HCL 34634648082 No Longer Active Cindimohit Zacariastis CIPRO 500 MG TAB 1 PO BID for 7 days CIPROFLOXACIN HCL 92350808821 No Longer Active Cindi White PYRIDIUM 200 MG TAB 1 PO TID prn urinary urgency PHENAZOPYRIDINE HCL 66268831342 No Longer Active Sagrario Galaviz AUGMENTIN 500-125 MG TAB 1 PO BID AMOXICILLIN-POT CLAVULANATE 09408224461 No Longer Active Sagrario Galaviz PYRIDIUM 200 MG TAB 1 PO TID prn urinary urgency PHENAZOPYRIDINE HCL 14457871629 No Longer Active Cindi White AUGMENTIN 500-125 MG TAB 1 PO BID x 5 days AMOXICILLIN-POT CLAVULANATE 94289282247 No Longer Active Cindi White PYRIDIUM 200 MG TAB 1 PO TID prn urinary urgency PHENAZOPYRIDINE HCL 45682314655 No Longer Active Cindi White VITAMIN D 1000 UNIT TABS 1 PO daily CHOLECALCIFEROL 67720137312 Active Sagrariokade Galaviz CALTRATE 600 PLUS-VIT D 600-200 MG-IU TABS 1 PO QD CALCIUM-VITAMIN D 22087344373 No Longer Active Sagrario Galaviz SYNTHROID 137 MCG TABS 1 pill Mon and Monday and take the 125 mcg M-F LEVOTHYROXINE SODIUM 49463298402 No Longer Active Sagrario Galaviz VITAMIN D 4000 UNIT CAPS (CHOLECALCIFEROL) 1 PO twice a week VITAMIN D 4000 UNIT CAPS (CHOLECALCIFEROL) No Longer Active Sagrario Galaviz SYNTHROID 0.125 MG TAB 1 PO daily. LEVOTHYROXINE SODIUM 16876785072 Active Sagrariokade Galaviz ANTIVERT 25 MG TABS 1 PO Q 6 hrs prn MECLIZINE HCL 15999128707 Active Sagrariokade Galaviz AMARYL 2 MG TAB 1/4 Tablet PO Daily GLIMEPIRIDE 41429556046 No Longer Active Sagrario Galaviz VITAMIN D 1000 UNIT TABS 2 PO Daily CHOLECALCIFEROL 22934397629 No Longer Active Sagrariokade Galaviz METFORMIN HCL 500 MG TABS 2 PO BID METFORMIN HCL 81324325040 Active Sagrariokade Galaviz ONE TOUCH ULTRA TEST STRIPS Test BS four times a day DX Diabetes ONE TOUCH ULTRA TEST STRIPS No Longer Active Cindi White VITAMIN D CAPS (ERGOCALCIFEROL CAPS) 400MG 2 PO daily VITAMIN D CAPS (ERGOCALCIFEROL CAPS) 400MG No Longer Active Sagrariokade Galaviz GLUCOSAMINE 500 MG CAPS as directed GLUCOSAMINE SULFATE 92736577209 No Longer Active Sagrario Galaviz FERROUS SULFATE 325 (65 FE) MG TABS 2 tablets po TID x 1 week, then 1 tablet po in am and 1 po in pm until bottles gone FERROUS SULFATE 73855991662 No Longer Active Sagrariokade Galaviz BYETTA 10 MCG PEN 250 MCG/ML SOLN 1 injection BID EXENATIDE 51588175387 No Longer Active Cindi White AVANDAMET 2-500 MG TABS 1 PO BID ROSIGLITAZONE-METFORMIN 23303544557 No Longer Active Sagrario Galaviz AMARYL 2 MG TABS 1/2 pill PO BID for diabetes GLIMEPIRIDE 48055014636 No Longer Active Sagrariokade Galaviz AVANDAMET 2-500 MG TABS 1 PO BID ROSIGLITAZONE- METFORMIN 25271593464 No Longer Active Sagrariokade Galaviz CITALOPRAM HYDROBROMIDE 40 MG TABS 1 po daily CITALOPRAM HYDROBROMIDE 23038578308 Active Sagrariokade Galaviz CHROMIUM PICOLINATE 400 MCG CAPS daily CHROMIUM PICOLINATE 80787836904 No Longer Active Sagrariokade Galaviz ZOCOR 20 MG TABS 1 PO QHS SIMVASTATIN 47467967481 Active Sagrariokade Galaviz CYMBALTA 30 MG CPEP 1 PO daily DULOXETINE HCL 01402815672 No Longer Active Sagrariokade Galaviz VALIUM 2 MG TABS 1/2 PO 1 hour prior to MRI procedure, may repeat if necessary DIAZEPAM 39026097368 No Longer Active Buck Trevino ACETAMINOPHEN 325 MG TABS 1 PO Q6hrs ACETAMINOPHEN 83306548505 Active Sagrario Caroline Galaviz XALATAN 0.005 % SOLN as directed LATANOPROST 94198336852 Active Sagrariokade Galaviz CITRUCEL POWDER Use qd after meals METHYLCELLULOSE ( LAXATIVE) 25288836057 No Longer Active Sagrariokade Galaviz CIPRO 500 MG TAB 1 BID CIPROFLOXACIN HCL 55125118855 No Longer Active Sagrariokade Galaviz FLAGYL 500 MG TAB 1 TID METRONIDAZOLE 57282930793 No Longer Active Sagrariokade Galaviz NYSTATIN 460783 U/ML SUSP S/S qid as directed for 7 days NYSTATIN 45584553463 No Longer Active Sagrariokade Galaviz GLUCOPHAGE 500 MG TABS 1 PO BID METFORMIN HCL 13528182499 No Longer Active Sagrario Galaviz SYNTHROID 125 MCG TABS 1 po daily LEVOTHYROXINE SODIUM 86152425941 No Longer Active Sagrariokade Galaviz TRIAMCINOLONE ACETONIDE 0.1 % CREA Apply to areas tid TRIAMCINOLONE ACETONIDE (TOP) 40922311327 Active Sagrario Caroline Galaviz COZAAR 100 MG TABS 1 po daily LOSARTAN POTASSIUM 52780545856 Active Sagrario Caroline Galaviz CELEXA 40 MG TABS 1 po daily CITALOPRAM HYDROBROMIDE 24020897813 No Longer Active Sagrario Galaviz Immunizations Vaccine [...] % Encounters Code Encounter Date Provider Facility CPT-96487 Ofc Vst, Est Level IV 11:44:06 REX Galaviz DO, FACP CPT-24521 Ofc Vst, Est Level IV 20:18:24 CANNERY WORKER Sagrariokade Solo Galaviz, DO, FACP CPT-81241 Ofc Vst, Est Level III 16:52:42 CDT Sagrario Caroline Solo Galaviz, DO, FACP CPT-30518 Ofc Vst, Est Level III 19:48:33 CDT Sagrario Caroline Solo Galaviz, DO, FACP CPT-71610 Ofc Vst, Est Level III 16:35:55 CANNERY WORKER Sagrario Caroline Solo Anastacia, DO, FACP CPT-27992 Ofc Vst, Est Level II 16:10:48 CDT Sagrariokade Galaviz [facility] CPT-64574 Ofc Vst, Est Level III 17:02:14 CDT Sagrario Caroline Solo Anastacia, DO, FACP CPT-82029 Ofc Vst, Est Level III 16:22:21 CDT Sagrario Caroline Solo Galaviz, DO, FACP CPT-45459 Ofc Vst, Est Level III 15:38:27 CANNERY WORKER Sagrario Solo Galaviz, DO, FACP CPT-17332 Ofc Vst, Est Level IV 11:46:07 CDT Sagrariokade Galaviz [facility] CPT-88382 Ofc Vst, Est Level IV 11:48:35 CANNERY WORKER Sagrario Caroline Solo Galaviz, DO, FACP CPT-98589 Ofc Vst, Est Level IV 10:25:22 CANNERY WORKER Sagrario Caroline Campi S Galaviz, DO, FACP CPT-82508 Ofc Vst, Est Level IV 15:01:16 CDT Sagrario Caroline Zabala S Anastacia, DO, FACP CPT-33998 Ofc Vst, Est Level IV 13:50:59 CDT Sagrario Caroline Solo Galaviz, DO, FACP CPT-43432 Ofc Vst, Est Level IV 14:42:02 CDT Sagrario Caroline Solo Galaviz, DO, FACP CPT-97176 Ofc Vst, Est Level IV 12:27:54 CDT Sagrario Solo Galaviz, DO, FACP CPT-58970 Ofc Vst, Est Level IV 14:04:58 CANNERY WORKER Sagrario Solo Galaviz, DO, FACP CPT-90765 Ofc Vst, Est Level IV 11:00:03 CANNERY WORKER Sagrario Solo Galaviz, DO, FACP CPT-75179 Ofc Vst, Est Level IV 10:16:11 CDT Sagrario Solo Anastacia, DO, FACP CPT-96013 Ofc Vst, Est Level IV 10:59:50 CDT Sagrario Caroline Solo Anastacia, DO, FACP CPT-12546 Ofc Vst, Est Level IV 10:18:39 CANNERY WORKER Sagrario Solo Galaviz, DO, FACP CPT-53548 Ofc Vst, Est Level IV 10:46:13 CANNERY WORKER Sagrario Solo Galaviz, DO, FACP CPT-51561 Ofc Vst, Est Level IV 14:24:50 CDT Sagrariokade Solo Anastacia, DO, FACP CPT-73002 Ofc Vst, Est Level IV 14:13:08 CDT Sagrariokade Solo Galaviz, DO, FACP CPT-40302 Ofc Vst, Est Level V 10:54:54 CDT Sagrario Solo Galaviz, DO, FACP CPT-55814 Ofc Vst, Est Level IV 13:42:46 CANNERY WORKER Sagrario Solo Anastacia, DO, FACP CPT-20903 Ofc Vst, Est Level III 11:18:13 CANNERY WORKER Sagrario Solo Anastacia, DO, FACP CPT-65569 Office Consult, Level IV 10:48:11 CANNERY WORKER Sagrario Gantner Sagrario Germania Anastacia, DO, FACP CPT-98229 Ofc Vst, Est Level IV 10:54:16 CDT Sagrariokade Velazquez Galaviz Sagrariokade Galaviz, DO, FACP CPT-04085 Ofc Vst, Est Level IV 12:52:39 CDT Sagrariokade Velazquez Anastacia Sagrario Germania Anastacia, DO, FACP CPT-43579 Ofc Vst, Est Level IV 10:29:22 CDT Sagrario Caroline Galaviz Sagrario Germania Anastacia, DO, FACP CPT-08412 Ofc Vst, Est Level IV 10:21:39 CANNERY WORKER Sagrario Velazquez Anastacia Zabala Germania Anastacia, DO, FACP CPT-80419 Ofc Vst, Est Level IV 13:55:28 CANNERY WORKER Sagrario Velazquez Anastacia Sagrario Germania Anastacia, DO, FACP CPT-99494 Ofc Vst, Est Level II 16:11:54 CDT Sagrariokade Velazqeuz Anastacia Galaviz, DO, FACP CPT-06650 Ofc Vst, Est Level IV 11:05:58 CDT Sagrario Caroline Anastacia Galaviz, DO, FACP CPT-95737 Ofc Vst, Est Level II 17:22:12 CDT Sagrariokade Galaviz [facility] CPT-08313 Ofc Vst, Est Level III 14:07:00 CDT Sagrario Galaviz [facility] Physician Sawyer CPT-30201 Ofc Vst, Est Level IV 11:09:34 CDT Sagrario Galaviz [facility] Physician Sawyer CPT-21908 Ofc Vst, Est Level IV 10:27:16 CANNERY WORKER Sagrario Galaviz [facility] Physician Sawyer CPT-78903 Ofc Vst, Est Level IV 11:34:27 CANNERY WORKER Sagrario Galaviz [facility] Sawyer CPT-40754 Ofc Vst, Est Level IV 11:12:26 CDT Sagrario Caroline Galaviz [facility] Sawyer CPT-50228 Ofc Vst, Est Level IV 11:08:03 CDT Sagrario Caroline Galaviz [facility] Saw[facility] CPT-90035 Ofc Vst, Est Level III 10:36:15 CANNERY WORKER Sagrario Galaviz [facility] CPT-67314 Ofc Vst, Est Level III 14:57:25 CANNERY WORKER Sagrario Galaviz [facility] CPT-79902 Ofc Vst, Est Level IV 11:21:05 CANNERY WORKER Sagrario Galaviz [facility] CPT-49923 Ofc Vst, Est Level IV 15:12:10 CDT Sagrario Caroline Galaviz [facility] CPT-20589 Ofc Vst, Est Level IV 11:32:45 CDT Sagrario Caroline Galaviz [facility] CPT-59182 Ofc Vst, Est Level IV 18:28:35 CDT Sagrario Caroline Galaviz [facility] CPT-11957 Ofc Vst, Est Level IV 12:58:25 CDT Sagrario Galaviz [facility] CPT-98163 Ofc Vst, Est Level IV 12:52:51 CANNERY WORKER Sagrario Galaviz [facility] CPT-70445 Ofc Vst, Est Level III 17:02:21 CANNERY WORKER Sagrario Galaviz [facility] CPT-49215 Ofc Vst, Est Level IV 13:06:56 CANNERY WORKER Sagrario Galaviz [facility] CPT-01663 Ofc Vst, Est Level IV 12:47:26 CANNERY WORKER Sagrario Galaviz [facility] CPT-45985 Ofc Vst, Est Level III 17:46:57 CANNERY WORKER Sagrario Galaviz [facility] CPT-81781 Ofc Vst, Est Level IV 12:57:58 CANNERY WORKER Sagrario Galaviz [facility] CPT-78978 Ofc Vst, Est Level IV 12:45:38 CANNERY WORKER Sagrario Galaviz [facility] Physician Sawyer CPT-70232 Ofc Vst, Est Level IV 13:08:06 CDT Sagrario Caroline Galaviz [facility] Physician Sawyer CPT-68265 Ofc Vst, Est Level IV 08:06:35 CDT Sagrario Caroline Galaviz [facility] CPT-63250 Ofc Vst, Est Level IV 13:18:36 CDT Sagrario Caroline Galaviz [facility] Physician Sawyer CPT-67379 Ofc Vst, Est Level IV 17:54:14 CDT Sagrario Galaviz [facility] Physician Sawyer CPT-89580 Ofc Vst, Est Level IV 13:18:46 CDT Sagrario Caroline Galaviz [facility] Physician Sawyer CPT-62476 Ofc Vst, Est Level IV 18:01:49 CDT Sagrario Caroline Galaviz [facility] Physician Sawyer CPT-56998 Ofc Vst, Est Level IV 12:28:42 CDT Sagrario Galaviz [facility] Physician Sawyer CPT-54675 Ofc Vst, Est Level III 15:48:07 CDT Sagrariokade Galaviz [facility] Physician Sawyer CPT-97190 Ofc Vst, New Level III 10:52:25 CANNERY WORKER Sgarario Galaviz [facility] Physician Sawyer Procedures Code Procedure Name Date Entry Date Standard Description CPT-G0439 Medicare Annual Wellness Visit 16:03:32 CDT CPT-G8446 E-Prescribing not done due to controlled substance 16:35 :55 CANNERY WORKER CPT-03887 Injection, Pneumovax 15:49:19 CANNERY WORKER CPT-G8446 E-Prescribing not done due to controlled substance 13:16 :11 CDT CPT-G0439 Medicare Annual Wellness Visit 13:16:11 CDT CPT-G8445 E-Prescribing Not sent due to no medication given 16:10: 48 CDT CPT-G8446 E-Prescribing not done due to controlled substance 17:02 :14 CDT CPT-G8446 E-Prescribing not done due to controlled substance 16:22 :21 CDT CPT-G8446 E-Prescribing not done due to controlled substance 15:38 :27 CANNERY WORKER CPT-G8446 E-Prescribing not done due to controlled substance 15:41 :44 CDT CPT-G0438 Medicare Annual Wellness Visit Initial 15:41:44 CDT CPT-8446 E-Prescribing not done due to controlled substance 10:54: 54 CDT CPT-27433 Influenza Vaccine 12:12:24 CDT CPT-G0008 Administration Influenza Vaccine 12:12:24 CDT CPT-30177 Incision & Drainage, simple 13:29:49 CDT CPT-98884 Influenza Vaccine 13:55:28 CANNERY WORKER CPT-G0008 Administration Influenza Vaccine 13:55:28 CANNERY WORKER CPT-38982 Preventive, Est, (65+) 13:17:39 CANNERY WORKER
[2018-03-15] MEDS ORDERED: POTASSIUM CHLORIDE INJ 10 MEQ in NS IV 1000 ML 1,000 ML IV SCH (20:35)
--- OUTSIDE RECORDS SUMMARY | 2018-03-15 20:35 | XMS REPORT | Clinical Summary ---
Author Author User, [employer] [facility] Address Unknown Phone Unavailable Allergies, Adverse Reactions, [...] in 1/2 cup of OJ. QID CHOLESTYRAMINE 18592178539 Active Sagrario Galaviz PROTONIX 40 MG TBEC 1 PO daily PANTOPRAZOLE SODIUM 99196239258 Active Sagrario Galaviz SUCRALFATE 1 GM TABS 1 PO AC/HS SUCRALFATE 20995736148 No Longer Active Sagrario Galaviz ALEVE 220 MG TAB 2 PO BID NAPROXEN SODIUM 91221321311 No Longer Active Sagrario Galaviz ASPIRIN 81 MG CHEW 1 PO daily ASPIRIN 98681369167 No Longer Active Sagrario Galaviz PYRIDIUM 200 MG TAB 1 PO TID prn urinary urgency PHENAZOPYRIDINE HCL 53983383848 Active Cindi White AMARYL 1 MG TABS 1 PO daily GLIMEPIRIDE 61390252824 No Longer Active Sagrario Galaviz VICTOZA 18 MG/3ML SOLN 1.2 mg injection daily LIRAGLUTIDE 78589216652 Active Sagrario Galaviz TRUE RESULT METER DIRECTED DX: 250.00 TRUE RESULT METER Active Cindi White TRUETEST TEST STRP TEST BS QID DX: 250.00 GLUCOSE BLOOD 34562856874 Active Cindi White PREMARIN 0.625 MG/GM CREA apply to affected areas BID prn ESTROGENS, CONJUGATED VAGINAL 95860511683 Active Cindi White ZOSTAVAX 94772 UNT/0.65ML SOLR 1 injection once to prevent Shingles ZOSTER VACCINE LIVE 29805296967 No Longer Active Cindi White BD PEN NEEDLE SHORT U/F 31G X 8 MM MISC As directed BID INSULIN PEN NEEDLE 49773678972 Active Sagrario Galaviz ZOSTAVAX 41856 UNT/0.65ML SOLR 1 injection once to prevent Shingles ZOSTER VACCINE LIVE 51636138808 No Longer Active Sagrario Caroline Galaviz FISH OIL 1000 MG CAPS 1 PO daily OMEGA-3 FATTY ACIDS 80600103667 Active Sagrario Caroline Galaviz NITROFURANTOIN MACROCRYSTAL 100 MG CAPS 1 PO daily with supper. NITROFURANTOIN MACROCRYSTAL 01509120544 No Longer Active Sagrario Caroline Galaviz BYETTA 10 MCG PEN 10 MCG/0.04ML SOLN 1 injection BID EXENATIDE 18699382382 No Longer Active Sagrario Caroline Galaviz BYDUREON 1 injection weekly BYDUREON No Longer Active Sagrario Caroline Galaviz K-DUR 10 MEQ TAB CR 1 PO daily with Lasix POTASSIUM CHLORIDE No Longer Active Sagrario Caroline Galaviz LASIX 20 MG TAB 1 PO QD prn swelling FUROSEMIDE 82441098549 No Longer Active Sagrario Caroline Galaviz TRAMADOL HCL 50 MG TABS 1-2 PO every 4-6 hours PRN TRAMADOL HCL 78366039144 No Longer Active Sagrario Caroline Galaviz CARISOPRODOL 350 MG TABS 1 PO QID CARISOPRODOL 20436674152 No Longer Active Sagrario Caroline Galaviz DEMEROL 50 MG TABS 1 PO QID prn MEPERIDINE HCL 75761295521 No Longer Active Sagrariokade Galaviz HYDROCODONE-ACETAMINOPHEN 10-325 MG TABS HYDROCODONE-ACETAMINOPHEN 11110193262 No Longer Active Sagrario Caroline Galaviz PHENERGAN 25 MG TAB 1 PO Q6hrs prn PROMETHAZINE HCL No Longer Active Sagrariokade Galaviz DOXYCYCLINE HYCLATE CAPS DOXYCYCLINE HYCLATE CAPS 15418525472 No Longer Active Sagrario Caroline Galaviz PYRIDIUM 200 MG TAB 1 PO TID prn urinary urgency PHENAZOPYRIDINE HCL 17657985917 No Longer Active Cindimohit Zacariastis CIPRO 500 MG TAB 1 PO BID for 7 days CIPROFLOXACIN HCL 74400999861 No Longer Active Cindi White PYRIDIUM 200 MG TAB 1 PO TID prn urinary urgency PHENAZOPYRIDINE HCL 79176885538 No Longer Active Sagrario Galaviz AUGMENTIN 500-125 MG TAB 1 PO BID AMOXICILLIN-POT CLAVULANATE 17170099857 No Longer Active Sagrario Galaviz PYRIDIUM 200 MG TAB 1 PO TID prn urinary urgency PHENAZOPYRIDINE HCL 31223578463 No Longer Active Cindi White AUGMENTIN 500-125 MG TAB 1 PO BID x 5 days AMOXICILLIN-POT CLAVULANATE 69826160246 No Longer Active Cindi White PYRIDIUM 200 MG TAB 1 PO TID prn urinary urgency PHENAZOPYRIDINE HCL 43731912024 No Longer Active Cindi White VITAMIN D 1000 UNIT TABS 1 PO daily CHOLECALCIFEROL 11770425033 Active Sagrariokade Galaviz CALTRATE 600 PLUS-VIT D 600-200 MG-IU TABS 1 PO QD CALCIUM-VITAMIN D 98210678433 No Longer Active Sagrario Galaviz SYNTHROID 137 MCG TABS 1 pill Mon and Monday and take the 125 mcg M-F LEVOTHYROXINE SODIUM 26944140354 No Longer Active Sagrario Galaviz VITAMIN D 4000 UNIT CAPS (CHOLECALCIFEROL) 1 PO twice a week VITAMIN D 4000 UNIT CAPS (CHOLECALCIFEROL) No Longer Active Sagrario Galaviz SYNTHROID 0.125 MG TAB 1 PO daily. LEVOTHYROXINE SODIUM 46280483453 Active Sagrariokade Galaviz ANTIVERT 25 MG TABS 1 PO Q 6 hrs prn MECLIZINE HCL 59724883921 Active Sagrariokade Galaviz AMARYL 2 MG TAB 1/4 Tablet PO Daily GLIMEPIRIDE 65381720032 No Longer Active Sagrario Galaviz VITAMIN D 1000 UNIT TABS 2 PO Daily CHOLECALCIFEROL 40586676514 No Longer Active Sagrariokade Galaviz METFORMIN HCL 500 MG TABS 2 PO BID METFORMIN HCL 25781946401 Active Sagrariokade Galaviz ONE TOUCH ULTRA TEST STRIPS Test BS four times a day DX Diabetes ONE TOUCH ULTRA TEST STRIPS No Longer Active Cindi White VITAMIN D CAPS (ERGOCALCIFEROL CAPS) 400MG 2 PO daily VITAMIN D CAPS (ERGOCALCIFEROL CAPS) 400MG No Longer Active Sagrariokade Galaviz GLUCOSAMINE 500 MG CAPS as directed GLUCOSAMINE SULFATE 21986417942 No Longer Active Sagrario Galaviz FERROUS SULFATE 325 (65 FE) MG TABS 2 tablets po TID x 1 week, then 1 tablet po in am and 1 po in pm until bottles gone FERROUS SULFATE 97590209061 No Longer Active Sagrariokade Galaviz BYETTA 10 MCG PEN 250 MCG/ML SOLN 1 injection BID EXENATIDE 35616991662 No Longer Active Cindi White AVANDAMET 2-500 MG TABS 1 PO BID ROSIGLITAZONE-METFORMIN 40177578942 No Longer Active Sagrario Galaviz AMARYL 2 MG TABS 1/2 pill PO BID for diabetes GLIMEPIRIDE 03252522070 No Longer Active Sagrariokade Galaviz AVANDAMET 2-500 MG TABS 1 PO BID ROSIGLITAZONE- METFORMIN 22300560213 No Longer Active Sagrariokade Galaviz CITALOPRAM HYDROBROMIDE 40 MG TABS 1 po daily CITALOPRAM HYDROBROMIDE 25566492453 Active Sagrariokade Galaviz CHROMIUM PICOLINATE 400 MCG CAPS daily CHROMIUM PICOLINATE 94101408609 No Longer Active Sagrariokade Galaviz ZOCOR 20 MG TABS 1 PO QHS SIMVASTATIN 88175276778 Active Sagrariokade Galaviz CYMBALTA 30 MG CPEP 1 PO daily DULOXETINE HCL 07268641743 No Longer Active Sagrariokade Galaviz VALIUM 2 MG TABS 1/2 PO 1 hour prior to MRI procedure, may repeat if necessary DIAZEPAM 66353691010 No Longer Active Buck Trevino ACETAMINOPHEN 325 MG TABS 1 PO Q6hrs ACETAMINOPHEN 71226730925 Active Sagrario Caroline Galaviz XALATAN 0.005 % SOLN as directed LATANOPROST 70321760780 Active Sagrariokade Galaviz CITRUCEL POWDER Use qd after meals METHYLCELLULOSE ( LAXATIVE) 58055181072 No Longer Active Sagrariokade Galaviz CIPRO 500 MG TAB 1 BID CIPROFLOXACIN HCL 75514468839 No Longer Active Sagrariokade Galaviz FLAGYL 500 MG TAB 1 TID METRONIDAZOLE 27077259708 No Longer Active Sagrariokade Galaviz NYSTATIN 584247 U/ML SUSP S/S qid as directed for 7 days NYSTATIN 57296508419 No Longer Active Sagrariokade Galaviz GLUCOPHAGE 500 MG TABS 1 PO BID METFORMIN HCL 86393760916 No Longer Active Sagrario Galaviz SYNTHROID 125 MCG TABS 1 po daily LEVOTHYROXINE SODIUM 27924539615 No Longer Active Sagrariokade Galaviz TRIAMCINOLONE ACETONIDE 0.1 % CREA Apply to areas tid TRIAMCINOLONE ACETONIDE (TOP) 97784231871 Active Sagrario Caroline Galaviz COZAAR 100 MG TABS 1 po daily [place]ARTAN POTASSIUM 60895896293 Active Sagrario Caroline Galaviz CELEXA 40 MG TABS 1 po daily CITALOPRAM HYDROBROMIDE 31773711390 No Longer Active Sagrario Galaviz Immunizations Vaccine [...] % Encounters Code Encounter Date Provider Facility CPT-76608 Ofc Vst, Est Level IV 11:44:06 REX Galaviz DO, FACP CPT-96568 Ofc Vst, Est Level IV 20:18:24 TOOL LATHE OPERATOR Sagrariokade Solo Galaviz, DO, FACP CPT-00761 Ofc Vst, Est Level III 16:52:42 CDT Sagrario Caroline Solo Galaviz, DO, FACP CPT-87074 Ofc Vst, Est Level III 19:48:33 CDT Sagrario Caroline Solo Galaviz, DO, FACP CPT-74365 Ofc Vst, Est Level III 16:35:55 TOOL LATHE OPERATOR Sagrario Caroline Solo Anastacia, DO, FACP CPT-80803 Ofc Vst, Est Level II 16:10:48 CDT Sagrariokade Galaviz [facility] CPT-04184 Ofc Vst, Est Level III 17:02:14 CDT Sagrario Caroline Solo Anastacia, DO, FACP CPT-25518 Ofc Vst, Est Level III 16:22:21 CDT Sagrario Caroline Solo Galaviz, DO, FACP CPT-10659 Ofc Vst, Est Level III 15:38:27 TOOL LATHE OPERATOR Sagrario Solo Galaviz, DO, FACP CPT-30072 Ofc Vst, Est Level IV 11:46:07 CDT Sagrariokade Galaviz [facility] CPT-94477 Ofc Vst, Est Level IV 11:48:35 TOOL LATHE OPERATOR Sagrario Caroline Solo Galaviz, DO, FACP CPT-99309 Ofc Vst, Est Level IV 10:25:22 TOOL LATHE OPERATOR Sagrario Caroline Campi S Galaviz, DO, FACP CPT-40187 Ofc Vst, Est Level IV 15:01:16 CDT Sagrario Caroline Zabala S Anastacia, DO, FACP CPT-93622 Ofc Vst, Est Level IV 13:50:59 CDT Sagrario Caroline Solo Galaviz, DO, FACP CPT-15984 Ofc Vst, Est Level IV 14:42:02 CDT Sagrario Caroline Solo Galaviz, DO, FACP CPT-73387 Ofc Vst, Est Level IV 12:27:54 CDT Sagrario Solo Galaviz, DO, FACP CPT-22278 Ofc Vst, Est Level IV 14:04:58 TOOL LATHE OPERATOR Sagrario Solo Galaviz, DO, FACP CPT-24835 Ofc Vst, Est Level IV 11:00:03 TOOL LATHE OPERATOR Sagrario Solo Galaviz, DO, FACP CPT-39716 Ofc Vst, Est Level IV 10:16:11 CDT Sagrario Solo Anastacia, DO, FACP CPT-63141 Ofc Vst, Est Level IV 10:59:50 CDT Sagrario Caroline Solo Anastacia, DO, FACP CPT-89410 Ofc Vst, Est Level IV 10:18:39 TOOL LATHE OPERATOR Sagrario Solo Galaviz, DO, FACP CPT-94691 Ofc Vst, Est Level IV 10:46:13 TOOL LATHE OPERATOR Sagrario Solo Galaviz, DO, FACP CPT-72708 Ofc Vst, Est Level IV 14:24:50 CDT Sagrariokade Solo Anastacia, DO, FACP CPT-02778 Ofc Vst, Est Level IV 14:13:08 CDT Sagrariokade Solo Galaviz, DO, FACP CPT-02216 Ofc Vst, Est Level V 10:54:54 CDT Sagrario Solo Galaviz, DO, FACP CPT-34845 Ofc Vst, Est Level IV 13:42:46 TOOL LATHE OPERATOR Sagrario Solo Anastacia, DO, FACP CPT-73277 Ofc Vst, Est Level III 11:18:13 TOOL LATHE OPERATOR Sagrario Solo Anastacia, DO, FACP CPT-62573 Office Consult, Level IV 10:48:11 TOOL LATHE OPERATOR Sagrario Gantner Sagrario Germania Anastacia, DO, FACP CPT-75515 Ofc Vst, Est Level IV 10:54:16 CDT Sagrariokade Velazquez Galaviz Sagrariokade Galaviz, DO, FACP CPT-84365 Ofc Vst, Est Level IV 12:52:39 CDT Sagrariokade Velazquez Anastacia Sagrario Germania Anastacia, DO, FACP CPT-21965 Ofc Vst, Est Level IV 10:29:22 CDT Sagrario Caroline Galaviz Sagrario Germania Anastacia, DO, FACP CPT-77617 Ofc Vst, Est Level IV 10:21:39 TOOL LATHE OPERATOR Sagrario Velazquez Anastacia Zabala Germania Anastacia, DO, FACP CPT-39751 Ofc Vst, Est Level IV 13:55:28 TOOL LATHE OPERATOR Sagrario Velazquez Anastacia Sagrario Germania Anastacia, DO, FACP CPT-30089 Ofc Vst, Est Level II 16:11:54 CDT Sagrariokade Velazquez Anastacia Galaviz, DO, FACP CPT-81411 Ofc Vst, Est Level IV 11:05:58 CDT Sagrario Caroline Anastacia Galaviz, DO, FACP CPT-11717 Ofc Vst, Est Level II 17:22:12 CDT Sagrariokade Galaviz [facility] CPT-00857 Ofc Vst, Est Level III 14:07:00 CDT Sagrario Galaviz [facility] CPT-20803 Ofc Vst, Est Level IV 11:09:34 CDT Sagrario Galaviz [facility] CPT-14420 Ofc Vst, Est Level IV 10:27:16 TOOL LATHE OPERATOR Sagrario Galaviz [facility] CPT-93497 Ofc Vst, Est Level IV 11:34:27 TOOL LATHE OPERATOR Sagrario Galaviz [facility] CPT-55706 Ofc Vst, Est Level IV 11:12:26 CDT Sagrario Caroline Galaviz [facility] CPT-80087 Ofc Vst, Est Level IV 11:08:03 CDT Sagrario Caroline Galaviz [facility] CPT-53932 Ofc Vst, Est Level III 10:36:15 TOOL LATHE OPERATOR Sagrario Galaviz [facility] CPT-33151 Ofc Vst, Est Level III 14:57:25 TOOL LATHE OPERATOR Sgarario Galaviz [facility] CPT-10366 Ofc Vst, Est Level IV 11:21:05 TOOL LATHE OPERATOR Sagrario Galaviz [facility] CPT-56774 Ofc Vst, Est Level IV 15:12:10 CDT Sagrario Caroline Galaviz [facility] CPT-44880 Ofc Vst, Est Level IV 11:32:45 CDT Sagrario Caroline Galaviz [facility] CPT-96517 Ofc Vst, Est Level IV 18:28:35 CDT Sagrario Caroline Galaviz [facility] CPT-19565 Ofc Vst, Est Level IV 12:58:25 CDT Sagrario Galaviz [facility] CPT-12942 Ofc Vst, Est Level IV 12:52:51 TOOL LATHE OPERATOR Sagrario Galaviz [facility] CPT-69556 Ofc Vst, Est Level III 17:02:21 TOOL LATHE OPERATOR Sagrario Galaviz [facility] CPT-75515 Ofc Vst, Est Level IV 13:06:56 TOOL LATHE OPERATOR aSgrario Galaviz [facility] CPT-81837 Ofc Vst, Est Level IV 12:47:26 TOOL LATHE OPERATOR Sagrario Galaviz [facility] CPT-72639 Ofc Vst, Est Level III 17:46:57 TOOL LATHE OPERATOR Sagrario Galaviz [facility] CPT-72913 Ofc Vst, Est Level IV 12:57:58 TOOL LATHE OPERATOR Sagrario Galaviz [facility] CPT-37839 Ofc Vst, Est Level IV 12:45:38 TOOL LATHE OPERATOR Sagrario Galaviz [facility] CPT-96572 Ofc Vst, Est Level IV 13:08:06 CDT Asgrario Caroline Galaviz [facility] CPT-15094 Ofc Vst, Est Level IV 08:06:35 CDT Sagrario Caroline Galaviz [facility] CPT-58468 Ofc Vst, Est Level IV 13:18:36 CDT Sagrario Caroline Galaviz [facility] CPT-31214 Ofc Vst, Est Level IV 17:54:14 CDT Sagrario Galaviz [facility] CPT-19903 Ofc Vst, Est Level IV 13:18:46 CDT Sagrario Caroline Galaviz [facility] CPT-82214 Ofc Vst, Est Level IV 18:01:49 CDT Sagrario Caroline Galaviz [facility] CPT-05962 Ofc Vst, Est Level IV 12:28:42 CDT Sagrario Galaviz [facility] CPT-46391 Ofc Vst, Est Level III 15:48:07 CDT Sagrariokade Galaviz [facility] CPT-53725 Ofc Vst, New Level III 10:52:25 TOOL LATHE OPERATOR Sagrario Galaviz [facility] Procedures Code Procedure Name Date Entry Date Standard Description CPT-G0439 Medicare Annual Wellness Visit 16:03:32 CDT CPT-G8446 E-Prescribing not done due to controlled substance 16:35 :55 TOOL LATHE OPERATOR CPT-12216 Injection, Pneumovax 15:49:19 TOOL LATHE OPERATOR CPT-G8446 E-Prescribing not done due to controlled substance 13:16 :11 CDT CPT-G0439 Medicare Annual Wellness Visit 13:16:11 CDT CPT-G8445 E-Prescribing Not sent due to no medication given 16:10: 48 CDT CPT-G8446 E-Prescribing not done due to controlled substance 17:02 :14 CDT CPT-G8446 E-Prescribing not done due to controlled substance 16:22 :21 CDT CPT-G8446 E-Prescribing not done due to controlled substance 15:38 :27 TOOL LATHE OPERATOR CPT-G8446 E-Prescribing not done due to controlled substance 15:41 :44 CDT CPT-G0438 Medicare Annual Wellness Visit Initial 15:41:44 CDT CPT-8446 E-Prescribing not done due to controlled substance 10:54: 54 CDT CPT-85021 Influenza Vaccine 12:12:24 CDT CPT-G0008 Administration Influenza Vaccine 12:12:24 CDT CPT-56318 Incision & Drainage, simple 13:29:49 CDT CPT-99380 Influenza Vaccine 13:55:28 TOOL LATHE OPERATOR CPT-G0008 Administration Influenza Vaccine 13:55:28 TOOL LATHE OPERATOR CPT-34501 Preventive, Est, (65+) 13:17:39 TOOL LATHE OPERATOR
--- OUTSIDE RECORDS SUMMARY | 2018-03-15 20:36 | XMS REPORT | Clinical Summary ---
Author Author User, [employer] Organization [facility] [place] Address Unknown Phone Unavailable Allergies, Adverse Reactions, [...] not elsewhere classified DERMATITIS NEC 692.89 Resolved Sagraroi Galaviz Contact dermatitis and other eczema due [...] anemias ABDOMINAL PAIN, GENERALIZED 789.07 Active Sagrario Galvaiz Abdominal pain, generalized Medication List Medication Instructions Start Date Stop Date Generic Name NDC Status Provider Patient Instruction QUESTRAN 4 GM/DOSE POWD 1 packet in 1/2 cup of OJ. QID CHOLESTYRAMINE 40943082568 Active Sagrario Galaviz PROTONIX 40 MG TBEC 1 PO daily PANTOPRAZOLE SODIUM 74271939220 Active Sagrario Galaviz SUCRALFATE 1 GM TABS 1 PO AC/HS SUCRALFATE 82200766661 No Longer Active Sagrario Galaviz ALEVE 220 MG TAB 2 PO BID NAPROXEN SODIUM 76207242142 No Longer Active Sagrario Galaviz ASPIRIN 81 MG CHEW 1 PO daily ASPIRIN 98318150519 No Longer Active Sagrario Galaviz PYRIDIUM 200 MG TAB 1 PO TID prn urinary urgency PHENAZOPYRIDINE HCL 92850287417 Active Cindi White AMARYL 1 MG TABS 1 PO daily GLIMEPIRIDE 43265855154 No Longer Active Sagrario Galaviz VICTOZA 18 MG/3ML SOLN 1.2 mg injection daily LIRAGLUTIDE 31125377313 Active Sagrario Galaviz TRUE RESULT METER DIRECTED DX: 250.00 TRUE RESULT METER Active Cindi White TRUETEST TEST STRP TEST BS QID DX: 250.00 GLUCOSE BLOOD 36956839665 Active Cindi White PREMARIN 0.625 MG/GM CREA apply to affected areas BID prn ESTROGENS, CONJUGATED VAGINAL 99098600488 Active Cindi White ZOSTAVAX 90230 UNT/0.65ML SOLR 1 injection once to prevent Shingles ZOSTER VACCINE LIVE 76364077909 No Longer Active Cindi White BD PEN NEEDLE SHORT U/F 31G X 8 MM MISC As directed BID INSULIN PEN NEEDLE 00297986765 Active Sagrario Galaviz ZOSTAVAX 29634 UNT/0.65ML SOLR 1 injection once to prevent Shingles ZOSTER VACCINE LIVE 66431596357 No Longer Active Sagrario Caroline Galaviz FISH OIL 1000 MG CAPS 1 PO daily OMEGA-3 FATTY ACIDS 41587722579 Active Sagrario Caroline Galaviz NITROFURANTOIN MACROCRYSTAL 100 MG CAPS 1 PO daily with supper. NITROFURANTOIN MACROCRYSTAL 20870437317 No Longer Active Sagrario Caroline Galaviz BYETTA 10 MCG PEN 10 MCG/0.04ML SOLN 1 injection BID EXENATIDE 76495113134 No Longer Active Sagrario Caroline Galaviz BYDUREON 1 injection weekly BYDUREON No Longer Active Sagrario Caroline Galaviz K-DUR 10 MEQ TAB CR 1 PO daily with Lasix POTASSIUM CHLORIDE No Longer Active Sagrario Caroline Galaviz LASIX 20 MG TAB 1 PO QD prn swelling FUROSEMIDE 24976900074 No Longer Active Sagrario Caroline Galaviz TRAMADOL HCL 50 MG TABS 1-2 PO every 4-6 hours PRN TRAMADOL HCL 73906278312 No Longer Active Sagrario Caroline Galaviz CARISOPRODOL 350 MG TABS 1 PO QID CARISOPRODOL 85044378222 No Longer Active Sagrario Caroline Galaviz DEMEROL 50 MG TABS 1 PO QID prn MEPERIDINE HCL 30769778482 No Longer Active Sagrariokade Galaviz HYDROCODONE-ACETAMINOPHEN 10-325 MG TABS HYDROCODONE-ACETAMINOPHEN 16821078156 No Longer Active Sagrario Caroline Galaviz PHENERGAN 25 MG TAB 1 PO Q6hrs prn PROMETHAZINE HCL No Longer Active Sagrariokade Galaviz DOXYCYCLINE HYCLATE CAPS DOXYCYCLINE HYCLATE CAPS 39012016350 No Longer Active Sagrario Caroline Galaviz PYRIDIUM 200 MG TAB 1 PO TID prn urinary urgency PHENAZOPYRIDINE HCL 89528234122 No Longer Active Cindimohit Zacariastis CIPRO 500 MG TAB 1 PO BID for 7 days CIPROFLOXACIN HCL 48732401871 No Longer Active Cindi White PYRIDIUM 200 MG TAB 1 PO TID prn urinary urgency PHENAZOPYRIDINE HCL 48971722149 No Longer Active Sagrario Galaviz AUGMENTIN 500-125 MG TAB 1 PO BID AMOXICILLIN-POT CLAVULANATE 06204628895 No Longer Active Sagrario Galaviz PYRIDIUM 200 MG TAB 1 PO TID prn urinary urgency PHENAZOPYRIDINE HCL 34699739476 No Longer Active Cindi White AUGMENTIN 500-125 MG TAB 1 PO BID x 5 days AMOXICILLIN-POT CLAVULANATE 24401914686 No Longer Active Cindi White PYRIDIUM 200 MG TAB 1 PO TID prn urinary urgency PHENAZOPYRIDINE HCL 84023911507 No Longer Active Cindi White VITAMIN D 1000 UNIT TABS 1 PO daily CHOLECALCIFEROL 20563648513 Active Sagrariokade Galaviz CALTRATE 600 PLUS-VIT D 600-200 MG-IU TABS 1 PO QD CALCIUM-VITAMIN D 74702506461 No Longer Active Sagrario Galaviz SYNTHROID 137 MCG TABS 1 pill Mon and Monday and take the 125 mcg M-F LEVOTHYROXINE SODIUM 44259999520 No Longer Active Sagrario Galaviz VITAMIN D 4000 UNIT CAPS (CHOLECALCIFEROL) 1 PO twice a week VITAMIN D 4000 UNIT CAPS (CHOLECALCIFEROL) No Longer Active Sagrario Galaviz SYNTHROID 0.125 MG TAB 1 PO daily. LEVOTHYROXINE SODIUM 15079186241 Active Sagrariokade Galaviz ANTIVERT 25 MG TABS 1 PO Q 6 hrs prn MECLIZINE HCL 28665168780 Active Sagrariokade Galaviz AMARYL 2 MG TAB 1/4 Tablet PO Daily GLIMEPIRIDE 72072303582 No Longer Active Sagrario Galaviz VITAMIN D 1000 UNIT TABS 2 PO Daily CHOLECALCIFEROL 21161847492 No Longer Active Sagrariokade Galaviz METFORMIN HCL 500 MG TABS 2 PO BID METFORMIN HCL 05767786853 Active Sagrariokade Galaviz ONE TOUCH ULTRA TEST STRIPS Test BS four times a day DX Diabetes ONE TOUCH ULTRA TEST STRIPS No Longer Active Cindi White VITAMIN D CAPS (ERGOCALCIFEROL CAPS) 400MG 2 PO daily VITAMIN D CAPS (ERGOCALCIFEROL CAPS) 400MG No Longer Active Sagrariokade Galaviz GLUCOSAMINE 500 MG CAPS as directed GLUCOSAMINE SULFATE 90056733550 No Longer Active Sagrario Galaviz FERROUS SULFATE 325 (65 FE) MG TABS 2 tablets po TID x 1 week, then 1 tablet po in am and 1 po in pm until bottles gone FERROUS SULFATE 24036654181 No Longer Active Sagrariokade Galaviz BYETTA 10 MCG PEN 250 MCG/ML SOLN 1 injection BID EXENATIDE 61103394956 No Longer Active Cindi White AVANDAMET 2-500 MG TABS 1 PO BID ROSIGLITAZONE-METFORMIN 08304690649 No Longer Active Sagrario Galaviz AMARYL 2 MG TABS 1/2 pill PO BID for diabetes GLIMEPIRIDE 49331965001 No Longer Active Sagrariokade Galaviz AVANDAMET 2-500 MG TABS 1 PO BID ROSIGLITAZONE- METFORMIN 38186172564 No Longer Active Sagrariokade Galaviz CITALOPRAM HYDROBROMIDE 40 MG TABS 1 po daily CITALOPRAM HYDROBROMIDE 02287546692 Active Sagrariokade Galaviz CHROMIUM PICOLINATE 400 MCG CAPS daily CHROMIUM PICOLINATE 14443893719 No Longer Active Sagrariokade Galaviz ZOCOR 20 MG TABS 1 PO QHS SIMVASTATIN 38954547792 Active Sagrariokade Galaviz CYMBALTA 30 MG CPEP 1 PO daily DULOXETINE HCL 72043598329 No Longer Active Sagrariokade Galaviz VALIUM 2 MG TABS 1/2 PO 1 hour prior to MRI procedure, may repeat if necessary DIAZEPAM 38416940477 No Longer Active Buck Trevino ACETAMINOPHEN 325 MG TABS 1 PO Q6hrs ACETAMINOPHEN 83273892948 Active Sagrario Caroline Galaviz XALATAN 0.005 % SOLN as directed LATANOPROST 79116752939 Active Sagrariokade Galaviz CITRUCEL POWDER Use qd after meals METHYLCELLULOSE ( LAXATIVE) 75102689668 No Longer Active Sagrariokade Galaviz CIPRO 500 MG TAB 1 BID CIPROFLOXACIN HCL 81640606642 No Longer Active Sagrariokade Galaviz FLAGYL 500 MG TAB 1 TID METRONIDAZOLE 49992189606 No Longer Active Sagrariokade Galaviz NYSTATIN 435459 U/ML SUSP S/S qid as directed for 7 days NYSTATIN 68272781568 No Longer Active Sagrariokade Galaviz GLUCOPHAGE 500 MG TABS 1 PO BID METFORMIN HCL 15243190948 No Longer Active Sagrario Galaviz SYNTHROID 125 MCG TABS 1 po daily LEVOTHYROXINE SODIUM 76334264752 No Longer Active Sagrariokade Galaviz TRIAMCINOLONE ACETONIDE 0.1 % CREA Apply to areas tid TRIAMCINOLONE ACETONIDE (TOP) 06442084146 Active Sagrario Caroline Galaviz COZAAR 100 MG TABS 1 po daily LOSARTAN POTASSIUM 58997025839 Active Sagrario Caroline Galaviz CELEXA 40 MG TABS 1 po daily CITALOPRAM HYDROBROMIDE 44066329931 No Longer Active Sagrario Galaviz Immunizations Vaccine [...] % Encounters Code Encounter Date Provider Facility CPT-59891 Ofc Vst, Est Level IV 11:44:06 REX Galaviz DO, FACP CPT-17006 Ofc Vst, Est Level IV 20:18:24 [employer] Sagrariokade Solo Galaviz, DO, FACP CPT-05810 Ofc Vst, Est Level III 16:52:42 CDT Sagrario Caroline Solo Galaviz, DO, FACP CPT-02735 Ofc Vst, Est Level III 19:48:33 CDT Sagrario Caroline Solo Galaviz, DO, FACP CPT-74085 Ofc Vst, Est Level III 16:35:55 [employer] Sagrario Caroline Solo Anastacia, DO, FACP CPT-65054 Ofc Vst, Est Level II 16:10:48 CDT Sagrariokade Galaviz [facility] CPT-16685 Ofc Vst, Est Level III 17:02:14 CDT Sagrario Caroline Solo Anastacia, DO, FACP CPT-58076 Ofc Vst, Est Level III 16:22:21 CDT Sagrario Caroline Solo Galaviz, DO, FACP CPT-72960 Ofc Vst, Est Level III 15:38:27 [employer] Sagrario Solo Galaviz, DO, FACP CPT-84002 Ofc Vst, Est Level IV 11:46:07 CDT Sagrariokade Galaviz [facility] CPT-89615 Ofc Vst, Est Level IV 11:48:35 [employer] Sagrario Caroline Solo Galaviz, DO, FACP CPT-25668 Ofc Vst, Est Level IV 10:25:22 [employer] Sagrario Caroline Campi S Galaviz, DO, FACP CPT-66781 Ofc Vst, Est Level IV 15:01:16 CDT Sagrario Caroline Zabala S Anastacia, DO, FACP CPT-19288 Ofc Vst, Est Level IV 13:50:59 CDT Sagrario Caroline Solo Galaviz, DO, FACP CPT-85648 Ofc Vst, Est Level IV 14:42:02 CDT Sagrario Caroline Solo Galaviz, DO, FACP CPT-72760 Ofc Vst, Est Level IV 12:27:54 CDT Sagrario Solo Galaviz, DO, FACP CPT-98133 Ofc Vst, Est Level IV 14:04:58 [employer] Sagrario Solo Galaviz, DO, FACP CPT-70142 Ofc Vst, Est Level IV 11:00:03 [employer] Sagrario Solo Galaviz, DO, FACP CPT-02288 Ofc Vst, Est Level IV 10:16:11 CDT Sagrario Solo Anastacia, DO, FACP CPT-30520 Ofc Vst, Est Level IV 10:59:50 CDT Sagrario Caroline Solo Anastacia, DO, FACP CPT-77306 Ofc Vst, Est Level IV 10:18:39 [employer] Sagrario Solo Galaviz, DO, FACP CPT-68213 Ofc Vst, Est Level IV 10:46:13 [employer] Sagrario Solo Galaviz, DO, FACP CPT-17931 Ofc Vst, Est Level IV 14:24:50 CDT Sagrariokade Solo Anastacia, DO, FACP CPT-47007 Ofc Vst, Est Level IV 14:13:08 CDT Sagrariokade Solo Galaviz, DO, FACP CPT-30987 Ofc Vst, Est Level V 10:54:54 CDT Sagrario Solo Galaviz, DO, FACP CPT-83764 Ofc Vst, Est Level IV 13:42:46 [employer] Sagrario Solo Anastacia, DO, FACP CPT-72659 Ofc Vst, Est Level III 11:18:13 [employer] Sagrario Solo Anastacia, DO, FACP CPT-40603 Office Consult, Level IV 10:48:11 [employer] Sagrario Gantner Sagrario Germania Anastacia, DO, FACP CPT-43968 Ofc Vst, Est Level IV 10:54:16 CDT Sagrariokade Velazquez Galaviz Sagrariokade Galaviz, DO, FACP CPT-16974 Ofc Vst, Est Level IV 12:52:39 CDT Sagrariokade Velazquez Anastacia Sagrario Germania Anastacia, DO, FACP CPT-74431 Ofc Vst, Est Level IV 10:29:22 CDT Sagrario Caroline Galaviz Sagrario Germania Anastacia, DO, FACP CPT-80327 Ofc Vst, Est Level IV 10:21:39 [employer] Sagrario Velazquez Anastacia Zabala Germania Anastacia, DO, FACP CPT-90996 Ofc Vst, Est Level IV 13:55:28 [employer] Sagrario Velazquez Anastacia Sagrario Germania Anastacia, DO, FACP CPT-94983 Ofc Vst, Est Level II 16:11:54 CDT Sagrariokade Velazquez Anastacia Galaviz, DO, FACP CPT-80209 Ofc Vst, Est Level IV 11:05:58 CDT Sagrario Caroline Anastacia Galaviz, DO, FACP CPT-09874 Ofc Vst, Est Level II 17:22:12 CDT Sagrariokade Galaviz [facility] [place] CPT-95539 Ofc Vst, Est Level III 14:07:00 CDT Sagrario Galaviz [facility] [place] CPT-45344 Ofc Vst, Est Level IV 11:09:34 CDT Sagrario Galaviz [facility] [place] CPT-93545 Ofc Vst, Est Level IV 10:27:16 [employer] Sagrario Galaviz [facility] [place] CPT-63415 Ofc Vst, Est Level IV 11:34:27 [employer] Sagrario Galaviz [facility] [place] CPT-97221 Ofc Vst, Est Level IV 11:12:26 CDT Sagrario Caroline Galaviz [facility] [place] CPT-54896 Ofc Vst, Est Level IV 11:08:03 CDT Sagrario Caroline Galaviz [facility] [place] CPT-09017 Ofc Vst, Est Level III 10:36:15 [employer] Sagrario Galaviz [facility] [place] CPT-03203 Ofc Vst, Est Level III 14:57:25 [employer] Sagrario Galaviz [facility] [place] CPT-08180 Ofc Vst, Est Level IV 11:21:05 [employer] Sagrario Galaviz [facility] [place] CPT-14700 Ofc Vst, Est Level IV 15:12:10 CDT Sagrario Caroline Galaviz [facility] [place] CPT-53753 Ofc Vst, Est Level IV 11:32:45 CDT Sagrario Caroline Galaviz [facility] [place] CPT-36336 Ofc Vst, Est Level IV 18:28:35 CDT Sagrario Caroline Galaviz [facility] [place] CPT-63660 Ofc Vst, Est Level IV 12:58:25 CDT Sagrario Galaviz [facility] [place] CPT-98804 Ofc Vst, Est Level IV 12:52:51 [employer] Sagrario Galaviz [facility] [place] CPT-73725 Ofc Vst, Est Level III 17:02:21 [employer] Sagrario Galaviz [facility] [place] CPT-36420 Ofc Vst, Est Level IV 13:06:56 [employer] Sagrario Galaviz [facility] [place] CPT-27833 Ofc Vst, Est Level IV 12:47:26 [employer] Sagraroi Galaviz [facility] [place] CPT-33908 Ofc Vst, Est Level III 17:46:57 [employer] Sagrario Galaviz [facility] [place] CPT-10228 Ofc Vst, Est Level IV 12:57:58 [employer] Sagrario Galaviz [facility] [place] CPT-94554 Ofc Vst, Est Level IV 12:45:38 [employer] Sagrario Galaviz [facility] [place] CPT-19039 Ofc Vst, Est Level IV 13:08:06 CDT Sagrario Caroline Galaviz [facility] [place] CPT-77023 Ofc Vst, Est Level IV 08:06:35 CDT Sagrario Caroline Galaviz [facility] [place] CPT-81073 Ofc Vst, Est Level IV 13:18:36 CDT Sagrario Caroline Galaviz [facility] [place] CPT-44627 Ofc Vst, Est Level IV 17:54:14 CDT Sagrario Galaviz [facility] [place] CPT-66954 Ofc Vst, Est Level IV 13:18:46 CDT Sagrario Caroline Galaviz [facility] [place] CPT-60020 Ofc Vst, Est Level IV 18:01:49 CDT Sagrario Caroline Galaviz [facility] [place] CPT-97795 Ofc Vst, Est Level IV 12:28:42 CDT Sagrario Galaviz [facility] [place] CPT-83005 Ofc Vst, Est Level III 15:48:07 CDT Sagrariokade Galaviz [facility] [place] CPT-29347 Ofc Vst, New Level III 10:52:25 [employer] Sagrario Galaviz [facility] [place] Procedures Code Procedure Name Date Entry Date Standard Description CPT-G0439 Medicare Annual Wellness Visit 16:03:32 CDT CPT-G8446 E-Prescribing not done due to controlled substance 16:35 :55 [employer] CPT-56281 Injection, Pneumovax 15:49:19 [employer] CPT-G8446 E-Prescribing not done due to controlled substance 13:16 :11 CDT CPT-G0439 Medicare Annual Wellness Visit 13:16:11 CDT CPT-G8445 E-Prescribing Not sent due to no medication given 16:10: 48 CDT CPT-G8446 E-Prescribing not done due to controlled substance 17:02 :14 CDT CPT-G8446 E-Prescribing not done due to controlled substance 16:22 :21 CDT CPT-G8446 E-Prescribing not done due to controlled substance 15:38 :27 [employer] CPT-G8446 E-Prescribing not done due to controlled substance 15:41 :44 CDT CPT-G0438 Medicare Annual Wellness Visit Initial 15:41:44 CDT CPT-8446 E-Prescribing not done due to controlled substance 10:54: 54 CDT CPT-33129 Influenza Vaccine 12:12:24 CDT CPT-G0008 Administration Influenza Vaccine 12:12:24 CDT CPT-42341 Incision & Drainage, simple 13:29:49 CDT CPT-26518 Influenza Vaccine 13:55:28 [employer] CPT-G0008 Administration Influenza Vaccine 13:55:28 [employer] CPT-85416 Preventive, Est, (65+) 13:17:39 [employer]
--- OUTSIDE RECORDS SUMMARY | 2018-03-15 20:37 | XMS REPORT | Clinical Summary ---
Author Author User, Apruve[employer]urt[employer] Organization [facility] [place] Address Unknown Phone Unavailable Allergies, Adverse Reactions, [...] in 1/2 cup of OJ. QID CHOLESTYRAMINE 33531780932 Active Sagrario Galaviz PROTONIX 40 MG TBEC 1 PO daily PANTOPRAZOLE SODIUM 21418248310 Active Sagrario Galaviz SUCRALFATE 1 GM TABS 1 PO AC/HS SUCRALFATE 37634277037 No Longer Active Sagrario Galaviz ALEVE 220 MG TAB 2 PO BID NAPROXEN SODIUM 00501751596 No Longer Active Sagrario Galaviz ASPIRIN 81 MG CHEW 1 PO daily ASPIRIN 63234705075 No Longer Active Sagrario Galaviz PYRIDIUM 200 MG TAB 1 PO TID prn urinary urgency PHENAZOPYRIDINE HCL 13718485128 Active Cindi White AMARYL 1 MG TABS 1 PO daily GLIMEPIRIDE 59170807023 No Longer Active Sagrario Galaviz VICTOZA 18 MG/3ML SOLN 1.2 mg injection daily LIRAGLUTIDE 19937204450 Active Sagrario Galaviz TRUE RESULT METER DIRECTED DX: 250.00 TRUE RESULT METER Active Cindi White TRUETEST TEST STRP TEST BS QID DX: 250.00 GLUCOSE BLOOD 41248861504 Active Cindi White PREMARIN 0.625 MG/GM CREA apply to affected areas BID prn ESTROGENS, CONJUGATED VAGINAL 55987407011 Active Cindi White ZOSTAVAX 39791 UNT/0.65ML SOLR 1 injection once to prevent Shingles ZOSTER VACCINE LIVE 83185993966 No Longer Active Cindi White BD PEN NEEDLE SHORT U/F 31G X 8 MM MISC As directed BID INSULIN PEN NEEDLE 25789207443 Active Sagrario Galaviz ZOSTAVAX 82898 UNT/0.65ML SOLR 1 injection once to prevent Shingles ZOSTER VACCINE LIVE 44176017485 No Longer Active Sagrario Caroline Galaviz FISH OIL 1000 MG CAPS 1 PO daily OMEGA-3 FATTY ACIDS 29644690755 Active Sagrario Caroline Galaviz NITROFURANTOIN MACROCRYSTAL 100 MG CAPS 1 PO daily with supper. NITROFURANTOIN MACROCRYSTAL 88137765666 No Longer Active Sagrario Caroline Galaviz BYETTA 10 MCG PEN 10 MCG/0.04ML SOLN 1 injection BID EXENATIDE 46929336432 No Longer Active Sagrario Caroline Galaviz BYDUREON 1 injection weekly BYDUREON No Longer Active Sagrario Caroline Galaviz K-DUR 10 MEQ TAB CR 1 PO daily with Lasix POTASSIUM CHLORIDE No Longer Active Sagrario Caroline Galaviz LASIX 20 MG TAB 1 PO QD prn swelling FUROSEMIDE 97606325698 No Longer Active Sagrario Caroline Galaviz TRAMADOL HCL 50 MG TABS 1-2 PO every 4-6 hours PRN TRAMADOL HCL 24981428687 No Longer Active Sagrario Caroline Galaviz CARISOPRODOL 350 MG TABS 1 PO QID CARISOPRODOL 95487708163 No Longer Active Sagrario Caroline Galaviz DEMEROL 50 MG TABS 1 PO QID prn MEPERIDINE HCL 30408319450 No Longer Active Sagrariokade Galaviz HYDROCODONE-ACETAMINOPHEN 10-325 MG TABS HYDROCODONE-ACETAMINOPHEN 08064886096 No Longer Active Sagrario Caroline Galaviz PHENERGAN 25 MG TAB 1 PO Q6hrs prn PROMETHAZINE HCL No Longer Active Sagrariokade Galaviz DOXYCYCLINE HYCLATE CAPS DOXYCYCLINE HYCLATE CAPS 99704780173 No Longer Active Sagrario Caroline Galaviz PYRIDIUM 200 MG TAB 1 PO TID prn urinary urgency PHENAZOPYRIDINE HCL 25567325485 No Longer Active Cindimohit Zacariastis CIPRO 500 MG TAB 1 PO BID for 7 days CIPROFLOXACIN HCL 11896099918 No Longer Active Cindi White PYRIDIUM 200 MG TAB 1 PO TID prn urinary urgency PHENAZOPYRIDINE HCL 53629448668 No Longer Active Sagrario Galaviz AUGMENTIN 500-125 MG TAB 1 PO BID AMOXICILLIN-POT CLAVULANATE 18205405136 No Longer Active Sagrario Galaviz PYRIDIUM 200 MG TAB 1 PO TID prn urinary urgency PHENAZOPYRIDINE HCL 86461293108 No Longer Active Cindi White AUGMENTIN 500-125 MG TAB 1 PO BID x 5 days AMOXICILLIN-POT CLAVULANATE 88997824274 No Longer Active Cindi White PYRIDIUM 200 MG TAB 1 PO TID prn urinary urgency PHENAZOPYRIDINE HCL 59357837902 No Longer Active Cindi White VITAMIN D 1000 UNIT TABS 1 PO daily CHOLECALCIFEROL 12409830412 Active Sagrariokade Galaviz CALTRATE 600 PLUS-VIT D 600-200 MG-IU TABS 1 PO QD CALCIUM-VITAMIN D 06954727671 No Longer Active Sagrario Galaviz SYNTHROID 137 MCG TABS 1 pill Mon and Monday and take the 125 mcg M-F LEVOTHYROXINE SODIUM 92069455048 No Longer Active Sagrario Galaviz VITAMIN D 4000 UNIT CAPS (CHOLECALCIFEROL) 1 PO twice a week VITAMIN D 4000 UNIT CAPS (CHOLECALCIFEROL) No Longer Active Sagrario Galaviz SYNTHROID 0.125 MG TAB 1 PO daily. LEVOTHYROXINE SODIUM 47687691094 Active Sagrariokade Galaviz ANTIVERT 25 MG TABS 1 PO Q 6 hrs prn MECLIZINE HCL 84498560413 Active Sagrariokade Galaviz AMARYL 2 MG TAB 1/4 Tablet PO Daily GLIMEPIRIDE 03627324099 No Longer Active Sagrario Galaviz VITAMIN D 1000 UNIT TABS 2 PO Daily CHOLECALCIFEROL 11636461351 No Longer Active Sagrariokade Galaviz METFORMIN HCL 500 MG TABS 2 PO BID METFORMIN HCL 38708317460 Active Sagrariokade Galaviz ONE TOUCH ULTRA TEST STRIPS Test BS four times a day DX Diabetes ONE TOUCH ULTRA TEST STRIPS No Longer Active Cindi White VITAMIN D CAPS (ERGOCALCIFEROL CAPS) 400MG 2 PO daily VITAMIN D CAPS (ERGOCALCIFEROL CAPS) 400MG No Longer Active Sagrariokade Galaviz GLUCOSAMINE 500 MG CAPS as directed GLUCOSAMINE SULFATE 39657769453 No Longer Active Sagrario Galaviz FERROUS SULFATE 325 (65 FE) MG TABS 2 tablets po TID x 1 week, then 1 tablet po in am and 1 po in pm until bottles gone FERROUS SULFATE 48981099479 No Longer Active Sagrariokade Galaviz BYETTA 10 MCG PEN 250 MCG/ML SOLN 1 injection BID EXENATIDE 94920940359 No Longer Active Cindi White AVANDAMET 2-500 MG TABS 1 PO BID ROSIGLITAZONE-METFORMIN 96083395173 No Longer Active Sagrario Galaviz AMARYL 2 MG TABS 1/2 pill PO BID for diabetes GLIMEPIRIDE 84261863663 No Longer Active Sagrariokade Galaviz AVANDAMET 2-500 MG TABS 1 PO BID ROSIGLITAZONE- METFORMIN 00050543567 No Longer Active Sagrariokade Galaviz CITALOPRAM HYDROBROMIDE 40 MG TABS 1 po daily CITALOPRAM HYDROBROMIDE 82790157930 Active Sagrariokade Galaviz CHROMIUM PICOLINATE 400 MCG CAPS daily CHROMIUM PICOLINATE 91097901684 No Longer Active Sagrariokade Galaviz ZOCOR 20 MG TABS 1 PO QHS SIMVASTATIN 01664346548 Active Sagrariokade Galaviz CYMBALTA 30 MG CPEP 1 PO daily DULOXETINE HCL 74729147529 No Longer Active Sagrariokade Galaviz VALIUM 2 MG TABS 1/2 PO 1 hour prior to MRI procedure, may repeat if necessary DIAZEPAM 12346435729 No Longer Active Buck Trevino ACETAMINOPHEN 325 MG TABS 1 PO Q6hrs ACETAMINOPHEN 43935007815 Active Sagrario Caroline Galaviz XALATAN 0.005 % SOLN as directed LATANOPROST 12730160093 Active Sagrariokade Galaviz CITRUCEL POWDER Use qd after meals METHYLCELLULOSE ( LAXATIVE) 42457997569 No Longer Active Sagrariokade Galaviz CIPRO 500 MG TAB 1 BID CIPROFLOXACIN HCL 93583383063 No Longer Active Sagrariokade Galaviz FLAGYL 500 MG TAB 1 TID METRONIDAZOLE 66253967827 No Longer Active Sagrariokade Galaviz NYSTATIN 397417 U/ML SUSP S/S qid as directed for 7 days NYSTATIN 68260331557 No Longer Active Sagrariokade Galaviz GLUCOPHAGE 500 MG TABS 1 PO BID METFORMIN HCL 82568965503 No Longer Active Sagrario Galaviz SYNTHROID 125 MCG TABS 1 po daily LEVOTHYROXINE SODIUM 27406055655 No Longer Active Sagrariokade Galaviz TRIAMCINOLONE ACETONIDE 0.1 % CREA Apply to areas tid TRIAMCINOLONE ACETONIDE (TOP) 70288416649 Active Sagrario Caroline Galaviz COZAAR 100 MG TABS 1 po daily LOSARTAN POTASSIUM 03870064626 Active Sagrario Caroline Galaviz CELEXA 40 MG TABS 1 po daily CITALOPRAM HYDROBROMIDE 70701527668 No Longer Active Sagraroi Galaviz Immunizations Vaccine Administration Date Value Standard [...] 69.3 ng/mL glucose, plasma fasting 123 mg/dL hemoglobin A1C, blood, as % of total hemoglobin 6.1 % albumin, serum 4.3 g/dL alkaline phosphatase, serum 72 U/L anion gap, serum 16 bilirubin, serum, total 0.4 mg/dL urea nitrogen, blood 10 mg/dL calcium, serum 9.4 mg/dL thyroxine, serum, free 1.28 ng/dL triglyceride, serum, fasting 185 mg/dL thyroid stimulating hormone, serum 0.99 u[iU]/mL potassium, serum 3.7 mmol/L protein, total, serum 6.6 g/dL aspartate aminotransferase (SGOT), serum 13 U/L alanine aminotransferase (SGPT), serum 9 U/L cholesterol, serum 128 mg/dL Clinical Lists Update: CBC,CMP,CHOL,TRIG,TSH,FREE T4,HGA1C - Hematology hematocrit, blood 35 % hemoglobin, blood 10.4 g/dL mean corpuscular volume, RBC 93 fL leukocyte count, blood 13.5 10*3/mm3 platelet count 371 10*3/mm3 erythrocyte (RBC) count 3.78 10*6/mm3 red blood cell distribution width 16.4 % Clinical Lists Update: CBC,CMP,Chol,Trig,TSH,Free T4,HgA1c - Chemistry hemoglobin A1C, blood, as % of total hemoglobin 6.3 % potassium, serum 4.1 mmol/L thyroid stimulating hormone, serum 0.11 u[iU]/mL triglyceride, serum, fasting 189 mg/dL thyroxine, serum, free 1.38 ng/dL calcium, serum 9.2 mg/dL urea nitrogen, blood 20 mg/dL aspartate aminotransferase (SGOT), serum 13 U/L alanine aminotransferase (SGPT), serum 11 U/L sodium, serum 138 mmol/L chloride, serum 101 mmol/L cholesterol, serum 122 mg/dL carbon dioxide, venous blood 25.0 mmol/L creatinine, serum 0.8 mg/dL Estimated Glomerular Filtration Rate (calc) 76 mL/min/1.73m2 glucose, plasma fasting 116 mg/dL protein, total, serum 6.3 g/dL albumin, serum 4.0 g/dL alkaline phosphatase, serum 58 U/L anion gap, serum 16 bilirubin, serum, total 0.4 mg/dL Clinical Lists Update: CBC,CMP,Chol,Trig,TSH,Free T4,HgA1c - Hematology hematocrit, blood 37 % platelet count 287 10*3/mm3 mean corpuscular volume, RBC 93 fL leukocyte count, blood 12.4 10*3/mm3 hemoglobin, blood 11.3 g/dL red blood cell distribution width 14.9 % erythrocyte (RBC) count 3.94 10*6/mm3 Clinical Lists Update: CBC,CMP,Ferritin - Chemistry aspartate aminotransferase (SGOT), serum 13 U/L alanine aminotransferase (SGPT), serum 11 U/L sodium, serum 137 mmol/L chloride, serum 101 mmol/L carbon dioxide, venous blood 27.0 mmol/L creatinine, serum 0.8 mg/dL Estimated Glomerular Filtration Rate (calc) 73 mL/min/1.73m2 ferritin, serum 14.2 ng/mL glucose, plasma fasting 110 mg/dL albumin, serum 4.0 g/dL alkaline phosphatase, serum 54 U/L anion gap, serum 13 bilirubin, serum, total 0.4 mg/dL urea nitrogen, blood 10 mg/dL calcium, serum 8.8 mg/dL potassium, serum 3.6 mmol/L protein, total, serum 6.4 g/dL Clinical Lists Update: CBC,CMP,Ferritin - Hematology erythrocyte (RBC) count 3.33 10*6/mm3 hematocrit, blood 32 % leukocyte count, blood 13.5 10*3/mm3 red blood cell distribution width 16.2 % platelet count 381 10*3/mm3 mean corpuscular volume, RBC 96 fL hemoglobin, blood 9.3 g/dL Clinical Lists Update: CMP,FLP,TSH,Free T4,HgA1c,Microalbumin - Chemistry creatinine, serum 0.7 mg/dL Estimated Glomerular Filtration Rate (calc) 82 mL/min/1.73m2 glucose, plasma fasting 131 mg/dL HDL cholesterol, serum 35.0 mg/dL protein, total, serum 6.6 g/dL LDL cholesterol, serum 53 mg/dL albumin, serum 4.1 g/dL alkaline phosphatase, serum 55 U/L anion gap, serum 12 bilirubin, serum, total 0.5 mg/dL urea nitrogen, blood 13 mg/dL calcium, serum 9.3 mg/dL thyroxine, serum, free 1.46 ng/dL triglyceride, serum, fasting 142 mg/dL thyroid stimulating hormone, serum 0.11 u[iU]/mL carbon dioxide, venous blood 26.0 mmol/L cholesterol, serum 116 mg/dL cholesterol/HDL ratio, serum, percent 3.3 chloride, serum 105 mmol/L sodium, serum 139 mmol/L alanine aminotransferase (SGPT), serum 10 U/L aspartate aminotransferase (SGOT), serum 14 U/L hemoglobin A1C, blood, as % of total hemoglobin 6.6 % potassium, serum 4.3 mmol/L Clinical Lists Update: CMP,FLP,TSH,Free T4,HgA1c,Microalbumin - Urinalysis [...] serum, total 0.5 mg/dL Office Visit: Dr Juan Check Up: Established Patient Visit - Hematology erythrocyte (RBC) count 3.42 10*6/mm3 platelet count 409 10*3/mm3 leukocyte count, blood 12.3 10*3/mm3 mean corpuscular volume, RBC 94 fL red blood cell distribution width 15.9 % hemoglobin, blood 9.7 g/dL hematocrit, blood 32 % Encounters Code Encounter Date Provider Facility CPT-15195 Ofc Vst, Est Level IV 11:44:06 REX Galaviz DO, FACP CPT-87459 Ofc Vst, Est Level IV 20:18:24 BONDED [employer]CTURES REPAIRER Sagrariokade Solo Galaviz, DO, FACP CPT-34787 Ofc Vst, Est Level III 16:52:42 CDT Sagrraio Caroline Solo Galaviz, DO, FACP CPT-52691 Ofc Vst, Est Level III 19:48:33 CDT Sagrario Caroline Solo Galaviz, DO, FACP CPT-87505 Ofc Vst, Est Level III 16:35:55 [employer]CT[employer] REPAIRER Sagrario Caroline Solo Anastacia, DO, FACP CPT-87151 Ofc Vst, Est Level II 16:10:48 CDT Sagrariokade Galaviz [facility] CPT-39458 Ofc Vst, Est Level III 17:02:14 CDT Sagrario Caroline Solo Anastacia, DO, FACP CPT-56111 Ofc Vst, Est Level III 16:22:21 CDT Sagrario Caroline Solo Galaviz, DO, FACP CPT-49265 Ofc Vst, Est Level III 15:38:27 B[employer]ED [employer]UCT[employer] REPAIRER Sagrario Solo Galaviz, DO, FACP CPT-47889 Ofc Vst, Est Level IV 11:46:07 CDT Sagrariokade Galaviz [facility] CPT-92901 Ofc Vst, Est Level IV 11:48:35 B[employer]UCT[employer] REPAIRER Sagrario Caroline Solo Galaviz, DO, FACP CPT-87473 Ofc Vst, Est Level IV 10:25:22 BONDED STRUCT[employer] REPAIRER Sagrario Caroline Campi S Galaviz, DO, FACP CPT-70353 Ofc Vst, Est Level IV 15:01:16 CDT Sagrario Caroline Zabala S Anastacia, DO, FACP CPT-81584 Ofc Vst, Est Level IV 13:50:59 CDT Sagrario Caroline Solo Galaviz, DO, FACP CPT-56445 Ofc Vst, Est Level IV 14:42:02 CDT Sagrario Caroline Solo Galaviz, DO, FACP CPT-30927 Ofc Vst, Est Level IV 12:27:54 CDT Sagrario Solo Galaviz, DO, FACP CPT-61367 Ofc Vst, Est Level IV 14:04:58 BONDED [employer]UCT[employer] REPAIRER Sagrario Solo Galaviz, DO, FACP CPT-00621 Ofc Vst, Est Level IV 11:00:03 BONDED [employer]UCTURES REPAIRER Sagrario Solo Galaviz, DO, FACP CPT-11127 Ofc Vst, Est Level IV 10:16:11 CDT Sagrario Solo Anastacia, DO, FACP CPT-70375 Ofc Vst, Est Level IV 10:59:50 CDT Sagrario Caroline Solo Anastacia, DO, FACP CPT-11746 Ofc Vst, Est Level IV 10:18:39 BONDED [employer]UCTURES REPAIRER Sagrario Solo Galaviz, DO, FACP CPT-85876 Ofc Vst, Est Level IV 10:46:13 B[employer]ED [employer]UCT[employer] REPAIRER Sagrario Solo Galaviz, DO, FACP CPT-18255 Ofc Vst, Est Level IV 14:24:50 CDT Sagrariokade Solo Anastacia, DO, FACP CPT-63121 Ofc Vst, Est Level IV 14:13:08 CDT Sagrariokade Solo Galaviz, DO, FACP CPT-08122 Ofc Vst, Est Level V 10:54:54 CDT Sagrario Solo Galaviz, DO, FACP CPT-22971 Ofc Vst, Est Level IV 13:42:46 BONDED [employer]UCT[employer] REPAIRER Sagrario Solo Anastacia, DO, FACP CPT-74333 Ofc Vst, Est Level III 11:18:13 B[employer]ED [employer]UCT[employer] REPAIRER Sagrario Solo Anastacia, DO, FACP CPT-87674 Office Consult, Level IV 10:48:11 B[employer]ED STRUCT[employer] REPAIRER Sagrario Gantner Sagrario Germania Anastacia, DO, FACP CPT-35503 Ofc Vst, Est Level IV 10:54:16 CDT Sagrariokade Velazquez Galaviz Sagrariokade Galaviz, DO, FACP CPT-96938 Ofc Vst, Est Level IV 12:52:39 CDT Sagrariokade Velazquez Anastacia Sagrario Germania Anastacia, DO, FACP CPT-25037 Ofc Vst, Est Level IV 10:29:22 CDT Sagrario Caroline Galaviz Sagrario Germania Anastacia, DO, FACP CPT-44123 Ofc Vst, Est Level IV 10:21:39 BONDED [employer]UCTURES REPAIRER Sagrario Velazquez Anastacia Zabala Germania Anastacia, DO, FACP CPT-02005 Ofc Vst, Est Level IV 13:55:28 BONDED [employer]UCTURES REPAIRER Sagrario Velazquez Anastacia Sagrario Germania Anastacia, DO, FACP CPT-93135 Ofc Vst, Est Level II 16:11:54 CDT Sagrariokade Velazquez Anastacia Galaviz, DO, FACP CPT-59501 Ofc Vst, Est Level IV 11:05:58 CDT Sagrario Caroline Anastacia Galaviz, DO, FACP CPT-28044 Ofc Vst, Est Level II 17:22:12 CDT Sagrariokade Galaviz [facility] [place] CPT-86016 Ofc Vst, Est Level III 14:07:00 CDT Sagrario Galaviz [facility] [place] CPT-17368 Ofc Vst, Est Level IV 11:09:34 CDT Sagrario Galaviz [facility] [place] CPT-02364 Ofc Vst, Est Level IV 10:27:16 BONDED [employer]UCT[employer] REPAIRER Sagrario Galaviz [facility] [place] CPT-60366 Ofc Vst, Est Level IV 11:34:27 BONDED STRUCTURES REPAIRER Sagrario Galaviz [facility] [place] CPT-16764 Ofc Vst, Est Level IV 11:12:26 CDT Sagrario Caroline Galaviz [facility] [place] CPT-12231 Ofc Vst, Est Level IV 11:08:03 CDT Sagrario Caroline Galaviz [facility] [place] CPT-14360 Ofc Vst, Est Level III 10:36:15 BONDED STRUCTURES REPAIRER Sagrario Galaviz [facility] [place] CPT-31251 Ofc Vst, Est Level III 14:57:25 BONDED [employer]UCTURES REPAIRER Sagrario Galaviz [facility] [place] CPT-62430 Ofc Vst, Est Level IV 11:21:05 BONDED STRUCTURES REPAIRER Sagrario Galaviz [facility] [place] CPT-80190 Ofc Vst, Est Level IV 15:12:10 CDT Sagrario Caroline Galaviz [facility] [place] CPT-80980 Ofc Vst, Est Level IV 11:32:45 CDT Sagrario Caroline Galaviz [facility] [place] CPT-32460 Ofc Vst, Est Level IV 18:28:35 CDT Sagrario Caroline Galaviz [facility] [place] CPT-96011 Ofc Vst, Est Level IV 12:58:25 CDT Sagrario Galaviz [facility] [place] CPT-01985 Ofc Vst, Est Level IV 12:52:51 BONDED STRUCTURES REPAIRER Sagrario Galaviz [facility] [place] CPT-98093 Ofc Vst, Est Level III 17:02:21 BONDED STRUCTURES REPAIRER Sagrario Galaviz [facility] [place] CPT-34011 Ofc Vst, Est Level IV 13:06:56 BONDED STRUCTURES REPAIRER Sagrario Galaviz [facility] [place] CPT-80156 Ofc Vst, Est Level IV 12:47:26 BONDED STRUCTURES REPAIRER Sagrario Galaviz [facility] [place] CPT-53654 Ofc Vst, Est Level III 17:46:57 BONDED STRUCTURES REPAIRER Sagrario Galaviz [facility] [place] CPT-94733 Ofc Vst, Est Level IV 12:57:58 BONDED STRUCTURES REPAIRER Sagrario Galaviz [facility] [place] CPT-51747 Ofc Vst, Est Level IV 12:45:38 BONDED STRUCTURES REPAIRER Sagrario Galaviz [facility] [place] CPT-15336 Ofc Vst, Est Level IV 13:08:06 CDT Sagrario Caroline Galaviz [facility] [place] CPT-56726 Ofc Vst, Est Level IV 08:06:35 CDT Sagrario Caroline Galaviz [facility] [place] CPT-74303 Ofc Vst, Est Level IV 13:18:36 CDT Sagrario Caroline Galaviz [facility] [place] CPT-71837 Ofc Vst, Est Level IV 17:54:14 CDT Sagrario Galaviz [facility] [place] CPT-55194 Ofc Vst, Est Level IV 13:18:46 CDT Sagrario Caroline Galaviz [facility] [place] CPT-53336 Ofc Vst, Est Level IV 18:01:49 CDT Sagrario Caroline Galaviz [facility] [place] CPT-48630 Ofc Vst, Est Level IV 12:28:42 CDT Sagrario Galaviz [facility] [place] CPT-73391 Ofc Vst, Est Level III 15:48:07 CDT Sagrariokade Galaviz [facility] [place] CPT-41380 Ofc Vst, New Level III 10:52:25 BONDED [employer]UCT[employer] REPAIRER Sagrario Galaviz [facility] [place] Procedures Code Procedure Name Date Entry Date Standard Description CPT-G0439 Medicare Annual Wellness Visit 16:03:32 CDT CPT-G8446 E-Prescribing not done due to controlled substance 16:35 :55 BONDED [employer]UCTURES REPAIRER CPT-21819 Injection, Pneumovax 15:49:19 BONDED [employer]UCT[employer] REPAIRER CPT-G8446 E-Prescribing not done due to controlled substance 13:16 :11 CDT CPT-G0439 Medicare Annual Wellness Visit 13:16:11 CDT CPT-G8445 E-Prescribing Not sent due to no medication given 16:10: 48 CDT CPT-G8446 E-Prescribing not done due to controlled substance 17:02 :14 CDT CPT-G8446 E-Prescribing not done due to controlled substance 16:22 :21 CDT CPT-G8446 E-Prescribing not done due to controlled substance 15:38 :27 BONDED STRUCTURES REPAIRER CPT-G8446 E-Prescribing not done due to controlled substance 15:41 :44 CDT CPT-G0438 Medicare Annual Wellness Visit Initial 15:41:44 CDT CPT-8446 E-Prescribing not done due to controlled substance 10:54: 54 CDT CPT-84539 Influenza Vaccine 12:12:24 CDT CPT-G0008 Administration Influenza Vaccine 12:12:24 CDT CPT-81264 Incision & Drainage, simple 13:29:49 CDT CPT-01441 Influenza Vaccine 13:55:28 BONDED [employer]UCTURES REPAIRER CPT-G0008 Administration Influenza Vaccine 13:55:28 BONDED STRUCTURES REPAIRER CPT-01541 Preventive, Est, (65+) 13:17:39 BONDED STRUCTURES REPAIRER
--- OUTSIDE RECORDS SUMMARY | 2018-03-15 20:39 | XMS REPORT | Continuity of Care Document ---
Author Author [facility] Organization [facility] Address Unknown Phone Unavailable Allergies Active Description Code Type Severity Reaction Onset Reported/Identified Relationship to Patient Clinical Status Yes cefaclor [id number] Drug Allergy Unknown N/A 09/10/2008 Yes codeine [id number] Drug Allergy Unknown N/A 09/10/2008 Yes MARICARMEN DYE MARICARMEN DYE Unknown N/A 09/10/2008 Yes latex LATEX Drug Allergy Unknown N/A 09/10/2008 Yes nabumetone [id number] Drug Allergy Unknown N/A 09/10/2008 Yes propranolol [id number] Drug Allergy Unknown N/A 09/10/2008 Yes sulfamethoxazole [id number] Drug Allergy Unknown N/A 09/10/2008 Yes trimethoprim [id number] Drug Allergy Unknown N/A 09/10/2008 Yes STEROIDS STEROIDS Moderate N/A 06/30/2011 Yes IODINE (IV DYE) IODINE (IV DYE) Unknown N/A 10/08/2014 Medications There is no data. 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 07/02/2011 Ot 250.00 DIAB JOHANA WO COMPL, TYPE II OR UNSPEC TY 07/02/2011 Ot 272.0 PURE HYPERCHOLESTEROLEM 07/02/2011 Ot 288.60 LEUKOCYTOSIS , UNSPECIFIED 07/02/2011 Ot 300.00 ANXIETY STATE NOS 07/02/2011 Ot 307.9 SPECIAL SYMPTOM NEC/NOS 07/02/2011 Ot 311 DEPRESSIVE DISORDER NEC 07/02/2011 Ot 401.9 HYPERTENSION NOS 07/02/2011 Ot 724.5 BACKACHE NOS 07/02/2011 Ot 785.1 PALPITATIONS 07/02/2011 Ot 786.05 SHORTNESS OF BREATH 07/02/2011 Ot 787.02 NAUSEA ALONE 07/02/2011 Ot E935.4 ADV EFF AROM ANALGSC NEC 07/02/2011 Ot V45.89 POSTSURGICAL STATES NEC 10/13/2014 AIRAM LAZARO SHAYNE Ot 244.9 HYPOTHYROIDISM NOS 10/13/2014 AIRAM LAZARO SHAYNE Ot 250.00 DIAB JOHANA WO COMPL, TYPE II OR UNSPEC TY 10/13/2014 AIRAM LAZARO SHAYNE Ot 272.4 HYPERLIPIDEMIA NEC/NOS 10/13/2014 AIRAM LAZARO SHAYNE Ot 276.8 HYPOPOTASSEMIA 10/13/2014 AIRAM LAZARO SHAYNE Ot 285.1 AC POSTHEMORRHAG ANEMIA 10/13/2014 AIRAM LAZARO SHAYNE Ot 401.9 HYPERTENSION NOS 10/13/2014 AIRAM LAZARO SHAYNE Ot 535.61 DUODENITIS, WITH HEMORRHAGE 10/13/2014 AIRAM LAZARO SHAYNE Ot 553.3 DIAPHRAGMATIC HERNIA 10/13/2014 AIRAM LAZARO SHAYNE Ot 562.10 DIVERTICULOSIS COLON (W/O MENT OF HEMORR 10/27/2014 AIRAM LAZARO SHAYNE Ot 280.9 10/27/2014 ELIZABETH ALEGRIA DOI Ot 280.9 10/27/2014 ELIZABETH ALEGRIA DOI Ot 280.9 10/29/2014 AIRAM LAZARO SHAYNE Ot 280.9 01/07/2015 AIRAM LAZARO SHAYNE Ot 280.9 01/21/2015 AIRAM LAZARO SHAYNE Ot 280.9 IRON DEFIC ANEMIA NOS 06/03/2015 Ot V76.12 06/03/2015 Ot V76.12 06/03/2015 Ot V76.12 06/03/2015 AIRAM LAZARO SHAYNE Ot V76.12 06/03/2015 AIRAM LAZARO SHAYNE Ot V76.12 06/03/2015 ELIZABETH ALEGRIA DOI Ot 280.9 06/23/2015 AIRAM DO SHAYNE Ot V76.12 01/14/2016 Ot V76.12 01/14/2016 Ot V76.12 01/14/2016 ALEGRIA DO SHAYNE Ot V76.12 01/14/2016 ALEGRIA DO SHAYNE Ot V76.12 01/14/2016 ALEGRIA DO SHAYNE Ot 280.9 01/14/2016 AIRAM DO SHAYNE Ot V76.12 06/29/2016 Ot V76.12 OTH SCREEN MAMMO-MALIGN NEOPLASM OF [place] 06/29/2016 Ot V76.12 OTH SCREEN MAMMO-MALIGN NEOPLASM OF [place] 06/29/2016 ELIZABETH ALEGRIA DOI Ot V76.12 OTH SCREEN MAMMO-MALIGN NEOPLASM OF [place] 06/29/2016 SHAYNE ALEGRIA DO Ot V76.12 OTH SCREEN MAMMO-MALIGN NEOPLASM OF [place] 06/29/2016 SHAYNE ALEGRIA DO Ot 280.9 IRON DEFIC ANEMIA NOS 06/29/2016 SHAYNE ALEGRIA DO Ot V76.12 OTH SCREEN MAMMO-MALIGN NEOPLASM OF [place] 06/29/2016 SHAYNE ALEGRIA DO Ot Z12.31 ENCNTR SCREEN MAMMOGRAM FOR MALIGNANT NE 06/30/2016 SHAYNE ALEGRIA DO Ot Z12.31 ENCNTR SCREEN MAMMOGRAM FOR MALIGNANT NE 06/30/2016 SHAYNE ALEGRIA DO Ot Z12.31 ENCNTR SCREEN MAMMOGRAM FOR MALIGNANT NE 07/05/2016 SHAYNE ALEGRIA DO Ot Z12.31 ENCNTR SCREEN MAMMOGRAM FOR MALIGNANT NE 07/08/2016 SHAYNE ALEGRIA DO Ot Z12.31 ENCNTR SCREEN MAMMOGRAM FOR MALIGNANT NE 11/05/2016 LAURA NEFF, ALINA Solo Ot E11.9 TYPE 2 DIABETES MELLITUS WITHOUT COMPLIC 11/05/2016 LAURA NEFF, ALINA Solo Ot I10 ESSENTIAL (PRIMARY) HYPERTENSION 11/05/2016 LAURA NEFF, ALINA Solo Ot R11.2 NAUSEA WITH VOMITING, UNSPECIFIED 11/05/2016 LAURA NEFF, ALINA Solo Ot Z79.84 SENIOR CARE (CURRENT) USE OF ORAL HYPOGLYC 11/05/2016 LAURA NEFF, ALINA Solo Ot Z79.899 OTHER SENIOR CARE (CURRENT) DRUG THERAPY 07/03/2017 Ot V76.12 OTH SCREEN MAMMO-MALIGN NEOPLASM OF [place] 07/03/2017 SHAYNE ALEGRIA DO Ot V76.12 OTH SCREEN MAMMO-MALIGN NEOPLASM OF [place] 07/03/2017 SHAYNE ALEGRIA DO Ot V76.12 OTH SCREEN MAMMO-MALIGN NEOPLASM OF [place] 07/03/2017 SHAYNE ALEGRIA DO Ot 280.9 IRON DEFIC ANEMIA NOS 07/03/2017 SHAYNE ALEGRIA DO Ot V76.12 OTH SCREEN MAMMO-MALIGN NEOPLASM OF [place] 07/03/2017 SHAYNE ALEGRIA DO Ot Z12.31 ENCNTR SCREEN MAMMOGRAM FOR MALIGNANT NE 07/03/2017 SHAYNE ALEGRIA DO Ot Z12.31 ENCNTR SCREEN MAMMOGRAM FOR MALIGNANT NE 07/27/2017 AIRAM LAZARO SHAYNE Ot Z12.31 ENCNTR SCREEN MAMMOGRAM FOR MALIGNANT NE 12/20/2017 ALEGRIA DO, SHAYNE Ot D50.9 IRON DEFICIENCY ANEMIA, UNSPECIFIED 12/27/2017 ALEGRIA DO, SHAYNE Ot D50.9 IRON DEFICIENCY ANEMIA, UNSPECIFIED 12/27/2017 ALEGRIA DO, SHAYNE Ot D50.9 IRON DEFICIENCY ANEMIA, UNSPECIFIED 12/27/2017 ALEGRIA DO, SHAYNE Ot D50.9 IRON DEFICIENCY ANEMIA, UNSPECIFIED 12/28/2017 ALEGRIA DO, SHAYNE Ot D50.9 IRON DEFICIENCY ANEMIA, UNSPECIFIED 01/16/2018 ALEGRIA DO, SHAYNE Ot D50.9 IRON DEFICIENCY ANEMIA, UNSPECIFIED 01/19/2018 ALEGRIA DO, SHAYNE Ot D50.9 IRON DEFICIENCY ANEMIA, UNSPECIFIED 01/22/2018 ALEGRIA DO, SHAYNE Ot D50.9 IRON DEFICIENCY ANEMIA, UNSPECIFIED Procedures Code Description Performed By Performed On 45.16 ESOPHAGOGASTRODUODENOSCOPY [ EGD] W/CLOSE 10/10/2014 45.23 COLONOSCOPY 10/10/2014 Results Test Result Range Complete blood count (CBC) with automated white blood cell (WBC) differential - 11/05/16 15:25 Blood leukocytes automated count (number/volume) 13.6 10*3/uL 4.3-11.0 Blood erythrocytes automated count (number/volume) 4.46 10*6/uL 4.35-5.85 Venous blood hemoglobin measurement (mass/volume) 13.3 g/dL 11.5-16.0 Blood hematocrit (volume fraction) 39 % 35-52 Automated erythrocyte mean corpuscular volume 88 [foz_us] 80-99 Automated erythrocyte mean corpuscular hemoglobin (mass per erythrocyte) 30 pg 25-34 Automated erythrocyte mean corpuscular hemoglobin concentration measurement ( mass/volume) 34 g/dL 32-36 Automated erythrocyte distribution width ratio 13.9 % 10.0-14.5 Automated blood platelet count (count/volume) 348 10*3/uL 130-400 Automated blood platelet mean volume measurement 9.8 [foz_us] 7.4-10.4 Automated blood neutrophils/100 leukocytes 74 % 42-75 Automated blood lymphocytes/100 leukocytes 20 % 12-44 Blood monocytes/100 leukocytes 5 % 0-12 Automated blood eosinophils/100 leukocytes 0 % 0-10 Automated blood basophils/100 leukocytes 0 % 0-10 Blood neutrophils automated count (number/volume) 10.1 10*3 1.8-7.8 Blood lymphocytes automated count (number/volume) 2.7 10*3 1.0-4.0 Blood monocytes automated count (number/volume) 0.7 10*3 0.0-1.0 Automated eosinophil count 0.1 10*3/uL 0.0-0.3 Automated blood basophil count (count/volume) 0.1 10*3/uL 0.0-0.1 Comprehensive metabolic panel - 11/05/16 15:25 Serum or plasma sodium measurement (moles/volume) 139 mmol/L 135-145 Serum or plasma potassium measurement (moles/volume) 3.6 mmol/L 3.6-5.0 Serum or plasma chloride measurement (moles/volume) 101 mmol/L 98-107 Carbon dioxide 23 mmol/L 21-32 Serum or plasma anion gap determination (moles/volume) 15 mmol/L 5-14 Serum or plasma urea nitrogen measurement (mass/volume) 11 mg/dL 7-18 Serum or plasma creatinine measurement (mass/volume) 0.83 mg/dL 0.60-1.30 Serum or plasma urea nitrogen/creatinine mass ratio 13 NRG Serum or plasma creatinine measurement with calculation of estimated glomerular filtration rate > NRG Serum or plasma glucose measurement (mass/volume) 109 mg/dL 70-105 Serum or plasma calcium measurement (mass/volume) 9.5 mg/dL 8.5-10.1 Serum or plasma total bilirubin measurement (mass/volume) 0.8 mg/dL 0.1-1.0 Serum or plasma alkaline phosphatase measurement (enzymatic activity/volume) 80 U/L 40-136 Serum or plasma aspartate aminotransferase measurement (enzymatic activity/ volume) 14 U/L 5-34 Serum or plasma alanine aminotransferase measurement (enzymatic activity/volume ) 11 U/L 0-55 Serum or plasma protein measurement (mass/volume) 7.7 g/dL 6.4-8.2 Serum or plasma albumin measurement (mass/volume) 4.7 g/dL 3.2-4.5 Complete urinalysis with reflex to culture - 11/05/16 15:54 Urine color determination YELLOW NRG Urine clarity determination CLEAR NRG Urine pH measurement by test strip 6.5 5-9 Specific gravity of urine by test strip 1.015 1.016- 1.022 Urine protein assay by test strip, semi-quantitative 3+ NEGATIVE Urine glucose detection by automated test strip NEGATIVE NEGATIVE Erythrocytes detection in urine sediment by light microscopy 1+ NEGATIVE Urine ketones detection by automated test strip 3+ NEGATIVE Urine nitrite detection by test strip NEGATIVE NEGATIVE Urine total bilirubin detection by test strip NEGATIVE NEGATIVE Urine urobilinogen measurement by automated test strip (mass/volume) 1 mg/dL NORMAL Urine leukocyte esterase detection by dipstick 2+ NEGATIVE Automated urine sediment erythrocyte count by microscopy (number/high power field) [HPF] NRG Automated urine sediment leukocyte count by microscopy (number/high power field ) [HPF] NRG Bacteria detection in urine sediment by light microscopy MODERATE NRG Squamous epithelial cells detection in urine sediment by light microscopy 5-10 NRG Crystals detection in urine sediment by light microscopy NONE NRG Casts detection in urine sediment by light microscopy NONE NRG Mucus detection in urine sediment by light microscopy NEGATIVE NRG Complete urinalysis with reflex to culture YES NRG Bacterial urine culture - 11/05/16 15:54 Bacterial urine culture [id number] NRG COLONY COUNT >100,000/ML NRG FTX;REPORTABLE SENSITIVITY REPORTED AT 0722, 2-6-17 NRG URINE CULTURE RESULTS PLUS NRG Bacterial susceptibility panel - 11/05/16 15:54 Gentamicin susceptibility test by minimum inhibitory concentration < = NRG Trimethoprim/sulfamethoxazole susceptibility test by minimum inhibitoryconcentration <= NRG Ampicillin susceptibility test by minimum inhibitory concentration R NRG Tobramycin susceptibility test by minimum inhibitory concentration < = NRG Cefazolin susceptibility test by minimum inhibitory concentration < = NRG Ceftriaxone susceptibility test by minimum inhibitory concentration <= NRG Ampicillin/sulbactam susceptibility test by minimum inhibitory concentration 4 NRG Piperacillin/tazobactam susceptibility test by minimum inhibitory concentration <= NRG Ciprofloxacin susceptibility test by minimum inhibitory concentration <= NRG Meropenem susceptibility test by minimum inhibitory concentration < = NRG Nitrofurantoin susceptibility test by minimum inhibitory concentration <= NRG Aztreonam susceptibility test by minimum inhibitory concentration < = NRG Extended spectrum beta lactamase (ESBL) producing bacteria susceptibility test by minimum inhibitory concentration - NRG Complete urinalysis with reflex to culture - 03/15/18 17:54 Urine color determination YELLOW NRG Urine clarity determination CLEAR NRG Urine pH measurement by test strip 6 5-9 Specific gravity of urine by test strip 1.015 1.016- 1.022 Urine protein assay by test strip, semi-quantitative 2+ NEGATIVE Urine glucose detection by automated test strip NEGATIVE NEGATIVE Erythrocytes detection in urine sediment by light microscopy 5+ NEGATIVE Urine ketones detection by automated test strip NEGATIVE NEGATIVE Urine nitrite detection by test strip NEGATIVE NEGATIVE Urine total bilirubin detection by test strip NEGATIVE NEGATIVE Urine urobilinogen measurement by automated test strip (mass/volume) 4 mg/dL NORMAL Urine leukocyte esterase detection by dipstick 3+ NEGATIVE Automated urine sediment erythrocyte count by microscopy (number/high power field) [HPF] NRG Automated urine sediment leukocyte count by microscopy (number/high power field ) > [HPF] NRG Bacteria detection in urine sediment by light microscopy FEW NRG Squamous epithelial cells detection in urine sediment by light microscopy 25-50 NRG Crystals detection in urine sediment by light microscopy NONE NRG Casts detection in urine sediment by light microscopy NONE NRG Mucus detection in urine sediment by light microscopy NEGATIVE NRG Complete urinalysis with reflex to culture YES NRG Complete blood count (CBC) with automated white blood cell (WBC) differential - 03/15/18 19:00 Blood leukocytes automated count (number/volume) 23.2 10*3/uL 4.3-11.0 Blood erythrocytes automated count (number/volume) 3.81 10*6/uL 4.35-5.85 Venous blood hemoglobin measurement (mass/volume) 12.2 g/dL 11.5-16.0 Blood hematocrit (volume fraction) 34 % 35-52 Automated erythrocyte mean corpuscular volume 89 [foz_us] 80-99 Automated erythrocyte mean corpuscular hemoglobin (mass per erythrocyte) 32 pg 25-34 Automated erythrocyte mean corpuscular hemoglobin concentration measurement ( mass/volume) 36 g/dL 32-36 Automated erythrocyte distribution width ratio 14.6 % 10.0-14.5 Automated blood platelet count (count/volume) 324 10*3/uL 130-400 Automated blood platelet mean volume measurement 9.2 [foz_us] 7.4-10.4 Automated blood neutrophils/100 leukocytes 83 % 42-75 Automated blood lymphocytes/100 leukocytes 10 % 12-44 Blood monocytes/100 leukocytes 7 % 0-12 Automated blood eosinophils/100 leukocytes 0 % 0-10 Automated blood basophils/100 leukocytes 1 % 0-10 Blood neutrophils automated count (number/volume) 19.2 10*3 1.8-7.8 Blood lymphocytes automated count (number/volume) 2.2 10*3 1.0-4.0 Blood monocytes automated count (number/volume) 1.5 10*3 0.0-1.0 Automated eosinophil count 0.1 10*3/uL 0.0-0.3 Automated blood basophil count (count/volume) 0.2 10*3/uL 0.0-0.1 Blood manual differential performed detection - 03/15/18 19:00 Blood monocytes/100 leukocytes 7 % NRG Manual blood segmented neutrophils/100 leukocytes 50 % NRG Blood band neutrophils/100 leukocytes 22 % NRG Manual blood lymphocytes/100 leukocytes 18 % NRG Manual eosinophils/100 leukocytes in nose 0 % NRG Manual blood basophils/100 leukocytes 0 % NRG Blood erythrocyte morphology finding identification NORMAL NRG Manual blood metamyelocytes/100 leukocytes 3 % NRG Whole blood basic metabolic panel - 03/15/18 19:00 Serum or plasma sodium measurement (moles/volume) 131 mmol/L 135-145 Serum or plasma potassium measurement (moles/volume) 3.2 mmol/L 3.6-5.0 Serum or plasma chloride measurement (moles/volume) 95 mmol/L 98-107 Carbon dioxide 24 mmol/L 21-32 Serum or plasma anion gap determination (moles/volume) 12 mmol/L 5-14 Serum or plasma urea nitrogen measurement (mass/volume) 31 mg/dL 7-18 Serum or plasma creatinine measurement (mass/volume) 1.10 mg/dL 0.60-1.30 Serum or plasma urea nitrogen/creatinine mass ratio 28 NRG Serum or plasma creatinine measurement with calculation of estimated glomerular filtration rate 48 NRG Serum or plasma glucose measurement (mass/volume) 174 mg/dL 70-105 Serum or plasma calcium measurement (mass/volume) 8.9 mg/dL 8.5-10.1 Encounters ACCT No. Visit Date/Time Discharge Status Pt. Type Provider Facility Loc./Unit Complaint [id number] 12/27/2017 13:00:00 12/27/2017 23:59:59 [facility] Outpatient SHAYNE ALEGRIA DO [facility] SEVERE IRON DEFICIENCY [id number] 07/03/2017 10:10:00 07/03/2017 23:59:59 CLS Outpatient ALEGRIA DO, SHAYNE [facility] RAD SCREENING Z12.31 [id number] 11/05/2016 14:16:00 11/05/2016 17:00:00 DIS Emergency LAURA NEFF, ALINA Solo [facility] ER VOMITING/ELEV BP [id number] 06/29/2016 10:13:00 06/29/2016 23:59:59 CLS Outpatient ALEGRIA DO, SHAYNE [facility] RAD SCREENING [id number] 06/03/2015 10:28:00 06/03/2015 23:59:59 CLS Outpatient ALEGRIA DO, SHAYNE [facility] RAD SCREENING [id number] 01/22/2015 00:11:00 01/22/2015 23:59:59 CLS Preadmit ALEGRIA DO, SHAYNE [facility] SURG RCR SEVERE IRON DEFICIENCY [id number] 10/29/2014 13:21:00 01/21/2015 00:01:00 DIS Outpatient ALEGRIA DO, SHAYNE [facility] SURG RCR SEVERE IRON DEFICIENCY [id number] 10/08/2014 15:23:00 10/13/2014 11:05:00 DIS Inpatient ALEGRIA DO, SHAYNE [facility] CSD LOWER GI BLEED, DIVERTICULITIS,ABD PAIN [id number] 05/29/2014 10:44:00 05/29/2014 23:59:59 CLS Outpatient ALEGRIA DO, SHAYNE [facility] RAD SCREENING [id number] 05/27/2013 10:18:00 05/27/2013 23:59:59 CLS Outpatient ALEGRIA DO, SHAYNE [facility] RAD SCREENING [id number] 03/15/2018 18:32:00 Document Registration [id number] 04/05/2012 10:11:00 Document Registration [id number] 06/30/2011 23:10:00 Document Registration [id number] 03/30/2011 12:54:00 Document Registration [id number] 03/29/2010 09:13:00 Document Registration [id number] 06/03/2015 10:29:15 ACT Document Registration
--- OUTSIDE RECORDS SUMMARY | 2018-03-15 20:39 | XMS REPORT | Clinical Summary ---
Author Author User, [employer] Organization [facility] [place] Address Unknown Phone Unavailable Allergies, Adverse Reactions, [...] in 1/2 cup of OJ. QID CHOLESTYRAMINE 75324711289 Active Sagrario Galaviz PROTONIX 40 MG TBEC 1 PO daily PANTOPRAZOLE SODIUM 96959365189 Active Sagrario Galaviz SUCRALFATE 1 GM TABS 1 PO AC/HS SUCRALFATE 76302239737 No Longer Active Sagrario Galaviz ALEVE 220 MG TAB 2 PO BID NAPROXEN SODIUM 17157960769 No Longer Active Sagrario Galaviz ASPIRIN 81 MG CHEW 1 PO daily ASPIRIN 90645797765 No Longer Active Sagrario Galaviz PYRIDIUM 200 MG TAB 1 PO TID prn urinary urgency PHENAZOPYRIDINE HCL 76555294143 Active Cindi White AMARYL 1 MG TABS 1 PO daily GLIMEPIRIDE 18848985526 No Longer Active Sagrario Galaviz VICTOZA 18 MG/3ML SOLN 1.2 mg injection daily LIRAGLUTIDE 62455255195 Active Sagrario Galaviz TRUE RESULT METER DIRECTED DX: 250.00 TRUE RESULT METER Active Cindi White TRUETEST TEST STRP TEST BS QID DX: 250.00 GLUCOSE BLOOD 64494040896 Active Cindi White PREMARIN 0.625 MG/GM CREA apply to affected areas BID prn ESTROGENS, CONJUGATED VAGINAL 87492923055 Active Cindi White ZOSTAVAX 27669 UNT/0.65ML SOLR 1 injection once to prevent Shingles ZOSTER VACCINE LIVE 61237745911 No Longer Active Cindi White BD PEN NEEDLE SHORT U/F 31G X 8 MM MISC As directed BID INSULIN PEN NEEDLE 33685846001 Active Sagrario Galaviz ZOSTAVAX 91139 UNT/0.65ML SOLR 1 injection once to prevent Shingles ZOSTER VACCINE LIVE 27162370967 No Longer Active Sagrario Caroline Galaviz FISH OIL 1000 MG CAPS 1 PO daily OMEGA-3 FATTY ACIDS 09216859685 Active Sagrario Caroline Galaviz NITROFURANTOIN MACROCRYSTAL 100 MG CAPS 1 PO daily with supper. NITROFURANTOIN MACROCRYSTAL 38258153412 No Longer Active Sagrario Caroline Galaviz BYETTA 10 MCG PEN 10 MCG/0.04ML SOLN 1 injection BID EXENATIDE 97090484117 No Longer Active Sagrario Caroline Galaviz BYDUREON 1 injection weekly BYDUREON No Longer Active Sagrario Caroline Galaviz K-DUR 10 MEQ TAB CR 1 PO daily with Lasix POTASSIUM CHLORIDE No Longer Active Sagrario Caroline Galaviz LASIX 20 MG TAB 1 PO QD prn swelling FUROSEMIDE 79771820994 No Longer Active Sagrario Caroline Galaviz TRAMADOL HCL 50 MG TABS 1-2 PO every 4-6 hours PRN TRAMADOL HCL 90755435841 No Longer Active Sagrario Caroline Galaviz CARISOPRODOL 350 MG TABS 1 PO QID CARISOPRODOL 58010927861 No Longer Active Sagrario Caroline Galaviz DEMEROL 50 MG TABS 1 PO QID prn MEPERIDINE HCL 87919592925 No Longer Active Sagrariokade Galaviz HYDROCODONE-ACETAMINOPHEN 10-325 MG TABS HYDROCODONE-ACETAMINOPHEN 59191364724 No Longer Active Sagrario Caroline Galaviz PHENERGAN 25 MG TAB 1 PO Q6hrs prn PROMETHAZINE HCL No Longer Active Sagrariokade Galaviz DOXYCYCLINE HYCLATE CAPS DOXYCYCLINE HYCLATE CAPS 87159031813 No Longer Active Sagrario Caroline Galaviz PYRIDIUM 200 MG TAB 1 PO TID prn urinary urgency PHENAZOPYRIDINE HCL 32068509331 No Longer Active Cindimohit Zacariastis CIPRO 500 MG TAB 1 PO BID for 7 days CIPROFLOXACIN HCL 14223677521 No Longer Active Cindi White PYRIDIUM 200 MG TAB 1 PO TID prn urinary urgency PHENAZOPYRIDINE HCL 90689431058 No Longer Active Sagrario Galaviz AUGMENTIN 500-125 MG TAB 1 PO BID AMOXICILLIN-POT CLAVULANATE 39021772666 No Longer Active Sagrario Galaviz PYRIDIUM 200 MG TAB 1 PO TID prn urinary urgency PHENAZOPYRIDINE HCL 92203632436 No Longer Active Cindi White AUGMENTIN 500-125 MG TAB 1 PO BID x 5 days AMOXICILLIN-POT CLAVULANATE 40251852276 No Longer Active Cindi White PYRIDIUM 200 MG TAB 1 PO TID prn urinary urgency PHENAZOPYRIDINE HCL 76337374332 No Longer Active Cindi White VITAMIN D 1000 UNIT TABS 1 PO daily CHOLECALCIFEROL 98337221162 Active Sagrariokade Galaviz CALTRATE 600 PLUS-VIT D 600-200 MG-IU TABS 1 PO QD CALCIUM-VITAMIN D 12415051721 No Longer Active Sagrario Galaviz SYNTHROID 137 MCG TABS 1 pill Mon and Monday and take the 125 mcg M-F LEVOTHYROXINE SODIUM 93975424412 No Longer Active Sagrario Galaviz VITAMIN D 4000 UNIT CAPS (CHOLECALCIFEROL) 1 PO twice a week VITAMIN D 4000 UNIT CAPS (CHOLECALCIFEROL) No Longer Active Sagrario Galaviz SYNTHROID 0.125 MG TAB 1 PO daily. LEVOTHYROXINE SODIUM 09131832221 Active Sagrariokade Galaviz ANTIVERT 25 MG TABS 1 PO Q 6 hrs prn MECLIZINE HCL 61820742010 Active Sagrariokade aGlaviz AMARYL 2 MG TAB 1/4 Tablet PO Daily GLIMEPIRIDE 64654142086 No Longer Active Sagrario Galaviz VITAMIN D 1000 UNIT TABS 2 PO Daily CHOLECALCIFEROL 98884247705 No Longer Active Sagrariokade Galaviz METFORMIN HCL 500 MG TABS 2 PO BID METFORMIN HCL 51232877361 Active Sagrariokade Galaviz ONE TOUCH ULTRA TEST STRIPS Test BS four times a day DX Diabetes ONE TOUCH ULTRA TEST STRIPS No Longer Active Cindi White VITAMIN D CAPS (ERGOCALCIFEROL CAPS) 400MG 2 PO daily VITAMIN D CAPS (ERGOCALCIFEROL CAPS) 400MG No Longer Active Sagrariokade Galaviz GLUCOSAMINE 500 MG CAPS as directed GLUCOSAMINE SULFATE 58188671753 No Longer Active Sagrario Galaviz FERROUS SULFATE 325 (65 FE) MG TABS 2 tablets po TID x 1 week, then 1 tablet po in am and 1 po in pm until bottles gone FERROUS SULFATE 99191699694 No Longer Active Sagrariokade Galaviz BYETTA 10 MCG PEN 250 MCG/ML SOLN 1 injection BID EXENATIDE 36202228658 No Longer Active Cindi White AVANDAMET 2-500 MG TABS 1 PO BID ROSIGLITAZONE-METFORMIN 25080421185 No Longer Active Sagrario Galaviz AMARYL 2 MG TABS 1/2 pill PO BID for diabetes GLIMEPIRIDE 63362375434 No Longer Active Sagrariokade Galaviz AVANDAMET 2-500 MG TABS 1 PO BID ROSIGLITAZONE- METFORMIN 49996799759 No Longer Active Sagrariokade Galaviz CITALOPRAM HYDROBROMIDE 40 MG TABS 1 po daily CITALOPRAM HYDROBROMIDE 85786527269 Active Sagrariokade Galaviz CHROMIUM PICOLINATE 400 MCG CAPS daily CHROMIUM PICOLINATE 78323255178 No Longer Active Sagrariokade Galaviz ZOCOR 20 MG TABS 1 PO QHS SIMVASTATIN 61175149347 Active Sagrariokade Galaviz CYMBALTA 30 MG CPEP 1 PO daily DULOXETINE HCL 42121997093 No Longer Active Sagrariokade Galaviz VALIUM 2 MG TABS 1/2 PO 1 hour prior to MRI procedure, may repeat if necessary DIAZEPAM 07663748082 No Longer Active Buck Trevino ACETAMINOPHEN 325 MG TABS 1 PO Q6hrs ACETAMINOPHEN 11097849841 Active Sagrario Caroline Galaviz XALATAN 0.005 % SOLN as directed LATANOPROST 32994309236 Active Sagrariokade Galaviz CITRUCEL POWDER Use qd after meals METHYLCELLULOSE ( LAXATIVE) 08873303045 No Longer Active Sagrariokade Galaviz CIPRO 500 MG TAB 1 BID CIPROFLOXACIN HCL 04232339022 No Longer Active Sagrariokade Galaviz FLAGYL 500 MG TAB 1 TID METRONIDAZOLE 33491278164 No Longer Active Sagrariokade Galaviz NYSTATIN 693811 U/ML SUSP S/S qid as directed for 7 days NYSTATIN 26183196012 No Longer Active Sagrariokade Galaviz GLUCOPHAGE 500 MG TABS 1 PO BID METFORMIN HCL 10548200576 No Longer Active Sagrario Galaviz SYNTHROID 125 MCG TABS 1 po daily LEVOTHYROXINE SODIUM 62327827795 No Longer Active Sagrariokade Galaviz TRIAMCINOLONE ACETONIDE 0.1 % CREA Apply to areas tid TRIAMCINOLONE ACETONIDE (TOP) 49411005444 Active Sagrario Caroline Galaviz COZAAR 100 MG TABS 1 po daily LOSARTAN POTASSIUM 80676817078 Active Sagrario Caroline Galaviz CELEXA 40 MG TABS 1 po daily CITALOPRAM HYDROBROMIDE 64946382388 No Longer Active Sagrario Galaviz Immunizations Vaccine [...] % Encounters Code Encounter Date Provider Facility CPT-93132 Ofc Vst, Est Level IV 11:44:06 REX Galaviz DO, FACP CPT-25924 Ofc Vst, Est Level IV 20:18:24 FLOOR LAYER APPRENTICE Sagrariokade Solo Galaviz, DO, FACP CPT-24711 Ofc Vst, Est Level III 16:52:42 CDT Sagrario Caroline Solo Galaviz, DO, FACP CPT-10710 Ofc Vst, Est Level III 19:48:33 CDT Sagrario Caroline Solo Galaviz, DO, FACP CPT-14537 Ofc Vst, Est Level III 16:35:55 FLOOR LAYER APPRENTICE Sagrario Caroline Solo Anastacia, DO, FACP CPT-27634 Ofc Vst, Est Level II 16:10:48 CDT Sagrariokade Galaviz [facility] CPT-49366 Ofc Vst, Est Level III 17:02:14 CDT Sagrario Caroline Solo Anastacia, DO, FACP CPT-15898 Ofc Vst, Est Level III 16:22:21 CDT Sagrario Caroline Solo Galaviz, DO, FACP CPT-48985 Ofc Vst, Est Level III 15:38:27 FLOOR LAYER APPRENTICE Sagrario Solo Galaviz, DO, FACP CPT-80014 Ofc Vst, Est Level IV 11:46:07 CDT Sagrariokade Galaviz [facility] CPT-57282 Ofc Vst, Est Level IV 11:48:35 FLOOR LAYER APPRENTICE Sagrario Caroline Solo Galaviz, DO, FACP CPT-81381 Ofc Vst, Est Level IV 10:25:22 FLOOR LAYER APPRENTICE Sagrario Caroline Campi S Galaviz, DO, FACP CPT-82836 Ofc Vst, Est Level IV 15:01:16 CDT Sagrario Caroline Zabala S Anastacia, DO, FACP CPT-15386 Ofc Vst, Est Level IV 13:50:59 CDT Sagrario Caroline Solo Galaviz, DO, FACP CPT-73452 Ofc Vst, Est Level IV 14:42:02 CDT Sagrario Caroline Solo Galaviz, DO, FACP CPT-03006 Ofc Vst, Est Level IV 12:27:54 CDT Sagrario Solo Galaviz, DO, FACP CPT-29331 Ofc Vst, Est Level IV 14:04:58 FLOOR LAYER APPRENTICE Sagrario Solo Galaviz, DO, FACP CPT-06698 Ofc Vst, Est Level IV 11:00:03 FLOOR LAYER APPRENTICE Sagrario Solo Galaviz, DO, FACP CPT-18995 Ofc Vst, Est Level IV 10:16:11 CDT Sagrario Solo Anastacia, DO, FACP CPT-18433 Ofc Vst, Est Level IV 10:59:50 CDT Sagrario Caroline Solo Anastacia, DO, FACP CPT-86391 Ofc Vst, Est Level IV 10:18:39 FLOOR LAYER APPRENTICE Sagrario Solo Galaviz, DO, FACP CPT-26301 Ofc Vst, Est Level IV 10:46:13 FLOOR LAYER APPRENTICE Sagrario Solo Galaviz, DO, FACP CPT-51492 Ofc Vst, Est Level IV 14:24:50 CDT Sagrariokade Solo Anastacia, DO, FACP CPT-96667 Ofc Vst, Est Level IV 14:13:08 CDT Sagrariokade Solo Galaviz, DO, FACP CPT-48052 Ofc Vst, Est Level V 10:54:54 CDT Sagrario Solo Galaviz, DO, FACP CPT-62651 Ofc Vst, Est Level IV 13:42:46 FLOOR LAYER APPRENTICE Sagrario Solo Anastacia, DO, FACP CPT-71352 Ofc Vst, Est Level III 11:18:13 FLOOR LAYER APPRENTICE Sagrario Solo Anastacia, DO, FACP CPT-36666 Office Consult, Level IV 10:48:11 FLOOR LAYER APPRENTICE Sagrario Gantner Sagrario Germania Anastacia, DO, FACP CPT-55347 Ofc Vst, Est Level IV 10:54:16 CDT Sagrariokade Velazquez Galaviz Sagrariokade Galaviz, DO, FACP CPT-39441 Ofc Vst, Est Level IV 12:52:39 CDT Sagrariokade Velazquez Anastacia Sagrario Germania Anastacia, DO, FACP CPT-84354 Ofc Vst, Est Level IV 10:29:22 CDT Sagrario Caroline Galaviz Sagrario Germania Anastacia, DO, FACP CPT-11143 Ofc Vst, Est Level IV 10:21:39 FLOOR LAYER APPRENTICE Sagrario Velazquez Anastacia aZbala Germania Anastacia, DO, FACP CPT-70455 Ofc Vst, Est Level IV 13:55:28 FLOOR LAYER APPRENTICE Sagrario Velazquez Anastacia Sagrario Germania Anastacia, DO, FACP CPT-21663 Ofc Vst, Est Level II 16:11:54 CDT Sagrariokade Velazquez Anastacia Galaviz, DO, FACP CPT-87582 Ofc Vst, Est Level IV 11:05:58 CDT Sagrario Caroline Anastacia Galaviz, DO, FACP CPT-25128 Ofc Vst, Est Level II 17:22:12 CDT Sagrariokade Galaviz [facility] [place] CPT-45901 Ofc Vst, Est Level III 14:07:00 CDT Sagrario Galaviz [facility] [place] CPT-83746 Ofc Vst, Est Level IV 11:09:34 CDT Sagrario Galaviz [facility] [place] CPT-39583 Ofc Vst, Est Level IV 10:27:16 FLOOR LAYER APPRENTICE Sagrario Galaviz [facility] [place] CPT-86338 Ofc Vst, Est Level IV 11:34:27 FLOOR LAYER APPRENTICE Sagrario Galaviz [facility] [place] CPT-62553 Ofc Vst, Est Level IV 11:12:26 CDT Sagrario Caroline Galaviz [facility] [place] CPT-36933 Ofc Vst, Est Level IV 11:08:03 CDT Sagrario Caroline Galaviz [facility] [place] CPT-10110 Ofc Vst, Est Level III 10:36:15 FLOOR LAYER APPRENTICE Sagrario Galaviz [facility] [place] CPT-69274 Ofc Vst, Est Level III 14:57:25 FLOOR LAYER APPRENTICE Sagrario Galaviz [facility] [place] CPT-91463 Ofc Vst, Est Level IV 11:21:05 FLOOR LAYER APPRENTICE Sagrario Galaviz [facility] [place] CPT-17816 Ofc Vst, Est Level IV 15:12:10 CDT Sagrario Caroline Galaviz [facility] [place] CPT-81342 Ofc Vst, Est Level IV 11:32:45 CDT Sagrario Caroline Galaviz [facility] [place] CPT-37244 Ofc Vst, Est Level IV 18:28:35 CDT Sagrario Caroline Galaviz [facility] [place] CPT-99792 Ofc Vst, Est Level IV 12:58:25 CDT Sagrario Galaviz [facility] [place] CPT-36710 Ofc Vst, Est Level IV 12:52:51 FLOOR LAYER APPRENTICE Sagrario Galaviz [facility] [place] CPT-63040 Ofc Vst, Est Level III 17:02:21 FLOOR LAYER APPRENTICE Sagrario Galaviz [facility] [place] CPT-23987 Ofc Vst, Est Level IV 13:06:56 FLOOR LAYER APPRENTICE Sagrario Galaviz [facility] [place] CPT-63531 Ofc Vst, Est Level IV 12:47:26 FLOOR LAYER APPRENTICE Sagrario Galaviz [facility] [place] CPT-34731 Ofc Vst, Est Level III 17:46:57 FLOOR LAYER APPRENTICE Sagrario Galaviz [facility] [place] CPT-50773 Ofc Vst, Est Level IV 12:57:58 FLOOR LAYER APPRENTICE Sagrario Galaviz [facility] [place] CPT-34639 Ofc Vst, Est Level IV 12:45:38 FLOOR LAYER APPRENTICE Sagrario Galaviz [facility] [place] CPT-67147 Ofc Vst, Est Level IV 13:08:06 CDT Sagrario Caroline Galaviz [facility] [place] CPT-46114 Ofc Vst, Est Level IV 08:06:35 CDT Sagrario Caroline Galaviz [facility] [place] CPT-44383 Ofc Vst, Est Level IV 13:18:36 CDT Sagrario Caroline Galaviz [facility] [place] CPT-32918 Ofc Vst, Est Level IV 17:54:14 CDT Sagrario Galaviz [facility] [place] CPT-13015 Ofc Vst, Est Level IV 13:18:46 CDT Sagrario Caroline Galaviz [facility] [place] CPT-05823 Ofc Vst, Est Level IV 18:01:49 CDT Sagrario Caroline Galaviz [facility] [place] CPT-14811 Ofc Vst, Est Level IV 12:28:42 CDT Sagrario Galaviz [facility] [place] CPT-04848 Ofc Vst, Est Level III 15:48:07 CDT Sagrariokade Galaviz [facility] [place] CPT-87798 Ofc Vst, New Level III 10:52:25 FLOOR LAYER APPRENTICE Sagrario Galaviz [facility] [place] Procedures Code Procedure Name Date Entry Date Standard Description CPT-G0439 Medicare Annual Wellness Visit 16:03:32 CDT CPT-G8446 E-Prescribing not done due to controlled substance 16:35 :55 FLOOR LAYER APPRENTICE CPT-58880 Injection, Pneumovax 15:49:19 FLOOR LAYER APPRENTICE CPT-G8446 E-Prescribing not done due to controlled substance 13:16 :11 CDT CPT-G0439 Medicare Annual Wellness Visit 13:16:11 CDT CPT-G8445 E-Prescribing Not sent due to no medication given 16:10: 48 CDT CPT-G8446 E-Prescribing not done due to controlled substance 17:02 :14 CDT CPT-G8446 E-Prescribing not done due to controlled substance 16:22 :21 CDT CPT-G8446 E-Prescribing not done due to controlled substance 15:38 :27 FLOOR LAYER APPRENTICE CPT-G8446 E-Prescribing not done due to controlled substance 15:41 :44 CDT CPT-G0438 Medicare Annual Wellness Visit Initial 15:41:44 CDT CPT-8446 E-Prescribing not done due to controlled substance 10:54: 54 CDT CPT-74508 Influenza Vaccine 12:12:24 CDT CPT-G0008 Administration Influenza Vaccine 12:12:24 CDT CPT-25154 Incision & Drainage, simple 13:29:49 CDT CPT-56738 Influenza Vaccine 13:55:28 FLOOR LAYER APPRENTICE CPT-G0008 Administration Influenza Vaccine 13:55:28 FLOOR LAYER APPRENTICE CPT-06455 Preventive, Est, (65+) 13:17:39 FLOOR LAYER APPRENTICE
[2018-03-15] MEDS ORDERED: ALPRAZolam 0.25 MG (XANAX) TAB PO PRN (20:45)
[2018-03-15] MEDS ORDERED: fentaNYL INJECTION 100 MCG/2 ML AMP IVP PRN (20:45)
[2018-03-15] MEDS ORDERED: MEROPENEM 500 MG in NS (IVPB) 100 ML IV SCH (20:45)
[2018-03-15] MEDS ORDERED: ONDANSETRON 4 MG/2 ML (SDV) Z0FRAN IVP PRN (20:45)
[2018-03-15] MEDS ORDERED: HYDROcodone/APAP 5 MG/325 MG (LORTAB) TAB PO PRN (20:45)
[2018-03-15] MEDS ORDERED: IBUPROFEN TABLET 200 MG TAB PO PRN (20:45)
[2018-03-15 20:48] VITALS: BP 133/61
[2018-03-15] MEDS: inSUlin ASPART (NovoLOG) 1 UNIT/0.01 ML (CHARGE PER UNIT) SC SCH (20:55)
[2018-03-15] MEDS ORDERED: MEROPENEM 500 MG VIAL (MERREM) IV ONE (21:02)
[2018-03-15] MEDS ORDERED: NS (IVPB) 100 ML ONE (21:02)
[2018-03-15] MEDS: MAGNESIUM 1 GM/100 ML IVPB 100 ML IV SCH ×2 (21:19→22:29)
[2018-03-15] MEDS ORDERED: NS W/KCL 20 MEQ/L 1,000 ML IV ONE ×2 (21:43→21:45)
[2018-03-15] MEDS: MEROPENEM 500 MG in NS (IVPB) 100 ML IV SCH (21:45)
[2018-03-15] MEDS: POTASSIUM CL 10MEQ/50ML IVPB 50 ML IV SCH (23:23)
[2018-03-16] VITALS: BP 148/75
[2018-03-16] MEDS: POTASSIUM CL 10MEQ/50ML IVPB 50 ML IV SCH ×3 (00:27→02:31)
[2018-03-16] MEDS: MEROPENEM 500 MG in NS (IVPB) 100 ML IV SCH ×2 (03:29→09:05)
[2018-03-16 05:00] VITALS: BP 152/73
[2018-03-16 06:21] LABS: BASOPHILS # (AUTO) 0.1 10^3/uL (0.0-0.1); BASOPHILS % (AUTO) 0 % (0-10); EOSINOPHILS # (AUTO) 0.1 10^3/uL (0.0-0.3); EOSINOPHILS % (AUTO) 0 % (0-10); HEMATOCRIT 31 % (35-52); LYMPHOCYTES # (AUTO) 1.9 X 10^3 (1.0-4.0); LYMPHOCYTES % (AUTO) 9 % (12-44); MEAN CORPUSCULAR HEMOGLOBIN 32 PG (25-34); MEAN CORPUSCULAR HGB CONC 35 G/DL (32-36); MEAN CORPUSCULAR VOLUME 90 FL (80-99); MEAN PLATELET VOLUME 9.4 FL (7.4-10.4); MONOCYTES # (AUTO) 1.6 X 10^3 (0.0-1.0); MONOCYTES % (AUTO) 7 % (0-12); NEUTROPHILS # (AUTO) 18.2 X 10^3 (1.8-7.8); NEUTROPHILS % (AUTO) 83 % (42-75); PLATELET COUNT 331 10^3/uL (130-400); RED BLOOD COUNT 3.48 10^6/uL (4.35-5.85); RED CELL DISTRIBUTION WIDTH 14.9 % (10.0-14.5); WHITE BLOOD COUNT 21.8 10^3/uL (4.3-11.0)
[2018-03-16] MEDS: inSUlin ASPART (NovoLOG) 1 UNIT/0.01 ML (CHARGE PER UNIT) SC SCH ×2 (06:31→11:23)
[2018-03-16 06:47] LABS: BUN/CREATININE RATIO 31; CALCIUM 8.3 MG/DL (8.5-10.1); CARBON DIOXIDE 22 MMOL/L (21-32); CHLORIDE 100 MMOL/L (98-107); CREATININE SERUM 0.88 MG/DL (0.60-1.30); GFR ESTIMATED > 60; GLUCOSE 146 MG/DL (70-105); POTASSIUM 3.9 MMOL/L (3.6-5.0); SODIUM 131 MMOL/L (135-145)
[2018-03-16 07:54] VITALS: BP 161/75
--- NOTE | 2018-03-16 10:42 | Physical Therapy Evaluation ---
PT Evaluation-General Medical Diagnosis Admission Date Mar 15, 2018 at 17:20 Medical Diagnosis: UTI Onset Date: Mar 15, 2018 Therapy Diagnosis Therapy Diagnosis: weakness;abn gait Height/Weight Height (Feet): 5 Height (Inches): 5.00 Weight (Pounds): 158 Weight (Ounces): 0.0 Precautions Precautions/Isolations: Fall Prevention, Standard Precautions Weight Bear Status Right Lower Extremity: Right Weight Bearing/Tolerated Left Lower Extremity: Left Weight Bearing/Tolerated Referral Physician: Luis Reason for Referral: Evaluation/Treatment Medical History Additional Medical History rectal homorrhage, lower abdominal pain, UTI Current History Pt admitted observation due to increased weakness and UTI. Reports of recent falls at home. Reviewed History: Yes Social History Home: Single Level Current Living Status: Spouse Entry Into Home: Stairs With Railing Prior/Core FIM Prior Level of Function Functional [place] Measure 0=Not Assessed/NA 4=Minimal Assistance 1=Total Assistance 5=Supervision or Setup 2=Maximal Assistance 6=Modified [place] 3=Moderate Assistance 7=Complete [place] Bed Mobility: 7 Transfers (B,C,W/C) (FIM): 7 Gait: [address]. She is a community ambulator. She cares for herself at [facility] PT Evaluation-Current Subjective Pt reports she has noticed increased weakness over the past several days. Reports she has had several falls in the recent past. Pain Numeric Pain Scale: 0-No Pain Location: No Pain Reported Objective Patient Orientation: Person, Confused (slightly when details discussed), Place , Time, Situation Problem Solving: Fair Attachments: IV ROM/Strength ROM Lower Extremities WFL Strength Lower Extremities grossly 4-/5 Integumentary/Posture Integumentary intact Bowel Incontinence: No Bladder Incontinence: No Posture symmetrical and upright Neuromuscular (Tone, Coordination, Reflexes) intact Sensory Vision: Functional Hearing: Functional Hand Dominance: Right Sensation Right Lower Extremit: Intact Sensation Left Lower Extremity: Intact Transfers Functional [place] Measure 0=Not Assessed/NA 4=Minimal Assistance 1=Total Assistance 5=Supervision or Setup 2=Maximal Assistance 6=Modified [place] 3=Moderate Assistance 7=Complete [place] Transfers (B, C, W/C) (FIM): 4 Supine to/from Sit: 4 Sit to/from Stand: 4 Gait Mode of Locomotion: Walk Anticipated Mode of Locomotion: Walk Gait (FIM): 2 Distance (FIM): 1=up to 49 ft Distance: 30f t Gait Level of Assist: 4 (CGA) Gait Assistive Device: None Comments/Gait Description slow gait; slightly unsteady Balance Sitting Static: Good Sitting Dynamic: Good Standing Static: Fair Standing Dynamic: Fair Assessment/Needs Pt presents with gross functional weakness likely due to the UTI and is needing increased assist with functional mobility. She will benefit from skilled PT to work on strength and mobilityt o allow her to return home as before. She ismotivated, compliants and has good potential to make functional gains. Rehab Potential: Good PT Medicaid Specialist Goals Medicaid Specialist Goals PT Correction Goals Time Frame: Mar 23, 2018 Transfers (B,C,W/C) (FIM): 7 Gait (FIM): 6 Gait distance (FIM): 3=150 ft Gait Assistive Device: FWW PT Plan Problem List Problem List: Activity Tolerance, Functional Strength, Safety, Balance, Gait, Transfer, Bed Mobility Treatment/Plan Treatment Plan: Continue Plan of Care Treatment Plan: Bed Mobility, Education, Functional Activity [place], Functional Strength, Gait, Safety, Therapeutic Exercise, Transfers Treatment Duration: Mar 23, 2018 Frequency: 6 times per week Estimated Hrs Per Day: .5 hour per day Patient and/or Family Agrees t: Yes Safety Risks/Education Patient Education: Safety Issues Teaching Recipient: Patient Teaching Methods: Discussion Response to Teaching: Reinforcement Needed Time/GCodes Time In: 930 Time Out: 1001 Total Billed Treatment Time: 31 Total Billed Treatment visit EVM 31 G Codes Necessary: Yes PT/OT Therapy GCodes Therapy Functional Limitation: Physical Therapy Test(s)/Tool used to determine: Level of Assistance Scale Functional Limitation-Current Charge Code: MOBCUR Modifier: CK Functional Limitation-Goal Charge Code: MOBGOAL Modifier: CI Functional Limitation-D/C Charge Codes: MOBDC Modifier: CK RASHEL HOOVER PT Mar 16, 2018 10:42
--- NOTE | 2018-03-16 10:50 | Short Stay Summary-Hospitalist ---
History of Present Illness HPI/Chief Complaint Pt is an 82yoCF with a PMH of hypothyroidism who presented as a direct admit for generalized weakness. She states her symptoms started on 02/22 and she was seen by her PCP for leaking urine. She thought that she had a UTI at that time but it started to get better on it's own. By 03/08 though she was feeling very weak and even fell in the shower. She called her PCP on 03/09 but by 03/11 she felt so weak she went to an urgent care. She was diagnosed with a UTI and given oral antibiotics. She reports that she filled the rx and was taking them appropriately but did not get better. She was seen by her PCP yesterday because she felt too weak to stand which is very abnormal for her. She also complained of tactile fever and chills. She was then direct admitted and IRU consult was ordered. She states she is feeling better today and would like to DC to IRU if able. Source: patient Date Seen 03/16/18 Time Seen by Provider: 10:57 Attending Physician Kem Smith MD PCP Sagrario Galaviz DO Referring Physician Date of Admission Mar 15, 2018 at 5:20 pm Home Medications & Allergies Home Medications Reviewed patient Home Medication Reconciliation performed by pharmacy medication reconciliations veterinary surgery technician and/or nursing. Patients Allergies have been reviewed. Allergies Allergies Coded Allergies cefaclor (Verified Allergy, Unknown, 03/15/18) codeine (Verified Allergy, Unknown, 03/15/18) latex (Verified Allergy, Unknown, 03/15/18) nabumetone (Verified Allergy, Unknown, 03/15/18) propranolol (Verified Allergy, Unknown, 03/15/18) sulfamethoxazole (Verified Allergy, Unknown, 03/15/18) trimethoprim (Verified Allergy, Unknown, 03/15/18) Uncoded Allergies STEROIDS ( Allergy, Intermediate, 06/30/11) IODINE (IV DYE) ( Allergy, Unknown, 10/08/14) LATEX ( Allergy, Unknown, 09/10/08) Past Elgwzsg-Armhai-Mnwsvl Hx Past Med/Social Hx: Reviewed Nursing Past Med/Soc Hx Patient Social History Marrital Status: Alcohol Use: Denies Use Recreational Drug Use: No Physical Abuse Screen: No Sexual Abuse: No Recent Foreign Travel: No Contact w/other who traveled: No Recent Hopitalizations: Yes Recent Infectious Disease Expo: No Immunizations Up To Date Date of Pneumonia Vaccine: Oct 08, 2013 Date of Influenza Vaccine: Jul 08, 2014 Seasonal Allergies Seasonal Allergies: No Past Medical History Surgeries: Gallbladder, Hysterectomy, Orthopedic Currently Using CPAP: No Currently Using BIPAP: No Cardiac: Hypertension : No Reproductive: No Sexually Transmitted Disease: No HIV/AIDS: No Female Reproductive Disorders: Denies Gastrointestinal: Diverticulosis Endocrine: Diabetes, Non-Insulin dep Are Your Blood Sugars Over 250: No HEENT: Glaucoma History of Blood Disorders: No Adverse Reaction to Blood Spann: No Family History Reviewed Nursing Family Hx Diabetes mellitus G8 SISTER FH: heart disease 19 FATHER G8 BROTHER Review of Systems Constitutional: chills; No dizziness; fever, weakness EENTM: no symptoms reported Respiratory: no symptoms reported Cardiovascular: no symptoms reported Gastrointestinal: no symptoms reported Genitourinary: no symptoms reported Musculoskeletal: no symptoms reported Skin: no symptoms reported Psychiatric/Neurological: Denies Numbness, Denies Pre-Existing Deficit; Weakness Physical Exam Physical Exam Vital Signs Vital Signs - First Documented 03/15/18 03/15/18 18:45 20:48 Temp 98.3 Pulse 93 Resp 16 B/P (MAP) 133/61 (85) Pulse Ox 93 O2 Delivery Room Air Capillary Refill : General Appearance: No Apparent Distress, WD/WN HEENT: PERRL/EOMI, Moist Mucous Membranes Neck: Non Tender, Supple; No JVD, No Thyromegaly Respiratory: Lungs Clear, No Respiratory Distress Cardiovascular: Regular Rate, Rhythm, No Murmur Gastrointestinal: Normal Bowel Sounds, Non Tender, Soft Extremity: Normal Capillary Refill, No Calf Tenderness, No Pedal Edema Neurologic/Psychiatric: Alert, Oriented x3, Normal Mood/Affect Skin: Normal Color, Warm/Dry Results Results/Procedures Labs Laboratory Tests 03/15/18 19:00 03/16/18 05:58 Patient resulted labs reviewed. Short Stay Diagnosis Discharge Diagnosis-Short Stay Admission Diagnosis Generalized weakness Final Discharge Diagnosis Above Conclusion Plan Generalized weakness and inability to care for self at home IRU consulted and accepted patient Will DC for rehab Discussed allergies- itching is reaction to antibiotics Has received Ancef in past with no documented reaction (here in 2007) Will deescalate to Ampicillin from [facility] Await culture Not sepsis Resume home meds Clinical Quality Measures DVT/VTE Risk/Contraindication: Risk Factor Score Per Nursin RFS Level Per Nursing on Admit: 4+=Very High KEM SMITH MD Mar 16, 2018 10:50 am
[2018-03-16] MEDS ORDERED: PANT40TA3 PO (11:09)
[2018-03-16] MEDS ORDERED: HYDR-3923 PO (11:09)
[2018-03-16] MEDS ORDERED: LATA2.5D5 OU (11:09)
[2018-03-16] MEDS ORDERED: SIMV20TA3 PO (11:09)
[2018-03-16] MEDS ORDERED: CITA40TA11 PO (11:09)
[2018-03-16] MEDS ORDERED: LEVO125T6 PO (11:09)
[2018-03-16] MEDS ORDERED: AMOX250T PO (11:09)
[2018-03-16] MEDS ORDERED: LIRA0.6P3 SC (11:09)
[2018-03-16] MEDS ORDERED: AMLO5TAB2 PO (11:09)
[2018-03-16] MEDS ORDERED: CHOL10007 PO (11:15)
[2018-03-16] MEDS ORDERED: ACET-2650 PO (11:15)
[2018-03-16] MEDS ORDERED: METF500T5 PO (11:15)
[2018-03-16] MEDS ORDERED: AMPICILLIN INJECTION 1,000 MG in NS (IVPB) 50 ML IV SCH (14:00)
[2018-03-20] MEDS ORDERED: LEVO500T80 PO (19:58)
[2018-03-21] MEDS ORDERED: LEVO500T2 PO ×2 (09:02→10:04)
== END 2018-03-16 10:33 ==
LOC: 4TH 17:20
PROVIDERS: ADMIT Family Medicine; ATTEND Family Medicine
DX: R53.1 Weakness (principal); E03.9 Hypothyroidism, unspecified; I10 Essential (primary) hypertension; E11.9 Type 2 diabetes mellitus without complications; R82.99 Other abnormal findings in urine; Z88.1 Allergy status to other antibiotic agents; Z79.4 Long term (current) use of insulin; Z79.899 Other long term (current) drug therapy
CPT/HCPCS: 36415; 80048; 81000; 82962; 83605; 85007; 85025; 85027; 87040; 87077; 87088; 87186; 99211; G0378

== ENCOUNTER 2018-03-16 10:21 | Inpatient (IN) | payer MEDICARE, OTHER ==
[~2018-03-16] VITALS: Ht 162.6 cm; Wt 71.7 kg
[2018-03-16] MEDS ORDERED: LIRA0.6P3 SC (11:09)
[2018-03-16] MEDS ORDERED: SIMV20TA3 PO (11:09)
[2018-03-16] MEDS ORDERED: AMLO5TAB2 PO (11:09)
[2018-03-16] MEDS ORDERED: LEVO125T6 PO (11:09)
[2018-03-16] MEDS ORDERED: PANT40TA3 PO (11:09)
[2018-03-16] MEDS ORDERED: HYDR-3923 PO (11:09)
[2018-03-16] MEDS ORDERED: AMOX250T PO (11:09)
[2018-03-16] MEDS ORDERED: LATA2.5D5 OU (11:09)
[2018-03-16] MEDS ORDERED: CITA40TA11 PO (11:09)
[2018-03-16] MEDS ORDERED: CHOL10007 PO (11:15)
[2018-03-16] MEDS ORDERED: METF500T5 PO (11:15)
[2018-03-16] MEDS ORDERED: ACET-2650 PO (11:15)
[2018-03-16 11:30] VITALS: BP 135/84
[2018-03-16] MEDS ORDERED: MELATONIN 3 MG TABLET PO PRN (12:15)
[2018-03-16] MEDS ORDERED: IBUPROFEN TABLET 200 MG TAB PO PRN (12:15)
[2018-03-16] MEDS ORDERED: ALPRAZolam 0.25 MG (XANAX) TAB PO PRN (12:15)
[2018-03-16] MEDS ORDERED: HYDROcodone/APAP 5 MG/325 MG (LORTAB) TAB PO PRN (12:15)
--- NOTE | 2018-03-16 12:19 | Physical Therapy Evaluation ---
PT Evaluation-General Medical Diagnosis Admission Date 03/16/18 Medical Diagnosis: Debility Onset Date: Mar 15, 2018 Therapy Diagnosis Therapy Diagnosis: weakness; abn gait Height/Weight Height (Feet): 5 Height (Inches): 4.00 Weight (Pounds): 158 Weight (Ounces): 0.0 Precautions Precautions/Isolations: Fall Prevention, Standard Precautions Weight Bear Status Right Lower Extremity: Right Full Weight Bearing Left Lower Extremity: Left Full Weight Bearing Referral Physician: Daoktah Reason for Referral: Evaluation/Treatment Medical History Pertinent Medical History: Arthritis, DM, Diverticulitis, HTN, Hypothroidism Additional Medical History back surgery x 2; bowel resection, Grave's disease. Current History Pt admitted to acute hospital due to progressive weakness, frequent falls recently at home and decreased mobility. It was found that she has an UTI> She has been transferred to ARU for aggressive therapy services to improve her functional strength and mobility. Reviewed History: Yes Social History Home: Single Level Current Living Status: Spouse Entry Into Home: Stairs With Railing PT Steps Into Home: 1 PT Steps Inside Home: 0 Prior/Core FIM Prior Level of Function Functional [place] Measure 0=Not Assessed/NA 4=Minimal Assistance 1=Total Assistance 5=Supervision or Setup 2=Maximal Assistance 6=Modified [place] 3=Moderate Assistance 7=Complete [place] Bed Mobility: 7 Transfers (B,C,W/C) (FIM): 7 Gait: 7 Pt drives as her 's vision does not allow him to drive; she ambulates short community distances. PT Evaluation-Current Subjective Pt reports she feels weak and tired. Reprots she has been napping alot lately. Pain Numeric Pain Scale: 0-No Pain Location: No Pain Reported Pt/Family Goals Pt reports her goal is to get strong enough to walk without falling; return home Objective Patient Orientation: Person, Confused (slightly; may be situational), Place, Time, Situation Problem Solving: Fair ROM/Strength ROM Lower Extremities WNL Strenght Lower Extremities grossly 4-/5 throughout. Integumentary/Posture Integumentary Refer to nursing notes. Bowel Incontinence: No Bladder Incontinence: Yes (stress) Posture normal and symmetrical Neuromuscular (Tone, Coordination, Reflexes) functional Sensory Vision: Wears Glasses Hearing: Functional Hand Dominance: Left Sensation Right Lower Extremit: Intact Sensation Left Lower Extremity: Intact Transfers Functional [place] Measure 0=Not Assessed/NA 4=Minimal Assistance 1=Total Assistance 5=Supervision or Setup 2=Maximal Assistance 6=Modified [place] 3=Moderate Assistance 7=Complete IndependenceIRFPAI Quality Coding Scale 6 Independent with activity with or without an assistive device 5 Patient requires set up or clean up by helper. Patient completes activity by themselves 4 Supervision or touching assist (CGA). [place] provide cues , steadying assist 3 The helper provides less than half the effort to complete the activity 2 The helper provides more than half the effort to complete the activity 1 Dependent. The helper does all the effort to complete an activity 7 Patient refused to complete or attempt activity 9 The patient did not perform the activity before the current illness or injury 88 Not attempted due to Medical conditions or safety concerns Transfers (B, C, W/C) (FIM): 4 Roll Left to Right (QC): 4 Supine to/from Sit: 4 Sit to/from Stand: 4 bed t/f WC(FIM only if WC use): 4 Sit to Lying (QC): 4 Lying to Sitting/Side of Bed(Q: 4 Sit to Stand (QC): 4 Chair/Tty-ca-Cookh Xfer(QC): 4 Pt needs min assist with all transfers due to generalized weakness; in addition it provides tactile cues for sequencing. Unsteady with sit to stand and initial standing. Gait Does the Patient Walk?: Yes Mode of Locomotion: Walk Anticipated Mode of Locomotion: Walk Gait (FIM): 2 Distance (FIM): 9=543-67 ft Walk 10 feet (QC): 4 Walk 50 ft with 2 Turns(QC): 4 Walk 150 ft (QC): 88 Walking 10ft/uneven surface-QC: 4 (close CGA to min assist for safety. ) Distance: 60 ft Gait Assistive Device: FWW Comments/Gait Description slow; decreased step length; slightly unsteady. Wheelchair Training Does the Pt Use a Wheelchair?: No Stairs Stairs (FIM): 2 #of Steps: 1 Level of Assist: 4 (min assist to go up and to descend) 1 Step (curb) (QC): 4 4 Steps (QC): 88 Assistive Device: Walker 12 Steps (QC): 88 Due to functional weakness; unable to complete more than 1 step. Balance Sitting Static: Normal Sitting Dynamic: Normal Standing Static: Fair Standing Dynamic: Fair Picking up an Object (QC): 88 (unsafe to attempt) Treatment Worked on safety wtih functional transfers and gait x 50 ft with FWW with min assist for balance with skilled cues for safety. Assessment/Needs Pt presents with a recent decline in functional mobility and strength which has resulted in falls at home and decreased abiolity to care for herself. She demonstrates LE weakness, impaired transfers, gait and balance with limited functional activity tolerance. She will benefit from skilled PT intervention to address these deficits and allow her to return to a mod indep level at home with her spouse. She is motivated and cooperative. Her spouse is supportive and able to assist some. Rehab Potential: Good PT Short Term Goals Short Term Goals Time Frame: Mar 23, 2018 Transfers (B,C,W/C) (FIM): 5 Gait (FIM): 4 PT Mcc Goals Model Home Sales Greeter Goals PT Model Home Sales Greeter Goals Time Frame: Mar 30, 2018 Transfers (B,C,W/C) (FIM): 7 Sit to Lying (QC): 6 Lying-Sitting on Side/Bed(QC): 6 Sit to Stand (QC): 6 Roll Left to Right (QC): 6 Chair/Vij-ra-Mnzod Xfer(QC): 6 Car Transfer (QC): 6 Does the Patient Walk: Yes Gait (FIM): 6 Gait distance (FIM): 3=150 ft Walk 10 feet (QC): 6 Walk 10ft-Uneven Surface(QC): 6 Walk 50ft with 2 Turns (QC): 6 Walk 150 ft (QC): 6 Gait Level of Assist: 6 Gait Assistive Device: FWW Does the Pt use WC or Scooter?: No Stairs (FIM): 5 # of Steps: 4 (household exception) 1 Step (curb) (QC): 6 4 Steps (QC): 6 12 Steps (QC): 88 Picking up an Object (QC): 4 All goals are set for her to be at a mod indep level at home with her spouse. PT Plan Problem List Problem List: Activity Tolerance, Functional Strength, Safety, Balance, Gait, Transfer, Bed Mobility Treatment/Plan Treatment Plan: Continue Plan of Care Treatment Plan: Bed Mobility, Education, Functional Activity Gisell, Functional Strength, Group Therapy, Gait, Safety, Therapeutic Exercise, Transfers Treatment Duration: Mar 30, 2018 Frequency: At least 5 of 7 days/Wk (IRF) Estimated Hrs Per Day: 1.5 hours per day Patient and/or Family Agrees t: Yes Safety Risks/Education Patient Education: Transfer Techniques, Safety Issues Teaching Recipient: Patient Teaching Methods: Demonstration, Discussion Response to Teaching: Reinforcement Needed Discharge Recommendations Therapy D/C Recommendations: Physical Therapy Home Care Time/GCodes Time In: 1150 Time Out: 1220 Total Billed Treatment Time: 30 Total Billed Treatment visit EVM 15 FA 15 RASHEL HOOVER PT Mar 16, 2018 12:19
--- NOTE | 2018-03-16 12:39 | PM&R Post Admission Assessment ---
Post Admission Physician Asses Date seen by provider: Mar 16, 2018 Time seen by provider: 12:15 Admisison Dx: (1) Generalized weakness Status: Acute (2) Urinary tract infection Status: Acute The preadmission screen agrees with the post admission assessment that the patient is a good candidate for inpatient rehabilitation. The patient will have a comprehensive program of inpatient rehabilitation with a goal of maximizing level of functional independence prior to discharge home with spouse. The patient will have PT/OT ninety minutes per day, each discipline, five days a week for gait for 10 days, strengthening, conditioning, balance, ADLs, any patient/family/caregiver training as necessary. Speech therapy to do cognitive assessment and treat as indicated. Rehabilitation nursing to assist with bowel, bladder, skin, wound care, medication administration, pain management. Cabana Attendant to assist with discharge planning, community reentry. SCD's for DVT prophylaxis. She appears to be well motivated to participate in three hours of therapy a day. She should be able to tolerate three hours of therapy a day from a medical standpoint. She should benefit from the three hours of therapy a day. She has a reasonable discharge plan, reasonable discharge rehabilitation goals and a supportive family. She has various comorbidities that need to be closely monitored with medications and treatments adjusted on a daily basis as needed. 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 Fall 2. Fracture 3. DVT 4. Pulmonary embolism 5. Poorly controlled Dm 6. Skin breakdown 7. Contractures 8. Poorly controlled pain 9. Urinary retention 10. UTI 11. Respiratory infection 12. Aspiration 13. Poorly controlled HTN Estimated Length of Stay: 10 days Prognosis: Rehab prognosis appears good for goal of discharge home with spouse modified independent to supervision for ADLs and mobility skills. General: Alert, Oriented X3, Cooperative, No Acute Distress HEENT: Atraumatic, PERRLA, EOMI, Mucous Memb Moist/[place] Neck: Supple, No JVD Lungs: Clear to Auscultation Heart: Regular Rate Abdomen: Normal Bowel Sounds, Soft, No Tenderness Extremities: No Edema Neuro: Other (Strength 4-/5 in general cognitively intact) OTIS GODWIN MD Mar 16, 2018 12:39
--- NOTE | 2018-03-16 13:05 | HISTORY AND PHYSICAL ---
DATE OF SERVICE: 03/16/2018 CHIEF COMPLAINT: Generalized weakness. HISTORY OF PRESENT ILLNESS: The patient is an 82-year-old female with a past medical history significant for hypothyroidism and 3 spinal surgeries, one done in [place], [place], another in [place], [place] and another in [place], [place], who had been independent and assisting her spouse at home, who developed weakness and bladder incontinence. She was admitted to [facility] to the hospitalist service on 03/15/2018, found to have a UTI, placed on IV antibiotics and now switched over to ampicillin, I believe. She is referred to inpatient rehabilitation unit due to a decline in her functional independence. Her spouse apparently has visual impairment and cannot drive and they live in [place], [place], outside of [place] and driving is essential for their shopping and medical appointments.She currently is setup fro eating and upper body dressing and min assist for lower body dressing.She is min assist for transfers and gait. 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 She has a chronic back pain for which she takes Tylenol at home. Non-insulin dependent diabetes mellitus and hypertension. PAST SURGICAL HISTORY: Spinal surgery as per above, cholecystectomy, and hysterectomy. ALLERGIES: MULTIPLE ALLERGIES AND INTOLERANCES; IV DYE, LATEX, STEROIDS CODEINE, PROPRANOLOL, SULFA, AND TRIMETHOPRIM. FAMILY HISTORY: Heart disease. SOCIAL HISTORY: , lives with spouse, had been independent. PCP, Dr. Galaviz. REVIEW OF SYSTEMS: Ten-point review of systems significant for some bladder incontinence related to UTI, generalized weakness, and back pain. MEDICATIONS: Ibuprofen 400 mg p.o. q.6 hours p.r.n. mild pain, Tylenol 650 mg p.o. q.4 hours p.r.n. mild pain, Xanax 0.25 mg p.o. q.8 hours p.r.n. anxiety, hydrocodone and acetaminophen 5/325 one tablet p.o. q.4 hours p.r.n. moderate pain, sliding scale insulin regimen, Tessalon 100 mg p.o. t.i.d. p.r.n. cough, and melatonin 3 mg p.o. each day at bedtime p.r.n. insomnia.Ampicillin PHYSICAL EXAMINATION: GENERAL: Significant for a pleasant female, appearing her stated age, lying in bed, in no acute distress. VITAL SIGNS: Within normal limits. She is afebrile. HEENT: Vision, speech, hearing is functional. No oral lesion is noted. NECK: Supple without mass. HEART: Regular rhythm. LUNGS: Chest is clear. ABDOMEN: Soft, nontender. Bowel sounds are present. EXTREMITIES: No lower leg edema, no calf tenderness. MUSCULOSKELETAL: The patient has functional active range of motion in all 4 extremities. NEUROLOGIC: Sensation is grossly intact to touch. Cognition is intact. Strength generally is 4-/5 lower limbs and 4/5 Upper limbs. She is reported to be continent of bowel and bladder at this time. ASSESSMENT: 1. General debilitation secondary to urinary tract infection. 2. Chronic back pain status post 3 spinal surgeries. 3. Hypertension, controlled with medication. 4. Diabetes mellitus, controlled with diet. PLAN: The patient will have a comprehensive program of inpatient rehabilitation with goal of maximizing level of functional independence prior to discharge home with spouse. The patient will have PT, OT 90 minutes per day each discipline, 5 days a week. Please see post-admission physician evaluation, which is separate document for details of plan of care. Speech Therapy to do cognitive assessment and treat as indicated. Rehabilitation nursing to assist with bowel, bladder, skin care, medication administration and pain management. Chairman Emeritus to assist with discharge planning, community reentry. Follow up with Dr. Galaviz and Hospitalist Service as per their schedule. Continue with antibiotics. ESTIMATED LENGTH OF STAY: 10 days. PROGNOSIS: Rehab prognosis appears good for goal of discharging home with spouse, modified independent for ADLs, mobility skills. DIET: Carb consistent. CODE STATUS: Full code Job ID: [id number] DocumentID: [id number] Dictated Date: 03/16/2018 12:32:59 Accounts Receivable Collector Date: 03/16/2018 13:04:20 Dictated By: OTIS GODWIN MD [facility]
--- NOTE | 2018-03-16 13:44 | Occupational Therapy Eval ---
OT Evaluation-General/PLF Medical Diagnosis Admission Date March 16, 2018 Medical Diagnosis: Debility Onset Date: Mar 15, 2018 Therapy Diagnosis Therapy Diagnosis: decr self care, decr act duran, decr funct mobility, weakness Height/Weight Height (Feet): 5 Height (Inches): 4.00 Weight (Pounds): 158 Weight (Ounces): 0.0 Precautions Precautions/Isolations: Fall Prevention, Standard Precautions Safety Interventions: Bed Exit Alarm Referral Physician: [place] Referral Reason: Evaluation/Treatment Medical History Pertinent Medical History: Arthritis, DM, Diverticulitis, HTN, Hypothroidism Additional Medical History back surgery x 2; bowel resection, Grave's disease. DJD, chronic back pain Current History Pt admitted to acute hospital due to progressive weakness, frequent falls recently at home and decreased mobility. It was found that she has an UTI. She has been transferred to ARU for aggressive therapy services to improve her functional strength and mobility. Reviewed History: Yes Social History Home: Single Level Current Living Status: Spouse Entry Into Home: Stairs With Railing Steps Into Home: 1 Steps Inside Home: 0 ADL-Prior Level of Function ADL PLOF Comments Pt reported that she was previously able to manage her basic self care needs but it has been more difficult. She said that she's fallen several times at home , most recently in the bathtub, hurting her R shoulder/arm. She still drives because her has macular degeneration and cannot drive. She is a retired homemaker DME/Equipment: Bath Chair, Tub/Shower OT Current Status Subjective Pt seen in room, up in recliner, agreeable to OT. Pain reported 4/10, located in her back, not described. She said that it is a longstanding problem. Appearance Alert, cooperative Mental Status/Objective Attachments: Saline Lock Current Glasses/Contacts: Yes Hearing Aids: No Dentures/Partials: Yes Hand Dominance: Left Upper Extremity ROM Grossly WFL bilat Upper Extremity Sensation No problems, per patient report Upper Extremity Strength Grossly 4/5 bilat ADL-Treatment ADL-Current Pt up in recliner for evaluation, ADLs. Walked to bathroom with CGA, FWW to toilet, groom. Returned to EOB to compete dressing. Pt was able to get up from bed with min assist and walk with FWW, CGA to group in gym. Skilled cues for hand placement. Impulsive Functional [place] Measure 0=Not Assessed/NA 4=Minimal Assistance 1=Total Assistance 5=Supervision or Setup 2=Maximal Assistance 6=Modified [place] 3=Moderate Assistance 7=Complete IndependenceIRFPAI Quality Coding Scale 6 Independent with activity with or without an assistive device 5 Patient requires set up or clean up by helper. Patient completes activity by themselves 4 Supervision or touching assist (CGA). [place] provide cues , steadying assist 3 The helper provides less than half the effort to complete the activity 2 The helper provides more than half the effort to complete the activity 1 Dependent. The helper does all the effort to complete an activity 7 Patient refused to complete or attempt activity 9 The patient did not perform the activity before the current illness or injury 88 Not attempted due to Medical conditions or safety concerns Eating (FIM): 5 (Fed herself with setup) Eating (QC): 5 Grooming (FIM): 4 (Washed hands at sink with CGA, FWW) Oral Hygiene (QC): 4 Upper Body Dressing (FIM): 5 (Donned blouse with a little difficulty with buttons and reaching to put arms in shirt sleeves. setup) Upper Body Dressing (QC): 5 Lower Body Dressing (FIM): 4 (CGA to stand to pull pants up and down, FWW. Able to take slipper socks off and put them back on with difficulty due to back pain) Lower Body Dressing (QC): 4 On/Off Footwear (QC): 5 Toileting (FIM): 4 (CGA to stand to manage clothing. Able to wipe herself. Tall toilet, grab bar, FWW) Toileting Hygiene (QC): 4 Toilet/Commode Transfer (FIM): 4 (CGA getting on and off tall toilet, using grab bar, FWW) Toilet Transfer (QC): 4 Education OT Patient Education: Modified ADL techniques, Purpose of tx/functional activities, Rehab process, Safety issues, Transfer techniques Teaching Recipient: Patient, Significant Other Teaching Methods: Demonstration Response to Teaching: Verbalize Understanding, Return Demonstration, Reinforcement Needed OT Short Term Goals Short Term Goals Time Frame: Mar 23, 2018 Lower Body Dressing(FIM): 5 Toileting(FIM): 5 Toilet/Commode Transfer(FIM): 5 Additional Short Term Goals: 1-Demonstrate ADL Tasks, 2-Verbalize Understanding , 3-ImproveStrength/Gisell 1=Demonstrate adherence to instructed precautions during ADL tasks. 2=Patient will verbalize/demonstrate understanding of assistive devices/ modifications for ADL. 3=Patient will improve strength/tolerance for activity to enable patient to perform ADL's. OT Usp Goals Steel Grinder Goals Time Frame: Mar 30, 2018 Eating (FIM): 6 Eating (QC): 6 Groomin Oral Hygiene (QC): 6 Bathing(FIM): 5 Shower/Bathe Self (QC): 5 Upper Body Dressing(FIM): 6 Upper Body Dressing (QC): 6 Lower Body Dressing(FIM): 6 Lower Body Dressing (QC): 6 On/Off Footwear (QC): 6 Toileting(FIM): 6 Toileting Hygiene (QC): 6 Toilet/Commode Transfer(FIM): 6 Toilet/Commode Transfer (QC): 6 Shower Transfer(FIM): 5 Additional Goals: 1-Demonstrate ADL Tasks, 2-Verbalize Understanding, 3- ImproveStrength/Gisell 1=Demonstrate adherence to instructed precautions during ADL tasks. 2=Patient will verbalize/demonstrate understanding of assistive devices/ modifications for ADL. 3=Patient will improve strength/tolerance for activity to enable patient to perform ADL's. OT Education/Plan Problem List/Assessment Assessment: Decreased Activ Tolerance, Decreased Safety Aware, Decreased UE Strength, Dependent Transfers, Impaired Self-Care Skills Pt would benefit from skilled OT to increase her independence in basic self care to allow her to safely return home to live with her Discharge Recommendations Plan/Recommendations: Continue POC Treatment Plan/Plan of Care Treatment,Training & Education: Yes Patient would benefit from OT for education, treatment and training to promote independence in ADL's, mobility, safety and/or upper extremity function for ADL' s. Plan of Care: ADL Retraining, Functional Mobility, Group Exercise/Act as Ind ( education, exercise, functional mobility, activity tolerance, socialization) Treatment Duration: Mar 30, 2018 Frequency: At least 5 of 7 days/Wk (IRF) Estimated Hrs Per Day: 1.5 hours per day Agreement: Yes Rehab Potential: Good Time/GCodes Start Time: 12:30 Stop Time: 13:00 Total Time Billed (hr/min): 30 Billed Treatment Time visit, 15 minutes evaluation moderate intensity, 15 minutes ADL ULISES HOLLEY OT Mar 16, 2018 13:44
--- OUTSIDE RECORDS SUMMARY | 2018-03-16 14:34 | XMS REPORT | Continuity of Care Document ---
Author Author [facility] Organization [facility] Address Unknown Phone Unavailable Allergies Active Description Code Type Severity Reaction Onset Reported/Identified Relationship to Patient Clinical Status Yes cefaclor [id number] Drug Allergy Unknown N/A 09/10/2008 Yes codeine [id number] Drug Allergy Unknown N/A 09/10/2008 Yes MARICARMEN DYE MARICARMEN DYE Unknown N/A 09/10/2008 Yes latex LATEX Drug Allergy Unknown N/A 09/10/2008 Yes nabumetone [id number] Drug Allergy Unknown N/A 09/10/2008 Yes propranolol [id number] Drug Allergy Unknown N/A 09/10/2008 Yes sulfamethoxazole [id number] Drug Allergy Unknown N/A 09/10/2008 Yes trimethoprim [id number] Drug Allergy Unknown N/A 09/10/2008 Yes STEROIDS [...] 01/14/2016 Ot V76.12 01/14/2016 Ot V76.12 01/14/2016 ALEGIRA DO SHAYNE Ot V76.12 01/14/2016 ALEGRIA DO [...] 11/05/2016 LAURA NEFF, ALINA Solo Ot Z79.84 [facility] (CURRENT) USE OF ORAL HYPOGLYC 11/05/2016 LAURA NEFF, ALINA Solo Ot Z79.899 OTHER [facility] (CURRENT) DRUG THERAPY 07/03/2017 Ot V76.12 OTH [...] culture - 11/05/16 15:54 Bacterial urine culture [id number] NRG COLONY COUNT >100,000/ML NRG FTX;REPORTABLE SENSITIVITY [...] plasma calcium measurement (mass/volume) 8.9 mg/dL 8.5-10.1 Capillary blood glucose measurement by glucometer (mass/volume) - 03/15/18 20: 54 Capillary blood glucose measurement by glucometer (mass/volume) 161 mg/dL 70-110 Blood lactic acid measurement (moles/volume) - 03/15/18 21:00 Blood lactic acid measurement (moles/volume) 1.38 mmol/L 0.50-2.00 Capillary blood glucose measurement by glucometer (mass/volume) - 03/16/18 05: 21 Capillary blood glucose measurement by glucometer (mass/volume) 144 mg/dL 70-110 Complete blood count (CBC) with automated white blood cell (WBC) differential - 03/16/18 05:58 Blood leukocytes automated count (number/volume) 21.8 10*3/uL 4.3-11.0 Blood erythrocytes automated count (number/volume) 3.48 10*6/uL 4.35-5.85 Venous blood hemoglobin measurement (mass/volume) 11.0 g/dL 11.5-16.0 Blood hematocrit (volume fraction) 31 % 35-52 Automated erythrocyte mean corpuscular volume 90 [foz_us] 80-99 Automated erythrocyte mean corpuscular hemoglobin (mass per erythrocyte) 32 pg 25-34 Automated erythrocyte mean corpuscular hemoglobin concentration measurement ( mass/volume) 35 g/dL 32-36 Automated erythrocyte distribution width ratio 14.9 % 10.0-14.5 Automated blood platelet count (count/volume) 331 10*3/uL 130-400 Automated blood platelet mean volume measurement 9.4 [foz_us] 7.4-10.4 Automated blood neutrophils/100 leukocytes 83 % 42-75 Automated blood lymphocytes/100 leukocytes 9 % 12-44 Blood monocytes/100 leukocytes 7 % 0-12 Automated blood eosinophils/100 leukocytes 0 % 0-10 Automated blood basophils/100 leukocytes 0 % 0-10 Blood neutrophils automated count (number/volume) 18.2 10*3 1.8-7.8 Blood lymphocytes automated count (number/volume) 1.9 10*3 1.0-4.0 Blood monocytes automated count (number/volume) 1.6 10*3 0.0-1.0 Automated eosinophil count 0.1 10*3/uL 0.0-0.3 Automated blood basophil count (count/volume) 0.1 10*3/uL 0.0-0.1 Whole blood basic metabolic panel - 03/16/18 05:58 Serum or plasma sodium measurement (moles/volume) 131 mmol/L 135-145 Serum or plasma potassium measurement (moles/volume) 3.9 mmol/L 3.6-5.0 Serum or plasma chloride measurement (moles/volume) 100 mmol/L 98-107 Carbon dioxide 22 mmol/L 21-32 Serum or plasma anion gap determination (moles/volume) 9 mmol/L 5-14 Serum or plasma urea nitrogen measurement (mass/volume) 27 mg/dL 7-18 Serum or plasma creatinine measurement (mass/volume) 0.88 mg/dL 0.60-1.30 Serum or plasma urea nitrogen/creatinine mass ratio 31 NRG Serum or plasma creatinine measurement with calculation of estimated glomerular filtration rate > NRG Serum or plasma glucose measurement (mass/volume) 146 mg/dL 70-105 Serum or plasma calcium measurement (mass/volume) 8.3 mg/dL 8.5-10.1 Encounters ACCT No. Visit Date/Time Discharge Status Pt. Type Provider Facility Loc./Unit Complaint [id number] 12/27/2017 13:00:00 12/27/2017 23:59:59 CLS Outpatient ALEGRIA DO, HSAYNE [facility] SDC SEVERE IRON DEFICIENCY [id number] 07/03/2017 10:10:00 07/03/2017 23:59:59 CLS Outpatient ALEGRIA DO, SHAYNE [facility] RAD SCREENING Z12.31 [id number] 11/05/2016 14:16:00 11/05/2016 17:00:00 DIS Emergency LAURA MD, ALINA Solo [facility] ER VOMITING/ELEV BP [id number] 06/29/2016 10:13:00 06/29/2016 23:59:59 CLS Outpatient ALEGRIA DO, SHAYNE [facility] RAD SCREENING [id number] 06/03/2015 10:28:00 06/03/2015 23:59:59 CLS Outpatient ALEGRIA DO, SHAYNE [facility] RAD SCREENING [id number] 01/22/2015 00:11:00 01/22/2015 23:59:59 CLS Preadmit ALEGRIA DO, SHAYNE [facility] SURG RCR SEVERE IRON DEFICIENCY [id number] 10/29/2014 13:21:00 01/21/2015 00:01:00 DIS Outpatient ALEGRIA DO, SHAYNE [facility] SURG RCR SEVERE IRON DEFICIENCY [id number] 10/08/2014 15:23:00 10/13/2014 11:05:00 DIS Inpatient ALEGRIA DO, SHAYNE [facility] CSD LOWER GI BLEED, DIVERTICULITIS,ABD PAIN [id number] 05/29/2014 10:44:00 05/29/2014 23:59:59 CLS Outpatient SHAYNE ALEGRIA DO [facility] RAD SCREENING [id number] 05/27/2013 10:18:00 05/27/2013 23:59:59 CLS Outpatient SHAYNE ALEGRIA DO [facility] RAD SCREENING [id number] 03/15/2018 18:32:00 Document Registration [id number] 04/05/2012 10:11:00 Document Registration [id number] 06/30/2011 23:10:00 Document Registration [id number] 03/30/2011 12:54:00 Document Registration [id number] 03/29/2010 09:13:00 Document Registration [email or web address] 06/03/2015 10:29:15 ACT Document Registration
--- NOTE | 2018-03-16 14:42 | Therapy Group Daily Note ---
Therapy Daily Group Note Patient Education Topic Home Safety, Fall Prevention, Incontinence, Other List Below (balance) Exercises LE Seated Exercise, UE Exercise Other/Notes Pt. participated in group PT OT session this date. Pts. introduced themselves and shared something they recall being taught by their Father ( Fathers Day approaching). Pts. sit to stand and stand to sit safety was discussed as well as safe technique demonstrated. Car TRF safety and balance also discussed. Fall prevention, safety techniques in shower and around home was discussed with all pts contributing and sharing pleasantly. Seated U&L ext exercises done as well. Pt. asked to go back to room and c/o she was very fatigued at end of group session.Pt. to bed after group with assist. Call bartholomew at hand Start Time: 13:00 Stop Time: 14:15 Total Billed Treatment Time: 75 Total Billed Treatment 1,GRP SHELTON RAY PSYCHOTHERAPIST COUNSELOR Mar 16, 2018 14:42
--- NOTE | 2018-03-16 14:52 | ST Cognitive Linguistic Eval ---
Speech Evaluation-General Medical Diagnosis Debility Onset Date: Mar 15, 2018 Therapy Diagnosis Therapy Diagnosis: Cognitive Linguistic Skills WNL Precautions Precautions/Isolations: Fall Prevention, Standard Precautions Referral Referring Physician: Dr. Darren Claire Reason for Referral: Evaluation/Treatment Cognitive Evaluation Medical History Pertinent Medical History: Arthritis, DM, Diverticulitis, HTN, Hypothroidism Current History The patient was recently admitted to [facility] with a diagnosis of debility. Reviewed History: Yes Social History Current Living Status: Spouse Speech PLF-Current Status Prior Level of Function The patient denied prior challenges with speech, language, or cognition. Subjective The patient was laying in bed upon entrance. The patient greeted the clinician appropriately and was agreeable to participation in the cognitive evaluation. To note, the patient verbalizes great fatigue, however, stated she would participate in the evaluation if she could "just lay here." Language Eval: Auditory Comprehends Simple Yes/No Ques: Functional Indent/Objects Multiple Thomas: Functional Ident/Pics in Multiple Thomas: Functional Follows 1-Step Commands: Functional Follows Complex Directions: Functional Follows General Conversations: Functional Language Eval: Verbal Language Completes Spontaneous Greeting: Functional Produces Auto, Serial Info: Functional Imitates Simple Words/Phrases: Functional Word Finding: Functional Requests Basic Needs: Functional States Basic Personal Info: Functional Expresses Complex Ideas: Functional Cognitive Patient Orientation The patient is independently oriented to self, location, month, day of week, and year. Objective Cognitive Domain Attention: WNL Memory: WNL Problem Solving: Functional (Grossly. The patient's problem solving may additionally improve with rest.) Objective Impression The patient demonstrated cognitive linguistic skills appropriate for completion of ADLs. To note, the patient was significantly fatigued on this date which may have resulted in rare delays in responses. If functional deficits (consistent) with problem solving are present throughout therapies (occupational and physical) please reconsult speech pathology. Communication/Social Cognition Comprehension: 6 (Glasses.) Expression: 7 Social Interaction: 6 (The patient has required minimal encouragement for participation.) Problem Solvin Memory: 7 Speech Patient Assess Expression of Ideas/Wants: Expression (4) Understanding Verbal Content: Understands (4) Brief Interview-Mental Status: Yes Repetition of Three Words: Three (3) Temporal Orientation: Year: Correct (3) Temporal Orientation: Month: Accurate within 5 days(2) Temporal Orientation: Day: Correct (1) Recall : Wear to say "Sock": Yes, no cue required (2) Recall : Color: Yes, no cue required (2) Recall : Bed: Yes, no cue required (2) Speech-Plan Treatment Plan Speech Therapy Treatment Plan: Discontinue ST Evaluation, only. Frequency: Modified Program (IRF) (Evaluation, only.) Estimated Hrs Per Day: Other (Evaluation, only.) Rehab Potential: Good Safety Risks/Education Teaching Recipient: Patient Teaching Methods: Discussion Response to Teaching: Verbalize Understanding Education Topics Provided: Results, Recommendations, Plan of Care Time Speech Therapy Time In: 14:15 Speech Therapy Time Out: 14:45 Total Billed Time: 30 Billed Treatment Time 1, HERMAN AMES Mar 16, 2018 14:52
[2018-03-16] MEDS: BENZONATATE 100 MG (TESSALON) CAPSULE PO SCH ×2 (15:05→21:08)
--- NOTE | 2018-03-16 15:32 | Physical Therapy Daily Note ---
PT Daily Note-Current Subjective Patient in bed pre tx, agrees to PT, no complaints of pain. Patient refuses to ambulate or get out of bed. On the way back from group therapy patient stated that she was very tired and refused to even ambulate a few feet out of the way to perform a car transfer. Appearance Patient on toilet post tx, was instructed to call nurse when she is done. Mental Status Patient Orientation: Person, Place, Situation Transfers Functional [place] Measure 0=Not Assessed/NA 4=Minimal Assistance 1=Total Assistance 5=Supervision or Setup 2=Maximal Assistance 6=Modified [place] 3=Moderate Assistance 7=Complete IndependenceIRFPAI Quality Coding Scale 6 Independent with activity with or without an assistive device 5 Patient requires set up or clean up by helper. Patient completes activity by themselves 4 Supervision or touching assist (CGA). [place] provide cues , steadying assist 3 The helper provides less than half the effort to complete the activity 2 The helper provides more than half the effort to complete the activity 1 Dependent. The helper does all the effort to complete an activity 7 Patient refused to complete or attempt activity 9 The patient did not perform the activity before the current illness or injury 88 Not attempted due to Medical conditions or safety concerns Transfers (B, C, W/C) (FIM): 4 Scootin Rollin Supine to/from Sit: 5 Sit to/from Stand: 4 Bed to/from Chair: 4 cues for hand placement and positioning Weight Bearing Right Lower Extremity: Right Full Weight Bearing Left Lower Extremity: Left Full Weight Bearing Gait Training Gait (FIM): 1 Distance: 20' Gait Level of Assist: 4 Gait Persons Needed: 1 Gait Assistive Device: FWW Patient ambulated from the bed to the bathroom. Exercises Supine Ex: Ankle pumps, Quad Set, Glut sets, Heel Slides, Short Arc Quads, Straight leg raise, Hip abd/add Supine Reps: 20 Treatments ambulation, bed mobility and transfers, functional strengthening Assessment Current Status: Fair Progress Patient needed to use the restroom after her exercises, but refused any other out of bed activities. PT Short Term Goals Short Term Goals Time Frame: Mar 23, 2018 Gait (FIM): 4 PT Group Home Goals Group Home Goals PT Group Home Goals Time Frame: Mar 30, 2018 Transfers (B,C,W/C) (FIM): 7 Sit to Lying (QC): 6 Lying-Sitting on Side/Bed(QC): 6 Sit to Stand (QC): 6 Roll Left to Right (QC): 6 Chair/[id number] Xfer(QC): 6 Car Transfer (QC): 6 Does the Patient Walk: Yes Gait (FIM): 6 Gait distance (FIM): 3=150 ft Walk 10 feet (QC): 6 Walk 10ft-Uneven Surface(QC): 6 Walk 50ft with 2 Turns (QC): 6 Walk 150 ft (QC): 6 Gait Level of Assist: 6 Gait Assistive Device: FWW Does the Pt use WC or Scooter?: No Stairs (FIM): 5 # of Steps: 4 (household exception) 1 Step (curb) (QC): 6 4 Steps (QC): 6 12 Steps (QC): 88 Picking up an Object (QC): 4 PT Plan Problem List Problem List: Activity Tolerance, Functional Strength, Safety, Balance, Gait, Transfer, Bed Mobility, ROM Treatment/Plan Treatment Plan: Continue Plan of Care Treatment Plan: Bed Mobility, Education, Functional Activity Gisell, Functional Strength, Group Therapy, Gait, Safety, Therapeutic Exercise, Transfers Treatment Duration: Mar 30, 2018 Frequency: At least 5 of 7 days/Wk (IRF) Estimated Hrs Per Day: 1.5 hours per day Patient and/or Family Agrees t: Yes Safety Risks/Education Patient Education: Gait Training, Transfer Techniques, Correct Positioning, Safety Issues Teaching Recipient: Patient Teaching Methods: Demonstration, Discussion Response to Teaching: Reinforcement Needed Time/GCodes Time In: 1515 Time Out: 1530 Total Billed Treatment Time: 15 Total Billed Treatment 1 visit EX SHANELL MACHADO PT Mar 16, 2018 15:32
[2018-03-16 16:00] VITALS: BP 148/87
[2018-03-16] MEDS: inSUlin ASPART (NovoLOG) 1 UNIT/0.01 ML (CHARGE PER UNIT) SC SCH ×2 (16:38→21:08)
[2018-03-16] MEDS: AMPICILLIN INJECTION 1,000 MG in NS (IVPB) 50 ML IV SCH (21:09)
[2018-03-17 05:08] VITALS: BP 153/84
[2018-03-17] MEDS: inSUlin ASPART (NovoLOG) 1 UNIT/0.01 ML (CHARGE PER UNIT) SC SCH ×4 (05:39→21:56)
[2018-03-17] MEDS: AMPICILLIN INJECTION 1,000 MG in NS (IVPB) 50 ML IV SCH ×3 (06:05→21:24)
[2018-03-17] MEDS: BENZONATATE 100 MG (TESSALON) CAPSULE PO SCH ×3 (08:34→21:21)
--- NOTE | 2018-03-17 11:28 | Occupational Ther Daily Note ---
OT Current Status-Daily Note Subjective Pt seen in room, up in the bathroom, agreeable to OT. No pain mentioned. Appearance Alert, cooperative Mental Status/Objective Functional [place] Measure 0=Not Assessed/NA 4=Minimal Assistance 1=Total Assistance 5=Supervision or Setup 2=Maximal Assistance 6=Modified [place] 3=Moderate Assistance 7=Complete [place] ADL-Treatment Pt completed toileting, then walked with CGA, FWW to shower. Completed shower transfer and bathing, then walked to toilet to dress. She also walked to her bed and transferred to recliner, all with CGA, FWW. Skilled cues for hand placement, multiple times. Pt left up in recliner, eating breakfast, all needs met, chair alarm on. Functional [place] Measure 0=Not Assessed/NA 4=Minimal Assistance 1=Total Assistance 5=Supervision or Setup 2=Maximal Assistance 6=Modified [place] 3=Moderate Assistance 7=Complete IndependenceIRFPAI Quality Coding Scale 6 Independent with activity with or without an assistive device 5 Patient requires set up or clean up by helper. Patient completes activity by themselves 4 Supervision or touching assist (CGA). [place] provide cues , steadying assist 3 The helper provides less than half the effort to complete the activity 2 The helper provides more than half the effort to complete the activity 1 Dependent. The helper does all the effort to complete an activity 7 Patient refused to complete or attempt activity 9 The patient did not perform the activity before the current illness or injury 88 Not attempted due to Medical conditions or safety concerns Eating (FIM): 5 (setup) Grooming (FIM): 5 (Washed hands and face during shower, setup) Bathing (FIM): 4 (CGA when standing to wash bottom. Pt washed and dried all other parts except her back, using shower bench, grab bars, hand held shower. SKilled cues for hand placement when standing) Shower/Bathe Self (QC): 4 Upper Body (FIM): 5 (setup) Lower Body Dressing (FIM): 4 (Min assist, help to get slipper socks on. "Can you tell me why they made these with the rubber on the top instead of on the bottom?" Pt educ modified technique for dressing. Pt educ hand placement on walker when managing clothing. May benefit from sock aid, dressing stick) Toileting (FIM): 5 (SBA for clothing management, Able to manage hygiene) Toilet/Commode Transfer (FIM): 5 (SBA getting off tall toilet, with grab bar) Shower Transfer(FIM): 4 (CGA, getting in and out of shower and on/off bench) Education OT Patient Education: Modified ADL techniques, Progress toward Goal/Update tx plan, Purpose of tx/functional activities, Safety issues, Transfer techniques Teaching Recipient: Patient Teaching Methods: Discussion Response to Teaching: Verbalize Understanding, Return Demonstration, Reinforcement Needed OT Short Term Goals Short Term Goals Time Frame: Mar 23, 2018 Lower Body Dressing(FIM): 5 Toileting(FIM): 5 Toilet/Commode Transfer(FIM): 5 Additional Short Term Goals: 1-Demonstrate ADL Tasks, 2-Verbalize Understanding , 3-ImproveStrength/Gisell 1=Demonstrate adherence to instructed precautions during ADL tasks. 2=Patient will verbalize/demonstrate understanding of assistive devices/ modifications for ADL. 3=Patient will improve strength/tolerance for activity to enable patient to perform ADL's. OT Shelter Goals Shelter Goals Time Frame: Mar 30, 2018 Eating (FIM): 6 Eating (QC): 6 Groomin Oral Hygiene (QC): 6 Bathing(FIM): 5 Shower/Bathe Self (QC): 5 Upper Body Dressing(FIM): 6 Upper Body Dressing (QC): 6 Lower Body Dressing(FIM): 6 Lower Body Dressing (QC): 6 On/Off Footwear (QC): 6 Toileting(FIM): 6 Toileting Hygiene (QC): 6 Toilet/Commode Transfer(FIM): 6 Toilet/Commode Transfer (QC): 6 Shower Transfer(FIM): 5 Additional Goals: 1-Demonstrate ADL Tasks, 2-Verbalize Understanding, 3- ImproveStrength/Gisell 1=Demonstrate adherence to instructed precautions during ADL tasks. 2=Patient will verbalize/demonstrate understanding of assistive devices/ modifications for ADL. 3=Patient will improve strength/tolerance for activity to enable patient to perform ADL's. OT Education/Plan Problem List/Assessment Pt would benefit from skilled OT to increase her independence in basic self care to allow her to safely return home to live with her Discharge Recommendations Plan/Recommendations: Continue POC Treatment Plan/Plan of Care Patient would benefit from OT for education, treatment and training to promote independence in ADL's, mobility, safety and/or upper extremity function for ADL' s. Plan of Care: ADL Retraining, Functional Mobility, Group Exercise/Act as Ind ( education, exercise, functional mobility, activity tolerance, socialization) Treatment Duration: Mar 30, 2018 Frequency: At least 5 of 7 days/Wk (IRF) Estimated Hrs Per Day: 1.5 hours per day Agreement: Yes Rehab Potential: Good Time/GCodes Start Time: 08:28 Stop Time: 09:00 Total Time Billed (hr/min): 32 Billed Treatment Time visit, 32 minutes ULISES VERA OT Mar 17, 2018 11:27
--- NOTE | 2018-03-17 11:57 | Physical Therapy Daily Note ---
PT Daily Note-Current Subjective Pt sitting in recliner upon arrival. Pt agrees to PT. Pain Location: No Pain Reported Mental Status Patient Orientation: Person, Place Transfers Functional [place] Measure 0=Not Assessed/NA 4=Minimal Assistance 1=Total Assistance 5=Supervision or Setup 2=Maximal Assistance 6=Modified [place] 3=Moderate Assistance 7=Complete IndependenceIRFPAI Quality Coding Scale 6 Independent with activity with or without an assistive device 5 Patient requires set up or clean up by helper. Patient completes activity by themselves 4 Supervision or touching assist (CGA). [place] provide cues , steadying assist 3 The helper provides less than half the effort to complete the activity 2 The helper provides more than half the effort to complete the activity 1 Dependent. The helper does all the effort to complete an activity 7 Patient refused to complete or attempt activity 9 The patient did not perform the activity before the current illness or injury 88 Not attempted due to Medical conditions or safety concerns Scootin Sit to/from Stand: 5 Sit to Stand (QC): 5 Weight Bearing Right Lower Extremity: Right Full Weight Bearing Left Lower Extremity: Left Full Weight Bearing Gait Training Does the Patient Walk?: Yes Distance (FIM): 3=150 ft Distance: 150' Walk 10 feet (QC): 5 Walk 50 ft with 2 Turns(QC): 5 Walk 150 ft (QC): 5 Gait Level of Assist: 5 Gait Persons Needed: 1 Gait Assistive Device: FWW Pt walks with slow but steady gait, no LOB. Wheelchair Training Does the Pt Use a Wheelchair?: No Exercises Seated Therapy Exercises: Ankle pumps, Long arc quads, Hip flexion, Kicking activity, Hip abd/add Seated Reps: 15 Treatments Pt transfers from recliner to standing using FWW at close SBA. Pt uses restroom before leaving for tx. Pt ambulates in hallway before completing Seated Ex in chair. Pt returns to room to rest. Pt has all needs met at end of tx. Assessment Current Status: Good Progress Pt's strength and activity tolerance is improving. PT Short Term Goals Short Term Goals Time Frame: Mar 23, 2018 Gait (FIM): 4 PT Film Printer Goals Longterm Goals PT Film Printer Goals Time Frame: Mar 30, 2018 Transfers (B,C,W/C) (FIM): 7 Sit to Lying (QC): 6 Lying-Sitting on Side/Bed(QC): 6 Sit to Stand (QC): 6 Rollin Roll Left to Right (QC): 6 Chair/Cht-bh-Hzzhz Xfer(QC): 6 Car Transfer (QC): 6 Does the Patient Walk: Yes Gait (FIM): 6 Gait distance (FIM): 3=150 ft Walk 10 feet (QC): 6 Walk 10ft-Uneven Surface(QC): 6 Walk 50ft with 2 Turns (QC): 6 Walk 150 ft (QC): 6 Gait Level of Assist: 6 Gait Assistive Device: FWW Does the Pt use WC or Scooter?: No Stairs (FIM): 5 # of Steps: 4 (household exception) 1 Step (curb) (QC): 6 4 Steps (QC): 6 12 Steps (QC): 88 Picking up an Object (QC): 4 PT Plan Problem List Problem List: Activity Tolerance, Gait Treatment/Plan Treatment Plan: Continue Plan of Care Treatment Plan: Bed Mobility, Education, Functional Activity Gisell, Functional Strength, Group Therapy, Gait, Safety, Therapeutic Exercise, Transfers Treatment Duration: Mar 30, 2018 Frequency: At least 5 of 7 days/Wk (IRF) Estimated Hrs Per Day: 1.5 hours per day Patient and/or Family Agrees t: Yes Safety Risks/Education Patient Education: Gait Training, Transfer Techniques, Correct Positioning Teaching Recipient: Patient Teaching Methods: Discussion Response to Teaching: Verbalize Understanding Time/GCodes Time In: 1010 Time Out: 1030 Total Billed Treatment Time: 20 Total Billed Treatment 1, FA (20m) G Codes Necessary: ИРИНА Negro PULL OVER MACHINE OPERATOR Mar 17, 2018 11:57
[2018-03-17] MEDS: metFORMIN 500 MG (GLUCOPHAGE) TAB PO SCH (16:19)
[2018-03-17 16:25] VITALS: BP 142/81
[2018-03-17] MEDS ORDERED: PANTOPRAZOLE 40 MG (PROTONIX) TAB PO SCH (17:00)
[2018-03-17] MEDS: SIMvastatin 20 MG (ZOCOR) TAB PO SCH (21:21)
[2018-03-17] MEDS: hydrALAZINE (APRESOLINE) 25 MG TAB PO SCH (21:23)
[2018-03-17] MEDS: LATANOPROST 0.005% (XALATAN) OPHTH SOLN 2.5 ML OU SCH (21:23)
[2018-03-18 05:19] VITALS: BP 149/85
[2018-03-18] MEDS: inSUlin ASPART (NovoLOG) 1 UNIT/0.01 ML (CHARGE PER UNIT) SC SCH ×4 (05:45→21:00)
[2018-03-18] MEDS: LEVOTHYROXINE 125 MCG (LEVOTHROID) TABLET PO SCH (06:09)
[2018-03-18] MEDS: metFORMIN 500 MG (GLUCOPHAGE) TAB PO SCH ×2 (06:09→17:48)
[2018-03-18] MEDS: AMPICILLIN INJECTION 1,000 MG in NS (IVPB) 50 ML IV SCH ×3 (06:10→22:12)
[2018-03-18] MEDS: PANTOPRAZOLE 40 MG (PROTONIX) TAB PO SCH (09:43)
[2018-03-18] MEDS: BENZONATATE 100 MG (TESSALON) CAPSULE PO SCH ×3 (09:43→20:27)
[2018-03-18] MEDS: VITAMIN D3 1,000 UNITS (CHOLECALCIFEROL) TABLET PO SCH (09:43)
[2018-03-18] MEDS: amLODIPine 5 MG (NORVASC) TAB PO SCH (09:44)
[2018-03-18] MEDS: hydrALAZINE (APRESOLINE) 25 MG TAB PO SCH ×2 (09:44→20:27)
[2018-03-18 11:02] VITALS: BP 128/78
[2018-03-18] MEDS: ACETAMINOPHEN 325 MG TABLET PO PRN (11:08)
[2018-03-18 18:27] VITALS: BP 143/83
[2018-03-18] MEDS: LOPERAMIDE 2 MG (IMODIUM) CAP PO PRN (20:27)
[2018-03-18] MEDS: LATANOPROST 0.005% (XALATAN) OPHTH SOLN 2.5 ML OU SCH (20:27)
[2018-03-18] MEDS: SIMvastatin 20 MG (ZOCOR) TAB PO SCH (20:28)
[2018-03-19 05:02] VITALS: BP 130/75
[2018-03-19] MEDS: LEVOTHYROXINE 125 MCG (LEVOTHROID) TABLET PO SCH (05:43)
[2018-03-19] MEDS: AMPICILLIN INJECTION 1,000 MG in NS (IVPB) 50 ML IV SCH ×2 (05:43→13:06)
[2018-03-19] MEDS: inSUlin ASPART (NovoLOG) 1 UNIT/0.01 ML (CHARGE PER UNIT) SC SCH ×4 (05:47→20:28)
[2018-03-19] MEDS: metFORMIN 500 MG (GLUCOPHAGE) TAB PO SCH ×2 (06:03→16:36)
[2018-03-19] MEDS: PANTOPRAZOLE 40 MG (PROTONIX) TAB PO SCH (07:57)
[2018-03-19] MEDS: amLODIPine 5 MG (NORVASC) TAB PO SCH (07:58)
[2018-03-19] MEDS: BENZONATATE 100 MG (TESSALON) CAPSULE PO SCH ×3 (07:58→20:25)
[2018-03-19] MEDS: VITAMIN D3 1,000 UNITS (CHOLECALCIFEROL) TABLET PO SCH (07:58)
[2018-03-19] MEDS: hydrALAZINE (APRESOLINE) 25 MG TAB PO SCH ×2 (07:58→20:25)
--- NOTE | 2018-03-19 09:47 | Occupational Ther Daily Note ---
OT Current Status-Daily Note Subjective Pt seen in room, up in recliner, agreeable to OT. No pain mentioned. She said she would like to go home on Monday Mental Status/Objective Functional [place] Measure 0=Not Assessed/NA 4=Minimal Assistance 1=Total Assistance 5=Supervision or Setup 2=Maximal Assistance 6=Modified [place] 3=Moderate Assistance 7=Complete [place] ADL-Treatment Skilled cues for hand placement when getting up from chair with arms and sitting back down. Pt toileted and groomed in the bathroom and then walked with SBA to the gym. Functional [place] Measure 0=Not Assessed/NA 4=Minimal Assistance 1=Total Assistance 5=Supervision or Setup 2=Maximal Assistance 6=Modified [place] 3=Moderate Assistance 7=Complete IndependenceIRFPAI Quality Coding Scale 6 Independent with activity with or without an assistive device 5 Patient requires set up or clean up by helper. Patient completes activity by themselves 4 Supervision or touching assist (CGA). [place] provide cues , steadying assist 3 The helper provides less than half the effort to complete the activity 2 The helper provides more than half the effort to complete the activity 1 Dependent. The helper does all the effort to complete an activity 7 Patient refused to complete or attempt activity 9 The patient did not perform the activity before the current illness or injury 88 Not attempted due to Medical conditions or safety concerns Grooming (FIM): 5 (SBA at sink to brush teeth and comb hair, FWW. No LOB observed.) Toileting (FIM): 5 (SBA, tall toilet, grab bar, FWW. Managed clothing and hygiene) Toilet/Commode Transfer (FIM): 5 (SBA getting on and off tall toilet. Pulled up with auto finance sales rep - skilled cues for hand placement) Other Treatment Skilled cues for hand placement sitting in chair with arms and recliner back in room. Pt educ on reasons for reaching back to sit. In gym, pt did 12 minutes bilat UE exercise with arm bike set at 20-25W resistance. She took one brief recovery break midpoint. She also did graded clothespins and pegs with 1# weight on each arm. Exercises to strengthen arms to help with safe use of FWW and to help with getting up out of chairs without arms. Pt walked back to room and was left up in recliner, chair alarm on, all needs met. Education OT Patient Education: Exercise program, Purpose of tx/functional activities, Safety issues, Transfer techniques Teaching Recipient: Patient Teaching Methods: Discussion Response to Teaching: Verbalize Understanding, Return Demonstration, Reinforcement Needed OT Short Term Goals Short Term Goals Time Frame: Mar 23, 2018 Lower Body Dressing(FIM): 5 Toileting(FIM): 5 Toilet/Commode Transfer(FIM): 5 Additional Short Term Goals: 1-Demonstrate ADL Tasks, 2-Verbalize Understanding , 3-ImproveStrength/[place] 1=Demonstrate adherence to instructed precautions during ADL tasks. 2=Patient will verbalize/demonstrate understanding of assistive devices/ modifications for ADL. 3=Patient will improve strength/tolerance for activity to enable patient to perform ADL's. OT Professor Of Music Goals Mcc Goals Time Frame: Mar 30, 2018 Eating (FIM): 6 Eating (QC): 6 Groomin Oral Hygiene (QC): 6 Bathing(FIM): 5 Shower/Bathe Self (QC): 5 Upper Body Dressing(FIM): 6 Upper Body Dressing (QC): 6 Lower Body Dressing(FIM): 6 Lower Body Dressing (QC): 6 On/Off Footwear (QC): 6 Toileting(FIM): 6 Toileting Hygiene (QC): 6 Toilet/Commode Transfer(FIM): 6 Toilet/Commode Transfer (QC): 6 Shower Transfer(FIM): 5 Additional Goals: 1-Demonstrate ADL Tasks, 2-Verbalize Understanding, 3- ImproveStrength/Gisell 1=Demonstrate adherence to instructed precautions during ADL tasks. 2=Patient will verbalize/demonstrate understanding of assistive devices/ modifications for ADL. 3=Patient will improve strength/tolerance for activity to enable patient to perform ADL's. OT Education/Plan Problem List/Assessment Pt would benefit from skilled OT to increase her independence in basic self care to allow her to safely return home to live with her Discharge Recommendations Plan/Recommendations: Continue POC Treatment Plan/Plan of Care Patient would benefit from OT for education, treatment and training to promote independence in ADL's, mobility, safety and/or upper extremity function for ADL' s. Plan of Care: ADL Retraining, Functional Mobility, Group Exercise/Act as Ind ( education, exercise, functional mobility, activity tolerance, socialization) Treatment Duration: Mar 30, 2018 Frequency: At least 5 of 7 days/Wk (IRF) Estimated Hrs Per Day: 1.5 hours per day Agreement: Yes Rehab Potential: Good Time/GCodes Start Time: 08:35 Stop Time: 09:35 Total Time Billed (hr/min): 60 Billed Treatment Time visit, 15 minutes ADL, 45 minutes exercise ULISES HOLLEY OT Mar 19, 2018 09:47
[2018-03-19 10:24] LABS: BASOPHILS # (AUTO) 0.1 10^3/uL (0.0-0.1); BASOPHILS % (AUTO) 1 % (0-10); EOSINOPHILS # (AUTO) 0.2 10^3/uL (0.0-0.3); EOSINOPHILS % (AUTO) 1 % (0-10); HEMATOCRIT 34 % (35-52); HEMOGLOBIN 11.3 G/DL (11.5-16.0); LYMPHOCYTES # (AUTO) 2.6 X 10^3 (1.0-4.0); LYMPHOCYTES % (AUTO) 12 % (12-44); MEAN CORPUSCULAR HEMOGLOBIN 32 PG (25-34); MEAN CORPUSCULAR HGB CONC 34 G/DL (32-36); MEAN CORPUSCULAR VOLUME 94 FL (80-99); MEAN PLATELET VOLUME 9.1 FL (7.4-10.4); MONOCYTES # (AUTO) 0.8 X 10^3 (0.0-1.0); MONOCYTES % (AUTO) 4 % (0-12); NEUTROPHILS # (AUTO) 17.6 X 10^3 (1.8-7.8); NEUTROPHILS % (AUTO) 83 % (42-75); PLATELET COUNT 462 10^3/uL (130-400); RED BLOOD COUNT 3.56 10^6/uL (4.35-5.85); RED CELL DISTRIBUTION WIDTH 14.9 % (10.0-14.5); WHITE BLOOD COUNT 21.3 10^3/uL (4.3-11.0)
[2018-03-19 10:40] LABS: ALANINE AMINOTRANSFERASE 56 U/L (0-55); ALKALINE PHOSPHATASE 117 U/L (40-136); BILIRUBIN,TOTAL 0.7 MG/DL (0.1-1.0); BUN/CREATININE RATIO 21; CALCIUM 8.6 MG/DL (8.5-10.1); CARBON DIOXIDE 22 MMOL/L (21-32); CHLORIDE 104 MMOL/L (98-107); CREATININE SERUM 0.85 MG/DL (0.60-1.30); GFR ESTIMATED > 60; GLUCOSE 204 MG/DL (70-105); POTASSIUM 3.4 MMOL/L (3.6-5.0); SODIUM 137 MMOL/L (135-145); TOTAL PROTEIN 5.9 GM/DL (6.4-8.2)
--- NOTE | 2018-03-19 11:31 | Physical Therapy Daily Note ---
PT Daily Note-Current Subjective Pt sitting in recliner upon arrival. Pt agrees to PT. Pain Numeric Pain Scale: 5-Moderate Pain Location: Lower Location Body Site: Back Pain Description: Ache Mental Status Patient Orientation: Person, Place, Situation Transfers Functional [place] Measure 0=Not Assessed/NA 4=Minimal Assistance 1=Total Assistance 5=Supervision or Setup 2=Maximal Assistance 6=Modified [place] 3=Moderate Assistance 7=Complete IndependenceIRFPAI Quality Coding Scale 6 Independent with activity with or without an assistive device 5 Patient requires set up or clean up by helper. Patient completes activity by themselves 4 Supervision or touching assist (CGA). [place] provide cues , steadying assist 3 The helper provides less than half the effort to complete the activity 2 The helper provides more than half the effort to complete the activity 1 Dependent. The helper does all the effort to complete an activity 7 Patient refused to complete or attempt activity 9 The patient did not perform the activity before the current illness or injury 88 Not attempted due to Medical conditions or safety concerns Scootin Rollin Roll Left to Right (QC): 5 Supine to/from Sit: 5 Sit to/from Stand: 5 Sit to Lying (QC): 5 Sit to Stand (QC): 5 Weight Bearing Right Lower Extremity: Right Full Weight Bearing Left Lower Extremity: Left Full Weight Bearing Gait Training Does the Patient Walk?: Yes Distance (FIM): 3=150 ft Distance: 150' Walk 10 feet (QC): 5 Walk 50 ft with 2 Turns(QC): 5 Walk 150 ft (QC): 5 Gait Level of Assist: 5 Gait Persons Needed: 1 Gait Assistive Device: FWW Pt walks with a slow mandi, no LOB. Pt fatigues easily and needs rest breaks. Wheelchair Training Does the Pt Use a Wheelchair?: No Exercises Supine Ex: Ankle pumps, Quad Set, Glut sets, Heel Slides, Straight leg raise, Hip abd/add Supine Reps: 15 Seated Therapy Exercises: Ankle pumps, Long arc quads, Hip flexion, Kicking activity Seated Reps: 15 Treatments Pt transfers from recliner to standing using FWW at SBA. Pt uses restroom before walking in hallway using FWW at SBA. Pt completes Supine, Sidelying & Seated Ex on mat in Therapy Gym. Pt needs to use restroom again so pt returns to room. Pt transfers to supine in bed to rest after restroom. Pt has all needs met, including call light & phone next to pt at end of tx. Assessment Current Status: Good Progress Pt is improving with independence and safety of transfers and mobility. Pt fatigues easy and continues to fight with chronic Low Back Pain. PT Short Term Goals Short Term Goals Time Frame: Mar 23, 2018 Gait (FIM): 4 PT Mcc Goals Vegetable Worker Goals PT Vegetable Worker Goals Time Frame: Mar 30, 2018 Transfers (B,C,W/C) (FIM): 7 Sit to Lying (QC): 6 Lying-Sitting on Side/Bed(QC): 6 Sit to Stand (QC): 6 Rollin Roll Left to Right (QC): 6 Chair/Gae-aq-Wioxp Xfer(QC): 6 Car Transfer (QC): 6 Does the Patient Walk: Yes Gait (FIM): 6 Gait distance (FIM): 3=150 ft Walk 10 feet (QC): 6 Walk 10ft-Uneven Surface(QC): 6 Walk 50ft with 2 Turns (QC): 6 Walk 150 ft (QC): 6 Gait Level of Assist: 6 Gait Assistive Device: FWW Does the Pt use WC or Scooter?: No Stairs (FIM): 5 # of Steps: 4 (household exception) 1 Step (curb) (QC): 6 4 Steps (QC): 6 12 Steps (QC): 88 Picking up an Object (QC): 4 PT Plan Problem List Problem List: Activity Tolerance, Safety, Gait Treatment/Plan Treatment Plan: Continue Plan of Care Treatment Plan: Bed Mobility, Education, Functional Activity G[place]ell, Functional Strength, Group Therapy, Gait, Safety, Therapeutic Exercise, Transfers Treatment Duration: Mar 30, 2018 Frequency: At least 5 of 7 days/Wk (IRF) Estimated Hrs Per Day: 1.5 hours per day Patient and/or Family Agrees t: Yes Safety Risks/Education Patient Education: Gait Training, Transfer Techniques, Correct Positioning, Safety Issues Teaching Recipient: Patient Teaching Methods: Discussion Response to Teaching: Verbalize Understanding Time/GCodes Time In: 1030 Time Out: 1130 Total Billed Treatment Time: 60 Total Billed Treatment 1, GT (10m), FA x2 (30m) & EX (20m) G Codes Necessary: No ИРИНА NORIEGA LINER WORKER Mar 19, 2018 11:31
[2018-03-19] MEDS: LOPERAMIDE 2 MG (IMODIUM) CAP PO PRN (13:05)
--- NOTE | 2018-03-19 13:29 | PM & R (SOAP) Progress Note ---
Subjective This was a face to face visit with the patient. Date Seen by Provider: Mar 19, 2018 Time Seen by Provider: 13:10 Subjective/Events-last exam Patient was seen in her room this afternoon Patient SBA for transfers Review of Systems Neurological: Weakness Objective Physician Exam Last Set of Vital Signs Vital Signs Date Time Temp Pulse Resp B/P (MAP) Pulse Ox O2 Delivery O2 Flow Rate FiO2 03/19/18 09:00 Room Air 03/19/18 05:02 97.6 76 17 130/75 (93) 95 Capillary Refill : I&O Intake and Output 03/19/18 00:00 Intake Total 2040 ml Balance 2040 ml Intake Oral 1890 ml IV Total 150 ml # Voids 10 # Bowel Movements 4 General: Alert, Oriented X3, Cooperative, No Acute Distress HEENT: Atraumatic, PERRLA, EOMI, Mucous Memb Moist/[place] Neck: Supple, No JVD Lungs: Clear to Auscultation Heart: Regular Rate Abdomen: Normal Bowel Sounds, Soft, No Tenderness Extremities: No Edema Neuro: Other (Strength 4-/5 in general cognitively intact) Results Lab Data Laboratory Tests 03/16/18 16:07: Glucometer 161H 03/16/18 20:32: Glucometer 206H 03/17/18 04:47: Glucometer 188H 03/17/18 11:07: Glucometer 264H 03/17/18 16:14: Glucometer 187H 03/17/18 21:53: Glucometer 235H 03/18/18 05:10: Glucometer 151H 03/18/18 10:58: Glucometer 164H 03/18/18 16:24: Glucometer 156H 03/18/18 20:24: Glucometer 197H 03/19/18 05:43: Glucometer 163H 03/19/18 10:13: White Blood Count 21.3H, Red Blood Count 3.56L, Hemoglobin 11.3L, Hematocrit 34L , Mean Corpuscular Volume 94, Mean Corpuscular Hemoglobin 32, Mean Corpuscular Hemoglobin Concent 34, Red Cell Distribution Width 14.9H, Platelet Count 462H, Mean Platelet Volume 9.1, Neutrophils (%) (Auto) 83H, Lymphocytes (%) (Auto) 12 , Monocytes (%) (Auto) 4, Eosinophils (%) (Auto) 1, Basophils (%) (Auto) 1, Neutrophils # (Auto) 17.6H, Lymphocytes # (Auto) 2.6, Monocytes # (Auto) 0.8, Eosinophils # (Auto) 0.2, Basophils # (Auto) 0.1, Sodium Level 137, Potassium Level 3.4L, Chloride Level 104, Carbon Dioxide Level 22, Anion Gap 11, Blood Urea Nitrogen 18, Creatinine 0.85, Estimat Glomerular Filtration Rate > 60, BUN/ Creatinine Ratio 21, Glucose Level 204H, Calcium Level 8.6, Total Bilirubin 0.7 , Aspartate Amino Transf (AST/SGOT) 26, Alanine Aminotransferase (ALT/SGPT) 56H , Alkaline Phosphatase 117, Total Protein 5.9L, Albumin 3.0L 03/19/18 11:04: Glucometer 171H Assessment/Plan Assessment and Plan General debil secondary to UTI on IV AMP with leukocytosis Chronic back pain s/p 3 spinal surgereies HTN controlled with meds DM controlled Hypokalemia replace Mild anemia Plan Continue PT/OT ST has signed off replace K Team Conference Monday03-19-18 (1) Generalized weakness Status: Acute (2) Urinary tract infection Status: Acute Co-Morbidities that are continuing to impact the rehab process: (include details ) OTIS GODWIN MD Mar 19, 2018 13:29
--- NOTE | 2018-03-19 13:30 | D/C HH Face to Face Order ---
D/C Face to Face Orders Instructions for Patient Patient Instructions/FollowUp: Dr. Galaviz Physician to follow Patient: Dr. Galaviz Discharge Diet for Home: Regular Diet Patient Data-Allergies,Ht & Wt Patient Allergies: Coded Allergies: cefaclor (Verified Allergy, Unknown, 03/15/18) codeine (Verified Allergy, Unknown, 03/15/18) latex (Verified Allergy, Unknown, 03/15/18) nabumetone (Verified Allergy, Unknown, 03/15/18) propranolol (Verified Allergy, Unknown, 03/15/18) sulfamethoxazole (Verified Allergy, Unknown, 03/15/18) trimethoprim (Verified Allergy, Unknown, 03/15/18) Uncoded Allergies: STEROIDS (Allergy, Intermediate, 06/30/11) IODINE (IV DYE) (Allergy, Unknown, 10/08/14) LATEX (Allergy, Unknown, 09/10/08) Height (Feet): 5 Height (Inches): 4.00 Weight (Pounds): 158 Weight (Ounces): 0.0 Home Health Need/Face to Face Date of Face to Face: Mar 21, 2018 Clinical Findings: Generalized weakness and fatigue, Muscle weakness, Unsteady gait I have seen Pt [id number]: Yes Discharged To: Home Diagnosis/Conditions: Debility post fall Patient is Homebound due to: Muscle weakness Homebound Status Due to the above stated illness, injury or surgical procedure (medical condition or diagnosis) and associated clinical findings, the patient is homebound because of his/her inability to leave home except with aid of a supportive device and/or person AND leaving the home requires a considerable and taxing effort or is medically contraindicated. Pt req the following assistanc: Walker Home Health Nursing Orders Home Health Services Order: Tax Auditor-Evaluate & Treat, Physical Therapy-Evaluate & Treat Home Health Infusion Therapy Line Type: Saline Lock Site Location: Forearm Therapy Orders Therapy Orders: OT (must have SN or PT order), Physical Therapy Therapy Specific Orders: Eval assistive deivces, Teach enviro modifications/ safety, Gait training, Increase strength/endurance, Restore ROM Certify Stmt I certify that this patient is under my care and that I, a nurse practitioner or a physician; a learning and development assistant working with me, had a face to face encounter that - meets the physician face to face encounter requirements with this patient as dated. I personally scribed for OTIS GODWIN MD ([facility]) on 03/19/18 at 13:30. Electronically submitted by Mimi Muñoz ([id number]). OTIS GODWIN MD Mar 19, 2018 13:30
--- NOTE | 2018-03-19 13:40 | Individualized Plan of Care ---
Individualized Plan of Care Rehab Nursing IPOC Order Admission Date Mar 16, 2018 at 14:08 Current Orders Orders Pt Evaluate/Treat Request (03/16/18 10:26) Request Ot Evaluate & Treat (03/16/18 10:26) Request For Cognitive Services (03/16/18 10:26) Weight Bearing Status (03/16/18 10:26) Admission Order(Inpt,Obs,Sdc) (03/16/18 12:01) Vital Signs: Routine (Order) 08,16,00 (03/16/18 12:01) Net Maker-Inpt Rehab Con (03/16/18 12:01) Rehab Nursing Orders-Ipoc (03/16/18 12:01) Cho 60g/M 1snack (16-2000 Chong) (03/16/18 Dinner) Turn And Reposition Q2HR (03/16/18 12:01) Intake & Output 06,14,22 (03/16/18 12:01) Weekly Weight (Lbs) WEEK (03/16/18 12:01) Accucheck Achs ACHS (03/16/18 12:08) Melatonin Tablet (Melatonin Tablet) (03/16/18 12:15) Benzonatate Capsule (Tessalon Perles) (03/16/18 13:00) Acetaminophen Tablet/Caplet (Tylenol T (03/16/18 12:15) Ibuprofen Tablet (Motrin Tablet) (03/16/18 12:15) Alprazolam Tablet (Xanax Tablet) (03/16/18 12:15) Hydrocodone/Apap 5/325 Tablet (Lortab 5 (03/16/18 12:15) Insulin Aspart (Novolog) (Novolog (Charg (03/16/18 16:00) Consult Physician (03/16/18 12:52) Patient Visit (03/16/18 ) Pt Eval Moderate Complexity (03/16/18 ) Functional Activities, Ea 15 (03/16/18 ) Patient Visit (03/16/18 ) Speech Sound Lang Comp (03/16/18 ) Patient Visit (03/16/18 ) Therapeutic, Group (03/16/18 ) Patient Visit (03/16/18 ) Exercise Therap, Ea 15 Min (03/16/18 ) Ampicillin Injection (Ampicillin Injecti (03/16/18 22:00) Patient Visit (03/17/18 ) Functional Activities, Ea 15 (03/17/18 ) Levothyroxine Tablet (Synthroid Tablet) (03/18/18 06:30) Metformin Tablet (Glucophage Tablet) (03/17/18 17:00) Citalopram Tablet (Celexa Tablet) (03/18/18 09:00) Latanoprost 0.005% Ophth Soln (Xalatan 0 (03/17/18 21:00) Pantoprazole Tablet (Protonix Tablet) (03/17/18 17:00) Simvastatin Tablet (Zocor Tablet) (03/17/18 21:00) Pantoprazole Tablet (Protonix Tablet) (03/18/18 09:00) Amlodipine Tablet (Norvasc Tablet) (03/18/18 09:00) Cholecalciferol Capsule/Tablet (Vitamin (03/18/18 09:00) Hydralazine Tablet (Apresoline Tablet) (03/17/18 21:00) Loperamide Capsule (Imodium Capsule) (03/18/18 18:00) Cbc With Automated Diff (03/19/18 10:00) Comprehensive Metabolic Panel (03/19/18 10:00) Rehab Nursing Orders: Ongoing Assess. of Cognitive Status, Ongoing Assess. of Function Status, Disease Management & Educaiton, DVT Prophylaxis, Fall Prevention, Fluid/Electrolyte/Nutrition Mgmt, Infection Prevention, Medication Management & Education, Management of Risks & Complications, Management of Skin Intergrity, Nutrition Management, Pain Management, Patient/Family Support PT IPOC Problem List: Activity Tolerance, Safety, Gait Treatment Plan: Continue Plan of Care Bed Mobility, Education, Functional Activity Gisell, Functional Strength, Group Therapy, Gait, Safety, Therapeutic Exercise, Transfers Treatment Duration: Mar 30, 2018 Frequency: 5 times per week Estimated Hrs Per Day: 1.5 hours per day OT IPOC Problems: Decreased Activ Tolerance, Decreased Safety Aware, Decreased UE Strength, Dependent Transfers, Impaired Self-Care Skills OT Treatment, Training and Edu: Yes OT Problems Pt would benefit from skilled OT to increase her independence in basic self care to allow her to safely return home to live with her Plan of Care: ADL Retraining, Functional Mobility, Group Exercise/Act as Ind ( education, exercise, functional mobility, activity tolerance, socialization) Treatment Duration: Mar 30, 2018 Frequency: At least 5 of 7 days/Wk (IRF) Estimated Hrs Per Day: 1.[address] IPOC Speech Therapy Treatment Plan: Discontinue ST Treatment Duration: Mar 19, 2018 Frequency: Modified Program (IRF) (Evaluation, only.) Estimated Hrs Per Day: Other (Evaluation, only.) Net Maker/Case Mgmt Net Maker/Case Managemen: Discharge Planning, Patient/Family Counseling Dietitian/Scanning Clerk Dietitian/Scanning Clerk to monitor nutritional status and make changes and/or recommendations as needed and work with speech pathology on dietary upgrades as the occur. Physician IPOC Medical Issues being managed closely and that require the 24 hour availability of a physician: Hypokalemia UTI Chronic back pains/p 3 spinal surgeries HTN DM IGC code 16 Etiologic DX Debility Medical Issues: Bowel/Bladder Function, DVT Prophylaxis, Falls Precautions, Fluid/Electrolyte/Nutrition Balance, Infection Protection, Pain Management, Other (List) (as per above) Brief Synthesis of Preadmission Screen, Post-Admission Evaluation, and Therapy Evaluations:82 yp female who had been Independent and living with her spouse whoa had a decline secondary to UTI.Referrred to IRU for strengthening and conditioning prior to discharge back home with spouse with [facility] Comorbidities as per above Medical Prognosis: Good Anticipated Length of Stay: 6--18 Modified Independent for adls and mobility skills Anticipated d/c Destination: Home with [facility] and spouse OTIS GODWIN MD Mar 19, 2018 13:40
--- NOTE | 2018-03-19 13:47 | Occupational Ther Daily Note ---
OT Current Status-Daily Note Subjective Pt seen in room, up in bed, agreeable to OT. No pain reported. Appearance Alert, cooperative Mental Status/Objective Functional [place] Measure 0=Not Assessed/NA 4=Minimal Assistance 1=Total Assistance 5=Supervision or Setup 2=Maximal Assistance 6=Modified [place] 3=Moderate Assistance 7=Complete [place] ADL-Treatment Pt got up from bed with SBA and walked to bathroom with SBA, FWW. She got on and off toilet without help and was able to manage clothing and hygiene. She walked to sink and washed her hands, with no LOB. She walked to recliner and recalled to reach back as she sat. Once in chair, she did 10-15 reps bilat UE exercise with 2# weight, working on shoulders, elbows, forearms and wrists. Occasional physical assistance needed to do the movements correctly. She had some increased discomfort in R shoulder with flexion so completed only 8 reps. She also did 2 AROM exercises for shoulders and elbows and noted that these are ones she can do at home while watching TV. Pt educ on different items that she has at home that she can use for weights for exercising. Pt left up in recliner , all needs met, chair alarm on. Functional [place] Measure 0=Not Assessed/NA 4=Minimal Assistance 1=Total Assistance 5=Supervision or Setup 2=Maximal Assistance 6=Modified [place] 3=Moderate Assistance 7=Complete IndependenceIRFPAI Quality Coding Scale 6 Independent with activity with or without an assistive device 5 Patient requires set up or clean up by helper. Patient completes activity by themselves 4 Supervision or touching assist (CGA). [place] provide cues , steadying assist 3 The helper provides less than half the effort to complete the activity 2 The helper provides more than half the effort to complete the activity 1 Dependent. The helper does all the effort to complete an activity 7 Patient refused to complete or attempt activity 9 The patient did not perform the activity before the current illness or injury 88 Not attempted due to Medical conditions or safety concerns Education OT Patient Education: Progress toward Goal/Update tx plan, Purpose of tx/ functional activities, Transfer techniques Teaching Recipient: Patient Teaching Methods: Demonstration, Discussion Response to Teaching: Verbalize Understanding, Return Demonstration, Reinforcement Needed OT Short Term Goals Short Term Goals Time Frame: Mar 23, 2018 Lower Body Dressing(FIM): 5 Toileting(FIM): 5 Toilet/Commode Transfer(FIM): 5 Additional Short Term Goals: 1-Demonstrate ADL Tasks, 2-Verbalize Understanding , 3-ImproveStrength/Gisell 1=Demonstrate adherence to instructed precautions during ADL tasks. 2=Patient will verbalize/demonstrate understanding of assistive devices/ modifications for ADL. 3=Patient will improve strength/tolerance for activity to enable patient to perform ADL's. OT Usp Goals Usp Goals Time Frame: Mar 30, 2018 Eating (FIM): 6 Eating (QC): 6 Groomin Oral Hygiene (QC): 6 Bathing(FIM): 5 Shower/Bathe Self (QC): 5 Upper Body Dressing(FIM): 6 Upper Body Dressing (QC): 6 Lower Body Dressing(FIM): 6 Lower Body Dressing (QC): 6 On/Off Footwear (QC): 6 Toileting(FIM): 6 Toileting Hygiene (QC): 6 Toilet/Commode Transfer(FIM): 6 Toilet/Commode Transfer (QC): 6 Shower Transfer(FIM): 5 Additional Goals: 1-Demonstrate ADL Tasks, 2-Verbalize Understanding, 3- ImproveStrength/Gisell 1=Demonstrate adherence to instructed precautions during ADL tasks. 2=Patient will verbalize/demonstrate understanding of assistive devices/ modifications for ADL. 3=Patient will improve strength/tolerance for activity to enable patient to perform ADL's. OT Education/Plan Problem List/Assessment Pt would benefit from skilled OT to increase her independence in basic self care to allow her to safely return home to live with her Discharge Recommendations Plan/Recommendations: Continue POC Treatment Plan/Plan of Care Patient would benefit from OT for education, treatment and training to promote independence in ADL's, mobility, safety and/or upper extremity function for ADL' s. Plan of Care: ADL Retraining, Functional Mobility, Group Exercise/Act as Ind ( education, exercise, functional mobility, activity tolerance, socialization) Treatment Duration: Mar 30, 2018 Frequency: At least 5 of 7 days/Wk (IRF) Estimated Hrs Per Day: 1.5 hours per day Agreement: Yes Rehab Potential: Good Time/GCodes Start Time: 13:00 Stop Time: 13:30 Total Time Billed (hr/min): 30 Billed Treatment Time visit, 30 minutes exercise ULISES HOLLEY OT Mar 19, 2018 13:47
--- NOTE | 2018-03-19 13:59 | Physical Therapy Daily Note ---
PT Daily Note-Current Subjective Pt sitting in recliner upon arrival. Pt agrees to PT. Pain Numeric Pain Scale: 4 Location: Lower Location Body Site: Back Pain Description: Ache, Chronic Mental Status Patient Orientation: Person, Place, Situation Transfers Functional [place] Measure 0=Not Assessed/NA 4=Minimal Assistance 1=Total Assistance 5=Supervision or Setup 2=Maximal Assistance 6=Modified [place] 3=Moderate Assistance 7=Complete IndependenceIRFPAI Quality Coding Scale 6 Independent with activity with or without an assistive device 5 Patient requires set up or clean up by helper. Patient completes activity by themselves 4 Supervision or touching assist (CGA). [place] provide cues , steadying assist 3 The helper provides less than half the effort to complete the activity 2 The helper provides more than half the effort to complete the activity 1 Dependent. The helper does all the effort to complete an activity 7 Patient refused to complete or attempt activity 9 The patient did not perform the activity before the current illness or injury 88 Not attempted due to Medical conditions or safety concerns Scootin Rollin Roll Left to Right (QC): 6 Supine to/from Sit: 6 Sit to/from Stand: 6 Sit to Lying (QC): 6 Sit to Stand (QC): 6 Weight Bearing Right Lower Extremity: Right Full Weight Bearing Left Lower Extremity: Left Full Weight Bearing Wheelchair Training Does the Pt Use a Wheelchair?: No Exercises Supine Ex: Ankle pumps, Quad Set, Rolling, Heel Slides, Scooting, Hip abd/add Supine Reps: 15 Treatments Pt transfers from recliner to standing to transfer to bed using FWW at Mod I. Pt completes Supine Ex in bed until back pain bothers pt enough that pt has to roll to L side. Pt resting L sidelying at end of tx with all needs met, including call light & phone next to pt. Assessment Current Status: Good Progress Pt is able to complete tasks given at Mod I. Pt is gaining strength and independence. PT Short Term Goals Short Term Goals Time Frame: Mar 23, 2018 Gait (FIM): 4 PT Knowledge Engineer Goals Fdc Goals PT Fdc Goals Time Frame: Mar 30, 2018 Transfers (B,C,W/C) (FIM): 7 Sit to Lying (QC): 6 Lying-Sitting on Side/Bed(QC): 6 Sit to Stand (QC): 6 Rollin Roll Left to Right (QC): 6 Chair/Rmg-sg-Xsqtg Xfer(QC): 6 Car Transfer (QC): 6 Does the Patient Walk: Yes Gait (FIM): 6 Gait distance (FIM): 3=150 ft Walk 10 feet (QC): 6 Walk 10ft-Uneven Surface(QC): 6 Walk 50ft with 2 Turns (QC): 6 Walk 150 ft (QC): 6 Gait Level of Assist: 6 Gait Assistive Device: FWW Does the Pt use WC or Scooter?: No Stairs (FIM): 5 # of Steps: 4 (household exception) 1 Step (curb) (QC): 6 4 Steps (QC): 6 12 Steps (QC): 88 Picking up an Object (QC): 4 PT Plan Problem List Problem List: Activity Tolerance Treatment/Plan Treatment Plan: Continue Plan of Care Treatment Plan: Bed Mobility, Education, Functional Activity Gisell, Functional Strength, Group Therapy, Gait, Safety, Therapeutic Exercise, Transfers Treatment Duration: Mar 30, 2018 Frequency: 5 times per week Estimated Hrs Per Day: 1.5 hours per day Patient and/or Family Agrees t: Yes Safety Risks/Education Patient Education: Transfer Techniques, Correct Positioning, Disease Process, Safety Issues Teaching Recipient: Patient Teaching Methods: Discussion Response to Teaching: Verbalize Understanding Time/GCodes Time In: 1330 Time Out: 1400 Total Billed Treatment Time: 30 Total Billed Treatment 1, EX x2 (30m) G Codes Necessary: ИРИНА Negro RESEARCH LABORATORY MANAGER Mar 19, 2018 13:59
[2018-03-19] MEDS ORDERED: LEVOFLOXACIN 500 MG/100 ML IV 100 ML IV SCH (17:30)
[2018-03-19 18:00] VITALS: BP 113/64
[2018-03-19] MEDS: SIMvastatin 20 MG (ZOCOR) TAB PO SCH (20:25)
[2018-03-19] MEDS: LATANOPROST 0.005% (XALATAN) OPHTH SOLN 2.5 ML OU SCH (20:25)
--- NOTE | 2018-03-19 21:35 | Consultation-Hospitalist ---
HPI History of Present Illness: HPI/Chief Complaint CC: Severe debility HPI: This is an 82-year-old white female clinic patient of mine that I directly admitted to [facility] for short stay observation on last week due to dehydration UTI and falls. The patient feels much better and feels like she is getting stronger every day since she was was admitted to inpatient rehabilitation unit. Her bowels are moving well and her lab work was reviewed revealing continued elevated white count at 21,000 but her usual white count is 13-14,000 but I reviewed the urine culture from [facility] and noted resistant to ampicillin and she was originally placed on meropenem and vancomycin so she was switched to Levaquin considering all of her antibiotic allergies. She was to go home on Monday when her son has to go back to [place]. Source: patient Exam Limitations: no limitations Date Seen 03/19/18 Attending Physician Darren Claire MD PCP Sagrario Galaviz DO Referring Physician Date of Admission Mar 16, 2018 at 14:08 Home Medications & Allergies Home Medications Reviewed patient Home Medication Reconciliation performed by pharmacy medication reconciliations library media technician and/or nursing. Patients Allergies have been reviewed. Allergies Allergies Coded Allergies cefaclor (Verified Allergy, Unknown, 03/15/18) codeine (Verified Allergy, Unknown, 03/15/18) latex (Verified Allergy, Unknown, 03/15/18) nabumetone (Verified Allergy, Unknown, 03/15/18) propranolol (Verified Allergy, Unknown, 03/15/18) sulfamethoxazole (Verified Allergy, Unknown, 03/15/18) trimethoprim (Verified Allergy, Unknown, 03/15/18) Uncoded Allergies STEROIDS ( Allergy, Intermediate, 06/30/11) IODINE (IV DYE) ( Allergy, Unknown, 10/08/14) LATEX ( Allergy, Unknown, 09/10/08) Past Urvijpg-Juayyu-Jnltqd Hx Past Med/Social Hx: Reviewed Nursing Past Med/Soc Hx, Reviewed and Corrections made Patient Social History Marrital Status: Employed/Student: retired Alcohol Use: Denies Use Recreational Drug Use: No Physical Abuse Screen: No Sexual Abuse: No Recent Foreign Travel: No Contact w/other who traveled: No Recent Hopitalizations: Yes Recent Infectious Disease Expo: No Immunizations Up To Date Pediatric: Yes Date of Pneumonia Vaccine: Oct 08, 2013 Date of Influenza Vaccine: Jul 08, 2014 Seasonal Allergies Seasonal Allergies: No Past Medical History Surgeries: Gallbladder, Hysterectomy, Orthopedic Currently Using CPAP: No Currently Using BIPAP: No Cardiac: High Cholesterol, Hypertension : No Reproductive: No Sexually Transmitted Disease: No HIV/AIDS: No Female Reproductive Disorders: Denies Genitourinary: Bladder Infection Gastrointestinal: Gastrointestinal Bleed, Chronic Constipation, Diverticulosis , Irritable Bowel Musculoskeletal: Arthritis, Back Injury Endocrine: Hypothyroidsim, Diabetes, Non-Insulin dep HEENT: Glaucoma Loss of Vision: Denies Hearing Impairment: Denies Psychosocial: Depression History of Blood Disorders: No Adverse Reaction to Blood Spann: No Family History Reviewed and Corrections made Diabetes mellitus G8 SISTER FH: heart disease 19 FATHER G8 BROTHER Heart Disease, Diabetes Review of Systems Constitutional: see HPI EENTM: no symptoms reported Respiratory: no symptoms reported Cardiovascular: no symptoms reported Gastrointestinal: no symptoms reported Genitourinary: no symptoms reported Musculoskeletal: back pain Skin: no symptoms reported Psychiatric/Neurological: Depressed All Other Systems Reviewed Negative Unless Noted: Yes Physical Exam Physical Exam Vital Signs Vital Signs - First Documented 03/16/18 03/16/18 11:30 12:20 Temp 96.8 Pulse 94 Resp 18 B/P (MAP) 135/84 (101) Pulse Ox 95 O2 Delivery Nasal Cannula Capillary Refill : General Appearance: No Apparent Distress, WD/WN, Chronically ill Eyes: Bilateral Eye Normal Inspection, Bilateral Eye PERRL HEENT: PERRL/EOMI, Normal ENT Inspection, Pharynx Normal Neck: Full Range of Motion, Normal Inspection, Non Tender, Supple, Carotid Bruit Respiratory: Chest Non Tender, Lungs Clear, Normal Breath Sounds, No Accessory Muscle Use, No Respiratory Distress Cardiovascular: Regular Rate, Rhythm, No Edema, No Gallop, No JVD, No Murmur, Normal Peripheral Pulses Gastrointestinal: Normal Bowel Sounds, No Organomegaly, No Pulsatile Mass, Non Tender, Soft Back: Normal Inspection, No CVA Tenderness, No Vertebral Tenderness Extremity: Normal Capillary Refill, Normal Inspection, Normal Range of Motion, Non Tender, No Calf Tenderness, No Pedal Edema Neurologic/Psychiatric: Alert, Oriented x3, No Motor/Sensory Deficits, Normal Mood/Affect Skin: Normal Color, Warm/Dry Lymphatic: No Adenopathy Results Results/Procedures Labs Laboratory Tests 03/19/18 10:13 Patient resulted labs reviewed. Assessment/Plan Assessment and Plan Assess & Plan/Chief Complaint Assessment: Severe debility requiring inpatient rehabilitation treatment Resistant UTI Plan: DC ampicillin Reviewed allergy list and shows Levaquin 500 MG IV daily renal dosed Monitor CBC Discharge planning for Monday Diagnosis/Problems Diagnosis/Problems (1) Falls Status: Acute Qualifiers: Encounter type: subsequent encounter Qualified Codes: W19.XXXD - Unspecified fall, subsequent encounter (2) Urinary tract infection Status: Acute Qualifiers: Urinary tract infection type: acute cystitis Hematuria presence: without hematuria Qualified Codes: N30.00 - Acute cystitis without hematuria (3) Leukocytosis Status: Acute Qualifiers: Leukocytosis type: leukemoid reaction Qualified Codes: D72.823 - Leukemoid reaction (4) Dehydration Status: Resolved (5) Diabetes mellitus Status: Chronic Qualifiers: Diabetes mellitus type: type 2 Diabetes mellitus care home insulin use: with buttermaker helper use Diabetes mellitus complication status: with neurologic complications Diabetes mellitus complication detail: with unspecified neuropathy Qualified Codes: E11.40 - Type 2 diabetes mellitus with diabetic neuropathy, unspecified; Z79.4 - manager intermediate (current) use of insulin (6) Hypertension Status: Chronic Qualifiers: Hypertension type: essential hypertension Qualified Codes: I10 - Essential (primary) hypertension (7) Hyperlipemia Status: Chronic Qualifiers: Hyperlipidemia type: mixed hyperlipidemia Qualified Codes: E78.2 - Mixed hyperlipidemia (8) Frailty Status: Acute (9) Generalized weakness Status: Acute Clinical Quality Measures DVT/VTE Risk/Contraindication: Risk Factor Score Per Nursin RFS Level Per Nursing on Admit: 2=Moderate SAGRARIO GALAVIZ DO Mar 19, 2018 21:35
[2018-03-20 05:00] VITALS: BP 145/73
[2018-03-20] MEDS: inSUlin ASPART (NovoLOG) 1 UNIT/0.01 ML (CHARGE PER UNIT) SC SCH ×4 (06:00→20:12)
[2018-03-20] MEDS: metFORMIN 500 MG (GLUCOPHAGE) TAB PO SCH ×2 (06:50→17:39)
[2018-03-20] MEDS: ACETAMINOPHEN 325 MG TABLET PO PRN (06:50)
[2018-03-20] MEDS: LEVOTHYROXINE 125 MCG (LEVOTHROID) TABLET PO SCH (06:50)
[2018-03-20] MEDS: KCL 20 MEQ TAB (K-DUR) PO SCH (06:54)
[2018-03-20] MEDS: hydrALAZINE (APRESOLINE) 25 MG TAB PO SCH ×2 (08:11→20:12)
[2018-03-20] MEDS: VITAMIN D3 1,000 UNITS (CHOLECALCIFEROL) TABLET PO SCH (08:11)
[2018-03-20] MEDS: BENZONATATE 100 MG (TESSALON) CAPSULE PO SCH ×3 (08:11→20:11)
[2018-03-20] MEDS: amLODIPine 5 MG (NORVASC) TAB PO SCH (08:11)
[2018-03-20] MEDS: PANTOPRAZOLE 40 MG (PROTONIX) TAB PO SCH (08:11)
--- NOTE | 2018-03-20 09:03 | Physical Therapy Daily Note ---
PT Daily Note-Current Subjective Pt. agrees to Rx. Looking forward to going home tomorrow. States she feels much stronger but knows she could get even stronger, Pain Numeric Pain Scale: 0-No Pain Mental Status Patient Orientation: Normal For Age Transfers Functional [place] Measure 0=Not Assessed/NA 4=Minimal Assistance 1=Total Assistance 5=Supervision or Setup 2=Maximal Assistance 6=Modified [place] 3=Moderate Assistance 7=Complete IndependenceIRFPAI Quality Coding Scale 6 Independent with activity with or without an assistive device 5 Patient requires set up or clean up by helper. Patient completes activity by themselves 4 Supervision or touching assist (CGA). [place] provide cues , steadying assist 3 The helper provides less than half the effort to complete the activity 2 The helper provides more than half the effort to complete the activity 1 Dependent. The helper does all the effort to complete an activity 7 Patient refused to complete or attempt activity 9 The patient did not perform the activity before the current illness or injury 88 Not attempted due to Medical conditions or safety concerns Transfers (B, C, W/C) (FIM): 6 Scootin Rollin Roll Left to Right (QC): 5 Supine to/from Sit: 6 Sit to/from Stand: 6 Sit to Lying (QC): 5 Sit to Stand (QC): 5 Chair/Zjv-zy-Uxuyi Xfer(QC): 5 Bed to/from Chair: 6 Car Transfer (QC): 5 Weight Bearing Right Lower Extremity: Right Full Weight Bearing Left Lower Extremity: Left Full Weight Bearing Gait Training Does the Patient Walk?: Yes Gait (FIM): 6 Distance (FIM): 3=150 ft (x2) Walk 10 feet (QC): 5 Walk 50 ft with 2 Turns(QC): 5 Walk 150 ft (QC): 5 Walking 10ft/uneven surface-QC: 5 Gait Level of Assist: 6 Gait Persons Needed: 0 Gait Assistive Device: FWW Stair Training Stair Training: Handrails/: 1 handrail Stairs (FIM): 5 #of Steps: 4 1 Step (curb) (QC): 5 4 Steps (QC): 5 Stairs: Pattern: Step to simulated one rail as in her home situation Balance Picking up an Object (QC): 5 Exercises Supine Ex: Bridging, Ankle pumps, Quad Set, Rolling, Glut sets, Heel Slides, Short Arc Quads, Scooting, Straight leg raise, Hip abd/add Supine Reps: 15 Seated Therapy Exercises: Ankle pumps, Sit to stand, Hip flexion, Hip abd/add Seated Reps: 10 Treatments toileted and washed hands indep, also donned slacks mod I Assessment Current Status: Good Progress PT Short Term Goals Short Term Goals Time Frame: Mar 23, 2018 Gait (FIM): 4 PT [facility] Goals [facility] Goals PT City Maintenance Manager Goals Time Frame: Mar 30, 2018 Transfers (B,C,W/C) (FIM): 7 Sit to Lying (QC): 6 Lying-Sitting on Side/Bed(QC): 6 Sit to Stand (QC): 6 Rollin Roll Left to Right (QC): 6 Chair/Keq-sy-Jzred Xfer(QC): 6 Car Transfer (QC): 6 Does the Patient Walk: Yes Gait (FIM): 6 Gait distance (FIM): 3=150 ft Walk 10 feet (QC): 6 Walk 10ft-Uneven Surface(QC): 6 Walk 50ft with 2 Turns (QC): 6 Walk 150 ft (QC): 6 Gait Level of Assist: 6 Gait Assistive Device: FWW Does the Pt use WC or Scooter?: No Stairs (FIM): 5 # of Steps: 4 (household exception) 1 Step (curb) (QC): 6 4 Steps (QC): 6 12 Steps (QC): 88 Picking up an Object (QC): 4 PT Plan Treatment/Plan Treatment Plan: Continue Plan of Care Treatment Plan: Bed Mobility, Education, Functional Activity Gisell, Functional Strength, Group Therapy, Gait, Safety, Therapeutic Exercise, Transfers Treatment Duration: Mar 30, 2018 Frequency: 5 times per week Estimated Hrs Per Day: 1.5 hours per day Patient and/or Family Agrees t: Yes Safety Risks/Education Patient Education: Gait Training, Transfer Techniques, Steps, Correct Positioning, Disease Process, Safety Issues Teaching Recipient: Patient Teaching Methods: Demonstration, Discussion Response to Teaching: Verbalize Understanding, Return Demonstration, Reinforcement Needed Time/GCodes Time In: 800 Time Out: 900 Total Billed Treatment Time: 60 Total Billed Treatment 1,FA25m,EX20m,GT15m G Codes Necessary: No SHELTON RAY WIRED SWEATBAND CUTTER Mar 20, 2018 09:03
--- NOTE | 2018-03-20 09:43 | PM & R (SOAP) Progress Note ---
Subjective This was a face to face visit with the patient. Date Seen by Provider: Mar 20, 2018 Time Seen by Provider: 08:00 Subjective/Events-last exam Patient was seen in her room this AM Patient SBA for transfers Discharge set for tomorrow tentatively will confirm with SW Patient switched over to levaquin for antibiotic. Objective Physician Exam Last Set of Vital Signs Vital Signs Date Time Temp Pulse Resp B/P (MAP) Pulse Ox O2 Delivery O2 Flow Rate FiO2 03/20/18 08:45 Room Air 03/20/18 05:00 98.6 84 18 145/73 (97) 94 Capillary Refill : I&O Intake and Output 03/20/18 00:00 Intake Total 990 ml Balance 990 ml Intake Oral 840 ml IV Total 150 ml # Voids 9 General: Alert, Oriented X3, Cooperative, No Acute Distress HEENT: Atraumatic, PERRLA, EOMI, Mucous Memb Moist/[place] Neck: Supple, No JVD Lungs: Clear to Auscultation Heart: Regular Rate Abdomen: Normal Bowel Sounds, Soft, No Tenderness Extremities: No Edema Neuro: Other (Strength 4-/5 in general cognitively intact) Results Lab Data Laboratory Tests 03/17/18 11:07: Glucometer 264H 03/17/18 16:14: Glucometer 187H 03/17/18 21:53: Glucometer 235H 03/18/18 05:10: Glucometer 151H 03/18/18 10:58: Glucometer 164H 03/18/18 16:24: Glucometer 156H 03/18/18 20:24: Glucometer 197H 03/19/18 05:43: Glucometer 163H 03/19/18 10:13: White Blood Count 21.3H, Red Blood Count 3.56L, Hemoglobin 11.3L, Hematocrit 34L , Mean Corpuscular Volume 94, Mean Corpuscular Hemoglobin 32, Mean Corpuscular Hemoglobin Concent 34, Red Cell Distribution Width 14.9H, Platelet Count 462H, Mean Platelet Volume 9.1, Neutrophils (%) (Auto) 83H, Lymphocytes (%) (Auto) 12 , Monocytes (%) (Auto) 4, Eosinophils (%) (Auto) 1, Basophils (%) (Auto) 1, Neutrophils # (Auto) 17.6H, Lymphocytes # (Auto) 2.6, Monocytes # (Auto) 0.8, Eosinophils # (Auto) 0.2, Basophils # (Auto) 0.1, Sodium Level 137, Potassium Level 3.4L, Chloride Level 104, Carbon Dioxide Level 22, Anion Gap 11, Blood Urea Nitrogen 18, Creatinine 0.85, Estimat Glomerular Filtration Rate > 60, BUN/ Creatinine Ratio 21, Glucose Level 204H, Calcium Level 8.6, Total Bilirubin 0.7 , Aspartate Amino Transf (AST/SGOT) 26, Alanine Aminotransferase (ALT/SGPT) 56H , Alkaline Phosphatase 117, Total Protein 5.9L, Albumin 3.0L 03/19/18 11:04: Glucometer 171H 03/19/18 15:20: Glucometer 163H 03/19/18 20:25: Glucometer 183H 03/20/18 05:23: Glucometer 144H Assessment/Plan Assessment and Plan General debil secondary to UTI Chronic back pain s/p 3 spinal surgeries HTN controlled with meds DM controlled Hypokalemia replaced Mild anemia Plan Continue PT/OT Discharge tomorrow to home with family and HHC (1) Generalized weakness Status: Acute (2) Urinary tract infection Qualifiers: Qualified Codes: N30.00 - Acute cystitis without hematuria Status: Acute Co-Morbidities that are continuing to impact the rehab process: (include details ) OTIS GODWIN MD Mar 20, 2018 09:43
--- NOTE | 2018-03-20 09:49 | Progress Note-Hospitalist ---
Subjective HPI/CC On Admission Date Seen by Provider: Mar 20, 2018 Time Seen by Provider: 09:00 CC: Severe debility HPI: This is an 82-year-old white female clinic patient of mine that I directly admitted to [facility] for short stay observation on last week due to dehydration UTI and falls. The patient feels much better and feels like she is getting stronger every day since she was was admitted to inpatient rehabilitation unit. Her bowels are moving well and her lab work was reviewed revealing continued elevated white count at 21,000 but her usual white count is 13-14,000 but I reviewed the urine culture from [facility] and noted resistant to ampicillin and she was originally placed on meropenem and vancomycin so she was switched to Levaquin considering all of her antibiotic allergies. She was to go home on Monday when her son has to go back to [place]. Subjective/Events-last exam Patient doing well overall Needs health sleeping at night and requested Tylenol to be given at 9 PM We'll recheck labs tomorrow considering the white count was still elevated at 21 but did change antibiotics per sensitivity profile so I suspect that should be in the downward trend tomorrow Wishes to go home on Monday I will see her in follow-up on at 2:30 [facility] Review of Systems Gastrointestinal: Diarrhea Objective Exam Vital Signs Vital Signs Date Time Temp Pulse Resp B/P (MAP) Pulse Ox O2 Delivery O2 Flow Rate FiO2 03/20/18 20:58 Room Air 03/20/18 16:03 97.4 75 14 120/76 (91) 95 Capillary Refill : General Appearance: No Apparent Distress, WD/WN, Chronically ill Respiratory: Lungs Clear, Normal Breath Sounds Cardiovascular: Regular Rate, Rhythm, No Edema Neurologic/Psychiatric: Alert, Oriented x3, No Motor/Sensory Deficits, Normal Mood/Affect Results/Procedures Lab Patient resulted labs reviewed. Assessment/Plan Assessment and Plan Assess & Plan/Chief Complaint Assessment: Severe debility requiring inpatient rehabilitation treatment Resistant UTI Plan: Levaquin 500mg daily PO Check labs in am Discharge planning for Monday Diagnosis/Problems Diagnosis/Problems (1) Falls Status: Acute Qualifiers: Encounter type: subsequent encounter Qualified Codes: W19.XXXD - Unspecified fall, subsequent encounter (2) Urinary tract infection Status: Acute Qualifiers: Urinary tract infection type: acute cystitis Hematuria presence: without hematuria Qualified Codes: N30.00 - Acute cystitis without hematuria (3) Leukocytosis Status: Acute Qualifiers: Leukocytosis type: leukemoid reaction Qualified Codes: D72.823 - Leukemoid reaction (4) Dehydration Status: Resolved (5) Diabetes mellitus Status: Chronic Qualifiers: Diabetes mellitus type: type 2 Diabetes mellitus long goods drier insulin use: with long goods drier use Diabetes mellitus complication status: with neurologic complications Diabetes mellitus complication detail: with unspecified neuropathy Qualified Codes: E11.40 - Type 2 diabetes mellitus with diabetic neuropathy, unspecified; Z79.4 - terminal system operator (current) use of insulin (6) Hypertension Status: Chronic Qualifiers: Hypertension type: essential hypertension Qualified Codes: I10 - Essential (primary) hypertension (7) Hyperlipemia Status: Chronic Qualifiers: Hyperlipidemia type: mixed hyperlipidemia Qualified Codes: E78.2 - Mixed hyperlipidemia (8) Frailty Status: Acute (9) Generalized weakness Status: Acute Clinical Quality Measures DVT/VTE Risk/Contraindication: Risk Factor Score Per Nursin RFS Level Per Nursing on Admit: 2=Moderate SHAYNE ALEGRIA DO Mar 20, 2018 09:49
[2018-03-20] MEDS ORDERED: LEVOFLOXACIN 500 MG TAB (LEVAQUIN) PO SCH (11:00)
--- NOTE | 2018-03-20 11:06 | Occupational Ther Daily Note ---
OT Current Status-Daily Note Subjective Pt seen in room, up in recliner, agreeable to OT. No pain mentioned. Looking forward to discharge to home tomorrow and pleased with progress. Appearance Alert, cooperative. Mental Status/Objective Functional [place] Measure 0=Not Assessed/NA 4=Minimal Assistance 1=Total Assistance 5=Supervision or Setup 2=Maximal Assistance 6=Modified [place] 3=Moderate Assistance 7=Complete [place] ADL-Treatment Pt seen in room, up in recliner, agreeable to OT. Pt got up from recliner, walked to get clean clothes, walked to bathroom to shower and toilet, stood at sink to brush teeth and hair, then walked back to recliner. Walked to gym for exercise and back to room. All walking during ADLs was without help, using FWW, with cues for hand placement about 25% of the time, mild safety concerns. Pt left up in recliner, all needs met. Functional [place] Measure 0=Not Assessed/NA 4=Minimal Assistance 1=Total Assistance 5=Supervision or Setup 2=Maximal Assistance 6=Modified [place] 3=Moderate Assistance 7=Complete IndependenceIRFPAI Quality Coding Scale 6 Independent with activity with or without an assistive device 5 Patient requires set up or clean up by helper. Patient completes activity by themselves 4 Supervision or touching assist (CGA). [place] provide cues , steadying assist 3 The helper provides less than half the effort to complete the activity 2 The helper provides more than half the effort to complete the activity 1 Dependent. The helper does all the effort to complete an activity 7 Patient refused to complete or attempt activity 9 The patient did not perform the activity before the current illness or injury 88 Not attempted due to Medical conditions or safety concerns Eating (FIM): 6 (Able to feed herself, open packages, cut up food. Uses dentures for eating and cannot eat some foods if she doesn't have them ) Eating (QC): 6 Grooming (FIM): 6 (Stood at sink with FWW, for balance. Brushed teeth and hair at sink and washed face and hands in the shower. ) Oral Hygiene (QC): 6 Bathing (FIM): 5 (Help to turn water on and off, setup. Retrieved towel from bar. Washed and dried all parts, using shower bench, grab bars, hand held shower. Pt encouraged to use shower chair at home, which she has) Shower/Bathe Self (QC): 5 Upper Body (FIM): 6 (Retrieved clean clothes with FWW, for balance. Doffed and donned clothing without help. Able to manage buttons) Upper Body Dressing (QC): 6 Lower Body Dressing (FIM): 6 (Retrieved clean clothes. Doffed and donned clothes, including pants and slipper socks, using FWW for balance for standing. ) Lower Body Dressing (QC): 6 On/Off Footwear (QC): 6 Toileting (FIM): 6 (Managed clothing and hygiene, with tall toilet, grab bar, FWW) Toileting Hygiene (QC): 6 Toilet/Commode Transfer (FIM): 6 (On/off tall toilet, with FWW, grab bars. No LOB observed) Toilet Transfer (QC): 6 Shower Transfer(FIM): 5 (SBA getting in/out of shower and shower bench. FWW. ) Other Treatment Pt did 11 minutes bilat UE exercise using arm bike set at 25W resistance. Took a couple brief recovery breaks - said she didn't sleep well last night. To strengthen arms to help with getting on/off surfaces without arms. Education OT Patient Education: Modified ADL techniques, Progress toward Goal/Update tx plan, Purpose of tx/functional activities, Safety issues, Transfer techniques Teaching Recipient: Patient Teaching Methods: Discussion Response to Teaching: Verbalize Understanding, Return Demonstration OT Short Term Goals Short Term Goals Time Frame: Mar 23, 2018 Lower Body Dressing(FIM): 5 Toileting(FIM): 5 Toilet/Commode Transfer(FIM): 5 Additional Short Term Goals: 1-Demonstrate ADL Tasks, 2-Verbalize Understanding , 3-ImproveStrength/[place] 1=Demonstrate adherence to instructed precautions during ADL tasks. 2=Patient will verbalize/demonstrate understanding of assistive devices/ modifications for ADL. 3=Patient will improve strength/tolerance for activity to enable patient to perform ADL's. OT Care Home Goals Sales And Marketing Assistant Goals Time Frame: Mar 30, 2018 Eating (FIM): 6 Eating (QC): 6 Groomin Oral Hygiene (QC): 6 Bathing(FIM): 5 Shower/Bathe Self (QC): 5 Upper Body Dressing(FIM): 6 Upper Body Dressing (QC): 6 Lower Body Dressing(FIM): 6 Lower Body Dressing (QC): 6 On/Off Footwear (QC): 6 Toileting(FIM): 6 Toileting Hygiene (QC): 6 Toilet/Commode Transfer(FIM): 6 Toilet/Commode Transfer (QC): 6 Shower Transfer(FIM): 5 Additional Goals: 1-Demonstrate ADL Tasks, 2-Verbalize Understanding, 3- ImproveStrength/[place] 1=Demonstrate adherence to instructed precautions during ADL tasks. 2=Patient will verbalize/demonstrate understanding of assistive devices/ modifications for ADL. 3=Patient will improve strength/tolerance for activity to enable patient to perform ADL's. OT Education/Plan Problem List/Assessment Pt would benefit from skilled OT to increase her independence in basic self care to allow her to safely return home to live with her Discharge Recommendations Plan/Recommendations: Continue POC Treatment Plan/Plan of Care Patient would benefit from OT for education, treatment and training to promote independence in ADL's, mobility, safety and/or upper extremity function for ADL' s. Plan of Care: ADL Retraining, Functional Mobility, Group Exercise/Act as Ind ( education, exercise, functional mobility, activity tolerance, socialization) Treatment Duration: Mar 30, 2018 Frequency: At least 5 of 7 days/Wk (IRF) Estimated Hrs Per Day: 1.5 hours per day Agreement: Yes Rehab Potential: Good Time/GCodes Start Time: 09:30 Stop Time: 10:30 Total Time Billed (hr/min): 60 Billed Treatment Time visit, 40 minutes ADL, 20 minutes exercise ULISES HOLLEY OT Mar 20, 2018 11:06
--- NOTE | 2018-03-20 11:35 | Physical Therapy Daily Note ---
PT Daily Note-Current Subjective States she is very tired , ready to lay down if possible Pain Numeric Pain Scale: 0-No Pain Mental Status Patient Orientation: Person, Normal For Age Transfers Functional [place] Measure 0=Not Assessed/NA 4=Minimal Assistance 1=Total Assistance 5=Supervision or Setup 2=Maximal Assistance 6=Modified [place] 3=Moderate Assistance 7=Complete IndependenceIRFPAI Quality Coding Scale 6 Independent with activity with or without an assistive device 5 Patient requires set up or clean up by helper. Patient completes activity by themselves 4 Supervision or touching assist (CGA). [place] provide cues , steadying assist 3 The helper provides less than half the effort to complete the activity 2 The helper provides more than half the effort to complete the activity 1 Dependent. The helper does all the effort to complete an activity 7 Patient refused to complete or attempt activity 9 The patient did not perform the activity before the current illness or injury 88 Not attempted due to Medical conditions or safety concerns bed, chair and toilet all SBA to Mod I Weight Bearing Right Lower Extremity: Right Full Weight Bearing Left Lower Extremity: Left Full Weight Bearing Gait Training Gait Assistive Device: FWW 75 ft SBA Exercises Supine Ex: Bridging, Ankle pumps, Quad Set, Rolling, Heel Slides, Short Arc Quads, Scooting, Straight leg raise, Hip abd/add Supine Reps: 15 Treatments in bed with bartholomew at hand Assessment Current Status: Good Progress fatigued today PT Short Term Goals Short Term Goals Time Frame: Mar 23, 2018 Gait (FIM): 4 PT District Fire Management Officer Goals Intermediate Goals PT District Fire Management Officer Goals Time Frame: Mar 30, 2018 Transfers (B,C,W/C) (FIM): 7 Sit to Lying (QC): 6 Lying-Sitting on Side/Bed(QC): 6 Sit to Stand (QC): 6 Rollin Roll Left to Right (QC): 6 Chair/Vfm-hd-Erikv Xfer(QC): 6 Car Transfer (QC): 6 Does the Patient Walk: Yes Gait (FIM): 6 Gait distance (FIM): 3=150 ft Walk 10 feet (QC): 6 Walk 10ft-Uneven Surface(QC): 6 Walk 50ft with 2 Turns (QC): 6 Walk 150 ft (QC): 6 Gait Level of Assist: 6 Gait Assistive Device: FWW Does the Pt use WC or Scooter?: No Stairs (FIM): 5 # of Steps: 4 (household exception) 1 Step (curb) (QC): 6 4 Steps (QC): 6 12 Steps (QC): 88 Picking up an Object (QC): 4 PT Plan Treatment/Plan Treatment Plan: Continue Plan of Care Treatment Plan: Bed Mobility, Education, Functional Activity [place], Functional Strength, Group Therapy, Gait, Safety, Therapeutic Exercise, Transfers Treatment Duration: Mar 30, 2018 Frequency: 5 times per week Estimated Hrs Per Day: 1.5 hours per day Patient and/or Family Agrees t: Yes Safety Risks/Education Patient Education: Gait Training, Transfer Techniques, Correct Positioning Teaching Recipient: Patient Teaching Methods: Demonstration, Discussion Response to Teaching: Verbalize Understanding, Return Demonstration Time/GCodes Time In: 1100 Time Out: 1130 Total Billed Treatment Time: 30 Total Billed Treatment 1,FA10,EX20 G Codes Necessary: SHELTON Baxter SENIOR MANUFACTURING TEST ENGINEER Mar 20, 2018 11:34
[2018-03-20] MEDS: LOPERAMIDE 2 MG (IMODIUM) CAP PO PRN (13:51)
--- NOTE | 2018-03-20 14:28 | Occupational Ther Daily Note ---
OT Current Status-Daily Note Subjective Pt seen in room, up in bed, agreeable to OT. No pain mentioned Appearance Alert, cooperative Mental Status/Objective Functional [place] Measure 0=Not Assessed/NA 4=Minimal Assistance 1=Total Assistance 5=Supervision or Setup 2=Maximal Assistance 6=Modified [place] 3=Moderate Assistance 7=Complete [place] ADL-Treatment Functional [place] Measure 0=Not Assessed/NA 4=Minimal Assistance 1=Total Assistance 5=Supervision or Setup 2=Maximal Assistance 6=Modified [place] 3=Moderate Assistance 7=Complete IndependenceIRFPAI Quality Coding Scale 6 Independent with activity with or without an assistive device 5 Patient requires set up or clean up by helper. Patient completes activity by themselves 4 Supervision or touching assist (CGA). [place] provide cues , steadying assist 3 The helper provides less than half the effort to complete the activity 2 The helper provides more than half the effort to complete the activity 1 Dependent. The helper does all the effort to complete an activity 7 Patient refused to complete or attempt activity 9 The patient did not perform the activity before the current illness or injury 88 Not attempted due to Medical conditions or safety concerns Other Treatment Pt did two shoulder stretches taught yesterday and reported that they felt good and didn't cause problems at her neck. She thinks she'll be able to do these ta home. She also did 10-15 reps bilat UE exercise with 2# weight, working on shoulders, elbows, forearms and wrists. She needed occasional physical assistance to do them correctly. To strengthen arms to help with transfers and ADLs. pt left up in bed, all needs met. Education OT Patient Education: Exercise program, Progress toward Goal/Update tx plan, Purpose of tx/functional activities Teaching Recipient: Patient Teaching Methods: Demonstration, Discussion Response to Teaching: Verbalize Understanding, Return Demonstration OT Short Term Goals Short Term Goals Time Frame: Mar 23, 2018 Lower Body Dressing(FIM): 5 Toileting(FIM): 5 Toilet/Commode Transfer(FIM): 5 Additional Short Term Goals: 1-Demonstrate ADL Tasks, 2-Verbalize Understanding , 3-ImproveStrength/[place] 1=Demonstrate adherence to instructed precautions during ADL tasks. 2=Patient will verbalize/demonstrate understanding of assistive devices/ modifications for ADL. 3=Patient will improve strength/tolerance for activity to enable patient to perform ADL's. OT Skilled Nursing Goals Powder Press Operator Goals Time Frame: Mar 30, 2018 Eating (FIM): 6 (met --18) Eating (QC): 6 (met 03-20-18) Groomin (met 03-20-18) Oral Hygiene (QC): 6 (met 03-20-18) Bathing(FIM): 5 (met --18) Shower/Bathe Self (QC): 5 (met 03-20-18) Upper Body Dressing(FIM): 6 (met 18) Upper Body Dressing (QC): 6 (met 18) Lower Body Dressing(FIM): 6 (met 18) Lower Body Dressing (QC): 6 (met 03-20-18) On/Off Footwear (QC): 6 (met 03-20-18) Toileting(FIM): 6 (met 03-20-18) Toileting Hygiene (QC): 6 (met 03-20-18) Toilet/Commode Transfer(FIM): 6 (met 03-20-18) Toilet/Commode Transfer (QC): 6 (met 03-20-18) Shower Transfer(FIM): 5 (met 03-20-18) Additional Goals: 1-Demonstrate ADL Tasks, 2-Verbalize Understanding, 3- ImproveStrength/[place] 1=Demonstrate adherence to instructed precautions during ADL tasks. 2=Patient will verbalize/demonstrate understanding of assistive devices/ modifications for ADL. 3=Patient will improve strength/tolerance for activity to enable patient to perform ADL's. OT Education/Plan Problem List/Assessment Pt would benefit from skilled OT to increase her independence in basic self care to allow her to safely return home to live with her Discharge Recommendations Plan/Recommendations: Continue POC (anticipate dc tomorrow) Treatment Plan/Plan of Care Patient would benefit from OT for education, treatment and training to promote independence in ADL's, mobility, safety and/or upper extremity function for ADL' s. Plan of Care: ADL Retraining, Functional Mobility, Group Exercise/Act as Ind ( education, exercise, functional mobility, activity tolerance, socialization) Treatment Duration: Mar 30, 2018 Frequency: At least 5 of 7 days/Wk (IRF) Estimated Hrs Per Day: 1.5 hours per day Agreement: Yes Rehab Potential: Good Time/GCodes Start Time: 13:30 Stop Time: 14:00 Total Time Billed (hr/min): 30 Billed Treatment Time visit, 30 minutes exercise ULISES HOLLEY OT Mar 20, 2018 14:28
[2018-03-20 16:03] VITALS: BP 120/76
[2018-03-20] MEDS ORDERED: LEVO500T80 PO (19:58)
[2018-03-20] MEDS: SIMvastatin 20 MG (ZOCOR) TAB PO SCH (20:11)
[2018-03-20] MEDS: LATANOPROST 0.005% (XALATAN) OPHTH SOLN 2.5 ML OU SCH (20:12)
[2018-03-20] MEDS ORDERED: ACETAMINOPHEN 500 MG TAB (TYLENOL) PO SCH (21:00)
[2018-03-21] MEDS: inSUlin ASPART (NovoLOG) 1 UNIT/0.01 ML (CHARGE PER UNIT) SC SCH ×2 (05:41→11:12)
[2018-03-21] MEDS: LEVOTHYROXINE 125 MCG (LEVOTHROID) TABLET PO SCH (05:47)
[2018-03-21] MEDS: metFORMIN 500 MG (GLUCOPHAGE) TAB PO SCH (05:48)
[2018-03-21] MEDS: ACETAMINOPHEN 325 MG TABLET PO PRN (05:48)
[2018-03-21] MEDS: KCL 20 MEQ TAB (K-DUR) PO SCH (05:48)
[2018-03-21 06:03] VITALS: BP 130/79
[2018-03-21 07:10] LABS: BASOPHILS # (AUTO) 0.1 10^3/uL (0.0-0.1); BASOPHILS % (AUTO) 1 % (0-10); EOSINOPHILS # (AUTO) 0.1 10^3/uL (0.0-0.3); EOSINOPHILS % (AUTO) 1 % (0-10); HEMATOCRIT 32 % (35-52); LYMPHOCYTES # (AUTO) 2.4 X 10^3 (1.0-4.0); LYMPHOCYTES % (AUTO) 15 % (12-44); MEAN CORPUSCULAR HEMOGLOBIN 32 PG (25-34); MEAN CORPUSCULAR HGB CONC 34 G/DL (32-36); MEAN CORPUSCULAR VOLUME 94 FL (80-99); MEAN PLATELET VOLUME 8.8 FL (7.4-10.4); MONOCYTES # (AUTO) 0.8 X 10^3 (0.0-1.0); MONOCYTES % (AUTO) 5 % (0-12); NEUTROPHILS # (AUTO) 12.5 X 10^3 (1.8-7.8); NEUTROPHILS % (AUTO) 78 % (42-75); PLATELET COUNT 537 10^3/uL (130-400); RED BLOOD COUNT 3.45 10^6/uL (4.35-5.85); RED CELL DISTRIBUTION WIDTH 14.4 % (10.0-14.5); WHITE BLOOD COUNT 15.9 10^3/uL (4.3-11.0)
[2018-03-21 07:44] LABS: ALBUMIN 3.1 GM/DL (3.2-4.5); BILIRUBIN,TOTAL 0.6 MG/DL (0.1-1.0); CALCIUM 8.5 MG/DL (8.5-10.1); CREATININE SERUM 0.96 MG/DL (0.60-1.30); POTASSIUM 3.8 MMOL/L (3.6-5.0); TOTAL PROTEIN 5.7 GM/DL (6.4-8.2)
--- NOTE | 2018-03-21 08:03 | PM & R (SOAP) Progress Note ---
Subjective This was a face to face visit with the patient. Date Seen by Provider: Mar 21, 2018 Time Seen by Provider: 07:40 Subjective/Events-last exam Patient was seen in her room this AM All set for discharge Appreciate Dr ocampo note Objective Physician Exam Last Set of Vital Signs Vital Signs Date Time Temp Pulse Resp B/P (MAP) Pulse Ox O2 Delivery O2 Flow Rate FiO2 03/21/18 06:03 97.8 70 18 130/79 (96) 97 Room Air Capillary Refill : I&O Intake and Output 03/21/18 00:00 Intake Total 990 ml Balance 990 ml Intake Oral 990 ml # Voids 9 # Bowel Movements 3 General: Alert, Oriented X3, Cooperative, No Acute Distress HEENT: Atraumatic, PERRLA, EOMI, Mucous Memb Moist/[place] Neck: Supple, No JVD Lungs: Clear to Auscultation Heart: Regular Rate Abdomen: Normal Bowel Sounds, Soft, No Tenderness Extremities: No Edema Neuro: Other (Strength 4-/5 in general cognitively intact) Results Lab Data Laboratory Tests 03/18/18 10:58: Glucometer 164H 03/18/18 16:24: Glucometer 156H 03/18/18 20:24: Glucometer 197H 03/19/18 05:43: Glucometer 163H 03/19/18 10:13: White Blood Count 21.3H, Red Blood Count 3.56L, Hemoglobin 11.3L, Hematocrit 34L , Mean Corpuscular Volume 94, Mean Corpuscular Hemoglobin 32, Mean Corpuscular Hemoglobin Concent 34, Red Cell Distribution Width 14.9H, Platelet Count 462H, Mean Platelet Volume 9.1, Neutrophils (%) (Auto) 83H, Lymphocytes (%) (Auto) 12 , Monocytes (%) (Auto) 4, Eosinophils (%) (Auto) 1, Basophils (%) (Auto) 1, Neutrophils # (Auto) 17.6H, Lymphocytes # (Auto) 2.6, Monocytes # (Auto) 0.8, Eosinophils # (Auto) 0.2, Basophils # (Auto) 0.1, Sodium Level 137, Potassium Level 3.4L, Chloride Level 104, Carbon Dioxide Level 22, Anion Gap 11, Blood Urea Nitrogen 18, Creatinine 0.85, Estimat Glomerular Filtration Rate > 60, BUN/ Creatinine Ratio 21, Glucose Level 204H, Calcium Level 8.6, Total Bilirubin 0.7 , Aspartate Amino Transf (AST/SGOT) 26, Alanine Aminotransferase (ALT/SGPT) 56H , Alkaline Phosphatase 117, Total Protein 5.9L, Albumin 3.0L 03/19/18 11:04: Glucometer 171H 03/19/18 15:20: Glucometer 163H 03/19/18 20:25: Glucometer 183H 03/20/18 05:23: Glucometer 144H 03/20/18 10:57: Glucometer 152H 03/20/18 16:01: Glucometer 163H 03/20/18 19:58: Glucometer 176H 03/21/18 05:40: Glucometer 145H 03/21/18 07:02: White Blood Count 15.9H, Red Blood Count 3.45L, Hemoglobin 11.0L, Hematocrit 32L , Mean Corpuscular Volume 94, Mean Corpuscular Hemoglobin 32, Mean Corpuscular Hemoglobin Concent 34, Red Cell Distribution Width 14.4, Platelet Count 537H, Mean Platelet Volume 8.8, Neutrophils (%) (Auto) 78H, Lymphocytes (%) (Auto) 15 , Monocytes (%) (Auto) 5, Eosinophils (%) (Auto) 1, Basophils (%) (Auto) 1, Neutrophils # (Auto) 12.5H, Lymphocytes # (Auto) 2.4, Monocytes # (Auto) 0.8, Eosinophils # (Auto) 0.1, Basophils # (Auto) 0.1, Sodium Level 137, Potassium Level 3.8, Chloride Level 105, Carbon Dioxide Level 20L, Anion Gap 12, Blood Urea Nitrogen 16, Creatinine 0.96, Estimat Glomerular Filtration Rate 56, BUN/ Creatinine Ratio 17, Glucose Level 159H, Calcium Level 8.5, Total Bilirubin 0.6 , Aspartate Amino Transf (AST/SGOT) 18, Alanine Aminotransferase (ALT/SGPT) 36, Alkaline Phosphatase 96, Total Protein 5.7L, Albumin 3.1L Assessment/Plan Assessment and Plan Home today with [facility] F/U with DR Galaviz PCp See orders (1) Generalized weakness Status: Acute (2) Urinary tract infection Qualifiers: Qualified Codes: N30.00 - Acute cystitis without hematuria Status: Acute Co-Morbidities that are continuing to impact the rehab process: (include details ) OTIS GODWIN MD 20, 2018 08:03
[2018-03-21] MEDS: hydrALAZINE (APRESOLINE) 25 MG TAB PO SCH (08:41)
[2018-03-21] MEDS: BENZONATATE 100 MG (TESSALON) CAPSULE PO SCH (08:41)
[2018-03-21] MEDS: amLODIPine 5 MG (NORVASC) TAB PO SCH (08:41)
[2018-03-21] MEDS: VITAMIN D3 1,000 UNITS (CHOLECALCIFEROL) TABLET PO SCH (08:41)
[2018-03-21] MEDS: PANTOPRAZOLE 40 MG (PROTONIX) TAB PO SCH (08:42)
--- NOTE | 2018-03-21 08:43 | Therapy Team Discharge Summary ---
Therapy Discharge Summary Discharge Recommendations Date of Discharge Therapy D/C Recommendations: Physical Therapy Home Care Occupational Therapy Pt was seen for skilled OT to increase her independence in basic self care to allow her to safely return to her home. On admission she needed contact guard assistance with grooming, bathing, lower body dressing, toileting, toilet and shower transfers and setup for eating and upper body dressing. By discharge she was modified independent with all ADLs except she needed setup for bathing and SBA for shower transfers, with mild safety concerns. Equipment used included shower bench, grab bars, FWW. See tx plan for goals met. Home health OT is recommended. DC OT Decreased Activ Tolerance, Decreased Safety Aware, Decreased UE Strength, Dependent Transfers, Impaired Self-Care Skills PT Outside Energy Sales Representatives Goals Senior Care Goals PT Senior Care Goals Time Frame: Mar 30, 2018 Transfers (B,C,W/C) (FIM): 7 Roll Left to Right (QC): 6 Sit to Lying (QC): 6 Lying-Sitting on Side/Bed(QC): 6 Sit to Stand (QC): 6 Chair/Skn-du-Ukcgt Xfer(QC): 6 Car Transfer (QC): 6 Does the Patient Walk: Yes Gait (FIM): 6 Gait distance (FIM): 3=150 ft Walk 10 feet (QC): 6 Walk 10ft-Uneven Surface(QC): 6 Walk 50ft with 2 Turns (QC): 6 Walk 150 ft (QC): 6 Gait Level of Assist: 6 Gait Assistive Device: FWW Does the Pt use WC or Scooter?: No Stairs (FIM): 5 # of Steps: 4 (household exception) 1 Step (curb) (QC): 6 4 Steps (QC): 6 12 Steps (QC): 88 Picking up an Object (QC): 4 OT Outside Energy Sales Representatives Goals Senior Care Goals Time Frame: Mar 30, 2018 Eating (FIM): 6 (met 6-19-18) Eating (QC): 6 (met 6-19-18) Oral Hygiene (QC): 6 (met 6-19-18) Grooming(FIM): 6 (met 6-19-18) Bathing(FIM): 5 (met 6-19-18) Shower/Bathe Self (QC): 5 (met 6-19-18) Upper Body Dressing(FIM): 6 (met 6-19-18) Upper Body Dressing (QC): 6 (met --18) Lower Body Dressing(FIM): 6 (met -18) Lower Body Dressing (QC): 6 (met 03-20-18) On/Off Footwear (QC): 6 (met 03-20-) Toileting(FIM): 6 (met 03-20-18) Toileting Hygiene (QC): 6 (met 03-20-18) Toilet/Commode Transfer(FIM): 6 (met 03-20-18) Toilet/Commode Transfer (QC): 6 (met 03-20-18) Shower Transfer(FIM): 5 (met 03-20-18) Additional Goals: 1-Demonstrate ADL Tasks, 2-Verbalize Understanding, 3- ImproveStrength/Gisell 1=Demonstrate adherence to instructed precautions during ADL tasks. 2=Patient will verbalize/demonstrate understanding of assistive devices/ modifications for ADL. 3=Patient will improve strength/tolerance for activity to enable patient to perform ADL's. ULISES HOLLEY OT Mar 21, 2018 08:43
[2018-03-21] MEDS ORDERED: LEVO500T2 PO ×2 (09:02→10:04)
--- NOTE | 2018-03-21 10:42 | Therapy Team Discharge Summary ---
Therapy Discharge Summary Discharge Recommendations Date of Discharge 03/21/18 Therapy D/C Recommendations: Physical Therapy Home Care Physical Therapy This patient was transferred to ARU post a short acute stay due to an UTI and debility with a recent decline in mobility and recent falls. Prior to her decline, she was indep with all mobility and able to drive and ambulate community distances. Upon admit to this unit she required min assist with transfers, was only able to ambulate 60 ft with FWW with CGA, and go up/down 1 step with assist. Treatment has consisted of functional strengthening to progress her transfers and ambulation. She has made excellent progress and is mod indep with transfers, gait and stairs at a household level at discharge. She has met all goals to a satisfactory level and is ready to discharge home at this time with [facility] PT recommended to follow. DC PT. Occupational Therapy Decreased Activ Tolerance, Decreased Safety Aware, Decreased UE Strength, Dependent Transfers, Impaired Self-Care Skills PT Conductor Orchestra Goals Snf Goals PT Conductor Orchestra Goals Time Frame: Mar 30, 2018 Transfers (B,C,W/C) (FIM): 7 (scored a 6) Roll Left to Right (QC): 6 Sit to Lying (QC): 6 Lying-Sitting on Side/Bed(QC): 6 Sit to Stand (QC): 6 Chair/Dcd-zm-Wxdpl Xfer(QC): 6 Car Transfer (QC): 6 Does the Patient Walk: Yes Gait (FIM): 6 (met) Gait distance (FIM): 3=150 ft Walk 10 feet (QC): 6 Walk 10ft-Uneven Surface(QC): 6 Walk 50ft with 2 Turns (QC): 6 Walk 150 ft (QC): 6 Gait Level of Assist: 6 Gait Assistive Device: FWW Does the Pt use WC or Scooter?: No Stairs (FIM): 5 (met) # of Steps: 4 (household exception) 1 Step (curb) (QC): 6 4 Steps (QC): 6 12 Steps (QC): 88 Picking up an Object (QC): 4 Pt achieved all goals to a satisfactory level. OT Conductor Orchestra Goals Conductor Orchestra Goals Time Frame: Mar 30, 2018 Eating (FIM): 6 (met 6-19-18) Eating (QC): 6 (met 6-19-18) Oral Hygiene (QC): 6 (met -19-18) Grooming(FIM): 6 (met 03-20-18) Bathing(FIM): 5 (met 03-20-18) Shower/Bathe Self (QC): 5 (met 03-20-18) Upper Body Dressing(FIM): 6 (met 03-20-18) Upper Body Dressing (QC): 6 (met 03-20-18) Lower Body Dressing(FIM): 6 (met 03-20-18) Lower Body Dressing (QC): 6 (met 03-20-18) On/Off Footwear (QC): 6 (met 03-20-18) Toileting(FIM): 6 (met 03-20-18) Toileting Hygiene (QC): 6 (met 03-20-18) Toilet/Commode Transfer(FIM): 6 (met 03-20-18) Toilet/Commode Transfer (QC): 6 (met 03-20-18) Shower Transfer(FIM): 5 (met 03-20-18) Additional Goals: 1-Demonstrate ADL Tasks, 2-Verbalize Understanding, 3- ImproveStrength/Gisell 1=Demonstrate adherence to instructed precautions during ADL tasks. 2=Patient will verbalize/demonstrate understanding of assistive devices/ modifications for ADL. 3=Patient will improve strength/tolerance for activity to enable patient to perform ADL's. RASHEL HOOVER PT Mar 21, 2018 10:42
--- NOTE | 2018-03-21 11:53 | Progress Note-Hospitalist ---
Subjective HPI/CC On Admission Date Seen by Provider: Mar 21, 2018 Time Seen by Provider: 10:30 CC: Severe debility HPI: This is an 82-year-old white female clinic patient of mine that I directly admitted to [facility] for short stay observation on last week due to dehydration UTI and falls. The patient feels much better and feels like she is getting stronger every day since she was was admitted to inpatient rehabilitation unit. Her bowels are moving well and her lab work was reviewed revealing continued elevated white count at 21,000 but her usual white count is 13-14,000 but I reviewed the urine culture from [facility] and noted resistant to ampicillin and she was originally placed on meropenem and vancomycin so she was switched to Levaquin considering all of her antibiotic allergies. She was to go home on Monday when her son has to go back to [place]. Subjective/Events-last exam Patient doing well Discharge plans Antibiotics for 5 more days White count down to 16 Objective Exam Vital Signs Vital Signs Date Time Temp Pulse Resp B/P (MAP) Pulse Ox O2 Delivery O2 Flow Rate FiO2 03/21/18 12:41 70 18 130/79 97 Room Air 03/21/18 06:03 97.8 Capillary Refill : General Appearance: No Apparent Distress, WD/WN Neck: Full Range of Motion, Normal Inspection Respiratory: Lungs Clear, Normal Breath Sounds Cardiovascular: Regular Rate, Rhythm, No Edema Extremity: Normal Capillary Refill, Normal Inspection, Normal Range of Motion, Non Tender, No Calf Tenderness, No Pedal Edema Neurologic/Psychiatric: Alert, Oriented x3, No Motor/Sensory Deficits, Normal Mood/Affect Results/Procedures Lab Laboratory Tests 03/21/18 07:02 Patient resulted labs reviewed. Assessment/Plan Assessment and Plan Assess & Plan/Chief Complaint Assessment: Severe debility requiring inpatient rehabilitation treatment Resistant UTI Plan: Levaquin 500mg daily PO Discharge planning for today Diagnosis/Problems Diagnosis/Problems (1) Falls Status: Acute Qualifiers: Encounter type: subsequent encounter Qualified Codes: W19.XXXD - Unspecified fall, subsequent encounter (2) Urinary tract infection Status: Acute Qualifiers: Urinary tract infection type: acute cystitis Hematuria presence: without hematuria Qualified Codes: N30.00 - Acute cystitis without hematuria (3) Leukocytosis Status: Acute Qualifiers: Leukocytosis type: leukemoid reaction Qualified Codes: D72.823 - Leukemoid reaction (4) Dehydration Status: Resolved (5) Diabetes mellitus Status: Chronic Qualifiers: Diabetes mellitus type: type 2 Diabetes mellitus mcc insulin use: with termination clerk use Diabetes mellitus complication status: with neurologic complications Diabetes mellitus complication detail: with unspecified neuropathy Qualified Codes: E11.40 - Type 2 diabetes mellitus with diabetic neuropathy, unspecified; Z79.4 - keno terminal operator (current) use of insulin (6) Hypertension Status: Chronic Qualifiers: Hypertension type: essential hypertension Qualified Codes: I10 - Essential (primary) hypertension (7) Hyperlipemia Status: Chronic Qualifiers: Hyperlipidemia type: mixed hyperlipidemia Qualified Codes: E78.2 - Mixed hyperlipidemia (8) Frailty Status: Acute (9) Generalized weakness Status: Acute Clinical Quality Measures DVT/VTE Risk/Contraindication: Risk Factor Score Per Nursin RFS Level Per Nursing on Admit: 2=Moderate SHAYNE ALEGRIA DO Mar 21, 2018 11:53
[2018-03-21 12:41] VITALS: BP 130/79
== END 2018-03-21 15:08 | disposition home health service (06) | DRG 690 ==
PROVIDERS: ADMIT Physical Medicine & Rehabilitation; ATTEND Physical Medicine & Rehabilitation
DX: N30.00 Acute cystitis without hematuria (principal); E11.9 Type 2 diabetes mellitus without complications; I10 Essential (primary) hypertension; E87.6 Hypokalemia; E03.9 Hypothyroidism, unspecified; R32 Unspecified urinary incontinence; M54.9 Dorsalgia, unspecified; D64.9 Anemia, unspecified; E78.5 Hyperlipidemia, unspecified; Z79.4 Long term (current) use of insulin
CPT/HCPCS: 36415; 80053; 82962; 85025

== ENCOUNTER → 2018-07-04 | Outpatient (CLI) | payer MEDICARE, OTHER ==
[~2018-07-04] MED LIST changes: +ACET-2650 PO; +AMLO5TAB7 PO; +AMOX250T PO; +CHOL10007 PO; +CITA40TA11 PO; +HYDR-3923 PO; +LATA2.5D5 OU; +LEVO125T6 PO; +LEVO500T2 PO; +LEVO500T80 PO; +LIRA0.6P3 SC; +METF-397 PO; +PANT40TA3 PO; +SIMV20TA3 PO
--- NOTE | 2018-07-04 13:42 | Diagnostic Imaging Report ---
INDICATION: Routine screening. COMPARISON: 07/03/2017 and 06/29/2016. TECHNIQUE: 2D and 3D bilateral screening mammography was performed with CAD. FINDINGS: Both breasts are heterogeneously dense, limiting the sensitivity of mammography. Benign parenchymal and vascular calcifications are seen bilaterally. No mass or malignant appearing microcalcifications are seen. The axillae are unremarkable. IMPRESSION: No mammographic features suspicious for malignancy are identified. ACR BI-RADS Category 2: Benign findings. Result letter will be mailed to the patient. Note: At least 10% of breast cancer is not imaged by mammography. Dictated by: Dictated on workstation # [id number]
== END ==
LOC: RAD 09:48
PROVIDERS: ATTEND Internal Medicine
DX: Z12.31 Encounter for screening mammogram for malignant neoplasm of breast (principal)
CPT/HCPCS: 77067

== ENCOUNTER → 2019-07-15 | Outpatient (CLI) | payer MEDICARE, OTHER ==
[~2019-07-15] MED LIST changes: -AMLO5TAB7 PO; +AMLO5TAB9 PO
--- NOTE | 2019-07-15 10:25 | Diagnostic Imaging Report ---
Indication: Routine screening. INDICATION: Screening. COMPARISON: 07/04/2018 and 07/03/2017. TECHNIQUE: 2D and 3D bilateral screening mammography was performed with CAD. FINDINGS: Both breasts remain heterogeneously dense, limiting the sensitivity of mammography. Benign parenchymal and vascular calcifications are noted bilaterally. No mass or malignant appearing microcalcifications are seen. The axillae are unremarkable. IMPRESSION: No mammographic features suspicious for malignancy are identified. ACR BI-RADS Category 2: Benign findings. Result letter will be mailed to the patient. Note: At least 10% of breast cancer is not imaged by mammography. Dictated by: Dictated on workstation # [id number]
== END ==
LOC: RAD 09:20
PROVIDERS: ATTEND Internal Medicine
DX: Z12.31 Encounter for screening mammogram for malignant neoplasm of breast (principal)
CPT/HCPCS: 77067

== ENCOUNTER → 2020-07-20 | Outpatient (CLI) | payer MEDICARE, OTHER ==
[~2020-07-20] MED LIST changes: -PANT40TA3 PO; +PANT40TA52 PO; +SIMV20TA26 PO; -SIMV20TA3 PO
--- NOTE | 2020-07-20 20:43 | Diagnostic Imaging Report ---
INDICATION: Digital mammogram bilateral screening. This study was compared to the prior exams of 07/15/2019, 07/04/2018 and 07/03/2017. At this time, there are no current complaints. The current study was also evaluated with a Computer Aided Detection (CAD) system. FINDINGS: The fibroglandular tissue in both breasts is heterogeneously dense. This does limit the sensitivity of this exam. Overall, there does not appear to have been any significant change when compared to the prior study. No primary or secondary sign of malignancy is noted. IMPRESSION: There is no radiographic evidence for malignancy. ACR BI-RADS Category 1: Negative. Result letter will be mailed to the patient. Note: At least 10% of breast cancer is not imaged by mammography. Dictated by: Dictated on workstation # [id number]
== END ==
LOC: RAD 10:45
PROVIDERS: ATTEND Internal Medicine
DX: Z12.31 Encounter for screening mammogram for malignant neoplasm of breast (principal)
CPT/HCPCS: 77063; 77067

== ENCOUNTER → 2021-07-21 | Outpatient (CLI) | payer MEDICARE, OTHER ==
[~2021-07-21] MED LIST changes: +AMLO-250 PO; -AMLO5TAB9 PO
--- NOTE | 2021-07-21 12:38 | Diagnostic Imaging Report ---
INDICATION: Routine screening. COMPARISON: 07/20/2020 and 07/15/2019. TECHNIQUE: 2D and 3D bilateral screening mammography was performed with CAD. FINDINGS: Both breasts are heterogeneously dense, limiting the sensitivity of mammography. Benign parenchymal and vascular calcifications are noted bilaterally. No mass or malignant-appearing microcalcifications are seen. The axillae are unremarkable. IMPRESSION: No mammographic features suspicious for malignancy are identified. ACR BI-RADS Category 2: Benign findings. Result letter will be mailed to the patient. Note: At least 10% of breast cancer is not imaged by mammography. Dictated by: Dictated on workstation # [id number]
== END ==
LOC: RAD 11:00
PROVIDERS: ATTEND Internal Medicine
DX: Z12.31 Encounter for screening mammogram for malignant neoplasm of breast (principal)
CPT/HCPCS: 77063; 77067

== ENCOUNTER 2021-09-29 05:40 | Outpatient (CLI) | payer MEDICARE, OTHER ==
[~2021-09-29] VITALS: Ht 165.1 cm; Wt 65.6 kg
[~2021-09-29 05:40] MED LIST changes: -CITA40TA11 PO; +CITA40TA13 PO; -LEVO500T80 PO; +LEVO500T81 PO
[2021-10-04] MEDS ORDERED: BUPR-168 PO (15:02)
[2021-10-04] MEDS ORDERED: CHOL-34 PO (15:02)
== END 2021-10-04 15:15 | disposition home or self-care (01) ==
LOC: PREOP 05:40
PROVIDERS: ATTEND Specialist
DX: Z01.818 Encounter for other preprocedural examination (principal)

== ENCOUNTER 2021-10-08 10:00 | Day surgery (SDC) | payer MEDICARE, OTHER ==
[~2021-10-08] VITALS: Ht 165.1 cm; Wt 65.6 kg
[~2021-10-08 10:00] MED LIST changes: +BUPR-168 PO; +CHOL-34 PO
[2021-10-08] MEDS ORDERED: TIMOLOL MALEATE 0.5% 5 ML (TIMOPTIC) BTL OU PRN (10:15)
[2021-10-08] MEDS ORDERED: MOXIFLOXACIN OPHTH SOLN 5 MG/ML 0.3 ML SYRINGE OP ONE (10:15)
[2021-10-08] MEDS ORDERED: LIDOCAINE PF 1% 2 ML VIAL IR PRN (10:15)
[2021-10-08] MEDS ORDERED: POVIDONE (BETADINE) OPHTH SOLN 5% 30 ML OP ONE (10:15)
[2021-10-08] MEDS: TETRACAINE 0.5% OPHTH SOLN 4 ML BTL (SINGLE DOSE ONLY) OU PRN ×4 (10:16→10:32)
[2021-10-08] MEDS: TROPICAMIDE 1% OPH SOLN (MYDRIACYL) 15 ML BTL OP SCH ×3 (10:22→10:32)
[2021-10-08] MEDS: PHENYLEPHRINE 10% OPHTH (NEO-SYN) 5 ML BTL OU SCH ×3 (10:22→10:32)
[2021-10-08 10:27] VITALS: BP 142/78
--- NOTE | 2021-10-08 10:36 | Ophthalmologist Pre-Op Note ---
Pre-Operative Progress Note H&P Reviewed The H&P was reviewed, patient examined and no changes noted. Date H&P Reviewed: Oct 08, 2021 Time H&P Reviewed: 10:36 Pre-Op Dx Cataract, Left Eye ROXANA KENNEDY MD Oct 08, 2021 10:36
[2021-10-08] MEDS ORDERED: MIDAZOLAM 2 MG/2 ML (VERSED) VIAL ONE (10:57)
--- NOTE | 2021-10-08 11:13 | Ophthalmology Operative Report ---
Cataract removal/placement IOL PREOPERATIVE DIAGNOSIS: Cataract Left Eye POSTOPERATIVE DIAGNOSIS: Cataract Left Eye PROCEDURE: Cataract removal and placement of posterior chamber implant, left eye SURGEON: Suleman Kennedy ANESTHESIA: Topical with sedation COMPLICATIONS: None ESTIMATED BLOOD LOSS: Minimal DESCRIPTION OF PROCEDURE: After proper informed consent was obtained, the patient, a 86 female, was taken to the Operating Room and the left eye was anesthetized with tetracaine. The left eye was then prepped and draped in the usual manner. A wire lid speculum was placed. A paracentesis was made at the left hand position. Preservative free lidocaine was injected into the anterior chamber followed by viscoelastic. A clear corneal incision was made in the temporal position. A capsulorrhexis was preformed and the central nuclear and cortical material were removed. The posterior capsule was polished and an Fabrice 18.5 AU00T0 was placed into the capsular bag. The residual viscoelastic was aspirated and balanced saline solution was injected into the anterior chamber. Moxifloxacin was injected into the anterior chamber. The wound was checked and found to be water tight. The patient tolerated the procedure well without complications. SULEMAN KENNEDY MD Oct 08, 2021 11:12
[2021-10-08 11:15] VITALS: BP 139/72
--- NOTE | 2021-10-08 11:26 | Anesthesia-General Post-Op ---
MAC Patient Condition Mental Status/LOC: Same as Preop Cardiovascular: Satisfactory Nausea/Vomiting: Absent Respiratory: Satisfactory Pain: Controlled Complications: Absent Post Op Complications Complications None Follow Up Care/Instructions Patient Instructions None needed. Anesthesiology Discharge Order Discharge Order Patient is doing well, no complaints, stable vital signs, no apparent adverse anesthesia problems. No complications reported per nursing. MARIA DE JESUS AGUILAR CRNA Oct 08, 2021 11:26
[2021-10-08] MEDS ORDERED: acetaZOLAMIDE ER 500 MG CAP (DIAMOX SEQUELS) PO ONE (11:30)
== END 2021-10-08 11:18 ==
LOC: SDC 10:00
PROVIDERS: ATTEND Specialist
DX: E11.36 Type 2 diabetes mellitus with diabetic cataract (principal); H25.12 Age-related nuclear cataract, left eye; I10 Essential (primary) hypertension; E78.5 Hyperlipidemia, unspecified; E11.9 Type 2 diabetes mellitus without complications; E03.9 Hypothyroidism, unspecified; K21.9 Gastro-esophageal reflux disease without esophagitis; M19.90 Unspecified osteoarthritis, unspecified site; F32.A Depression, unspecified; Z79.84 Long term (current) use of oral hypoglycemic drugs; Z79.899 Other long term (current) drug therapy; Z79.890 Hormone replacement therapy; Z80.8 Family history of malignant neoplasm of other organs or systems; Z83.3 Family history of diabetes mellitus
CPT/HCPCS: 66984; V2632

== ENCOUNTER 2021-10-22 09:25 | Day surgery (SDC) | payer MEDICARE, OTHER ==
[~2021-10-22] VITALS: Ht 165.1 cm; Wt 65.6 kg
[2021-10-22] MEDS ORDERED: TIMOLOL MALEATE 0.5% 5 ML (TIMOPTIC) BTL OU PRN (09:30)
[2021-10-22] MEDS ORDERED: POVIDONE (BETADINE) OPHTH SOLN 5% 30 ML OP ONE (09:30)
[2021-10-22] MEDS ORDERED: LIDOCAINE PF 1% 2 ML VIAL IR PRN (09:30)
[2021-10-22] MEDS ORDERED: MOXIFLOXACIN OPHTH SOLN 5 MG/ML 0.3 ML SYRINGE OP ONE (09:30)
[2021-10-22 09:35] VITALS: BP 161/85
[2021-10-22] MEDS: TETRACAINE 0.5% OPHTH SOLN 4 ML BTL (SINGLE DOSE ONLY) OU PRN ×4 (09:37→09:59)
[2021-10-22] MEDS: PHENYLEPHRINE 10% OPHTH (NEO-SYN) 5 ML BTL OU SCH ×3 (09:46→09:59)
[2021-10-22] MEDS: TROPICAMIDE 1% OPH SOLN (MYDRIACYL) 15 ML BTL OP SCH ×3 (09:47→09:59)
[2021-10-22] MEDS ORDERED: MIDAZOLAM 2 MG/2 ML (VERSED) VIAL ONE (10:14)
--- NOTE | 2021-10-22 10:18 | Ophthalmologist Pre-Op Note ---
Pre-Operative Progress Note H&P Reviewed The H&P was reviewed, patient examined and no changes noted. Date H&P Reviewed: Oct 22, 2021 Time H&P Reviewed: 10:18 Pre-Op Dx Cataract, Right Eye ROXANA KENNEDY MD Oct 22, 2021 10:18
--- NOTE | 2021-10-22 10:40 | Ophthalmology Operative Report ---
Cataract removal/placement IOL PREOPERATIVE DIAGNOSIS: Cataract Right Eye POSTOPERATIVE DIAGNOSIS: Cataract Right Eye PROCEDURE: Cataract removal and placement of posterior chamber implant, right eye SURGEON: Suleman Kennedy ANESTHESIA: Topical with sedation COMPLICATIONS: None ESTIMATED BLOOD LOSS: Minimal DESCRIPTION OF PROCEDURE: After proper informed consent was obtained, the patient, a 86 female, was taken to the Operating Room and the right eye was anesthetized with tetracaine. The right eye was then prepped and draped in the usual manner. A wire lid speculum was placed. A paracentesis was made at the left hand position. Preservative free lidocaine was injected into the anterior chamber followed by viscoelastic. A clear corneal incision was made in the temporal position. A capsulorrhexis was preformed and the central nuclear and cortical material were removed. The posterior capsule was polished and Fabrice 18.0 AU00T0 IOL was placed into the capsular bag. The residual viscoelastic was aspirated and balanced saline solution was injected into the anterior chamber. Moxifloxacin was injected into the anterior chamber. The wound was checked and found to be water tight. The patient tolerated the procedure well without complications. SULEMAN KENNEDY MD Oct 22, 2021 10:40
--- NOTE | 2021-10-22 10:50 | Anesthesia-General Post-Op ---
MAC Patient Condition Mental Status/LOC: Same as Preop Cardiovascular: Satisfactory Nausea/Vomiting: Absent Respiratory: Satisfactory Pain: Controlled Complications: Absent Post Op Complications Complications None Follow Up Care/Instructions Patient Instructions None needed. Anesthesiology Discharge Order Discharge Order Patient is doing well, no complaints, stable vital signs, no apparent adverse anesthesia problems. No complications reported per nursing. MARIA DE JESUS AGUILAR CRNA Oct 22, 2021 10:50
[2021-10-22 10:51] VITALS: BP 147/75
[2021-10-22] MEDS ORDERED: acetaZOLAMIDE ER 500 MG CAP (DIAMOX SEQUELS) PO ONE (12:30)
== END 2021-10-22 10:53 | disposition home or self-care (01) ==
LOC: SDC 09:25
PROVIDERS: ATTEND Specialist
DX: E11.36 Type 2 diabetes mellitus with diabetic cataract (principal); E11.39 Type 2 diabetes mellitus with other diabetic ophthalmic complication; H42 Glaucoma in diseases classified elsewhere; H25.11 Age-related nuclear cataract, right eye; I10 Essential (primary) hypertension; E03.9 Hypothyroidism, unspecified; F32.A Depression, unspecified; Z79.899 Other long term (current) drug therapy
CPT/HCPCS: 66984; V2632